=== PATIENT | female | born 1970 | race Caucasian/White ===

== ENCOUNTER 2018-11-28 09:53 | Emergency (ER) | payer MEDICAID, SELFPAY ==
[2018-11-28 09:54] VITALS: BP 145/98; PULSE 103; RESP 12; TEMP 36.3; O2SAT 99; BMI 25.5
--- NOTE | 2018-11-28 10:28 | ED.DCSUM_ITS ---
- ER Visit Summary Date of Service: 11/28/18 Chief Complaint: Left hand redness and swelling History of Present Illness: The patient is a 48 F who presents with redness and swelling to her left hand that began yesterday. Patient states she accidentally poked herself with something from her purse a few days ago. Patient states the redness and swelling is gradually gotten worse. Patient admits to some dull pain over her left hand. Patient states her pain is worse with movement. Patient denies any paresthesias or weakness. Patient states she has a history of a prior infections from cellulitis. Physical Examination: Vital signs are stable. Patient is afebrile. Patient is in no acute distress. Oral mucosa is pink and moist. Heart was regular rate and rhythm. Lungs are clear and equal bilaterally. There is edema, mild erythema, mild warmth of the dorsal aspect of the left hand. There is no fluctuance. There is no discharge or drainage. There is a superficial abrasion over the dorsal aspect of the left hand. There is no active bleeding noted. There is full range of motion of the left hand. Sensation was intact to light touch in all digits. Capillary refill was less than 2 seconds in all digits. Emergency Department Course and Treatment: Patient was given prescriptions for clindamycin and fluconazole because the patient states she normally gets yeast infections with antibiotics. Patient was instructed to keep the area clean. Patient was instructed to follow-up with her primary care physician in 7-10 days. Patient understood and was agreeable with the plan. All questions were answered. Disposition: Discharged home Impression: Left hand cellulitis This note was generated with [employer] dictation software. It may contain incorrect words, spelling, and punctuation that were not noted in review of the chart prior to signing ED Disposition - Plan for ED Patient: Disposition: Home or Assisted Living Chief Complaint: Cellulitis Diagnosis: Cellulitis of left hand excluding fingers and thumb Instructions: ED Infec Skin Cellulitis Prescriptions: Fluconazole [Diflucan] 150 mg PO X1 #1 tab Clindamycin HCl [Cleocin] 300 mg PO Q6H #40 cap Referrals: Jacklyn Wilson [Primary Care Provider] - González Benitez MD [STAFF PHYSICIAN] -
[2018-11-28 11:01] VITALS: TEMP 36.3
== END 2018-11-28 11:03 | disposition home or self-care (01) ==
PROVIDERS: Emergency Provider Emergency Medicine; Family Provider Family Medicine; PCP Family Medicine
DX: L03.114 Cellulitis of left upper limb (principal); K21.9 Gastro-esophageal reflux disease without esophagitis; J45.909 Unspecified asthma, uncomplicated; M54.9 Dorsalgia, unspecified; G89.29 Other chronic pain; F17.210 Nicotine dependence, cigarettes, uncomplicated
CPT/HCPCS: 99282

== ENCOUNTER 2025-05-13 23:24 | Emergency (ER) | payer MEDICAID, SELFPAY ==
--- NOTE | 2025-05-13 00:05 | RAD_ITS ---
PROCEDURE: WRIST MIN 3 VIEWS 05/14/2025 REASON FOR EXAM: INJURY/PAIN TECHNIQUE: WRIST MIN 3 VIEWS COMPARISON: None. FINDINGS: Mild osteopenia of the visualized bones. Degenerative joint disease. No fracture or dislocation is seen. No lytic or blastic bone lesion is noted. RAD/Wrist min 3 Views IMPRESSION: No evidence for acute abnormality. [facility]
[2025-05-13 23:25] VITALS: BP 137/94; PULSE 98; RESP 18; TEMP 36.4; O2SAT 100; BMI 27.6
--- NOTE | 2025-05-13 23:50 | RAD_ITS ---
PROCEDURE: PELVIS 1 OR 2 VIEWS 05/14/2025 REASON FOR EXAM: INJURY/PAIN TECHNIQUE: PELVIS 1 OR 2 VIEWS COMPARISON: None FINDINGS: There is a non-specific bowel gas pattern. Normal visualized soft tissue structures. Normal visualized sacrum, sacroiliac joints and bilateral iliac wings. Normal visualized bilateral superior and inferior pubic rami. Normal ischial tuberosities. Normal pubic symphysis. Normal visualized right femoral head. Normal right acetabulum. Normal right hip joint. Normal visualized left femoral head. Normal left acetabulum. Normal left hip joint. Minimal degenerative changes are seen in the lower lumbar vertebra. RAD/Pelvis 1 or 2 Views IMPRESSION: Normal examination of the pelvis. [facility]
[2025-05-13] MEDS: Naproxen 500 MG Tablet PO (23:56)
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
--- OUTSIDE RECORDS SUMMARY | 2025-05-14 00:29 | XMS RPT_ITS | CCD ---
Author Organization [facility] Care Team Providers Care Video Specialist Name Role Phone EMMETT HIRSCH Unavailable Unavailable EMMETT HIRSCH Unavailable Unavailable LANE CASTAÑEDA Unavailable Unavailable JACKLYN WILSON Unavailable Unavailable Gamaliel Cormier Primary Care Provider [phone] HAMIDA DWYER Attending Provider [phone] HAMIDA DWYER Referring Provider [phone] Gamaliel Cormier Primary Care Provider Gamaliel Cormier MD Primary Care Provider Gamaliel Cormier MD Primary Care Provider Assessment, Health Risk Referring Unavaila ble Assessment, Health Risk Attending Unavaila ble Jacklyn Wilson Primary Care Unavailable Gamaliel Cormier MD Primary Care Provider Gamaliel Cormier MD Primary Care Provider Gamaliel Cormier MD Primary Care Provider GAMALIEL CORMIER Primary Care UnavailHERNANDO Duarte Attending Unava ilable ROBERT TYSON Referring Unavailable GAMALIEL CORMIER Primary Care Unavailable GAMALIEL CORMIER Primary Care Unavailable GAMALIEL CORMIER Attending Unavailable OTILIA SIMONS Attending Unavailable GAMALIEL CORMIER Primary Care Unavailable GAMALIEL CORMIER Primary Care Unavailable ROHITH PEREZ Attending Unavailable GAMALIEL CORMIER Primary Care Unavailable PRABHAKAR BLACK Attending Unavailable GAMALIEL CORMIER Primary Care Unavailable ROBERT TYSON Attending Unavailable GAMALIEL CORMIER Primary Care Unavailable GAMALIEL CORMIER Primary Care Unavailable GAMALIEL CORMIER Primary Care Unavailabl e Unavailable Unavailable Unavailable Allergies Allergy Classification Reported Allergen(s) Allergy Type Date of Onset Reaction(s) Facility (20 sources) ibuprofen; Translations: [IBUPROFEN] Drug Allergy 1 Nausea And Vomiting, GI intolerance, Other [facility] Repository (20 sources) meloxicam; Translations: [MELOXICAM] Drug Allergy 6 Other (See Comments), Other [facility] Repository (20 sources) morphine; Translations: [MORPHINE] Drug Allergy 1 Nausea And Vomiting [facility] Repository (20 sources) naltrexone; Translations: [NALTREXONE] Drug Allergy 5 Anaphylaxis [facility] Repository (4 sources) sertraline; Translations: [SERTRALINE HCL] Drug Allergy 5 AOF [facility] Repository (20 sources) Sertraline Drug Allergy 5 Other (See Comments) [place], [place] Medications Current Medications Medication Drug Class(es) Dates Sig (Normalized) Sig (Original) acetaminophen 325 mg / HYDROcodone bitartrate 5 mg oral tablet (6 sources) Opioid Agonist Start: 04-01-2024 End: 04-04-2024 take 1 tablet by mouth every six hours as needed for pain HYDROcodone-aceta minophen ([place]) 5-325 MG tablet Indications: Contusion of right chest wall, initial encounter , Injury of right shoulder, initial encounter Take 1 tablet by mouth every 6 hours as needed for severe pain (7-10) for up to 3 days. 5 tablet 0 04/01/2024 04/04/2024 Active [id number] 200 actuat albuterol 0.09 mg/actuat metered dose inhaler (20 sources) beta2-Adrenergic Agonist Start: 11-25-2024 End: 03-12-2025 take 2 puff(s) by mouth every six hours as needed albuterol 108 (90 Base) MCG/ACT inhaler Indications: Simple chronic bronchitis (HCC) INHALE 2 PUFFS BY MOUTH EVERY 6 HOURS NEEDED FOR WHEEZE 18 each 2 03/12/2025 Active Start: 11-11-2024 End: 11-25-2024 take 2 puff(s) by mouth every six hours as needed albuterol 108 (90 Base) MCG/ACT inhaler Indications: Simple chronic bronchitis (HCC) TAKE 2 PUFFS BY MOUTH EVERY 6 HOURS NEEDED FOR WHEEZE 18 g 2 11/11/2024 11/25/2024 Discontinued Start: 10-08-2024 take 2 puff(s) by mo uth every six hours as needed albuterol 108 (90 Base) MCG/ACT inhaler Indications: Simple chronic bronchitis (HCC) TAKE 2 PUFFS BY MOUTH EVERY 6 HOURS NEEDED FOR WHEEZE 18 each 10/08/2024 Active Start: 06-03-2024 End: 10-08-2024 take 2 puff(s) by inhalation every six hours as needed for wheezing albuterol 108 (90 Base) MCG/ACT inhaler Indications: Simple chronic bronchitis (HCC) Inhale 2 puffs every 6 hours as needed for wheezing. 18 g 2 07/26/2024 10/08/2024 Discontinued Start: 05-09-2024 take 2 puff(s) by mo uth every six hours for wheezing albuterol 108 (90 Base) MCG/ACT inhaler Indications: Simple chronic bronchitis (HCC) inhale 2 puffs by mouth every 6 hours if needed for wheezing 8.5 g 0 05/09/2024 Active Start: 02-02-2023 End: 05-09-2024 take 2 puff(s) by inhalation every six hours as needed for wheezing albuterol 108 (90 Base) MCG/ACT inhaler Indications: Simple chronic bronchitis (HCC) Inhale 2 puffs every 6 hours as needed for wheezing. 18 g 2 01/16/2024 05/09/2024 Discontinued Start: 12-27-2022 End: 01-04-2023 take 2 puff(s) by mouth every six hours for wheezing albuterol 108 (90 Base) MCG/ACT inhaler inhale 2 puffs by mouth and INTO THE LUNGS every 6 hours if needed for wheezing 18 g 2 12/27/2022 01/04/2023 Discontinued (Duplicate order) Start: 10-17-2022 End: 12-27-2022 take 2 puff(s) by mouth every six hours for wheezing albuterol (Ventolin HFA) 108 (90 Base) MCG/ACT inhaler inhale 2 puffs by mouth and INTO THE LUNGS every 6 hours if needed for wheezing 18 g 2 10/17/2022 12/27/2022 Discontinued Start: 12-22-2021 take 2 puff(s) by mo uth every six hours for wheezing albuterol sulfate HFA 108 (90 Base) MCG/ACT inhaler inhale 2 puffs by mouth and INTO THE LUNGS every 6 hours if needed for wheezing 18 g 3 12/22/2021 Active Start: 10-05-2020 albuterol (PRO VENTIL) nebulizer solution 2.5 mg Start: 02-21-2020 take 2 puff(s) by in halation every six hours as needed for wheezing albuterol sulfate HFA (VENTOLIN HFA) 108 (90 Base) MCG/ACT inhaler Inhale 2 puffs into the lungs every 6 hours as needed for Wheezing 18 g 3 02/21/2020 Active Start: 10-23-2019 Albuterol Sulf ate Active 2 PUFF Every 4-6 hours October 23, 2019 9:25am Start: 07-05-2019 take 2 puff(s) by in halation every six hours as needed for wheezing 2 puff, Inhalation, EVERY 6 HOURS PRN, Wheezing, Starting Mon07/05/19 at 1058 Start: 06-25-2019 take 2 puff(s) by in halation every six hours as needed for wheezing albuterol sulfate HFA (VENTOLIN HFA) 108 (90 Base) MCG/ACT inhaler Inhale 2 puffs into the lungs every 6 hours as needed for Wheezing 18 g 3 06/25/2019 Active Start: 12-07-2015 End: 02-02-2023 take 2 puff(s) by mouth every six hours for wheezing albuterol 108 (90 Base) MCG/ACT inhaler inhale 2 puffs by mouth and INTO THE LUNGS every 6 hours if needed for wheezing 0 12/07/2015 02/02/2023 Discontinued (Reorder) amitriptyline hydrochloride 150 mg oral tablet (1 source) Tricyclic Antidepressant Start: 10-23-2019 Amitriptyline Hcl Active 150 MG Bedtime October 23, 2019 9:27am azithromycin 250 mg oral tablet (1 source) Macrolide Antimicrobial Start: 08-23-2024 End: 08-28-2024 azithromycin (Zithromax) 250 MG tablet Indications: Acute bronchitis, unspecified organism Take 2 tabs (500 mg) by mouth today, than 1 daily for 4 days. 6 tablet 08/23/2024 08/28/2024 Active baclofen 5 mg oral tablet (5 sources) gamma-Aminobutyric Acid-ergic Agonist Start: 12-04-2024 take 1 tablet by mouth three times daily baclofen (Lioresal) 5 MG tablet Take 1 tablet (5 mg) by mouth 3 times daily. 30 tablet 12/04/2024 Active benzonatate 200 mg oral capsule (2 sources) Non-narcotic Antitussive Start: 08-23-2024 End: 09-22-2024 take 1 capsule by mouth three times daily as needed for cough benzonatate (Tessalon) 200 MG capsule Indications: Acute bronchitis, unspecified organism Take 1 capsule (200 mg) by mouth 3 times daily as needed for cough. Do not crush or chew. 42 capsule 08/23/2024 09/22/2024 Active Start: 10-05-2020 End: 10-12-2020 take 1 capsule by mouth three times daily as needed for cough benzonatate (TESSALON) 100 MG capsule Take 1 capsule by mouth 3 times daily as needed for Cough 20 capsule 0 10/05/2020 10/12/2020 Active 60 actuat budesonide 0.08 mg/actuat / formoterol fumarate 0.0045 mg/actuat metered dose inhaler (4 sources) Corticosteroid, beta2-Adrenergic Agonist Start: 06-26-2019 take 2 puff(s) by inhalation twice daily budesonide-formoterol (SYMBICORT) 80-4.5 MCG/ACT AERO Indications: Moderate persistent asthma without complication Inhale 2 puffs into the lungs 2 times daily 1 Inhaler 0 06/26/2019 Active cyclobenzaprine hydrochloride 5 mg oral tablet (1 source) Muscle Relaxant Start: 10-23-2019 Cyclobenzaprine Hcl Active 5 MG 3 times per day October 23, 2019 9:26am diclofenac sodium 0.01 mg/mg topical gel (2 sources) Nonsteroidal Anti-inflammatory Drug Start: 07-04-2019 diclofenac sodium 1 % GEL Apply 4 g topically 4 times daily 2 Tube 0 07/04/2019 Active doxycycline hyclate 100 mg oral capsule (8 sources) Tetracycline-class Drug Start: 05-27-2023 End: 06-06-2023 doxycycline (Vibramycin) 100 MG capsule Take 1 capsule (100 mg) by mouth 2 times daily for 10 days. Take with at least 8 ounces (large glass) of water, do not lie down for 30 minutes after 20 capsule 0 05/27/2023 06/06/2023 Active Start: 05-27-2023 End: 05-27-2023 doxycycline (Monodox) capsul e 100 mg Start: 03-27-2022 take 1 tablet by jose th twice daily doxycycline hyclate (VIBRA-TABS) 100 MG tablet TAKE 1 TABLET BY MOUTH TWICE DAILY FOR 10 DAYS 0 03/27/2022 Active Start: 07-07-2019 End: 07-14-2019 take 1 tablet by mouth twice daily doxycycline hyclate (VIBRA-TABS) 100 MG tablet Take 1 tablet by mouth 2 times daily for 7 days 14 tablet 0 07/07/2019 07/14/2019 Active Elastic Bandages & Supports (ABDOMINAL BINDER/ELASTIC MED) MISC (2 sources) Start: 03-18-2019 Elastic Bandages & Supports (ABDOMINAL BINDER/ELASTIC MED) MISC Indications: Chronic bilateral low back pain without sciatica 1 applicator by Does not apply route daily To be worn when lifting over 20 pounds only when lifting. Otherwise should not use 1 each 0 03/18/2019 Active 0.4 ml enoxaparin sodium 100 mg/ml prefilled syringe (1 source) Low Molecular Weight Heparin Start: 07-05-2019 inject 40 mg by subcutaneous injection once daily 40 mg, Subcutaneous, DAILY, First dose on Mon07/05/19 at 1115 famotidine 40 mg oral tablet (1 source) Histamine-2 Receptor Antagonist Start: 10-23-2019 Famotidine Active 40 MG Daily October 23, 2019 9:30am 60 actuat formoterol fumarate 0.005 mg/actuat / mometasone furoate 0.1 mg/actuat metered dose inhaler (1 source) Corticosteroid, beta2-Adrenergic Agonist Start: 07-05-2019 take 2 puff(s) by inhalation twice daily 2 puff, Inhalation, 2 TIMES DAILY, First dose on Mon07/05/19 at 1115 Substituted for Budesonide-Formote rol (SYMBICORT). hydrOXYzine hydrochloride 25 mg oral tablet (6 sources) Antihistamine Start: 07-05-2019 hydrOXYzine (ATARAX) tablet 50 mg Start: 07-03-2019 End: 10-05-2020 take 1 capsule by mouth three times daily as needed for anxiety hydrOXYzine (VISTARIL) 50 MG capsule Take 1 capsule by mouth 3 times daily as needed for Anxiety 90 capsule 1 07/03/2019 10/05/2020 Discontinued (LIST CLEANUP) LORazepam 0.5 mg oral tablet (1 source) Benzodiazepine Start: 10-23-2019 Lorazepam Active 0.25 MG Bedtime October 23, 2019 9:26am magnesium hydroxide 80 mg/ml oral suspension (1 source) Start: 07-05-2019 take 30 mL by mouth once daily as needed for constipation 30 mL, Oral, DAILY PRN, Constipation, Starting Mon07/05/19 at 1058 First line therapy for constipation. methylPREDNISolone 4 mg oral tablet (2 sources) Corticosteroid Start: 03-06-2025 methylPREDNISolone (Medrol Dospak) 4 MG tablets Take as directed on package. 21 tablet 03/06/2025 Active Multivitamin preparation (1 source) Start: 10-23-2019 Multivitamin Active 1 TAB Every morning October 23, 2019 9:31am nabumetone 750 mg oral tablet (9 sources) Nonsteroidal Anti-inflammatory Drug Start: 12-04-2024 take 1 tablet by mouth twice daily nabumetone (Relafen) 750 MG tablet Take 1 tablet (750 mg) by mouth 2 times daily. 60 tablet 12/04/2024 Active Start: 07-15-2019 End: 10-05-2020 take 0.5 tablet by mouth twice daily nabumetone (RELAFEN) 500 MG tablet Take 0.5 tablets by mouth 2 times daily 60 tablet 0 07/15/2019 10/05/2020 Discontinued 24 hr nicotine 0.583 mg/hr transdermal system (1 source) Cholinergic Nicotinic Agonist Start: 07-05-2019 apply 1 dose transdermal route once daily 1 patch, Transdermal, Administer over 24 Hours, DAILY, First dose on Mon07/05/19 at 1115 Apply new patch to nonhairy, clean, dry skin on the upper body or upper outer arm. Rotate patch sites. Notify pharmacy if patient or provider prefers patch to be removed at bedtime and replaced in the morning. Hazardous Medication -- Refer to facility policy for handling and disposal. omeprazole 40 mg delayed release oral capsule (20 sources) Proton Pump Inhibitor Start: 03-18-2025 End: 03-18-2026 take 1 capsule by mouth once daily before breakfast omeprazole (PriLOSEC) [address] capsule Indications: Gastroesophageal reflux disease without esophagitis Take 1 capsule (40 mg) by mouth every morning (before breakfast). Do not crush or chew. 30 capsule 11 03/18/2025 03/18/2026 Active Start: 10-28-2015 End: 02-02-2023 take 1 capsule by mouth in the morning omeprazole (PriLOSEC) [address] capsule Take 1 capsule by mouth in the morning. 0 10/28/2015 02/02/2023 Discontinued (Med list cleanup) ondansetron 4 mg disintegrating oral tablet (20 sources) Serotonin-3 Receptor Antagonist Start: 04-01-2024 End: 04-08-2024 take 1 tablet by mouth every eight hours as needed for nausea and vomiting ondansetron ODT (Zofran-ODT) 4 MG disintegrating tablet Take 1 tablet (4 mg) by mouth every 8 hours as needed for nausea or vomiting for up to 7 days. 12 tablet 0 04/01/2024 04/08/2024 Active Start: 08-30-2023 End: 12-04-2024 take 1 tablet by mouth every six hours as needed for nausea ondansetron ODT (Zofran-ODT) 4 MG disintegrating tablet Take 1 tablet (4 mg) by mouth every 6 hours as needed for nausea. 20 tablet 12/04/2024 Active Start: 04-01-2022 End: 05-27-2023 ondansetron ODT (Zofran-ODT) 4 MG disintegrating tablet dissolve 1 tablet ON TONGUE three times a day if needed for nausea or vomiting 0 04/01/2022 05/27/2023 Discontinued Start: 03-09-2020 End: 10-05-2020 take 1 tablet by mouth every eight hours as needed for nausea ondansetron (ZOFRAN) 4 MG tablet Take 1 tablet by mouth every 8 hours as needed for Nausea 10 tablet 0 03/09/2020 10/05/2020 Discontinued Start: 07-05-2019 4 mg, Intraven ous, EVERY 6 HOURS PRN, Nausea, Starting Mon07/05/19 at 1058 Start: 07-03-2019 take 1 tablet by jose th every eight hours as needed for nausea ondansetron (ZOFRAN) 4 MG tablet Take 1 tablet by mouth every 8 hours as needed for Nausea 10 tablet 0 07/03/2019 Active oseltamivir 75 mg oral capsule (6 sources) Neuraminidase Inhibitor Start: 11-24-2024 End: 11-29-2024 take 1 capsule by mouth twice daily oseltamivir (Tamiflu) 75 MG capsule Take 1 capsule (75 mg) by mouth 2 times daily for 5 days. 10 capsule 11/24/2024 11/29/2024 Active Start: 01-23-2020 End: 01-28-2020 take 1 capsule by mouth twice daily oseltamivir (TAMIFLU) 75 MG capsule Take 1 capsule by mouth 2 times daily for 5 days 9 capsule 0 01/23/2020 01/28/2020 Active oxymetazoline hydrochloride 0.5 mg/ml nasal spray (20 sources) Start: 02-27-2024 End: 02-29-2024 oxymetazoline (Afrin) 0.05 % nasal spray Administer 2 sprays into each nostril every 12 hours as needed for congestion for up to 2 days. Do not use for more than 3 days. 30 mL 02/27/2024 Active End: 05-27-2023 oxymetazoline (Afrin) 0.05 % nasal spray Administer into each nostril. Do not use for more than 3 days. 0 05/27/2023 Discontinued piperacillin 3000 mg / tazobactam 375 mg injection (1 source) Penicillin-class Antibacterial, beta Lactamase Inhibitor Start: 07-06-2019 piperacillin-tazobactam (ZOSYN) 3.375 g in dextrose 50 mL IVPB extended infusion (premix) polyethylene glycol 3350 [id number] mg / potassium chloride 2970 mg / sodium bicarbonate 6740 mg / sodium chloride 5860 mg / sodium sulfate 61430 mg powder for oral solution (2 sources) Osmotic Laxative Start: 12-15-2022 End: 12-16-2022 polyethylene glycol (GaviLyte-G) 236 g solution Starting at noon on day prior to procedures, drink 8 ounces every 30 minutes until all gone and stools are clear. May add flavor packet. 4000 mL 0 12/15/2022 12/16/2022 Active 1 ml promethazine hydrochloride 25 mg/ml injection (1 source) Phenothiazine Start: 07-06-2019 promethazine (PHENERGAN) injection 6.25 mg vancomycin (VANCOCIN) 1,250 mg in dextrose 5 % 250 mL IVPB (1 source) Start: 07-05-2019 vancomycin (VANCOCIN) 1,250 mg in dextrose 5 % 250 mL IVPB Completed/Discontinued Medications Medication Drug Class(es) Dates Sig (Normalized) Sig (Original) acetaminophen 500 mg oral tablet (14 sources) Start: 11-24-2024 End: 11-24-2024 1,000 mg, Oral, Once, On 11/24/24 at 1925, For 1 dose, Maximum dose of acetaminophen is 4000 mg from all sources in 24 hours. Start: 04-01-2024 End: 04-01-2024 acetaminophen (Tylenol) tabl et 650 mg Start: 02-27-2024 End: 02-27-2024 acetaminophen (Tylenol) tabl et 1,000 mg Start: 02-27-2024 End: 02-27-2024 acetaminophen (Tylenol) tabl et 1,000 mg Start: 08-28-2023 End: 08-28-2023 acetaminophen (Tylenol) tabl et 650 mg Start: 05-11-2022 End: 05-11-2022 acetaminophen (TYLENOL) tabl et 1,000 mg Start: 01-23-2020 End: 01-23-2020 acetaminophen (TYLENOL) tabl et 1,000 mg Start: 09-06-2019 End: 09-06-2019 acetaminophen (TYLENOL) tabl et 1,000 mg Start: 07-05-2019 End: 07-05-2019 acetaminophen (TYLENOL) tabl et 650 mg amoxicillin 500 mg oral tablet (1 source) Penicillin-class Antibacterial Start: 02-21-2020 End: 10-05-2020 take 1 tablet by mouth three times daily Amoxicillin 500 MG TABS Take 500 mg by mouth 3 times daily 21 tablet 0 02/21/2020 10/05/2020 Discontinued amoxicillin 875 mg / clavulanate 125 mg oral tablet (3 sources) Penicillin-class Antibacterial Start: 10-05-2020 End: 10-05-2020 amoxicillin-clavul anate (AUGMENTIN) 875-125 MG per tablet 1 tablet Start: 10-05-2020 End: 10-15-2020 take 1 tablet by mouth twice daily amoxicillin-clavulanate (AUGMENTIN XR) 1000-62.5 MG per extended release tablet Take 1 tablet by mouth 2 times daily for 10 days 20 tablet 0 10/05/2020 10/15/2020 Active Start: 07-07-2019 End: 07-14-2019 take 1 tablet by mouth twice daily amoxicillin-clavulanate (AUGMENTIN) 875-125 MG per tablet Take 1 tablet by mouth 2 times daily for 7 days 14 tablet 0 07/07/2019 07/14/2019 Active ceFAZolin 1000 mg injection (1 source) Cephalosporin Antibacterial Start: 07-05-2019 End: 07-06-2019 1 g, Intravenous, EVERY 8 HOURS, First dose on Mon07/05/19 at 1130, Until Discontinued cephalexin 500 mg oral capsule (20 sources) Cephalosporin Antibacterial Start: 11-24-2024 End: 11-24-2024 take 500 mg by mouth once 500 mg, Oral, Once, On 11/24/24 at 1925, For 1 dose, Suspected Indication (Select all that apply): Skin and Soft Tissue Infection Start: 11-24-2024 End: 12-04-2024 take 1 capsule by mouth four times daily cephalexin (Keflex) 500 MG capsule Take 1 capsule (500 mg) by mouth 4 times daily for 7 days. 28 capsule 11/24/2024 12/04/2024 Active Start: 04-01-2024 End: 04-08-2024 cephalexin (Keflex) 500 MG c apsule Take 1 capsule (500 mg) by mouth in the morning and 1 capsule (500 mg) at noon and 1 capsule (500 mg) in the evening and 1 capsule (500 mg) before bedtime. Do all this for 7 days. 28 capsule 0 04/01/2024 04/08/2024 Active Start: 08-28-2023 End: 09-07-2023 take 1 capsule by mouth three times daily cephalexin (Keflex) 500 MG capsule Take 1 capsule (500 mg) by mouth 3 times daily for 10 days. 30 capsule 0 08/28/2023 09/07/2023 Active Start: 08-15-2023 End: 08-22-2023 cephalexin (Keflex) 500 MG c apsule Indications: Cellulitis of right lower extremity Take 1 capsule (500 mg) by mouth in the morning and 1 capsule (500 mg) at noon and 1 capsule (500 mg) in the evening and 1 capsule (500 mg) before bedtime. Do all this for 7 days. 28 capsule 0 08/15/2023 08/22/2023 Active Start: 06-21-2023 End: 06-28-2023 cephalexin (Keflex) 500 MG c apsule Indications: Cellulitis of left lower extremity Take 1 capsule (500 mg) by mouth in the morning and 1 capsule (500 mg) at noon and 1 capsule (500 mg) in the evening and 1 capsule (500 mg) before bedtime. Do all this for 7 days. 28 capsule 0 06/21/2023 06/28/2023 Active Start: 02-02-2023 End: 02-12-2023 take 1 capsule by mouth three times daily cephalexin (Keflex) 500 MG capsule Take 1 capsule (500 mg) by mouth 3 times daily for 10 days. 30 capsule 0 02/02/2023 02/12/2023 Active Start: 07-03-2019 End: 07-07-2019 take 1 capsule by mouth four times daily cephALEXin (KEFLEX) 500 MG capsule Take 1 capsule by mouth 4 times daily for 5 days 20 capsule 0 07/03/2019 07/07/2019 Discontinued (Stop Taking at Discharge) 24 hr desvenlafaxine succinate 25 mg extended release oral tablet (6 sources) Serotonin and Norepinephrine Reuptake Inhibitor Start: 10-28-2022 End: 01-04-2023 take 1 tablet by mouth once daily desvenlafaxine succinate ER 25 MG 24 hour tablet Indications: Hot flashes due to menopause , Anxiety and depression Take 1 tablet (25 mg) by mouth daily. 30 tablet 1 10/28/2022 01/04/2023 Discontinued (Therapy completed) diazePAM 2 mg oral tablet (20 sources) Benzodiazepine Start: 08-14-2023 End: 08-23-2024 take 1 tablet by mouth every twenty-four hours as needed for anxiety and anxiety and anxiety diazePAM (Valium) 2 MG tablet Indications: Anxiety Take 1 tablet (2 mg) by mouth Daily as needed for anxiety for up to 10 days. 10 tablet 08/14/2023 08/23/2024 Discontinued (Therapy completed) esomeprazole 40 mg delayed release oral capsule (20 sources) Proton Pump Inhibitor Start: 08-23-2024 End: 08-23-2025 take 1 capsule by mouth once daily before breakfast esomeprazole (NexIUM) [address] capsule Indications: Gastroesophageal reflux disease, unspecified whether esophagitis present Take 1 capsule (40 mg) by mouth every morning (before breakfast). Do not open capsule. 30 capsule 11 08/23/2024 03/18/2025 Discontinued (Formulary change) Start: 12-12-2022 End: 01-16-2024 take 1 capsule by mouth once daily before breakfast esomeprazole (NexIUM) [address] capsule Take 1 capsule (40 mg) by mouth every morning (before breakfast). 30 capsule 5 04/26/2023 01/16/2024 Discontinued (Therapy completed) Start: 11-18-2021 take 1 capsule by mo ut once daily before breakfast esomeprazole (NEXIUM) 40 MG delayed release capsule Take 1 capsule by mouth every morning (before breakfast) 30 capsule 5 11/18/2021 Active fluconazole 150 mg oral tablet (20 sources) Azole Antifungal Start: 12-03-2024 End: 12-03-2024 take 1 tablet by mouth once daily fluconazole (Diflucan) 150 MG tablet Take 1 tablet (150 mg) by mouth daily. 2 tablet 12/03/2024 12/03/2024 Discontinued (Therapy completed) Start: 06-21-2023 End: 08-23-2024 fluconazole (Diflucan) 150 M G tablet Indications: Vaginal yeast infection Take 1 tablet by mouth every 3 days by mouth x 3 doses 1 tablet 08/15/2023 08/23/2024 Discontinued (Therapy completed) Start: 05-30-2023 End: 05-30-2023 fluconazole (Diflucan) 200 M G tablet Take 1 tablet (200 mg) by mouth Once for 1 dose. Do not start before May 30, 2023. 1 tablet 0 05/30/2023 05/30/2023 Active Start: 05-27-2023 End: 05-27-2023 fluconazole (Diflucan) table t 100 mg Start: 03-27-2022 End: 05-31-2023 take 1 tablet by mouth once fluconazole (Diflucan) 150 MG tablet Take 150 mg by mouth 1 (one) time. 0 10/28/2022 02/02/2023 Discontinued (Reorder) ipratropium bromide 0.2 mg/ml inhalant solution (1 source) Anticholinergic Start: 10-05-2020 End: 10-05-2020 ipratropium (ATROVENT) 0.02 % nebulizer solution 0.5 mg ketoconazole 20 mg/ml topical cream (18 sources) Azole Antifungal Start: 01-16-2024 End: 08-23-2024 ketoconazole (NIZOral) 2 % cream Indications: Rash Apply topically 2 times daily. 30 g 01/16/2024 08/23/2024 Discontinued (Therapy completed) 2 ml ketorolac tromethamine 30 mg/ml cartridge (3 sources) Nonsteroidal Anti-inflammatory Drug, Cyclooxygenase Inhibitor Start: 06-21-2023 End: 06-21-2023 ketorolac (Toradol) injection 60 mg Start: 09-06-2019 End: 09-06-2019 ketorolac (TORADOL) injectio n 60 mg lansoprazole 30 mg delayed release oral capsule (6 sources) Proton Pump Inhibitor Start: 03-09-2020 End: 10-05-2020 take 1 capsule by mouth once daily lansoprazole (PREVACID) 30 MG delayed release capsule Indications: Gastroesophageal reflux disease without esophagitis Take 1 capsule by mouth daily 90 capsule 1 03/09/2020 10/05/2020 Discontinued Start: 06-26-2019 Lansoprazole A ctive 30 MG Daily October 23, 2019 9:30am lidocaine 0.04 mg/mg medicated patch (2 sources) Antiarrhythmic, Amide Local Anesthetic Start: 04-01-2024 End: 04-01-2024 Lidocaine 4 % patch 1 patch Multiple Vitamins-Minerals (CENTRUM MULTIGUMMIES PO) (5 sources) End: 10-05-2020 Multiple Vitamins-Minerals (CENTRUM MULTIGUMMIES PO) Take by mouth daily 0 10/05/2020 Discontinued Multiple Vitamin s-Minerals (CENTRUM MULTIGUMMIES PO) Take by mouth daily 0 Active naproxen 500 mg oral tablet (20 sources) Nonsteroidal Anti-inflammatory Drug Start: 04-01-2024 End: 04-01-2024 naproxen (Naprosyn) tablet 500 mg Start: 07-06-2019 naproxen (NAPR OSYN) tablet 500 mg Start: 06-26-2019 take 1 tablet by jose twice daily at mealtime naproxen (NAPROSYN) 250 MG tablet Indications: Chronic bilateral low back pain without sciatica Take 1 tablet by mouth 2 times daily (with meals) 60 tablet 3 06/26/2019 Active NAPROXEN PO Take 220 mg by mouth. 2 tabs prn Active NAPROXEN PO Take 220 mg by mouth. 2 tabs prn 0 Active NAPROXEN PO Take by mouth. 0 Active NAPROXEN PO Take by mouth 0 Active 2 ml orphenadrine citrate 30 mg/ml injection (1 source) Muscle Relaxant Start: 09-06-2019 End: 09-06-2019 orphenadrine (NORFLEX) injection 60 mg pantoprazole 40 mg delayed release oral tablet (15 sources) Proton Pump Inhibitor Start: 01-16-2024 End: 08-23-2024 take 1 tablet by mouth once daily pantoprazole (ProtoNix) 40 MG EC tablet Indications: Gastroesophageal reflux disease without esophagitis Take 1 tablet (40 mg) by mouth daily. Do not crush, chew, or split. 30 tablet 1 01/16/2024 08/23/2024 Discontinued (Alternate therapy) Start: 07-05-2019 take 40 mg by mouth once daily before breakfast 40 mg, Oral, DAILY BEFORE BREAKFAST, First dose on Mon07/05/19 at 1100 Do not crush or break. Substituted for Lansoprazole (PREVACID). polyethylene glycol 3350 68832 mg powder for oral solution (6 sources) Osmotic Laxative Start: 12-15-2022 End: 01-14-2023 take 17 g by mouth once daily polyethylene glycol, PEG, 3350 (Miralax) 17 g packet Take 17 g by mouth daily. 30 packet 0 12/15/2022 01/04/2023 Discontinued (Therapy completed) 12 hr pseudoephedrine hydrochloride 120 mg extended release oral tablet (10 sources) alpha-Adrenerg ic Agonist Start: 02-27-2024 End: 08-23-2024 take 1 tablet by mouth in the morning, then take 1 tablet by mouth every twelve hours in the evening pseudoephedrine ER (Sudafed-12 Hour) 120 MG 12 hr tablet Take 1 tablet (120 mg) by mouth in the morning and 1 tablet (120 mg) in the evening. Do all this for 10 days. Do not crush, chew, or split.. 20 tablet 02/27/2024 08/23/2024 Discontinued (Therapy completed) 50 ml sodium chloride 9 mg/ml injection (19 sources) Start: 08-28-2023 End: 08-28-2023 sodium chloride 0.9 % bolus 1,000 mL Start: 12-28-2022 End: 12-28-2022 sodium chloride 0.9% (NS) fl ush 10 mL Start: 12-28-2022 End: 12-28-2022 sodium chloride 0.9% (NS) fl ush 10 mL Start: 12-28-2022 End: 12-28-2022 sodium chloride 0.9% (NS) fl ush 10 mL Start: 12-28-2022 End: 12-28-2022 sodium chloride 0.9% (NS) fl ush 10 mL Start: 12-28-2022 End: 12-28-2022 sodium chloride 0.9 % infusi on Start: 12-28-2022 End: 12-28-2022 sodium chloride 0.9% (NS) fl ush 10 mL Start: 07-05-2019 Intravenous, a t 75 mL/hr, CONTINUOUS, Starting Mon07/05/19 at 1115 Start: 07-05-2019 10 mL, Intrave nous, EVERY 12 HOURS SCHEDULED (2 times per day), First dose on Mon07/05/19 at 1115 Start: 07-05-2019 take 10 mL intraveno us route once as needed 10 mL, Intravenous, PRN, Line Care, After every IV line use, Starting Mon07/05/19 at 1058 sulfamethoxazole 800 mg / trimethoprim 160 mg oral tablet (19 sources) Dihydrofolate Reductase Inhibitor Antibacterial, Sulfonamide Antimicrobial Start: 11-24-2024 End: 11-24-2024 take 1 tablet by mouth once 1 tablet, Oral, Once, On 11/24/24 at 1925, For 1 dose, Suspected Indication (Select all that apply): Skin and Soft Tissue Infection Start: 11-24-2024 End: 12-04-2024 take 1 tablet by mouth twice daily sulfamethoxazole-trimethoprim (Bactrim D S) 800-160 MG tablet Take 1 tablet by mouth 2 times daily for 10 days. 20 tablet 11/24/2024 12/04/2024 Active Start: 04-01-2024 End: 04-08-2024 take 1 tablet by mouth twice daily sulfamethoxazole-trimethoprim (Bactrim D S) 800-160 MG tablet Take 1 tablet by mouth 2 times daily for 7 days. 14 tablet 0 04/01/2024 04/08/2024 Active Start: 08-15-2023 End: 08-22-2023 take 1 tablet by mouth twice daily sulfamethoxazole-trimethoprim (Bactrim D S) 800-160 MG tablet Indications: Cellulitis of right lower extremity Take 1 tablet by mouth 2 times daily for 7 days. 14 tablet 0 08/15/2023 08/22/2023 Active Start: 06-21-2023 End: 06-28-2023 take 1 tablet by mouth twice daily sulfamethoxazole-trimethoprim (Bactrim D S) 800-160 MG tablet Indications: Cellulitis of left lower extremity Take 1 tablet by mouth 2 times daily for 7 days. 14 tablet 0 06/21/2023 06/28/2023 Active Start: 07-03-2019 End: 07-07-2019 take 1 tablet by mouth twice daily sulfamethoxazole-trimethoprim (BACTRIM D S) 800-160 MG per tablet Take 1 tablet by mouth 2 times daily for 5 days 10 tablet 0 07/03/2019 07/07/2019 Discontinued (Stop Taking at Discharge) traMADol hydrochloride 50 mg oral tablet (2 sources) Opioid Agonist Start: 07-05-2019 End: 07-06-2019 traMADol (ULTRAM) tablet 50 mg Start: 07-05-2019 End: 07-05-2019 traMADol (ULTRAM) tablet 25 mg 200 ml vancomycin 5 mg/ml injection (1 source) Glycopeptide Antibacterial Start: 07-05-2019 End: 07-05-2019 vancomycin (VANCOCIN) 1000 mg in dextrose 5% 200 mL IVPB Problems Active Problems Problem Classification Problem Date Documented Date Episodic/Chronic Administrative/socia l admission (1 source) Education with explicit context; Translations: [Educated about COVID-19 virus infection] Episodic Alcohol-related disorders (20 sources) Alcohol dependence, uncomplicated; Translations: [Alcohol dependence] Onset: 10-28-2015 Resolved: 03-18-2019 03-18-2019 Chronic Anxiety disorders (20 sources) Anxiety disorder, unspecified; Translations: [Anxiety] Onset: 09-09-2009 Resolved: 01-05-2022 08-02-2016 Chronic Asthma (20 sources) Asthma; Translations: [Unspecified asthma, uncomplicated] Onset: 06-02-2009 08-02-2016 Chronic Calculus of urinary tract (1 source) Calculus of ureter; Translations: [Ureteral stone] Onset: 08-30-2023 Episodic Chronic obstructive pulmonary disease and bronchiectasis (20 sources) Acute exacerbation of chronic obstructive airways disease; Translations: [Chronic obstructive pulmonary disease with (acute) exacerbation] Onset: 03-08-2023 03-08-2023 Chronic Chronic obstructive pulmonary disease and bronchiectasis (2 sources) Bronchitis; Translations: [Bronchitis, not specified as acute or chronic] 02-27-2024 Episodic Esophageal disorders (20 sources) Gastroesophageal reflux disease without esophagitis; Translations: [Gastro-esophageal reflux disease without esophagitis] Onset: 10-28-2015 08-02-2016 Chronic Menopausal disorders (20 sources) Menopausal flushing; Translations: [Menopausal and female climacteric states] Onset: 10-28-2022 10-28-2022 Chronic Mycoses (2 sources) Candidiasis of vagina; Translations: [Vaginal yeast infection] 06-21-2023 Episodic Nutritional deficiencies (1 source) Vitamin D deficiency; Translations: [Vitamin D deficiency, unspecified] Chronic Osteoarthritis (2 sources) Degenerative joint disease involving multiple joints; Translations: [Polyosteoarthritis, unspecified] Chronic Other connective tissue disease (16 sources) Pain of left hand; Translations: [Pain in left hand] Episodic Other connective tissue disease (16 sources) Pain in right foot; Translations: [Pain in right foot] Episodic Other connective tissue disease (16 sources) Pain in left foot; Translations: [Pain in left foot] Episodic Other connective tissue disease (3 sources) Pain in right hand; Translations: [Pain in right hand] Episodic Other injuries and conditions due to external causes (2 sources) Injury of right shoulder; Translations: [Unspecified injury of right shoulder and upper arm, initial encounter] 04-01-2024 Episodic Other nervous system disorders (3 sources) Other chronic pain; Translations: [Other chronic pain] Onset: 09-29-2017 Chronic Other nervous system disorders (20 sources) Neuropathy; Translations: [Polyneuropathy, unspecified] Onset: 03-08-2023 Chronic Other nervous system disorders (16 sources) Chronic pain; Translations: [Other chronic pain] Chronic Other non-traumatic joint disorders (1 source) Polyarthritis, unspecified; Translations: [Polyarthritis, unspecified] Onset: 09-29-2017 Chronic Other non-traumatic joint disorders (16 sources) Pain in left knee; Translations: [Pain in joint, lower leg] Episodic Other upper respiratory infections (11 sources) Acute maxillary sinusitis; Translations: [Acute bacterial sinusitis] Onset: 03-12-2021 Resolved: 01-05-2022 01-05-2022 Episodic Residual codes; unclassified (1 source) FH: Thyroid disorder; Translations: [Family history of other endocrine, nutritional and metabolic diseases] Episodic Residual codes; unclassified (1 source) History of colonoscopy; Translations: [Other specified postprocedural states] Episodic Rheumatoid arthritis and related disease (20 sources) Juvenile rheumatoid arthritis; Translations: [Unspecified juvenile rheumatoid arthritis of unspecified site] Onset: 01-28-2017 01-28-2017 Chronic Spondylosis; intervertebral disc disorders; other back problems (20 sources) Degeneration of lumbar intervertebral disc; Translations: [Other intervertebral disc degeneration, lumbar region] Onset: 05-14-2018 02-21-2020 Chronic Substance-related disorders (20 sources) Nicotine dependence, unspecified, uncomplicated; Translations: [Smoker] Onset: 10-28-2015 08-02-2016 Chronic Unclassified (2 sources) Unknown / UNK(Unknown) Onset: 09-29-2017 Unclassified (1 source) Strain of muscle at thorax level; Translations: [Thoracic myofascial strain, initial encounter] Unclassified (1 source) Low back pain, unspecified; Translations: [Low back pain, unspecified] Onset: 12-04-2024 Unclassified (2 sources) Right finger laceration Onset: 04-12-2024 Past or Other Problems Problem Classification Problem Date Documented Da te Episodic/Chronic Abdominal hernia (20 sources) Hiatal hernia; Translations: [Diaphragmatic hernia without obstruction or gangrene] Onset: 03-08-2023 Episodic Abdominal pain (9 sources) Abdominal pain; Translations: [Unspecified abdominal pain] Onset: 12-24-2017 Resolved: 03-18-2019 03-18-2019 Episodic Acute bronchitis (4 sources) Acute bronchitis; Translations: [Acute bronchitis, unspecified] Onset: 08-23-2024 08-23-2024 Episodic Alcohol-related disorders (5 sources) H/O: alcoholism; Translations: [History of alcohol dependence] Onset: 03-18-2019 03-18-2019 Episodic Deficiency and other anemia (9 sources) Anemia; Translations: [Anemia, unspecified] Onset: 10-28-2015 Resolved: 08-26-2019 08-02-2016 Episodic Gastrointestinal hemorrhage (20 sources) Rectal hemorrhage; Translations: [Hemorrhage of anus and rectum] Onset: 04-26-2023 Episodic Headache; including migraine (9 sources) Headache; Translations: [Headache] Onset: 10-28-2015 Resolved: 03-18-2019 03-18-2019 Episodic Immunizations and screening for infectious disease (1 source) Viral screening status; Translations: [Encounter for screening for other viral diseases] Episodic Influenza (20 sources) Influenza; Translations: [Influenza due to unidentified influenza virus with other respiratory manifestations] Onset: 03-08-2023 03-08-2023 Episodic Malaise and fatigue (1 source) Fatigue; Translations: [Other fatigue] Episodic Menstrual disorders (9 sources) Irregular periods; Translations: [Irregular menstruation, unspecified] Onset: 05-26-2015 Resolved: 08-26-2019 04-13-2017 Chronic Mood disorders (20 sources) Mood disorders Onset: 08-14-2023 08-14-2023 Nonmalignant breast conditions (13 sources) Abscess of breast; Translations: [Abscess of the breast and nipple] Onset: 03-08-2017 Resolved: 06-26-2019 06-26-2019 Episodic Nutritional deficiencies (20 sources) Thiamin deficiency; Translations: [Cobalamin deficiency] Onset: 10-28-2015 04-13-2017 Episodic Other aftercare (8 sources) Patient encounter status; Translations: [bed bug exterminator (current) use of non-steroidal anti-inflammatories (NSAID)] Episodic Other connective tissue disease (2 sources) Pain in right hand; Translations: [Pain in left hand] Onset: 09-29-2017 Episodic Other connective tissue disease (20 sources) Spasm; Translations: [Cramp and spasm] Onset: 03-08-2023 03-08-2023 Episodic Other connective tissue disease (20 sources) Tendinitis of right rotator cuff; Translations: [Other shoulder lesions, right shoulder] Onset: 06-07-2021 06-07-2021 Episodic Other connective tissue disease (20 sources) Swelling of lower limb; Translations: [Other specified soft tissue disorders] Onset: 03-08-2023 Episodic Other connective tissue disease (3 sources) Bilateral chronic pain of feet; Translations: [Pain in right foot] Episodic Other connective tissue disease (3 sources) Pain of bilateral hands; Translations: [Pain in right hand] Episodic Other female genital disorders (20 sources) History of dysplasia of cervix; Translations: [Personal history of cervical dysplasia] Onset: 06-02-2009 04-13-2017 Episodic Other gastrointestinal disorders (9 sources) Irritable bowel syndrome; Translations: [Irritable bowel syndrome without diarrhea] Onset: 06-02-2009 Resolved: 01-05-2022 04-13-2017 Chronic Other gastrointestinal disorders (6 sources) Abdominal bloating; Translations: [Abdominal distension (gaseous)] Episodic Other gastrointestinal disorders (4 sources) Constipation; Translations: [Constipation, unspecified] Episodic Other infections; including parasitic (20 sources) Disorder due to infection; Translations: [Unspecified infectious disease] Onset: 03-08-2023 Episodic Other injuries and conditions due to external causes (2 sources) Unspecified injury of right shoulder and upper arm, initial encounter; Translations: [Unspecified injury of right shoulder and upper arm, initial encounter] Onset: 04-01-2024 Episodic Other non-traumatic joint disorders (20 sources) Shoulder pain; Translations: [Pain in unspecified shoulder] Onset: 10-03-2013 03-12-2021 Episodic Other non-traumatic joint disorders (20 sources) Pain in right knee; Translations: [Pain in joint, lower leg] Onset: 08-15-2023 Episodic Other non-traumatic joint disorders (3 sources) Bilateral chronic pain of upper limbs; Translations: [Pain in right shoulder] Episodic Other skin disorders (20 sources) Eruption; Translations: [Rash and other nonspecific skin eruption] Onset: 01-16-2024 05-27-2023 Episodic Residual codes; unclassified (20 sources) Pain; Translations: [Pain, unspecified] Onset: 01-05-2023 03-08-2023 Episodic Residual codes; unclassified (1 source) Livedo reticularis; Translations: [Pallor] Episodic Skin and subcutaneous tissue infections (20 sources) Cellulitis of right upper limb; Translations: [Cellulitis of right upper limb] Onset: 07-05-2019 Resolved: 08-26-2019 08-26-2019 Episodic Skin and subcutaneous tissue infections (6 sources) Cellulitis of right upper limb; Translations: [Cellulitis of right upper extremity] Onset: 07-05-2019 Resolved: 08-26-2019 07-05-2019 Spondylosis; intervertebral disc disorders; other back problems (20 sources) Lumbago with sciatica, left side; Translations: [Chronic low back pain] Onset: 08-02-2016 Resolved: 01-05-2022 03-18-2019 Episodic Sprains and strains (20 sources) Strain of muscle at thorax level; Translations: [Strain of muscle and tendon of unspecified wall of thorax, initial encounter] Onset: 03-08-2023 03-08-2023 Episodic Superficial injury; contusion (20 sources) Contusion of left knee; Translations: [Contusion of left knee, initial encounter] Onset: 03-08-2023 Episodic Syncope (20 sources) Syncope and collapse; Translations: [Syncope and collapse] Onset: 03-08-2023 03-08-2023 Episodic Unclassified (1 source) Low back pain, unspecified; Translations: [Low back pain, unspecified] Onset: 12-04-2024 Urinary tract infections (20 sources) Pyelonephritis; Translations: [Tubulo-interstitia l nephritis, not specified as acute or chronic] Onset: 08-29-2023 08-28-2023 Episodic Results Test Name Value Interpretation Reference Range Facility BLOOD TB SCREENon 05-07-2025 M. tuberculosis tuberculin stim IFN-g Ql (Bld) Negative Normal [facility] Comment on above: Order Comment: Speci men Type: BLOOD SPECIMEN Ordering Facility: [facility] Address: [address] [place] [id number] Performed By: #### I NFTBP #### [facility] CLIA [id number] [address] [place] [address] [place] MITOGEN MINUS NIL >9.99 Normal >=0.50 [facility] Comment on above: Order Comment: Josh sagastume Type: BLOOD SPECIMEN Ordering Facility: [facility] Address: [address] [place] [id number] Performed By: #### I NFTBP #### [facility] CLIA [id number] [address] [place] [address] [place] TB GAMMA INTERPRETATION Infection with M. tuberculosis complex is unlikely. If latent tuberculosis infection is highly suspected, a negative result does not rule out the infection. Specimens from immunocompromised patients and those <5 years of age may show false negative results. In case of a contact investigation, please repeat 8-12 weeks after a known exposure. Normal [facility] Comment on above: Order Comment: Josh sagastume Type: BLOOD SPECIMEN Ordering Facility: [facility] Address: [address] [place] [address] Performed By: #### I NFTBP #### [facility] CLIA [id number] [address] [place] [address] OF DEB TB NIL 0.01 IU/mL Normal <=8.00 [facility] Comment on above: Order Comment: Josh sagastume Type: BLOOD SPECIMEN Ordering Facility: [facility] Address: [address] [place] [id number] Performed By: #### I NFTBP #### [facility] CLIA [id number] [address] [place] [address] [place] TB1 AG MINUS NIL 0.00 IU/mL Normal <0.35 [facility] Comment on above: Order Comment: Josh sagastume Type: BLOOD SPECIMEN Ordering Facility: [facility] Address: [address] [place] [id number] Performed By: #### I NFTBP #### [facility] CLIA [id number] [address] [place] [address] [facility] OF DEB TB2 AG MINUS NIL 0.00 IU/mL Normal <0.35 [facility] Comment on above: Order Comment: Josh men Type: BLOOD SPECIMEN Ordering Facility: [facility] Address: [address] [place], [place] [id number] Performed By: #### I NFTBP #### [facility] CLIA [id number] [address] [place] [address] [address] [place] Progress Noteon 03-18-2025 Progress Note Fax from [facility]. Nexium not covered. Switch to Omeprazole that is covered. [facility] 36on 03-12-2025 36 Prescription Request : Last medication check: 12/04/24 Last physical exam: never Next scheduled appointment: none Last date of refill on this medication 11/25/24 (qty 18 refill 2) [facility] 36on 03-06-2025 36 Rx sent [facility] 36 Pt notified and aski kae for medrol dose pack to be sent to [facility] 36 Since she was seen b y a doctor and told she did not need antibiotics I would agree especially since this is only been going on for about 4 days, we usually do not use antibiotics until it has been ongoing for at least a week. As far as her asthma goes I can send in a Medrol Dosepak if she feels like she is having some increased wheezing and her inhalers are not helping. Is she still smoking? If she is she needs to stop smoking right away because that sets her up for more infections. [facility] 36on 03-05-2025 36 S: Patient spoke wit h [facility] nurse regarding antibiotic request, sinus symptoms B: Onset of symptoms/concern 4 days A: Pt was just seen at [facility] for the same complaint. Told she has a sinus infections. Pt requesting a steroid and an antibiotic to be called in to treat. Pt states ER provider told her they felt this was viral and was not comfortable prescribing and antibiotic to treat and to call PCP for antibiotics. Pt currently reports symptoms started 4 days ago, developed green sinus drainage about 2 days ago. Pt denies fever/ chills or shortness of breath at this time. does have a hx of asthma, feels a little tight and congested in chest, wants antibiotics to treat before it goes into her chest. Reports head/ sinus pain, feels like face and sinus cavities area swollen. Glands feel a little sore and swollen. Little sore throat, no runny nose. Also reports a little cough. R: Allergies and pharmacy verified. Pt advised her antibiotic and steroid request would be sent to her PCP to address during business hours and the office would be back in contact to discuss plan of care. Emergent symptoms reviewed. Patient understands care advice. No further needs at this time. Patient instructed to call back with new or worsening symptoms. Reason for Disposition [1] Sinus congestion as part of a cold AND [2] present < 10 days Protocols used: Sinus Pain or [id number] [facility] ED Nursing Noteon 03-05-2025 ED Nursing Note Pt. Arrived to ED vi a personal transportation with complaint of sinus pain and coughing up gross stuff x 2 days. Pt. Reports yellow, thick mucous for 2 days and a cough that began approximately 4 days. Pt. Reports history of sinus infections that sometimes turn into bronchitis. [facility] ED Provider Noteon ED Provider Note Emergency Department Encounter Pt Name: Xochitl Fuller Birthdate 1970 Date of evaluation: 03/05/2025 Provider: Rohith Perez MD CHIEF COMPLAINT Chief Complaint Patient presents with Sinusitis HISTORY OF PRESENT ILLNESS HPI Xochitl Fuller is a 54 y.o. female with history that includes asthma and smoking presenting to ED for sinus infection for 4 days. She is asking for an antibiotic and a steroid to prevent it from becoming a bronchopneumonia because this has been her experience in the past. She says Dr. Cormier typically prescribes these. No fever or chills. Has had nasal congestion and sinus pressure and postnasal drip causing a mild cough. Green nasal discharge. 2 days ago took a covid test at home and it was negative. She has been taking Sudafed for the past 2 days. Nursing Notes were reviewed. Past Medical History: Diagnosis Date Acute bacterial sinusitis 03/12/2021 Anxiety Arthritis Asthma Breast abscess right breast Cervical dysplasia Chronic pain Degeneration of intervertebral disc of lumbar region 05/14/2018 GERD (gastroesophageal reflux disease) Menorrhagia SCHEDULED FOR THE SURGERY ON 07/07/2017 Neuropathy RA (rheumatoid arthritis) ([facility]) Tobacco abuse REVIEW OF SYSTEMS Several elements of the ROS reviewed and otherwise acutely negative except as in the HPI. PHYSICAL EXAM ED Triage Vitals [03/05/25 1923] Temp Heart Rate Resp BP 36.7 ?C (98.1 ?F) 90 21 (!) 149/86 SpO2 Temp Source Heart Rate Source Patient Position 99 % Oral Monitor Sitting BP Location FiO2 (%) Right arm -- Physical Exam Vitals and nursing note reviewed. Constitutional: General: She is not in acute distress. Appearance: She is well-developed. HENT: Head: Normocephalic and atraumatic. No right periorbital erythema or left periorbital erythema. Nose: Congestion present. No rhinorrhea. Right Sinus: Maxillary sinus tenderness and frontal sinus tenderness present. Left Sinus: Maxillary sinus tenderness and frontal sinus tenderness present. Mouth/Throat: Mouth: Mucous membranes are moist. Pharynx: Oropharynx is clear. Posterior oropharyngeal erythema present. No oropharyngeal exudate. Eyes: General: Right eye: No discharge. Left eye: No discharge. Conjunctiva/sclera: Conjunctivae normal. Cardiovascular: Rate and Rhythm: Normal rate and regular rhythm. Heart sounds: No murmur heard. Pulmonary: Effort: Pulmonary effort is normal. No respiratory distress. Breath sounds: Normal breath sounds. Musculoskeletal: General: No swelling. Cervical back: Neck supple. Skin: General: Skin is warm and dry. Neurological: Mental Status: She is alert. Psychiatric: Mood and Affect: Mood normal. EMERGENCY DEPARTMENT COURSE and DIFFERENTIAL DIAGNOSIS/MDM: Patient clearly has sinusitis, though I am not convinced it is bacterial at this point. I do not think a steroid would be beneficial right now; she has no wheezing. I hear no abnormal breath sounds to suggest pneumonia to warrant chest x-ray or labs. Her vital signs are reassuring. There is a high probability of viral sinusitis and I will defer decision to prescribe antibiotics to her PCP. ED course: Diagnoses as of 03/05/25 2016 Acute recurrent pansinusitis Chronic conditions and social determinants of health affecting care: smoking DISPOSITION/PLAN Discharge 03/05/2025 07:57:15 PM PATIENT REFERRED TO: Gamaliel Cormier MD [address] [place] [address], [address] [facility] [address] Call in 1 day Rohith Perez MD Emergency Medicine Rohith Perez MD 03/05/[address] 12-23-2024 36 Rx was sent 11/25/24 with 2 refills. Should have refills available at the pharmacy. [address] 12-20-2024 36 S: Patient spoke nallely JORDAN nurse regarding Albuterol refill. B: albuterol 108 (90 Base) MCG/ACT inhaler [[id number]] Order Details Dose: 2 puff Route: Inhalation Frequency: Every 6 hours PRN for wheezing Dispense Quantity: 18 each Refills: 2 Sig: TAKE 2 PUFFS BY MOUTH EVERY 6 HOURS NEEDED FOR WHEEZE A: pt said she was at the pharmacy and they didn't have refills. R: I called the pharmacist and they do see an order for refills and will have it ready within the hour for the patient. I called the patient and advised her. Patient understands the advice. No further needs at this time. Reason for Disposition ? Caller has medicine question only, adult not sick, AND triager answers question Protocols used: Medication Question [id number] S: CAC returning pat ient call B: No contact A: Per ticket: Pt is out of albuterol 108 (90 Base) MCG/ACT inhaler does not have enough to get through the weekend R: Voicemail left for patient to return call to office if further assistance is needed. Reason for Disposition Message left on unidentified voice mail. Phone number verified. Protocols used: No Contact or Duplicate Contact [id number] 12-06-2024 36 Spoke to patient, no questions. [facility] 36 S: Patient spoke nallely JORDAN nurse regarding Vaginal sx B: Onset of symptoms/concern 5 days A: Patient called with c/o vaginal itching 09/05. Endorses burning raw sensation over labia. Denies fever or vaginal bleeding. Patient seen in office 12/04/2024 and PCP was supposed to call in Diflucan to pharmacy. Dilfucan was not sent. Patient urgently requesting Diflucan rx be sent to her pharmacy today. Allergies and pharmacy verified. R: TE sent to provider with urgent request for patient follow up. Patient understands care advice. No further needs at this time. Patient instructed to call back with new or worsening symptoms. Reason for Disposition MODERATE-SEVERE itching (i.e., interferes with school, work, or sleep) Answer Assessment - Initial Assessment Questions 1. SYMPTOM: What's the main symptom you're concerned about? (e.g., pain, itching, dryness) Vaginal itching and discomfort 2. LOCATION: Where is the sx located? (e.g., inside/outside, left/right) All over 3. ONSET: When did the sx start? 5 days 4. PAIN: Is there any pain? If Yes, ask: How bad is it? (Scale: 1-10; mild, moderate, severe) Burning raw feeling 5. ITCHING: Is there any itching? If Yes, ask: How bad is it? (Scale: 1-10; mild, moderate, severe) 10 6. CAUSE: What do you think is causing the discharge? Have you had the same problem before? What happened then? Yeast infection 7. OTHER SYMPTOMS: Do you have any other symptoms? (e.g., fever, itching, vaginal bleeding, pain with urination, injury to genital area, vaginal foreign body) Denies fever or vaginal bleeding. 8. : Is there any chance you are ? When was your last menstrual period? N/A Protocols used: Vaginal [id number] Normal [facility] Office Visiton 12-04-2024 Follow-up visit [id number] Xochitl Fuller 1970 F Date Provider Department Center 12/04/2024 [id number] CORMIER [facility] Family History Problem Relation Age of Onset Hypertension Mother Heart attack Mother Asthma Mother Arthritis Mother Thyroid disease Mother COPD Mother Other Father Comments: pneumonia aspiration Breast cancer Maternal Grandmother Cancer Maternal Grandfather No Known Problems Paternal Grandmother Migraines Paternal Grandfather Cancer Other Comments: Multiple Unknown Cancers on Maternal Side of family Colon cancer Neg Hx Family Status - Relation Status Age at Mother Alive Father Sister Alive Sister Alive Maternal Grandmother Maternal Grandfather Paternal Grandmother Paternal Grandfather Other Neg Hx Level of Service:[id number] ID OFFICE/OUTPATIENT ESTABLISHED MOD MDM 30 MIN Reason for Visit and Comments: Back Pain [12] - Lower back - is bad and getting worse Other [0] - On atb and now have yeast infection Normal [facility] Progress Noteon 12-04-2024 Progress Note Lumbosacral x-rays, stretching exercises were discussed in detail. Nabumetone 750 mg twice daily as needed. Normal [facility] Progress Note Lumbosacral x-rays, stretching exercises were discussed in detail. Nabumetone 750 mg twice daily as needed. [facility] Progress Note Patient verified by last name and date of . [facility] Progress Note 12/04/2024 Xochitl Fuller (: 1970) is a 54 y.o. female , Established patient, here for evaluation of the following chief complaint(s): Back Pain (Lower back - is bad and getting worse ) and Other (On atb and now have yeast infection ) ASSESSMENT/PLAN: 1. Chronic bilateral low back pain without sciatica Assessment & Plan: Lumbosacral x-rays, stretching exercises were discussed in detail. Nabumetone 750 mg twice daily as needed. Orders: - XR lumbar spine 4-5 view 2. SI (sacroiliac) joint inflammation (HCC) Assessment & Plan: Lumbosacral x-rays, stretching exercises were discussed in detail. Nabumetone 750 mg twice daily as needed. Orders: - XR lumbar spine 4-5 view Follow up after x rays. 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 She says that she does have a history of some arthritis in her back but has not had any x-rays for couple years. She denies any numbness or tingling of her legs she denies any pain down her legs she denies any loss of bowel or bladder control or weakness of her legs. Review of Systems Gastrointestinal: Denies stool incontinence. Genitourinary: Denies urine incontinence Musculoskeletal: Positive for back pain and myalgias. Negative for arthralgias, gait problem and joint swelling. Neurological: Negative for weakness and numbness. Vitals: 12/04/24 0913 BP: 130/78 Pulse: 90 SpO2: 97% Weight: 159 lb (72.1 kg) Height: 5' 2 (1.575 m) Physical Exam Vitals and nursing note reviewed. Constitutional: General: She is not in acute distress. Appearance: Normal appearance. Musculoskeletal: Comments: Back has a very minimal right shift, does have a slight discrepancy in her iliac crest heights left is higher than the right. She has tenderness to palpation at the insertion of the paraspinous muscles and she has very tight tender paraspinous muscles bilateral. She has normal flexion of her back, pain with extension of her back to any degree, lateral flexion is normal. Lower extremities muscle strength is 5/5 and equal bilateral and negative straight leg raise. She does have significant pain when stressing her SI joints. Neurological: Mental Status: She is alert. An electronic signature was used to authenticate this note. Gamaliel Cormier MD 12/04/2024 10:04 AM [facility] 29on 12-03-2024 29 Addended by: GAMALIEL CORMIER. on: 12/03/2024 04:39 PM Modules accepted: Orders [facility] 36on 12-03-2024 36 Reason for Dispositi on ? Caller has already spoken with another triager and has no further questions Protocols used: No Contact or Duplicate Contact [facility] S: Patient spoke nallely [facility] nurse regarding back pain B: Onset of symptoms/concern ongoing A: Patient states that she was put on antibiotics at the hospital and requesting diflucan, message previously sent. Patient also stating that she has been having severe lower back and hip pain, can't get out of car. Pain started 10 years ago. Worsening pain this past month, pain while sitting up for long periods in car, affecting work and everything. Today, patient rates her back pain 10/10, yesterday she rates the pain a 10/10. Patient states that she was told that she needed surgery years ago. R: Appointment made with Dr Cormier for 12/04 at 9am. Patient states that her primary insurance in [place]. Pharmacy verified with patient PAULINA Bang. No further needs at this time. Patient instructed to call back with new or worsening symptoms. Reason for Disposition SEVERE back pain (e.g., excruciating, unable to do any normal activities) and not improved after pain medicine and CARE ADVICE Protocols used: Back Swck[facility]YEREW[facility] 36 Patient stated she i s on an antibiotic and would like 2 doses of this medication Medication name: fluconazole (Diflucan) 150 MG tablet Medication dosage: 150 mg (Miligrams Monthly quantity needed: 2 How many day supply requestin Medication route: oral (PO) Medication administration time(s): daily If taking medication PRN, reason for taking medication: N/A If this is a controlled substance do you receive this or any other controlled medication from any other doctor or facility: No Ordering provider: Dr Cormier Date of last office visit: 01/16/24 Date of next office visit: none scheduled Date of last refill: (see medication tab): 01/22/24 Updated/Validated preferred pharmacy: Yes Patient instructed to contact the pharmacy prior to picking up the medication: Yes [facility] 36on 11-25-2024 36 Reviewed chart. Refi ll appropriate. RX sent. [facility] 36 Prescription Request : Last date of refill on this medication 11/11/24 18g 2 refills to [facility] Progress Noteon 11-25-2024 Progress Note Chart reviewed of ED follow up Seen in [facility] ED on 11/24/24 Reason: Cellulitis of left breast Discharge instructions: Tylenol 2 extra strength tablets every 6 hours on a scheduled basis to help with pain. Also consider topical pain patches such as Salonpas to help with pain of the area Unable to reach by phone, patient is active on MyChart. ED message and education sent via [place] [facility] 36on 11-24-2024 36 S: Patient spoke wit [facility] nurse regarding sinus infection. 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 Cormier via cell- received TO for Tamiflu 75 mg, start today x 5 days, this RN phoned in prescription to patient's pharmacy, [facility] at [phone] Cormier Patient notified, verbalized understanding Reason for Disposition Patient is HIGH RISK (e.g., age > 64 years, , HIV+, or chronic medical condition) Protocols used: Influenza (Flu) - [id number] [facility] ED Provider Noteon ED Provider Note EMERGENCY DEPARTMENT ENCOUNTER Pt Name: Xochitl Fuller Birthdate 1970 Date of evaluation: 11/24/2024 ED Provider: Prabhakar Black MD CHIEF COMPLAINT Chief Complaint Patient presents with Breast Pain Pt relates infection in left breast. Pt relates area is red swollen and sore.Pt relates history of abscesses and having had similar infection in her right breast. HISTORY OF PRESENT ILLNESS (Location/Symptom, Timing/Onset, Context/Setting, Quality, Duration, Modifying Factors, Severity) Note limiting factors. I wore appropriate PPE for the entirety of this encounter. HPI Xochitl Fuller is a 54 y.o. female who presents to the emergency department with chief complaint of left breast pain redness and swelling. Denies trauma. Denies fevers. 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 States she has to shave in that area sometimes and may have caused an infection from shaving. Denies abdominal pain nausea vomiting diarrhea Nursing Notes were reviewed. Limitations to history: None Outside historians: None REVIEW OF SYSTEMS Review of Systems: Pertinent positives as above per history of present illness. Other systems reviewed and found to be negative to a total of 10 systems reviewed. PAST MEDICAL HISTORY Past Medical History: Diagnosis Date Acute bacterial sinusitis 03/12/2021 Anxiety Arthritis Asthma Breast abscess right breast Cervical dysplasia Chronic pain Degeneration of intervertebral disc of lumbar region 05/14/2018 GERD (gastroesophageal reflux disease) Menorrhagia SCHEDULED FOR THE SURGERY ON 07/07/2017 Neuropathy RA (rheumatoid arthritis) (HCC) Tobacco abuse SURGICAL HISTORY Past Surgical History: Procedure Laterality Date APPENDECTOMY 2018 BREAST BIOPSY Right 2016 COLONOSCOPY W/ BIOPSIES AND POLYPECTOMY N/A 12/28/2022 Performed by Kimberly Lay MD at [facility] [address] ENDOSCOPY COLPOSCOPY ENDOMETRIAL ABLATION FINGER FRACTURE SURGERY Right 1st finger HYSTEROSCOPY N/A KNEE ARTHROSCOPY Left 03/15/2012 OTHER SURGICAL HISTORY rheumatoid nodule removal (from left leg) , finger reconstructive surgery, lasered for uterine dysplasia TUBAL LIGATION 1991 CURRENT MEDICATIONS Previous Medications ALBUTEROL 108 (90 BASE) MCG/ACT INHALER TAKE 2 PUFFS BY MOUTH EVERY 6 HOURS NEEDED FOR WHEEZE ESOMEPRAZOLE (NEXIUM) [address] CAPSULE Take 1 capsule (40 mg) by mouth every morning (before breakfast). Do not open capsule. NAPROXEN PO Take 220 mg by mouth. 2 tabs prn ONDANSETRON ODT (ZOFRAN-ODT) 4 MG DISINTEGRATING TABLET Take 4 mg by mouth every 6 hours as needed. OSELTAMIVIR (TAMIFLU) 75 MG CAPSULE Take 1 capsule (75 mg) by mouth 2 times daily for 5 days. OXYMETAZOLINE (AFRIN) 0.05 % NASAL SPRAY Administer 2 sprays into each nostril every 12 hours as needed for congestion for up to 2 days. Do not use for more than 3 days. ALLERGIES Naltrexone, Ibuprofen, Meloxicam, Morphine, and Sertraline FAMILY HISTORY Family History Problem Relation Name Age of Onset Hypertension Mother Heart attack Mother Asthma Mother Arthritis Mother Thyroid disease Mother COPD Mother Other ([id number]) Father pneumonia aspiration Breast cancer Maternal Grandmother Cancer Maternal Grandfather No Known Problems Paternal Grandmother Migraines Paternal Grandfather Cancer Other Multiple Unknown Cancers on Maternal Side of family Colon cancer Neg Hx SOCIAL HISTORY Social History Socioeconomic History Marital status: Tobacco Use Smoking status: Every Day Current packs/day: 0.25 Average packs/day: 0.3 packs/day for 44.0 years (11.0 ttl pk-yrs) Types: Cigarettes Start date: 1980 Smokeless tobacco: Never Vaping Use Vaping status: Never Used Substance and Sexual Activity Alcohol use: Not Currently Comment: 2013 no longer drinking Drug use: Not Currently Types: IV, Marijuana, Methamphetamines Social Drivers of Health Intimate Partner Violence: Not At Risk (12/28/2022) Humiliation, Afraid, Rape, and Kick questionnaire Fear of Current or Ex-Partner: No Emotionally Abused: No Physically Abused: No Sexually Abused: No SCREENINGS PHYSICAL EXAM ED Triage Vitals [11/24/24 1913] Temp Heart Rate Resp BP 37.2 ?C (98.9 ?F) 105 18 112/75 SpO2 Temp Source Heart Rate Source Patient Position 96 % Oral Monitor Sitting BP Location FiO2 (%) -- -- Physical Exam: Vital signs reviewed in nurse's notes. Patient is nontoxic in appearance. No respiratory distress. Head: Normocephalic, atraumatic Eyes: Pupils are equal, round and reactive to light. EOMI. Conjunctiva clear. Sclera anicteric ENT: Mucous membranes moist. Throat shows no erythema exudates or edema. Neck: No anterior adenopathy. No tenderness or stiffness. Breast exam is performed with female RN present in the room at all times. On the superior half of the breast above the nipple th (more content not included)... [address] 11-12-2024 Called lv to call of fic or check [employer]. [employer] messaged pt to call or schedule physical via [employer]. [address] 11-11-2024 Noted. Rx sent. Due for physical and fasting blood work- please schedule. [place] [address] No, this was a POD scheduled visit. [place] [address] It looks like she turk s been seeing Dr. Simons. Has she switched to a new PCP? [place] [address] Prescription Request : Last medication check: 08/14/2023 Last physical exam: none Next scheduled appointment: none Last date of refill on this medication: 10/08/[address] 10-08-2024 Prescription Request : Last medication check: 01/16/24 Last physical exam: none Next scheduled appointment: none Last date of refill on this medication 07/26/24 18g [address] 08-26-2024 36 Outcome Approved today by [place] [employer] 2017 Your PA request for [id number] was approved for 180 days. The PA# assigned is [id number]. Authorization Expiration Date: 02/20/2025 [place] [address] Submitted prior authorization via [employer] for Nexium CATHERINE: [id number] [address] 08-23-2024 36 Okay, thank you [place] [id number] S: Patient spoke wit h CAC nurse regarding URI. B: Onset of symptoms/concern: x 2 days A: Patient reports a cough and sore throat due to cough, not taking anything for the cough, thinks it's bronchitis. Patient has not tested for COVID, request appointment, needing tessalon perles and an antibiotic. R: No available appointments today with Maria Luisa PÉREZ, POD scheduled at [facility] at [address] Simons, insurance coverage verified. Patient states she only has [facility] insurance, states that's all she's ever had, states she's never had [place] insurance. Reason for Disposition Patient wants to be seen Protocols used: [id number] [facility] Office Visiton 08-23-2024 Follow-up visit [id number] Xochitl Fuller 1970 F Date Provider Department Center 08/23/2024 [id number] SIMONS [facility] Family History Problem Relation Age of Onset Hypertension Mother Heart attack Mother Asthma Mother Arthritis Mother Thyroid disease Mother COPD Mother Other Father Comments: pneumonia aspiration Breast cancer Maternal Grandmother Cancer Maternal Grandfather No Known Problems Paternal Grandmother Migraines Paternal Grandfather Cancer Other Comments: Multiple Unknown Cancers on Maternal Side of family Colon cancer Neg Hx Family Status - Relation Status Age at Mother Alive Father Sister Alive Sister Alive Maternal Grandmother Maternal Grandfather Paternal Grandmother Paternal Grandfather Other Neg Hx Level of Service:[id number] ID OFFICE/OUTPATIENT ESTABLISHED LOW MDM 20 MIN Reason for Visit and Comments: Cough [28] - Patient here today with cough that began 3 days ago. She believes this be bronchitis. [facility] Progress Noteon 08-23-2024 Progress Note Subjective Patient ID: Xochitl Fuller is a 54 y.o. female who presents for Cough (Patient here today with cough that began 3 days ago. She believes this be bronchitis.). 1. Cough for 3 days. Clear sputum. Uses the albuterol every 4 hours. Says she does not have COPD. Has cut back on smoking. Will need a note for work. 2. Needs the protonix changed back to Nexium. Sees GI. Had an EGD last year Chart reviewed. Review of Systems Constitutional: Negative for chills and fever. HENT: Positive for congestion and sore throat. Negative for postnasal drip, sinus pressure and sinus pain. Worse at night Respiratory: Positive for cough and chest tightness. Negative for wheezing. Objective Physical Exam Vitals and nursing note reviewed. Constitutional: General: She is not in acute distress. Appearance: She is not ill-appearing or toxic-appearing. HENT: Right Ear: Tympanic membrane and ear canal normal. Left Ear: Tympanic membrane and ear canal normal. Nose: No congestion or rhinorrhea. Mouth/Throat: Pharynx: No oropharyngeal exudate or posterior oropharyngeal erythema. Eyes: General: No scleral icterus. Conjunctiva/sclera: Conjunctivae normal. Pupils: Pupils are equal, round, and reactive to light. Cardiovascular: Rate and Rhythm: Normal rate and regular rhythm. Heart sounds: Normal heart sounds. No murmur heard. Pulmonary: Effort: Pulmonary effort is normal. No respiratory distress. Breath sounds: Wheezing present. No rhonchi or rales. Comments: Good air exchange bilaterally. Pulse ox is good Musculoskeletal: Cervical back: Neck supple. Lymphadenopathy: Cervical: No cervical adenopathy. Skin: Coloration: Skin is not jaundiced. Neurological: Mental Status: She is alert. Assessment/Plan Problem List Items Addressed This Visit None Visit Diagnoses Gastroesophageal reflux disease, unspecified whether esophagitis present Chronic, stable Wants to switch back to Nexium Relevant Medications esomeprazole (NexIUM) [address] capsule Acute bronchitis, unspecified organism Primary Acute, uncontrolled Start the antibiotic She is asking about steroids, but I do not feel that is warranted at this time Relevant Medications azithromycin (Zithromax) 250 MG tablet benzonatate (Tessalon) 200 MG capsule [facility] 36on 07-26-2024 36 Reviewed chart. Refi ll appropriate. RX sent. [facility] 36 Patient states compl etely out of inhaler. Please advise. Medication name: albuterol 108 (90 Base) MCG/ACT inhaler Medication dosage: 2 puff(s) Monthly quantity needed: 18g How many day supply requestin days Medication route: inhalation (inhaler) Medication administration time(s): as needed (PRN) If taking medication PRN, reason for taking medication: Every 6 hours PRN for wheezing If this is a controlled substance do you receive this or any other controlled medication from any other doctor or facility: N/A Ordering provider: Nubia Quinteros Date of last office visit: 01/16/24 Date of next office visit: none Date of last refill: (see medication tab): 06/03/24 Updated/Validated preferred pharmacy: Yes Patient instructed to contact the pharmacy prior to picking up the medication: Yes [facility] 36on 06-04-2024 36 Called patient and L M due to missed appointment. Please schedule the patient for an appointment with the same visit type if they call to reschedule. [facility] 36on 06-03-2024 36 Rx sent. See other t christina note. [facility] 36 Prescription Request : Last medication check: 08/14/2023 Last physical exam: none Next scheduled appointment: 06/04/2024 Last date of refill on this medication: 05/09/2024 [facility] 36 Addressed during tri age. Will see as scheduled. [facility] 3605-31-2024 36 S: Pt calling [facility] asking for inhaler refill. B: Symptoms of asthma have been worsening since yesterday. A: Pt ran out of her rescue inhaler 10 days early due to using it more often than instructed due to high humidity. Speaking in complete sentences. No audible wheezing. Ran out yesterday. No fever or illness. Pt denies chest pain, difficulty breathing or other symptoms. R: Nubia Quinteros CNP paged via Secure Chat at [phone]. Nubia wants pt to schedule an office visit to assess her need for a maintenance inhaler. Appointment scheduled. Advised pt to call back with new or worsening symptoms. Pt verbalized understanding. Per telephone order, the following was called into danya Carreon at [facility] at [phone]: Albuterol 108 (90 Base) MCG/ACT inhaler Disp Quantity: 18 g. Refills: 0 Sig: inhale 2 puffs by mouth every 6 hours as needed for wheezing Pharmacy and allergies verified LV: 01/20/2024 NV: 06/04/2024 Reason for Disposition ? [1] MILD asthma attack (e.g., no SOB at rest, mild SOB with walking, speaks normally in sentences, mild wheezing) AND [2] lasting > 24 hours on prescribed treatment ? [1] Prescription refill request for ESSENTIAL medicine (i.e., likelihood of harm to patient if not taken) AND [2] triager unable to refill per department policy Protocols used: Asthma Kphccb-VYPUB-UV, Medication Refill and Renewal [facility] 36 S: Patient called [facility] regarding refill of albuterol inhaler. B: Per nurse triage ticket created by MARION A: Patient disconnected prior to speaking with nurse. No answer upon return call to patient. R: Unable to leave voicemail message; mailbox not set up. Reason for Disposition Unable to complete triage due to phone connection issues Protocols used: No Contact or Duplicate Contact [facility] 36on 05-09-2024 36 Prescription Request : Last medication check: 08/14/2023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 Filed: 08/30/2023 1:02 AM Note Text: Physician at bedside attempting ultrasound IV access. [facility] ED NOTE HNO ID: [id number] Author: Rick Campos RN Service: Emergency Medicine Author Type: Registered Nurse Type: ED Notes Filed: 08/30/2023 12:29 AM Note Text: Physician present at bedside. [facility] ED NOTE HNO ID: [id number] Author: Rick Campos RN Service: Emergency Medicine Author Type: Registered Nurse Type: ED Notes Filed: 08/29/2023 11:15 PM Note Text: Attempted IV insertion without success. Patient stated that she does not want anymore IV attempts unless it is by ultrasound. Physician and charge nurse notified. [facility] ED PROV NOTEon 08-30-2023 ED PROV NOTE HNO ID: [id number] Author: Hernando Linares MD Service: Emergency Medicine Author Type: Physician Type: ED Provider Notes Filed: 08/30/2023 3:32 AM Note Text: ED Provider Note Patient Name: Xochitl Fuller : 1970 SERVICE DATE: 08/29/23 History Patient presents with: Abdominal Pain Patient with past history of appendicitis, and cervical surgery, ablation, presents the emergency department new onset of left-sided abdominal pain earlier this evening. Patient notes she was in outside facility yesterday, with a urinary tract infection and she was sent home with oral antibiotics Keflex. Patient notes been taking the above without any improvement in her symptoms. She was given Dilaudid via EMS for her abdominal pain prior to hospital presentation. Patient states she is nauseous however she has not had any vomiting. There is no hematuria, no stool changes. Pain is localized to the left flank and side. Abdominal Pain Pain location: L flank Pain quality: sharp and stabbing Pain radiates to: Does not radiate Pain severity: Moderate Onset quality: Sudden Timing: Constant Context: not sick contacts Associated symptoms: fever and nausea Associated symptoms: no vomiting PAST MEDICAL HISTORY Diagnosis Date Anxiety 09/09/2009 Arthropathy, unspecified, site unspecified 06/02/2009 Encounter for gynecological examination without abnormal finding 10/28/2015 Seeing [facility]. Essential hypertension 06/02/2009 GERD without esophagitis 10/28/2015 Goiter, unspecified 06/02/2009 Irregular menses 05/26/2015 Irritable bowel syndrome 06/02/2009 Juvenile rheumatoid arthritis (HCC) 10/03/2013 Low back pain 09/09/2009 PAIN JOINT 06/02/2009 Personal history of cervical dysplasia 06/02/2009 Recovering alcoholic ([facility]) 10/28/2015 Quits 05/2015 Shoulder pain 10/03/2013 Smoker 10/28/2015 Started at age 12 up to 1 PPD Unspecified asthma 06/02/2009 PAST SURGICAL HISTORY Procedure Laterality Date BREAST BIOPSY Right 09/02/2016 EGD 2014 PAST SURGICAL HISTORY OF Laser cervical surgery PAST SURGICAL HISTORY OF reconstruction of right indedx finger PAST SURGICAL HISTORY OF Benign nodule right taylor PAST SURGICAL HISTORY OF scope on left knee FAMILY HISTORY Problem Relation Age of Onset Heart Mother pace maker and defibulater Hypertension Mother Thyroid Mother Diabetes Maternal Grandmother Stroke Maternal Grandmother Seizures Sister Social History Tobacco Use Smoking status: Every Day Packs/day: 0.50 Years: 20.00 Additional pack years: 0.00 Total pack years: 10.00 Types: Cigarettes Last attempt to quit: 10/05/2009 Years since quittin.9 Smokeless tobacco: Never Tobacco comments: 8-10 cig. per day and vapor cig. Substance and Sexual Activity Alcohol use: No Drug use: Not Currently Types: Marijuana Sexual activity: Not on file ALLERGIES Allergen Reactions Naltrexone Anaphylaxis Ibuprofen Vomiting Mobic [Meloxicam] Other: See Comments Shut my kidneys down Morphine GI Upset Zoloft [Sertraline * Other: See Comments Made irritable Review of Systems Constitutional: Positive for fever. Gastrointestinal: Positive for abdominal pain and nausea. Negative for vomiting. Genitourinary: Positive for flank pain and frequency. Negative for difficulty urinating. All other systems reviewed and are negative. Physical Exam Vitals [08/29/23 2221] BP Pulse Temp Temp src Resp SpO2 Weight Height 128/79 (!) 100 36.4 ?C (97.5 ?F) Temporal 20 98 % 68.5 kg (151 lb) 1.6 m (5' 3) Physical Exam Vitals and nursing note reviewed. Constitutional: General: She is not in acute distress. Appearance: Normal appearance. She is not ill-appearing or toxic-appearing. HENT: Head: Normocephalic and atraumatic. Eyes: General: Right eye: No discharge. Left eye: No discharge. Cardiovascular: Rate and Rhythm: Normal rate and regular rhythm. Pulmonary: Effort: No respiratory distress. Abdominal: General: Bowel sounds are normal. Palpations: Abdomen is soft. There is no shifting dullness, hepatomegaly or mass. Tenderness: There is abdominal tenderness. There is left CVA tenderness. There is no guarding. Skin: General: Skin is warm and dry. Neurological: General: No focal deficit present. Mental Status: She is alert and oriented to person, place, and time. Mental status is at baseline. Psychiatric: Mood and Affect: Mood normal. Behavior: Behavior normal. Diagnostic Testing ED Labs Ordered and Reviewed URINALYSIS WITH MICROSCOPIC, REFLEX CULTURE - Abnormal; Notable for the following components: Result Value Ref Range Clarity Slightly Cloudy (*) Clear Ketones, Urine Trace (*) Negative Specific [place], Ur >=1.030 (*) 1.005 - 1.030 Hemoglobin/Blood,Ur Trace (*) Negative WBC, Urine 6-10 /HPF (*) 0-5 /HPF Bacteria Few (*) None Seen /HPF All other components within normal limits (more content not included)... Normal [facility] HCG Preg Ur Qlon 08-30-2023 HCG ( test) Ql (U) Negative Normal Negative [facility] Comment on above: Order Comment: Speci men Type: URINE SPECIMEN Ordering Facility: [facility] Address: [place] [address] Result Comment: This test is intended to aid in the early detection of . Very dilute urine samples, as indicated by a low specific gravity, may not contain field marketing representative levels of hCG. This test detects intact hCG only. This test does not reliably detect hCG degradation products, including free-beta subunit and beta-core fragment. Therefore, this test may show reduced reactivity in urine after 8 weeks gestation. A number of conditions other than , including trophoblastic disease and certain non-trophoblastic neoplasms cause elevated levels of hCG. As with any assay employing mouse antibodies, the possibility exists for interference by human anti-mouse antibodies (HAMA) in the specimen. The test provides a presumptive diagnosis for . Performed By: #### 2 106-3 #### [facility] CLIA [id number] [address] [place] [address] [place] Lactate (Bld) [Moles/Vol]on 08-30-2023 Lactate [Moles/Vol] 0.6 mmol/L Normal 0.5-2.2 [facility] Comment on above: Order Comment: Speci men Type: BLOOD SPECIMEN Ordering Facility: [facility] Address: [address] [place] [address] Performed By: #### 2 4323-8, 3040-3 #### [facility] CLIA [id number] [address] [place] [address] [place] Lipase SerPl-cCncon 08-30-20 23 Lipase [Catalytic activity/Vol] 11 U/L Low 16-61 [facility] Comment on above: Order Comment: [facility] Type: BLOOD SPECIMEN Ordering Facility: [facility] Address: [address] [place] [address] Performed By: #### 2 4323-8, 3040-3 #### [facility] CLIA [id number] [address] [place] [address] Urinalysis complete panel (U )on 08-30-2023 Bacteria LM.HPF (Urine sed) [#/Area] Few Abnormal None Seen [facility] Comment on above: Order Comment: Speci men Type: URINE SPECIMEN Ordering Facility: [facility] Address: [address] [place] [address] Performed By: #### 2 4356-8 #### [facility] CLIA [id number] [address] [place] [address] [place] [facility] Bilirubin Ql (U) Negative Normal Negative [facility] Comment on above: Order Comment: Speci men Type: URINE SPECIMEN Ordering Facility: [facility] Address: [address] [place] [address] Performed By: #### 2 4356-8 #### [facility] CLIA [id number] [address] [place] [address] [facility] Clarity (Unsp spec) Slightly Cloudy Abnormal Clear [facility] Comment on above: Order Comment: Speci men Type: URINE SPECIMEN Ordering Facility: [facility] Address: [address] [place] [address] Performed By: #### 2 4356-8 #### [facility] CLIA [id number] [address] Color (U) Yellow Normal Yellow [facility] Comment on above: Order Comment: Speci men Type: URINE SPECIMEN Ordering Facility: [facility] Address: [address] [place] [address] Performed By: #### 2 4356-8 #### [facility] CLIA [id number] [address] Epithelial cells LM.HPF (Urine sed) [#/Area] Few Normal [facility] Comment on above: Order Comment: Speci men Type: URINE SPECIMEN Ordering Facility: [facility] Address: [address] [place] [address] Performed By: #### 2 4356-8 #### [facility] CLIA [id number] [address] [id number] [facility] Glucose Test strip (U) [Mass/Vol] Negative Normal Negative [facility] Comment on above: Order Comment: Speci men Type: URINE SPECIMEN Ordering Facility: [facility] Address: [address] [place] [address] Performed By: #### 2 4356-8 #### [facility] CLIA [id number] [address] [place] Hemoglobin Ql (U) Trace Abnormal Negative [facility] Comment on above: Order Comment: Speci men Type: URINE SPECIMEN Ordering Facility: [facility] Address: [address] [place] [address] Performed By: #### 2 4356-8 #### [facility] CLIA [id number] [address] [place] [address] [place] Ketones Ql (U) Trace Abnormal Negative [facility] Comment on above: Order Comment: Speci men Type: URINE SPECIMEN Ordering Facility: [facility] Address: [address] [place] [address] Performed By: #### 2 4356-8 #### [facility] CLIA [id number] [address] Leukocyte esterase Test strip Ql (U) Negative Normal Negative [facility] Comment on above: Order Comment: Speci men Type: URINE SPECIMEN Ordering Facility: [facility] Address: [address] [place] [address] Performed By: #### 2 4356-8 #### [facility] CLIA [id number] [address] [place] Nitrite Ql (U) Negative Normal Negative [facility] Comment on above: Order Comment: Speci men Type: URINE SPECIMEN Ordering Facility: [facility] Address: [address] [place] [address] Performed By: #### 2 4356-8 #### [facility] CLIA [id number] [address] [id number] [place] pH (U) 6.0 [pH] Normal 5.0-8.0 [facility] Comment on above: Order Comment: Speci men Type: URINE SPECIMEN Ordering Facility: [facility] Address: [address] [place] [address] Performed By: #### 2 4356-8 #### [facility] CLIA [id number] [address] [place] [address] [facility] OF [place] Protein (U) [Mass/Vol] Negative Normal Negative [facility] Comment on above: Order Comment: Speci men Type: URINE SPECIMEN Ordering Facility: [facility] Address: [address] [place] [address] Performed By: #### 2 4356-8 #### [facility] CLIA [id number] [address] [place] [address] RBC LM.HPF (Urine sed) [#/Area] 0-3 /HPF Normal 0-3 /HPF [facility] Comment on above: Order Comment: Speci men Type: URINE SPECIMEN Ordering Facility: [facility] Address: [address] [place] [address] Performed By: #### 2 4356-8 #### [facility] CLIA [id number] [address] [place] [address] Specific gravity (U) [Rel density] >=1.030 High 1.005-1.030 [facility] Comment on above: Order Comment: Speci men Type: URINE SPECIMEN Ordering Facility: [facility] Address: [address] [place] [address] Performed By: #### 2 4356-8 #### [facility] CLIA [id number] [address] [place] [address] Urobilinogen Ql (U) 0.2 EU/dL Normal 0.2-1.0 EU/dL [facility] Comment on above: Order Comment: Speci men Type: URINE SPECIMEN Ordering Facility: [facility] Address: [address] [place] [address] Performed By: #### 2 4356-8 #### [facility] CLIA [id number] [address] [place] [address] WBC LM.HPF (Urine sed) [#/Area] 6-10 /HPF Abnormal 0-5 /HPF [facility] Comment on above: Order Comment: Speci men Type: URINE SPECIMEN Ordering Facility: [facility] Address: [address] [place] [address] Performed By: #### 2 4356-8 #### [facility] CLIA [id number] [address] [place] [address] [place] CBC W Auto Differential pane l (Bld)on 08-28-2023 Basophils (Bld) [#/Vol] 0.1 10*3/uL 0.0 - 0.2 10*3/uL [facility] Basophils/100 WBC (Bld) 0.4 % 0.0 - 2.0 % [facility] Eosinophils (Bld) [#/Vol] 0.0 10*3/uL 0.0 - 0.5 10*3/uL [facility] Eosinophils/100 WBC (Bld) 0.2 % Low 1.0 - 6.0 % [facility] Erythrocyte distribution width (RBC) [Ratio] 12.4 % 11.5 - 14.5 % [facility] Hematocrit (Bld) [Volume fraction] 40.8 % 35.0 - 47.0 % [facility] Hemoglobin (Bld) [Mass/Vol] 14.1 g/dL 11.7 - 16.0 g/dL [facility] Immature granulocytes (Bld) [#/Vol] 0.3 10*3/uL High NINF - 0.0 10*3/uL [facility] Immature granulocytes/100 WBC (Bld) 1.8 % High NINF - 0.0 % [facility] Interpretation and review of laboratory results Abnormal [facility] Lymphocytes (Bld) [#/Vol] 2.1 10*3/uL 1.0 - 4.3 10*3/uL [facility] Lymphocytes/100 WBC (Bld) 11.5 % Low 20.0 - 40.0 % [facility] MCH (RBC) [Entitic mass] 32.0 pg 26.0 - 34.0 pg [facility] MCHC (RBC) [Mass/Vol] 34.6 % 32.0 - 36.0 % [facility] MCV (RBC) [Entitic vol] 92.7 fL 80.0 - 98.0 fL [facility] Monocytes (Bld) [#/Vol] 1.3 10*3/uL High 0.0 - 0.8 10*3/uL [facility] Monocytes/100 WBC (Bld) 6.9 % 2.0 - 10.0 % [facility] Neutrophils (Bld) [#/Vol] 14.7 10*3/uL High 1.8 - 7.0 10*3/uL [facility] Neutrophils/100 WBC (Bld) 79.2 % 40.0 - 80.0 % [facility] Platelet mean volume (Bld) [Entitic vol] 9.3 fL 7.4 - 12.4 fL [facility] Comment on above: MPV is a calculated measurement using platelet volume ratio Platelets (Bld) [#/Vol] 266 10*3/uL 140 - 440 10*3/uL [facility] RBC (Bld) [#/Vol] 4.40 10*6/uL 3.8 - 5.20 10*6/uL [facility] WBC (Bld) [#/Vol] 18.6 10*3/uL High 3.6 - 10.7 10*3/uL [facility] COVID-19, Flu A/B, and RSV C omboon 08-28-2023 Interpretation and review of laboratory results Normal [facility] Comprehensive metabolic 1998 panelon 08-28-2023 Albumin [Mass/Vol] 4.3 g/dL 3.5 - 5.0 g/dL [facility] ALP [Catalytic activity/Vol] 92 U/L 38 - 126 U/L [facility] ALT [Catalytic activity/Vol] 28 U/L 0 - 34 U/L [facility] Anion gap [Moles/Vol] 4 mmol/L 3 - 13 mmol/L [facility] AST [Catalytic activity/Vol] 34 U/L 15 - 46 U/L [facility] Bilirubin [Mass/Vol] 0.8 mg/dL 0.2 - 1.3 mg/dL [facility] Calcium [Mass/Vol] 8.9 mg/dL 8.4 - 10. 4 mg/dL [facility] Chloride [Moles/Vol] 102 mmol/L 98 - 107 mmol/L [facility] CO2 [Moles/Vol] 28 mmol/L 22 - 30 mmol/L [facility] Creatinine [Mass/Vol] 0.81 mg/dL 0.52 - 1.04 mg/dL [facility] GFR/1.73 sq M.predicted MDRD (S/P/Bld) [Vol rate/Area] 87.5 mL/min/{1.73_m2} - PINF [facility] Comment on above: Calculation based on the Chronic Kidney Disease Epidemiology Collaboration (CKD-EPI) equation refit without adjustment for race Glucose [Mass/Vol] 116 mg/dL High 70 - 100 mg/dL [facility] Interpretation and review of laboratory results Abnormal [facility] Potassium [Moles/Vol] 4.1 mmol/L 3.5 - 5.1 mmol/L [facility] Protein [Mass/Vol] 7.9 g/dL 6.3 - 8.2 g/dL [facility] Sodium [Moles/Vol] 133 mmol/L Low 135 - 145 mmol/L [facility] Urea nitrogen [Mass/Vol] 10 mg/dL 7 - 17 mg/dL [facility] Laboratory - Chemistry and C hemistry - challengeon 08-28-2023 Lactate [Moles/Vol] 1.0 mmol/L 0.7 - 2. 0 mmol/L [facility] Laboratory - Microbiology an d Antimicrobial susceptibilityon 08-28-2023 FLUAV RNA FATOUMATA+probe Ql (Resp) Not detected Not Detected [facility] FLUBV RNA FATOUMATA+probe Ql (Resp) Not detected Not Detected [facility] RSV RNA FATOUMATA+probe Ql (Resp) Not detected Not Detected [facility] SARS-CoV-2 (COVID-19) RNA FATOUMATA+probe Ql (Resp) Not detected Not Detected [facility] SARS-CoV-2 (COVID-19) RNA FATOUMATA+probe Ql (Unsp spec) Methodology: real-time, RT-PCR The SARS-CoV-2, Flu A/B, and RSV Combo assay is intended for in vitro diagnostic use under the FDA Emergency Use Authorization (EUA). This test has not been FDA cleared or approved. In compliance with this authorization, please visit www.fda.gov/media/930663/ download or www.fda.gov/media/928086/ download to access the applicable information sheets. [facility] No Panel Informationon 08-28 Interpretation and review of laboratory results Normal [facility] Urinalysis complete panel (U )Ordered By: Odalys Moore on 08-28-2023 Bacteria LM.HPF (Urine sed) [#/Area] Many Abnormal Negative /HPF [facility] Bilirubin Ql (U) Negative Negative mg/dL [facility] Clarity (U) Turbid Abnormal Clear [facility] Color (U) Light Yellow Lt. Yellow [facility] Epithelial cells.squamous LM.HPF (Urine sed) [#/Area] 11-25 Abnormal [facility] Glucose Ql (U) Normal Normal (<70) mg/dL [facility] Hemoglobin Ql (U) Negative Negative mg/dL [facility] Interpretation and review of laboratory results Abnormal [facility] Ketones (U) [Mass/Vol] Negative Negative mg/dL [facility] Leukocyte esterase Test strip Ql (U) 250 Abnormal Negative Daya/uL [facility] Nitrite Ql (U) Positive Abnormal Negative [facility] th pH (U) 7.5 [pH] 5.0 - 8.0 pH [facility] Protein (U) [Mass/Vol] 10 mg/dL Abnormal Negative [facility] RBC LM.HPF (Urine sed) [#/Area] Negative [facility] Specific gravity (U) [Rel density] 1.015 1.005 - 1.030 [facility] Urobilinogen (U) [Mass/Vol] Normal Normal (0-1) mg/dL [facility].H[facility] (Urine sed) [#/Area] 11-25 Abnormal [facility] XR Chest Single viewon 08-28 Impression: No acute cardiopulmonary process. Report Dictated on Electronically Signed By: Francis Mejia MD Electronically Signed Date/Time: 08/28/2023 9:59 PM EDT [facility] EMERGENCY [facility]PARTMENT [email or web address] [facility] 1970 [id number] Exam Date/Time: 08/28/2023 21:58 Procedure: XR CHEST 1 VIEW Ordering Provider: NEFF AUSTIN Reason For Exam: fever 102,, tachycardia, body aches Examination: AP portable chest Clinical Indication: fever 102, tachycardia, body aches Comparison: 11/13/2021 Findings: Lungs appear normally inflated. There is no focal consolidation, effusion, or pulmonary edema identified. The cardiomediastinal silhouette is within normal limits. There is no evidence of acute osseous abnormality. [facility] Francis Mejia MD - 08/28/2023 Patient Name: XOCHITL FULLER : 1970 Exam Date/Time: 08/28/2023 21:58 Procedure: XR CHEST 1 VIEW Ordering Provider: NEFF AUSTIN Reason For Exam: fever 102,, tachycardia, body aches Examination: AP portable chest Clinical Indication: fever 102, tachycardia, body aches Comparison: 11/13/2021 Findings: Lungs appear normally inflated. There is no focal consolidation, effusion, or pulmonary edema identified. The cardiomediastinal silhouette is within normal limits. There is no evidence of acute osseous abnormality. IMPRESSION: Impression: No acute cardiopulmonary process. Report Dictated on Electronically Signed By: Francis Mejia MD Electronically Signed Date/Time: 08/28/2023 9:59 PM EDT [facility] Radiology Study observation (narrative) [facility] XR Chest Single viewOrdered By: Francis Mejia on 08-28-2023 [facility] Work Phone: XR Cervical spine 4 or 5 Vie wson 01-07-2023 No fracture or dislocation of the cervical spine is identified. Mild degenerative changes at C5/C6. Report Dictated on Electronically Signed By: Kun Lebron Electronically Signed Date/Time: 01/07/2023 4:28 PM [facility] SYSTEM Patient Name: XOCHITL FULLER : 1970 Exam Date/Time: 01/05/2023 17:28 Procedure: XR CERVICAL SPINE COMPLETE 4-5 VIEWS Ordering Provider: ALEGRE AMRITA Reason For Exam: m54.2 CERVICAL SPINE SERIES WITH OBLIQUES CLINICAL INDICATION: Neck pain AP, bilateral oblique, open mouth odontoid, and lateral views of the cervical spine were obtained. COMPARISON: None. FINDINGS: The alignment of the cervical spine is normal. No fractures are seen. The dens and lateral masses of the C1 vertebral body appear within normal limits on the open-mouth odontoid view. There is no prevertebral soft tissue swelling. There is mild loss of intervertebral disc space height and degenerative endplate spurring at C5/C6. No bony neural foraminal narrowing is seen on the oblique views. [facility] RADIOLOGY SYSTEM Kun Lebron MD - 01/07/2023 Patient Name: XOCHITL FULLER : 1970 Exam Date/Time: 01/05/2023 17:28 Procedure: XR CERVICAL SPINE COMPLETE 4-5 VIEWS Ordering Provider: ALEGRE AMRITA Reason For Exam: m54.2 CERVICAL SPINE SERIES WITH OBLIQUES CLINICAL INDICATION: Neck pain AP, bilateral oblique, open mouth odontoid, and lateral views of the cervical spine were obtained. COMPARISON: None. FINDINGS: The alignment of the cervical spine is normal. No fractures are seen. The dens and lateral masses of the C1 vertebral body appear within normal limits on the open-mouth odontoid view. There is no prevertebral soft tissue swelling. There is mild loss of intervertebral disc space height and degenerative endplate spurring at C5/C6. No bony neural foraminal narrowing is seen on the oblique views. IMPRESSION: No fracture or dislocation of the cervical spine is identified. Mild degenerative changes at C5/C6. Report Dictated on Electronically Signed By: Kun Lebron Electronically Signed Date/Time: 01/07/2023 4:28 PM EST [facility] XR Cervical spine 4 or 5 Vie wsOrdered By: Kun Lebron on 01-07-2023 [facility] Work Phone: XR Hand - bilateral 3 Viewso n 01-07-2023 No fracture or dislocation of the left or right hand is identified. Marked joint space loss and degenerative spurring at the proximal interphalangeal joint of the right index finger with ulnar angulation. This may be posttraumatic. 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 No bony erosions are seen. Report Dictated on Electronically Signed By: Kun Lebron Electronically Signed Date/Time: 01/07/2023 4:29 PM EST [facility] RADIOLOGY SYSTEM Patient Name: XOCHITL FULLER : 1970 Exam Date/Time: 01/05/2023 17:18 Procedure: XR HAND 3+ VIEWS BILATERAL Ordering Provider: ALEGRE AMRITA Reason For Exam: r52 BILATERAL HANDS CLINICAL INDICATION: Pain AP, lateral, and oblique plain film views of the left and right hands were obtained. COMPARISON: None FINDINGS: No fracture or dislocation of the right hand is identified. There is no abnormal soft tissue swelling or radiopaque foreign body seen. There is marked joint space loss and degenerative spurring at the proximal interphalangeal joint of the right index finger with ulnar angulation. There is otherwise mild loss of joint space and degenerative spurring of the interphalangeal joints of the right hand diffusely. No fracture or dislocation of the left hand is identified. There is no abnormal soft tissue swelling or radiopaque foreign body seen. There is mild loss of joint space and degenerative spurring of the interphalangeal joints of the left hand diffusely. [facility] RADIOLOGY SYSTEM Kun Lebron MD - 01/07/2023 Patient Name: XOCHITL FULLER : 1970 Exam Date/Time: 01/05/2023 17:18 Procedure: XR HAND 3+ VIEWS BILATERAL Ordering Provider: ALEGRE AMRITA Reason For Exam: r52 BILATERAL HANDS CLINICAL INDICATION: Pain AP, lateral, and oblique plain film views of the left and right hands were obtained. COMPARISON: None FINDINGS: No fracture or dislocation of the right hand is identified. There is no abnormal soft tissue swelling or radiopaque foreign body seen. There is marked joint space loss and degenerative spurring at the proximal interphalangeal joint of the right index finger with ulnar angulation. There is otherwise mild loss of joint space and degenerative spurring of the interphalangeal joints of the right hand diffusely. No fracture or dislocation of the left hand is identified. There is no abnormal soft tissue swelling or radiopaque foreign body seen. There is mild loss of joint space and degenerative spurring of the interphalangeal joints of the left hand diffusely. IMPRESSION: No fracture or dislocation of the left or right hand is identified. Marked joint space loss and degenerative spurring at the proximal interphalangeal joint of the right index finger with ulnar angulation. This may be posttraumatic. 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 No bony erosions are seen. Report Dictated on Electronically Signed By: Kun Lebron Electronically Signed Date/Time: 01/07/2023 4:29 PM EST [facility] XR Knee - bilateral 3 Viewso n 01-07-2023 No fracture or dislocation of the left knee or right knee is identified. No significant degenerative changes. Report Dictated on Electronically Signed By: Kun Lebron Electronically Signed Date/Time: 01/07/2023 4:24 PM [facility] Patient Name: XOCHITL FULLER : 1970 Exam Date/Time: 01/05/2023 17:23 Procedure: XR KNEE 3 VIEWS BILATERAL Ordering Provider: ALEGRE AMRITA Reason For Exam: [id number] BILATERAL KNEES CLINICAL INDICATION: Bilateral knee pain AP, lateral, and patellar plain film views of the left and right knees were obtained. COMPARISON: None FINDINGS: No fracture or dislocation of the left knee is identified. Joint spaces appear well-preserved. No joint effusion is seen on the lateral view. Soft tissues are unremarkable. No fracture or dislocation of the right knee is identified. Joint spaces appear well-preserved. There is no joint effusion on the lateral view. Soft tissues are unremarkable. [facility] Kun Lebron MD - 01/07/2023 Patient Name: XOCHITL FULLER : 1970 Exam Date/Time: 01/05/2023 17:23 Procedure: XR KNEE 3 VIEWS BILATERAL Ordering Provider: ALEGRE AMRITA Reason For Exam: [id number] BILATERAL KNEES CLINICAL INDICATION: Bilateral knee pain AP, lateral, and patellar plain film views of the left and right knees were obtained. COMPARISON: None FINDINGS: No fracture or dislocation of the left knee is identified. Joint spaces appear well-preserved. No joint effusion is seen on the lateral view. Soft tissues are unremarkable. No fracture or dislocation of the right knee is identified. Joint spaces appear well-preserved. There is no joint effusion on the lateral view. Soft tissues are unremarkable. IMPRESSION: No fracture or dislocation of the left knee or right knee is identified. No significant degenerative changes. Report Dictated on Electronically Signed By: Kun Lebron Electronically Signed Date/Time: 01/07/2023 4:24 PM EST [facility] XR Lumbar spine 2 or 3 Views on 01-07-2023 No acute bony abnormality of the lumbar spine is seen. Mild degenerative changes of the lower lumbar spine. Report Dictated on Electronically Signed By: Kun Lebron Electronically Signed Date/Time: 01/07/2023 4:21 PM [facility] [employer] SYSTEM Patient Name: XOCHITL FULLER : 1970 Exam Date/Time: 01/05/2023 17:25 Procedure: XR LUMBAR SPINE 2-3 VIEWS Ordering Provider: ALEGRE AMRITA Reason For Exam: [id number] LUMBAR SPINE CLINICAL INDICATION: Back pain AP and lateral plain films of the lumbar spine were obtained. An additional coned down view of L5/S1 was also performed in the lateral projection. COMPARISON: None. FINDINGS: The alignment of the lumbar spine is normal. No fractures are seen. Mild loss of intervertebral disc space height and degenerative endplate spurring is present at L3/L4, L4/L5 and L5/S1. There are no lytic or blastic lesions observed. The sacroiliac joints appear unremarkable. [facility] [email or web address] SYSTEM Kun Lebron MD - 01/07/2023 Patient Name: XOCHITL FULLER : 1970 Exam Date/Time: 01/05/2023 17:25 Procedure: XR LUMBAR SPINE 2-3 VIEWS Ordering Provider: ALEGRE AMRITA Reason For Exam: [id number] LUMBAR SPINE CLINICAL INDICATION: Back pain AP and lateral plain films of the lumbar spine were obtained. An additional coned down view of L5/S1 was also performed in the lateral projection. COMPARISON: None. FINDINGS: The alignment of the lumbar spine is normal. No fractures are seen. Mild loss of intervertebral disc space height and degenerative endplate spurring is present at L3/L4, L4/L5 and L5/S1. There are no lytic or blastic lesions observed. The sacroiliac joints appear unremarkable. IMPRESSION: No acute bony abnormality of the lumbar spine is seen. Mild degenerative changes of the lower lumbar spine. Report Dictated on Electronically Signed By: Kun Lebron Electronically Signed Date/Time: 01/07/2023 4:21 PM EST [facility] XR Shoulder - bilateral 2 Vi ewson 01-07-2023 Unremarkable plain films of the left and right shoulders. Report Dictated on Electronically Signed By: Kun Lebron Electronically Signed Date/Time: 01/07/2023 4:23 PM [facility] [email or web address] SYSTEM Patient Name: XOCHITL FULLER : 1970 Exam Date/Time: 01/05/2023 17:14 Procedure: XR SHOULDER 2+ VIEWS BILATERAL Ordering Provider: ALEGRE AMRITA Reason For Exam: [id number] BILATERAL SHOULDERS CLINICAL INDICATION: Pain Three views of the left and right shoulder were obtained. COMPARISON: None. FINDINGS: No fracture or dislocation of the left shoulder is identified. There is no abnormal soft tissue swelling. The left acromioclavicular and glenohumeral joints appear grossly normal. No fracture or dislocation of the right shoulder is identified. There is no abnormal soft tissue swelling. The right acromioclavicular and glenohumeral joints appear grossly normal. [facility] Kun Lebron MD - 01/07/2023 Patient Name: XOCHITL FULLER : 1970 Exam Date/Time: 01/05/2023 17:14 Procedure: XR SHOULDER 2+ VIEWS BILATERAL Ordering Provider: ALEGRE AMRITA Reason For Exam: [id number] BILATERAL SHOULDERS CLINICAL INDICATION: Pain Three views of the left and right shoulder were obtained. COMPARISON: None. FINDINGS: No fracture or dislocation of the left shoulder is identified. There is no abnormal soft tissue swelling. The left acromioclavicular and glenohumeral joints appear grossly normal. No fracture or dislocation of the right shoulder is identified. There is no abnormal soft tissue swelling. The right acromioclavicular and glenohumeral joints appear grossly normal. IMPRESSION: Unremarkable plain films of the left and right shoulders. Report Dictated on Electronically Signed By: Kun Lebron Electronically Signed Date/Time: 01/07/2023 4:23 PM EST [facility] XR Shoulder - bilateral 2 Vi ewsOrdered By: Kun Lebron on 01-07-2023 [facility] Work Phone: XR Thoracic spine 4 Viewson 01-07-2023 Unremarkable plain film examination of the thoracic spine. Report Dictated on Electronically Signed By: Kun Lebron Electronically Signed Date/Time: 01/07/2023 4:24 PM EST [employer] SYSTEM Patient Name: XOCHITL FULLER : 1970 Exam Date/Time: 01/05/2023 17:20 Procedure: XR THORACIC SPINE COMPLETE 4+ VIEWS Ordering Provider: ALEGRE AMRITA Reason For Exam: [id number] THORACIC SPINE SERIES CLINICAL INDICATION: Back pain AP, lateral, and swimmer's views of the thoracic spine were obtained. COMPARISON: None. FINDINGS: The alignment of the thoracic spine is normal. No compression deformities are seen. The visualized ribs are unremarkable. [facility] [email or web address] [facility] Kun Lebron MD - 01/07/2023 Patient Name: XOCHITL FULLER : 1970 Exam Date/Time: 01/05/2023 17:20 Procedure: XR THORACIC SPINE COMPLETE 4+ VIEWS Ordering Provider: ALEGRE AMRITA Reason For Exam: [id number] THORACIC SPINE SERIES CLINICAL INDICATION: Back pain AP, lateral, and swimmer's views of the thoracic spine were obtained. COMPARISON: None. FINDINGS: The alignment of the thoracic spine is normal. No compression deformities are seen. The visualized ribs are unremarkable. IMPRESSION: Unremarkable plain film examination of the thoracic spine. Report Dictated on Electronically Signed By: Kun Lebron Electronically Signed Date/Time: 01/07/2023 4:24 PM EST [facility] No Panel Informationon 01-05 Radiology Study observation (narrative) [facility] US Lower Extremity Bilateral Venous Duplexon 04-26-2022 Patient Name: XOCHITL FULLER Ultrasound ACCESSION EXAM DATE/TIME PROCEDURE ORDERING PROVIDER [id number] 04/26/2022 12:42 EDT VL Venous Duplex US 5714 -PASTORAL, Lower Ext Bilateral CPT code 57192 Reason For Exam (VL Venous Duplex US Lower Ext Bilateral) leg swelling Report ULTRASOUND LOWER EXTREMITY VEINS BILATERAL: CLINICAL INDICATION: Pain and swelling. TECHNIQUE: Ultrasonographic evaluation, including color flow and Doppler duplex sonography, of the veins of the left and right lower extremities was performed to evaluate for the clinically suspected deep venous thrombosis. COMPARISON: 12/26/2017 FINDINGS: Right: Color flow imaging demonstrates normal flow. Two-dimensional imaging demonstrates no evidence of filling defect or limited compressibility of the common femoral, superficial femoral, popliteal vein and visualized calf veins. Doppler interrogation demonstrates normal phasic flow with respiration with adequate augmentation and normal response to Valsalva maneuver. Left: Color flow imaging demonstrates normal flow. Two-dimensional imaging demonstrates no evidence of filling defect or limited compressibility of the common femoral, superficial femoral, popliteal vein and visualized calf veins. Doppler interrogation demonstrates normal phasic flow with respiration with adequate augmentation and normal response to Valsalva maneuver. IMPRESSION: No evidence of left or right lower extremity deep venous thrombosis. Report Dictated on --- Final --- Dictating Physician: MD GOODMAN JEFFREY Signed Date and Time: 04/26/2022 3:23 pm Signed by: MD GOODMAN JEFFREY Transcribed Date and Time: 04/26/2022 3:24 Cardiovascular ACCESSION EXAM DATE/TIME PROCEDURE [id number] 04/26/2022 12:42 EDT VL Venous Duplex US Lower Ext Bilateral CPT code 30738 Reason For Exam (VL Venous Duplex US Lower Ext Bilateral) leg swelling Report ULTRASOUND LOWER EXTREMITY VEINS BILATERAL: CLINICAL INDICATION: Pain and swelling. TECHNIQUE: Ultrasonographic evaluation, including color flow and Doppler duplex sonography, of the veins of the left and right lower extremities was performed to evaluate for the clinically suspected deep venous thrombosis. COMPARISON: 12/26/2017 FINDINGS: Right: Color flow imaging demonstrates normal flow. Two-dimensional imaging demonstrates no evidence of filling defect or limited compressibility of the common femoral, superficial femoral, popliteal vein and visualized calf veins. Doppler interrogation demonstrates normal phasic flow with respiration with adequate augmentation and normal response to Valsalva maneuver. Left: Color flow imaging demonstrates normal flow. Two-dimensional imaging demonstrates no evidence of filling defect or limited compressibility of the common femoral, superficial femoral, popliteal vein and visualized calf veins. Doppler interrogation demonstrates normal phasic flow with respiration with adequate augmentation and normal response to Valsalva maneuver. IMPRESSION: No evidence of left or right lower extremity deep venous thrombosis. Report Dictated on --- Final --- Dictating Physician: MD GOODMAN JEFFREY Signed Date and Time: 04/26/2022 3:23 pm Signed by: MD GOODMAN JEFFREY Transcribed Date and Time: 04/26/2022 3:24 [facility] Ismael Goodman MD - 04/26/2022 Patient Name: XOCHITL FULLER [facility]#: [id number] Ultrasound ACCESSION EXAM DATE/TIME PROCEDURE ORDERING PROVIDER [id number] 04/26/2022 12:42 EDT VL Venous Duplex US 5714 -PASTORAL, Lower Ext Bilateral CPT code 98864 Reason For Exam (VL Venous Duplex US Lower Ext Bilateral) leg swelling Report ULTRASOUND LOWER EXTREMITY VEINS BILATERAL: CLINICAL INDICATION: Pain and swelling. TECHNIQUE: Ultrasonographic evaluation, including color flow and Doppler duplex sonography, of the veins of the left and right lower extremities was performed to evaluate for the clinically suspected deep venous thrombosis. COMPARISON: 12/26/2017 FINDINGS: Right: Color flow imaging demonstrates normal flow. Two-dimensional imaging demonstrates no evidence of filling defect or limited compressibility of the common femoral, superficial femoral, popliteal vein and visualized calf veins. Doppler interrogation demonstrates normal phasic flow with respiration with adequate augmentation and normal response to Valsalva maneuver. Left: Color flow imaging demonstrates normal flow. Two-dimensional imaging demonstrates no evidence of filling defect or limited compressibility of the common femoral, superficial femoral, popliteal vein and visualized calf veins. Doppler interrogation demonstrates normal phasic flow with respiration with adequate augmentation and normal response to Valsalva maneuver. IMPRESSION: No evidence of left or right lower extremity deep venous thrombosis. Report Dictated on --- Final --- Dictating Physician: MD GOODMAN JEFFREY Signed Date and Time: 04/26/2022 3:23 pm Signed by: MD GOODMAN JEFFREY Transcribed Date and Time: 04/26/2022 3:24 Cardiovascular ACCESSION EXAM DATE/TIME PROCEDURE [id number] 04/26/2022 12:42 EDT VL Venous Duplex US Lower Ext Bilateral CPT code 85200 Reason For Exam (VL Venous Duplex US Lower Ext Bilateral) leg swelling Report ULTRASOUND LOWER EXTREMITY VEINS BILATERAL: CLINICAL INDICATION: Pain and swelling. TECHNIQUE: Ultrasonographic evaluation, including color flow and Doppler duplex sonography, of the veins of the left and right lower extremities was performed to evaluate for the clinically suspected deep venous thrombosis. COMPARISON: 12/26/2017 FINDINGS: Right: Color flow imaging demonstrates normal flow. Two-dimensional imaging demonstrates no evidence of filling defect or limited compressibility of the common femoral, superficial femoral, popliteal vein and visualized calf veins. Doppler interrogation demonstrates normal phasic flow with respiration with adequate augmentation and normal response to Valsalva maneuver. Left: Color flow imaging demonstrates normal flow. Two-dimensional imaging demonstrates no evidence of filling defect or limited compressibility of the common femoral, superficial femoral, popliteal vein and visualized calf veins. Doppler interrogation demonstrates normal phasic flow with respiration with adequate augmentation and normal response to Valsalva maneuver. IMPRESSION: No evidence of left or right lower extremity deep venous thrombosis. Report Dictated on --- Final --- Dictating Physician: MD GOODMAN JEFFREY Signed Date and Time: 04/26/2022 3:23 pm Signed by: MD GOODMAN JEFFREY Transcribed Date and Time: 04/26/2022 3:24 [facility] Work Phone: Radiology Study observation (narrative) [facility] Work Phone: US Lower Extremity Bilateral Venous DuplexOrdered By: Ismael Goodman on 04-26-2022 [facility] Work Phone: VL Venous Duplex US Lower Ex t Bilateralon 04-26-2022 VL Venous Duplex US Lower Ext Bilateral Patient Name: XOCHITL FULLER [facility]#: [id number] Ultrasound ACCESSION EXAM DATE/TIME PROCEDURE ORDERING PROVIDER [id number] 04/26/2022 12:42 EDT VL Venous Duplex US 5714 -PASTORAL, Lower Ext Bilateral CPT code 43853 Reason For Exam (VL Venous Duplex US Lower Ext Bilateral) leg swelling Report ULTRASOUND LOWER EXTREMITY VEINS BILATERAL: CLINICAL INDICATION: Pain and swelling. TECHNIQUE: Ultrasonographic evaluation, including color flow and Doppler duplex sonography, of the veins of the left and right lower extremities was performed to evaluate for the clinically suspected deep venous thrombosis. COMPARISON: 12/26/2017 FINDINGS: Right: Color flow imaging demonstrates normal flow. Two-dimensional imaging demonstrates no evidence of filling defect or limited compressibility of the common femoral, superficial femoral, popliteal vein and visualized calf veins. Doppler interrogation demonstrates normal phasic flow with respiration with adequate augmentation and normal response to Valsalva maneuver. Left: Color flow imaging demonstrates normal flow. Two-dimensional imaging demonstrates no evidence of filling defect or limited compressibility of the common femoral, superficial femoral, popliteal vein and visualized calf veins. Doppler interrogation demonstrates normal phasic flow with respiration with adequate augmentation and normal response to Valsalva maneuver. IMPRESSION: No evidence of left or right lower extremity deep venous thrombosis. Report Dictated on Final Dictating Physician: MD GOODMAN JEFFREY Signed Date and Time: 04/26/2022 3:23 pm Signed by: MD GOODMAN JEFFREY Transcribed Date and Time: 04/26/2022 3:24 Cardiovascular ACCESSION EXAM DATE/TIME PROCEDURE [id number] 04/26/2022 12:42 EDT VL Venous Duplex US Lower Ext Bilateral CPT code 03665 Reason For Exam (VL Venous Duplex US Lower Ext Bilateral) leg swelling Report ULTRASOUND LOWER EXTREMITY VEINS BILATERAL: CLINICAL INDICATION: Pain and swelling. TECHNIQUE: Ultrasonographic evaluation, including color flow and Doppler duplex sonography, of the veins of the left and right lower extremities was performed to evaluate for the clinically suspected deep venous thrombosis. COMPARISON: 12/26/2017 FINDINGS: Right: Color flow imaging demonstrates normal flow. Two-dimensional imaging demonstrates no evidence of filling defect or limited compressibility of the common femoral, superficial femoral, popliteal vein and visualized calf veins. Doppler interrogation demonstrates normal phasic flow with respiration with adequate augmentation and normal response to Valsalva maneuver. Left: Color flow imaging demonstrates normal flow. Two-dimensional imaging demonstrates no evidence of filling defect or limited compressibility of the common femoral, superficial femoral, popliteal vein and visualized calf veins. Doppler interrogation demonstrates normal phasic flow with respiration with adequate augmentation and normal response to Valsalva maneuver. IMPRESSION: No evidence of left or right lower extremity deep venous thrombosis. Report Dictated on Final Dictating Physician: MD GOODMAN JEFFREY Signed Date and Time: 04/26/2022 3:23 pm Signed by: MD GOODMAN JEFFREY Transcribed Date and Time: 04/26/2022 3:24 Normal [facility] CBC with Auto Differentialon 04-19-2022 Absolute Baso # 0.1 10*3/uL 0.0 - 0.2 10*3/uL [facility] Absolute Neut # 4.9 10*3/uL 1.8 - 7.0 10*3/uL [facility] Basophils/100 WBC (Bld) 1.0 % 0.0 - 2.0 % [facility] Eosinophils (Bld) [#/Vol] 0.3 10*3/uL 0.0 - 0.5 10*3/uL [facility] Eosinophils/100 WBC (Bld) 3.0 % 1.0 - 6.0 % [facility] Granulocytes/100 WBC (Bld) 56.5 % 40.0 - 80.0 % [facility] Hematocrit (Bld) [Volume fraction] 43.7 % 35.0 - 47.0 % [facility] Hemoglobin.gastroin testinal spec 1 Ql (Stl) 15.1 g/dL 11.7 - 16.0 g/dL [facility] Lymphocytes (Bld) [#/Vol] 2.8 10*3/uL 1.0 - 4.3 10*3/uL [facility] Lymphocytes/100 WBC (Bld) 32.5 % 20.0 - 40.0 % [facility] MCH (RBC) [Entitic mass] 31.9 pg 26.0 - 34.0 pg [facility] MCHC (RBC) [Mass/Vol] 34.6 % 32.0 - 36.0 % [facility] MCV (RBC) [Entitic vol] 92.4 fL 79.0 - 98.0 fL [facility] Monocytes (Bld) [#/Vol] 0.6 10*3/uL 0.0 - 0.8 10*3/uL [facility] Monocytes/100 WBC (Bld) 6.8 % 2.0 - 10.0 % [facility] Platelet distribution width (Bld) [Ratio] 12.6 % 11.5 - 14.5 % [facility] Platelet mean volume (Bld) [Entitic vol] 9.5 fL 7.4 - 12.4 fL [facility] Comment on above: MPV is a calculated measurement using platelet volume ratio. Platelets (Bld) [#/Vol] 307 10*3/uL 140 - 440 10*3/uL [facility] RBC (Bld) [#/Vol] 4.73 10*6/uL 3.80 - 5.2 0 10*6/uL [facility] WBC (Bld) [#/Vol] 8.7 10*3/uL 3.6 - 10.7 10*3/uL [facility] Test Performed by [facility], [address] , [place], [place] [id number] [place] [address] LAB [facility] Comp Metabolic Panelon 04-19 ALT [Catalytic activity/Vol] 20 U/L Normal 0-34 [facility] Comment on above: Result Comment: The ALT test is performed by an updated assay method. Please note that the reference intervals have been changed and are now sex specific. Performed By: #### H EMDF, CMP3, TSH5, B12, HA1C2 #### [facility] [address] [place] [address] #### IGG, IGA #### [facility] [address] [place] [address] Calcium [Mass/Vol] 9.5 mg/dL Normal 8.4-10.4 [facility] Comment on above: Performed By: #### H EMDF, CMP3, TSH5, B12, HA1C2 #### [facility] [address] [place] [address] #### IGG, IGA #### [facility] [address] [place] [address] Glucose [Mass/Vol] 108 mg/dL High 70-100 [facility] Comment on above: Performed By: #### H EMDF, CMP3, TSH5, B12, HA1C2 #### [facility] [address] [place] [address] #### IGG, IGA #### [facility] [address] [place] [address] ALP [Catalytic activity/Vol] 88 U/L Normal 38-126 [facility] Comment on above: Performed By: #### H EMDF, CMP3, TSH5, B12, HA1C2 #### [facility] [address] [place] [address] #### IGG, IGA #### [facility] [address] [place] [address] Anion gap [Moles/Vol] 5 mmol/L Normal 3-13 [facility] Comment on above: Performed By: #### H EMDF, CMP3, TSH5, B12, HA1C2 #### [facility] [address] [place] [address] #### IGG, IGA #### [facility] [address] [place] [address] AST [Catalytic activity/Vol] 29 U/L Normal 15-46 [facility] Comment on above: Performed By: #### H EMDF, CMP3, TSH5, B12, HA1C2 #### [facility] [address] [place] [address] #### IGG, IGA #### [facility] [address] [place] [address] Bilirubin [Mass/Vol] 0.6 mg/dL Normal 0.2-1.3 [facility] Comment on above: Performed By: #### H EMDF, CMP3, TSH5, B12, HA1C2 #### [facility] [address] [place] [address] #### IGG, IGA #### [facility] [address] [facility] [place] [address] CO2 [Moles/Vol] 27 mmol/L Normal 22-30 [facility] Comment on above: Performed By: #### H EMDF, CMP3, TSH5, B12, HA1C2 #### [facility] [address] [place] [address] #### IGG, IGA #### [facility] [address] [facility] [place] [address] Creatinine [Mass/Vol] 0.91 mg/dL Normal 0.52-1.25 [facility] Comment on above: Performed By: #### H EMDF, CMP3, TSH5, B12, HA1C2 #### [facility] [address] [place] [address] #### IGG, IGA #### [facility] [address] [facility] [place] [address] GFR/1.73 sq M.predicted among blacks MDRD (S/P/Bld) [Vol rate/Area] 84.7 mL/min/{1.73_m2} Normal >60 [facility] Comment on above: Performed By: #### H EMDF, CMP3, TSH5, B12, HA1C2 #### [facility] [address] [place] [address] #### IGG, IGA #### [facility] [address] [facility] [place] [address] GFR/1.73 sq M.predicted among non-blacks MDRD (S/P/Bld) [Vol rate/Area] 73.0 mL/min/{1.73_m2} Normal >60 [facility] Comment on above: Result Comment: KDIG O guidelines provide the following GFR categories: Stage GFR(ml/min/1.73 m2) Terms G1 >=90 Normal or high G2 60-89 Mildly decreased* G3a 45-59 Mildly to moderately decreased G3b 30-44 Moderately to severely decreased G4 15-29 Severely decreased G5 <15 Kidney failure *Relative to young adult level. In the absence of evidence of kidney damage, neither GFR category G1 nor G2 fulfill the criteria for CKD. The CKD-EPI equation is validated in individuals 18 years of age and older. Currently the best equation for estimating glomerular filtration rate (GFR) from serum creatinine in children is the Bedside Sultana equation. It is less accurate in patients with extremes of muscle mass, restriction of dietary protein, ingestion of creatine, extra-renal metabolism of creatinine, or treatment with medications that affect renal tubular creatinine secretion. Performed By: #### H EMDF, CMP3, TSH5, B12, HA1C2 #### [facility] [address] [place] [address] #### IGG, IGA #### [facility] [address] [place] [address] Protein [Mass/Vol] 7.7 g/dL Normal 6.3-8.2 [facility] Comment on above: Performed By: #### H EMDF, CMP3, TSH5, B12, HA1C2 #### [facility] [address] [place] [address] #### IGG, IGA #### [facility] [address] [place] [address] Urea nitrogen [Mass/Vol] 14 mg/dL Normal 9-20 [facility] Comment on above: Performed By: #### H EMDF, CMP3, TSH5, B12, HA1C2 #### [facility] [address] [place] [address] #### IGG, IGA #### [facility] [address] [place] [address] Potassium [Moles/Vol] 4.3 mmol/L Normal 3.5-5.1 [facility] Comment on above: Performed By: #### H EMDF, CMP3, TSH5, B12, HA1C2 #### [facility] [address] [place] [address] #### IGG, IGA #### [facility] [address] [place] [address] Sodium [Moles/Vol] 137 mmol/L Normal 135-145 [facility] Comment on above: Performed By: #### H EMDF, CMP3, TSH5, B12, HA1C2 #### [facility] [address] [place] [address] #### IGG, IGA #### [facility] [address] [place] [address] Albumin [Mass/Vol] 4.3 g/dL Normal 3.5-5.0 [facility] Comment on above: Performed By: #### H EMDF, CMP3, TSH5, B12, HA1C2 #### [facility] [address] [place] [address] #### IGG, IGA #### [facility] [address] [place] [address] Chloride [Moles/Vol] 105 mmol/L Normal 98-107 [facility] Comment on above: Performed By: #### H EMDF, CMP3, TSH5, B12, HA1C2 #### [address] [place] [address] #### IGG, IGA #### [facility] [address] [place] [address] Comprehensive Metabolic Pane [facility] 04-19-2022 ALP (Bld) [Catalytic activity/Vol] 88 U/L 38 - 126 U/L [facility] ALT [Catalytic activity/Vol] 20 U/L 0 - 34 U/L [facility] Comment on above: The ALT test is perf ormed by an updated assay method. Please note that the reference intervals have been changed and are now sex specific. Anion gap [Moles/Vol] 5 mmol/L 3 - 13 mmol/L [facility] AST [Catalytic activity/Vol] 29 U/L 15 - 46 U/L [facility] Bilirubin [Mass/Vol] 0.6 mg/dL 0.2 - 1.3 mg/dL [facility] Calcium [Mass/Vol] 9.5 mg/dL 8.4 - 10. 4 mg/dL [facility] CO2 [Moles/Vol] 27 mmol/L 22 - 30 mmol/L [facility] Creatinine [Mass/Vol] 0.91 mg/dL 0.52 - 1.25 mg/dL [facility] EGFR IF NonAfrican Paraguayan 73.0 mL/min >60 [facility] Comment on above: KDIGO guidelines pro vide the following GFR categories: Stage GFR(ml/min/1.73 m2) Terms G1 >=90 Normal or high G2 60-89 Mildly decreased* G3a 45-59 Mildly to moderately decreased G3b 30-44 Moderately to severely decreased G4 15-29 Severely decreased G5 <15 Kidney failure *Relative to young adult level. In the absence of evidence of kidney damage, neither GFR category G1 nor G2 fulfill the criteria for CKD. The CKD-EPI equation is validated in individuals 18 years of age and older. Currently the best equation for estimating glomerular filtration rate (GFR) from serum creatinine in children is the Bedside Sultana equation. It is less accurate in patients with extremes of muscle mass, restriction of dietary protein, ingestion of creatine, extra-renal metabolism of creatinine, or treatment with medications that affect renal tubular creatinine secretion. Free PSA/Total PSA [Mass fraction] 7.7 g/dL 6.3 - 8.2 g/dL [facility] GFR/1.73 sq M.predicted among blacks MDRD (S/P/Bld) [Vol rate/Area] 84.7 mL/min/{1.73_m2} >60 [facility] Glucose [Mass/Vol] 108 mg/dL High 70 - 100 mg/dL [facility] Interpretation and review of laboratory results Abnormal [facility] Potassium [Moles/Vol] 4.3 mmol/L 3.5 - 5.1 mmol/L [facility] Sodium [Moles/Vol] 137 mmol/L 135 - 145 mmol/L [facility] Urea nitrogen (BldV) [Mass/Vol] 14 mg/dL 9 - 20 mg/dL [facility] Test Performed by [facility], [address] [place] [address] LAB [facility] Hemoglobin A1Con 04-19-2022 Glucose [Mass/Vol] 117 mg/dL Normal [facility] Comment on above: Performed By: #### H EMDF, CMP3, TSH5, B12, HA1C2 #### [facility] [address] [place] [address] #### IGG, IGA #### [facility] [address] [place] [id number] HbA1c (Bld) [Mass fraction] 5.7 % Abnormal [facility] Comment on above: Result Comment: Norm al less than 5.7% Prediabetes 5.7% to 6.4% Diabetes 6.5% or higher --HgbA1C levels may not be accurate in patients who have renal disease, received recent blood transfusions, are anemic, or who have dyshemoglobinemia. Performed By: #### H EMDF, CMP3, TSH5, B12, HA1C2 #### [facility] [address] [place] [address] #### IGG, IGA #### [facility] [address] [place] [address] eAG 117 mg/dL [facility] HbA1c (Bld) [Mass fraction] 5.7 % Abnormal [facility] Comment on above: Normal less than 5.7 % Prediabetes 5.7% to 6.4% Diabetes 6.5% or higher --HgbA1C levels may not be accurate in patients who have renal disease, received recent blood transfusions, are anemic, or who have dyshemoglobinemia. Interpretation and review of laboratory results Abnormal [facility] Test Performed by [facility], [address] [place] [address] , [address] LAB [facility] Hemogram w/ Autodiffon 04-19 Abs Baso Cnt 0.1 10*3/uL Normal 0.0-0.2 [facility] Comment on above: Performed By: #### H EMDF, CMP3, TSH5, B12, HA1C2 #### [facility] [address] [place] [address] #### IGG, IGA #### [facility] [address] [place] [address] Abs Neutrophile Cnt 4.9 10*3/uL Normal 1.8-7.0 [facility] Comment on above: Performed By: #### H EMDF, CMP3, TSH5, B12, HA1C2 #### [facility] [address] [place] [address] #### IGG, IGA #### [facility] [address] [place] [address] Basophils/100 WBC (Bld) 1.0 % Normal 0.0-2.0 [facility] Comment on above: Performed By: #### H EMDF, CMP3, TSH5, B12, HA1C2 #### [facility] [address] [place] [address] #### IGG, IGA #### [facility] [address] [place] [address] Eosinophils (Bld) [#/Vol] 0.3 10*3/uL Normal 0.0-0.5 [facility] Comment on above: Performed By: #### H EMDF, CMP3, TSH5, B12, HA1C2 #### [facility] [address] [place] [address] #### IGG, IGA #### [facility] [address] [place] [address] Eosinophils/100 WBC (Bld) 3.0 % Normal 1.0-6.0 [facility] Comment on above: Performed By: #### H EMDF, CMP3, TSH5, B12, HA1C2 #### [facility] [address] [place] [address] #### IGG, IGA #### [facility] [address] [place] [address] Erythrocyte distribution width (RBC) [Ratio] 12.6 % Normal 11.5-14.5 [facility] Comment on above: Performed By: #### H EMDF, CMP3, TSH5, B12, HA1C2 #### [facility] [address] [place] [address] #### IGG, IGA #### [facility] [address] [place] [address] Granulocytes/100 WBC (Bld) 56.5 % Normal 40.0-80.0 [facility] Comment on above: Performed By: #### H EMDF, CMP3, TSH5, B12, HA1C2 #### [facility] [address] [place] [address] #### IGG, IGA #### [facility] [address] [place] [address] Hematocrit (Bld) [Volume fraction] 43.7 % Normal 35.0-47.0 [facility] Comment on above: Performed By: #### H EMDF, CMP3, TSH5, B12, HA1C2 #### [facility] [address] [place] [address] #### IGG, IGA #### [facility] [address] [place] [address] Hemoglobin (Bld) [Mass/Vol] 15.1 g/dL Normal 11.7-16.0 [facility] Comment on above: Performed By: #### H EMDF, CMP3, TSH5, B12, HA1C2 #### [facility] [address] [place] [address] #### IGG, IGA #### [facility] [address] [place] [address] Lymphocytes (Bld) [#/Vol] 2.8 10*3/uL Normal 1.0-4.3 [facility] Comment on above: Performed By: #### H EMDF, CMP3, TSH5, B12, HA1C2 #### [facility] [address] [place] [address] #### IGG, IGA #### [facility] [address] [place] [address] Lymphocytes/100 WBC (Bld) 32.5 % Normal 20.0-40.0 [facility] Comment on above: Performed By: #### H EMDF, CMP3, TSH5, B12, HA1C2 #### [facility] [address] [place] [address] #### IGG, IGA #### [facility] [address] [place] [address] MCH (RBC) [Entitic mass] 31.9 pg Normal 26.0-34.0 [facility] Comment on above: Performed By: #### H EMDF, CMP3, TSH5, B12, HA1C2 #### [facility] [address] [place] [address] #### IGG, IGA #### [facility] [address] [place] [address] MCHC 34.6 % Normal 32.0-36.0 [facility] Comment on above: Performed By: #### H EMDF, CMP3, TSH5, B12, HA1C2 #### [facility] [address] [place] [address] #### IGG, IGA #### [facility] [address] [place] [address] MCV (RBC) [Entitic vol] 92.4 fL Normal 79.0-98.0 [facility] Comment on above: Performed By: #### H EMDF, CMP3, TSH5, B12, HA1C2 #### [facility] [address] [place] [address] #### IGG, IGA #### [facility] [address] [place] [address] Monocytes (Bld) [#/Vol] 0.6 10*3/uL Normal 0.0-0.8 [facility] Comment on above: Performed By: #### H EMDF, CMP3, TSH5, B12, HA1C2 #### [facility] [address] [place] [address] #### IGG, IGA #### [facility] [address] [place] [address] Monocytes/100 WBC (Bld) 6.8 % Normal 2.0-10.0 [facility] Comment on above: Performed By: #### H EMDF, CMP3, TSH5, B12, HA1C2 #### [facility] [address] [place] [address] #### IGG, IGA #### [facility] [address] [place] [address] Platelet mean volume (Bld) [Entitic vol] 9.5 fL Normal 7.4-12.4 [facility] Comment on above: Result Comment: MPV is a calculated measurement using platelet volume ratio. Performed By: #### H EMDF, CMP3, TSH5, B12, HA1C2 #### [facility] [address] [address] #### IGG, IGA #### [facility] [address] [place] [address] Platelets (Bld) [#/Vol] 307 10*3/uL Normal 140-440 [facility] Comment on above: Performed By: #### H EMDF, CMP3, TSH5, B12, HA1C2 #### [facility] [address] [place] [address] #### IGG, IGA #### [facility] [address] [place] [address] RBC (Bld) [#/Vol] 4.73 10*6/uL Normal 3.80-5.20 [facility] Comment on above: Performed By: #### H EMDF, CMP3, TSH5, B12, HA1C2 #### [facility] [address] [place] [address] #### IGG, IGA #### [facility] [address] [place] [address] WBC (Bld) [#/Vol] 8.7 10*3/uL Normal 3.6-10.7 [facility] Comment on above: Performed By: #### H EMDF, CMP3, TSH5, B12, HA1C2 #### [facility] [address] [place] [address] #### IGG, IGA #### [facility] [address] [facility] [place] [address] IgAon 04-19-2022 IgA [Mass/Vol] 227.8 mg/dL 70.0 - 400.0 mg/dL [facility] IgA,Bloodon 04-19-2022 IgA,Blood 227.8 mg/dL Normal 70.0-400.0 [facility] Comment on above: Performed By: #### H EMDF, CMP3, TSH5, B12, HA1C2 #### [facility] [address] [place] [address] #### IGG, IGA #### [facility] [address] [facility] [place] [address] IgGon 04-19-2022 IgG [Mass/Vol] 1063.3 mg/dL 700.0 - 1600. 0 mg/dL [facility] IgG,Bloodon 04-19-2022 IgG,Blood 1063.3 mg/dL Normal 700.0-1600.0 [facility] Comment on above: Performed By: #### H EMDF, CMP3, TSH5, B12, HA1C2 #### [facility] [address] [place] [address] #### IGG, IGA #### [facility] [address] [place] [address] No Panel Informationon 04-19 Test Performed by [facility], [address] [place], [place], [place] [id number] [place] [address] LAB [facility] TSHon 04-19-2022 TSH Qn 0.897 u[IU]/mL 0.465 - 4.680 u[IU]/mL [facility] Test Performed by [facility], [address] LAB [facility] Thyroid Stim. Hormoneon 03-28 Thyroid Stim. Hormone 0.897 u[IU]/mL Normal 0.465-4.680 [facility] Comment on above: Performed By: #### H EMDF, CMP3, TSH5, B12, HA1C2 #### [facility] [address] [place] [address] #### IGG, IGA #### [facility] [address] [place] [address] Vitamin B12on 04-19-2022 Cobalamin (Vitamin B12) [Mass/Vol] 334 pg/mL Normal 239-931 [facility] Comment on above: Performed By: #### H EMDF, CMP3, TSH5, B12, HA1C2 #### [facility] [address] [place] [address] #### IGG, IGA #### [facility] [address] [place] [address] Cobalamin (Vitamin B12) [Mass/Vol] 334 pg/mL 239 - 931 pg/mL [facility] Test Performed by [facility], [address] LAB [facility] CR Chest Portableon 11-13-20 21 CR Chest Portable Patient Name: XOCHITL FULLER Diagnostic Radiology ACCESSION EXAM DATE/TIME PROCEDURE ORDERING PROVIDER [id number] 11/13/2021 15:15 EST CR Chest Portable MD VANDANA, JESSICA CPT code 48516 Reason For Exam (CR Chest Portable) cough Report PORTABLE CHEST (Frontal View) History: Respiratory abnormality Comparison: 08/15/2019 Findings: Frontal portable chest view shows crowded lung markings in the bases without acute infiltrate or congestion. The heart is normal in size. There is no mediastinal widening or pleural effusion. IMPRESSION: No acute pulmonary process. Report Dictated on Final Dictating Physician: MD TARA, KAITLIN Signed Date and Time: 11/13/2021 4:07 pm Signed by: MD PACHECO AHMAD Transcribed Date and Time: 11/13/2021 4:08 [facility] SARS-CoV-2, Flu A/B and RSVo n 11-13-2021 SARS-CoV-2 (COVID-19) RNA FATOUMATA+probe Ql (Unsp spec) SARS-CoV-2 --> Status: F DETECTED Flu A PCR --> Status: F Not Detected. Flu B PCR --> Status: F Not Detected. RSV PCR --> Status: F Not Detected. Expected Result: Not Detected _ Method: Real-time, RT-PCR This assay was developed by [employer] and distributed under an Emergency Use Authorization (EUA) granted by the FDA for the qualitative detection of nucleic acids from SARS-CoV-2, Influenza A, Influenza B, and Respiratory Syncytial Virus. Provider and patient fact sheets can be found at https://www.fda.gov/media /382747/download and https://www.fda.gov/media /065868/download. Expected Result: Not Detected _ Method: Real-time, RT-PCR This assay was developed by [employer] and distributed under an Emergency Use Authorization (EUA) granted by the FDA for the qualitative detection of nucleic acids from SARS-CoV-2, Influenza A, Influenza B, and Respiratory Syncytial Virus. Provider and patient fact sheets can be found at https://www.fda.gov/media /672566/download and https://www.fda.gov/media /523402/download. Normal [facility] Comment on above: Performed By: #### C VFLR #### [facility] [address] [place] [address] , [address] Rapid influenza A/B antigens on 10-05-2020 INFLUENZA A Not Detected Not Detected [place] INFLUENZA B Not Detected Not Detected NA [place], [place] Comment on above: Method: Isothermal n ucleic acid amplification technology. Test Performed by [facility], [address] , [place], [place] [address] [place], [place] XR CHEST STANDARD (2 VW)on 0 08-15-2019 Patient Name: XOCHITL FULLER ---Diagnostic Radiology--- Exam Date/Time 08/15/2019 16:59:49 EDT Exam CR Chest PA/LAT Ordering Physician BURTON EUBANKS Accession Number [id number] CPT4 Codes 65974 () Reason For Exam pain Report CHEST PA AND LATERAL CLINICAL INDICATION: pain TECHNIQUE: Frontal and lateral chest x-ray. COMPARISON: October,. FINDINGS: Cardiac and mediastinal silhouette within normal limits. Lungs are grossly clear. No significant vascular congestion. No apparent pleural effusion or pneumothorax. Bony thorax grossly unremarkable. IMPRESSION: 1. No acute findings. Report Dictated on Workstation: [id number] --- Final --- Dictating Physician: MD MENDEZ WENDELL Signed Date and Time: 08/15/2019 5:08 pm Signed by: MD MENDEZ WENDELL Transcribed Date and Time: 08/15/2019 5:09 [place], [place], [facility] Incoming Radiology Results From [employer] - 08/15/2019 5:10 PM EDT Patient Name: XOCHITL FULLER ---Diagnostic Radiology--- Exam Date/Time 08/15/2019 16:59:49 EDT Exam CR Chest PA/LAT Ordering Physician BURTON EUBANKS Accession Number [id number] CPT4 Codes 64251 () Reason For Exam pain Report CHEST PA AND LATERAL CLINICAL INDICATION: pain TECHNIQUE: Frontal and lateral chest x-ray. COMPARISON: October,. FINDINGS: Cardiac and mediastinal silhouette within normal limits. Lungs are grossly clear. No significant vascular congestion. No apparent pleural effusion or pneumothorax. Bony thorax grossly unremarkable. IMPRESSION: 1. No acute findings. Report Dictated on Workstation: [id number] --- Final --- Dictating Physician: MD MENDEZ WENDELL Signed Date and Time: 08/15/2019 5:08 pm Signed by: MD MENDEZ WENDELL Transcribed Date and Time: 08/15/2019 5:09 [place], [place] Basic Metabolic Panelon 06-27 Anion gap [Moles/Vol] 7 mmol/L [place] Calcium [Mass/Vol] 8.3 mg/dL Low 8.4 - 10. 4 mg/dL [place] Chloride [Moles/Vol] 105 mmol/L 98 - 107 mmol/L [place] CO2 [Moles/Vol] 27 mmol/L 22 - 30 mmol/L [place] Creatinine [Mass/Vol] 0.69 mg/dL 0.52 - 1.25 mg/dL [place] EGFR IF NonAfrican [place] >60.0 >60 mL/min [place] Comment on above: Source- MDRD equatio n with creatinine calibration to IDMS(NKDEP) eGFR not recommended for drug dose adjustment GFR/1.73 sq M predicted among blacks MDRD (S/P/Bld) [Vol rate/Area] mL/min/{1.73_m2} >60 mL/min [place] Glucose [Mass/Vol] 90 mg/dL 70 - 100 mg/dL [place], [place] Potassium [Moles/Vol] 3.7 mmol/L 3.5 - 5.1 mmol/L [place] Sodium [Moles/Vol] 139 mmol/L 135 - 145 mmol/L [place] Urea nitrogen [Mass/Vol] 10 mg/dL 7 - 20 mg/dL [place] CBC Auto Differentialon 06-27 Absolute Baso # 0.1 10*3/uL 0 - 0.2 10*3/uL [place] Absolute Neut # 2.2 10*3/uL 1.8 - 7 10*3/uL [place] Basophils/100 WBC (Bld) 1.3 % 0 - 2 % [place] Eosinophils (Bld) [#/Vol] 0.1 10*3/uL 0 - 0.5 10*3/uL [place] Eosinophils/100 WBC (Bld) 2.7 % 1 - 6 % [place] Erythrocyte distribution width (RBC) [Ratio] 13.8 % 11.5 - 14.5 % [place] Granulocytes/100 WBC (Bld) 44.0 % 40 - 80 % [place] Hematocrit (Bld) [Volume fraction] 40.0 % 35 - 47 % [place] Hemoglobin (Bld) [Mass/Vol] 13.6 g/dL 11.7 - 16 g/dL [place] Lymphocytes (Bld) [#/Vol] 1.9 10*3/uL 1 - 4.3 10*3/uL [place] [place] Lymphocytes/100 WBC (Bld) 38.4 % 20 - 40 % [place] MCH (RBC) [Entitic mass] 33.2 pg 26 - 34 pg [place] MCHC (RBC) [Mass/Vol] 34.0 % 32 - 36 % [place] MCV (RBC) [Entitic vol] 97.5 fL 79 - 98 fL [place] Monocytes (Bld) [#/Vol] 0.7 10*3/uL 0 - 0.8 10*3/uL [place] Monocytes/100 WBC (Bld) 13.6 % High 2 - 10 % [place] Platelet mean volume (Bld) [Entitic vol] 8.2 fL 7.4 - 10.4 fL [place] Platelets (Bld) [#/Vol] 215 10*3/uL 140 - 440 10*3/uL [place] RBC (Bld) [#/Vol] 4.10 10*6/uL 3.8 - 5.2 10*6/uL [place] WBC (Bld) [#/Vol] 4.9 10*3/uL 3.6 - 10.7 10*3/uL [place] Hepatic Function Panelon Albumin [Mass/Vol] 3.2 g/dL Low 3.5 - 5 g/dL [place], [place] ALP [Catalytic activity/Vol] 326 U/L High 38 - 126 U/L [place] ALT [Catalytic activity/Vol] 1110 U/L High 13 - 69 U/L [place] AST [Catalytic activity/Vol] 747 U/L High 15 - 46 U/L [place] Bilirubin Ql (U) 2.0 mg/dL High 0.2 - 1.3 mg/dL [place] Bilirubin.direct [Mass/Vol] 0.0 mg/dL 0 - 0.3 mg/dL [place] Interpretation and review of laboratory results Abnormal [place] Protein [Mass/Vol] 6.6 g/dL 6.3 - 8.2 g/dL [place] Test Performed by [facility], [address], [place], [place] [address] [place], [place] Hepatitis Panel, Acuteon HAV IgM IA Qn (S) DETECTED Abnormal Not-Detect ed [place], [place] Hep B Core Ab, IgM DETECTED Abnormal Not-Detec chichi [place], [place] Hepatitis B Surface Ag NOT DETECTED Not-Detected [place] Hepatitis C Ab NOT DETECTED Not-Detected [place] Comment on above: Patients with DETECT ED Hepatitis C Ab results should have a new specimen submitted for supplemental testing with a Hepatitis C Quantitative RNA assay (viral load), if clinically indicated. Interpretation and review of laboratory results Abnormal [place] Test Performed by [facility], [address] [place] [address] [place], [place] Otheron 07-07-2019 Interpretation and review of laboratory results Abnormal [place] Test Performed by [facility], [address], [place], [place] [address] [place], [place] CBC auto differentialon 08-1 0-2019 Absolute Baso # 0.1 10*3/uL 0 - 0.2 10*3/uL [place] Absolute Neut # 1.9 10*3/uL 1.8 - 7 10*3/uL [place] Basophils/100 WBC (Bld) 1.0 % 0 - 2 % [place] Eosinophils (Bld) [#/Vol] 0.1 10*3/uL 0 - 0.5 10*3/uL [place] Eosinophils/100 WBC (Bld) 2.6 % 1 - 6 % [place] Erythrocyte distribution width (RBC) [Ratio] 13.8 % 11.5 - 14.5 % [place] Granulocytes/100 WBC (Bld) 38.3 % Low 40 - 80 % [place] Hematocrit (Bld) [Volume fraction] 41.7 % 35 - 47 % [place] Hemoglobin (Bld) [Mass/Vol] 14.3 g/dL 11.7 - 16 g/dL [place] Interpretation and review of laboratory results Abnormal [place] Lymphocytes (Bld) [#/Vol] 2.3 10*3/uL 1 - 4.3 10*3/uL [place] Lymphocytes/100 WBC (Bld) 46.1 % High 20 - 40 % [place] MCH (RBC) [Entitic mass] 33.5 pg 26 - 34 pg [place] MCHC (RBC) [Mass/Vol] 34.3 % 32 - 36 % [place] MCV (RBC) [Entitic vol] 97.7 fL 79 - 98 fL [place], [place] Monocytes (Bld) [#/Vol] 0.6 10*3/uL 0 - 0.8 10*3/uL [place] Monocytes/100 WBC (Bld) 12.0 % High 2 - 10 % [place], [place] Platelet mean volume (Bld) [Entitic vol] 8.2 fL 7.4 - 10.4 fL [place], [place] Platelets (Bld) [#/Vol] 175 10*3/uL 140 - 440 10*3/uL [place], [place] RBC (Bld) [#/Vol] 4.27 10*6/uL 3.8 - 5.2 10*6/uL [place] WBC (Bld) [#/Vol] 5.0 10*3/uL 3.6 - 10.7 10*3/uL [place] Test Performed by [facility], [address], [place], [place] [address] [place], [place] Comprehensive Metabolic Pane l w/ Reflex to MGon 07-06-2019 Albumin [Mass/Vol] 3.3 g/dL Low 3.5 - 5 g/dL [place], [place] ALP [Catalytic activity/Vol] 335 U/L High 38 - 126 U/L [place], [place] ALT [Catalytic activity/Vol] 1301 U/L High 13 - 69 U/L [place], [place] Anion gap [Moles/Vol] 5 mmol/L [place], [place] AST [Catalytic activity/Vol] 821 U/L High 15 - 46 U/L [place] Bilirubin Ql (U) 2.4 mg/dL High 0.2 - 1.3 mg/dL [place] Calcium [Mass/Vol] 8.5 mg/dL 8.4 - 10. 4 mg/dL [place], [place] Chloride [Moles/Vol] 105 mmol/L 98 - 107 mmol/L [place] CO2 [Moles/Vol] 25 mmol/L 22 - 30 mmol/L [place] Creatinine [Mass/Vol] 0.59 mg/dL 0.52 - 1.25 mg/dL [place], [place] EGFR IF NonAfrican [place] >60.0 >60 mL/min [place], [place] Comment on above: Source- MDRD equatio n with creatinine calibration to IDMS(NKDEP) eGFR not recommended for drug dose adjustment GFR/1.73 sq M predicted among blacks MDRD (S/P/Bld) [Vol rate/Area] mL/min/{1.73_m2} >60 mL/min [place], [place] Glucose [Mass/Vol] 104 mg/dL High 70 - 100 mg/dL [place], [place] Interpretation and review of laboratory results Abnormal [place], [place] Potassium [Moles/Vol] 4.2 mmol/L 3.5 - 5.1 mmol/L [place], [place] Protein [Mass/Vol] 6.7 g/dL 6.3 - 8.2 g/dL [place], [place] Sodium [Moles/Vol] 135 mmol/L 135 - 145 mmol/L [place], [place] Urea nitrogen [Mass/Vol] 5 mg/dL Low 7 - 20 mg/dL [place] Test Performed by [facility], [address], [place], [place] [address] [place], [place] HIV Screenon 07-06-2019 HIV 1+2 [id number] AG, EIA NONREACTIVE Nonreactive NA [place], [place] Comment on above: Results obtained usi ng the FDA cleared 4th generation HIV test. This test detects antibodies to HIV1, HIV2, HIV Group O, and the presence of the HIV-1 p24 antigen. A Non-Reactive re- sult indicates the patient is negative for both HIV antibody and HIV p24 antigen. All reactive results will undergo reflex confirmation testing at an additional charge. Test Performed by [facility], [address] [place] [address] [place], [place] Hepatic Function Panelon Bilirubin.direct [Mass/Vol] 0.4 mg/dL High 0 - 0.3 mg/dL [place] Interpretation and review of laboratory results Abnormal [place], [place] Lipaseon 07-06-2019 Lipase [Catalytic activity/Vol] 24 U/L 23 - 300 U/L [place], [place] Otheron 07-06-2019 Test Performed by [facility], [address], [place], [place] [address] [place] PROCALCITONINon 07-06-2019 Interpretation and review of laboratory results Abnormal [place] Procalcitonin 0.13 ng/mL Abnormal <0.10 [place] Sodium [Moles/Vol] See Below [place], [place] Comment on above: PCT <0.50 = Low risk of severe sepsis and/or septic shock. PCT >2.00 = High risk of severe sepsis and/or septic shock. Test Performed by [facility], [address] [place] [address] [place], [place] US ABDOMEN LIMITEDon 019 Patient Name: XOCHITL FULLER ---Ultrasound--- Exam Date/Time 07/06/2019 13:03:18 EDT Exam US Abdomen Limited Ordering Physician DO TERRY GEORGE E Accession Number [id number] CPT4 Codes 64281 () Reason For Exam Hepatitis Report RIGHT UPPER QUADRANT ULTRASOUND CLINICAL INDICATION: Hepatitis, nausea Multiple sonographic images of the gallbladder and right upper quadrant of the abdomen were obtained. COMPARISON: 12/24/2017 FINDINGS: The gallbladder is unremarkable in appearance. No gallstones, gallbladder wall thickening, or pericholecystic fluid is identified. Sonographic Acosta's sign is negative. The liver is normal in size. Parenchymal echotexture is normal. No focal hepatic lesions are seen. There is no intrahepatic biliary dilatation. The common bile duct is normal, measuring 4 mm. The pancreas appears grossly normal. Survey views of the right kidney are unremarkable. There is no hydronephrosis. IMPRESSION: Unremarkable right upper quadrant ultrasound. Report Dictated on --- Final --- Dictating Physician: MD LEBRON JONATHAN R Signed Date and Time: 07/06/2019 1:49 pm Signed by: MD LEBRON JONATHAN R Transcribed Date and Time: 07/06/2019 1:50 [place], [place], [facility] Incoming Radiology Results From [facility] - 07/06/2019 1:50 PM EDT Patient Name: XOCHITL FULLER ---Ultrasound--- Exam Date/Time 07/06/2019 13:03:18 EDT Exam US Abdomen Limited Ordering Physician DO TERRY GEORGE E Accession Number [id number] CPT4 Codes 72138 () Reason For Exam Hepatitis Report RIGHT UPPER QUADRANT ULTRASOUND CLINICAL INDICATION: Hepatitis, nausea Multiple sonographic images of the gallbladder and right upper quadrant of the abdomen were obtained. COMPARISON: 12/24/2017 FINDINGS: The gallbladder is unremarkable in appearance. No gallstones, gallbladder wall thickening, or pericholecystic fluid is identified. Sonographic Acosta's sign is negative. The liver is normal in size. Parenchymal echotexture is normal. No focal hepatic lesions are seen. There is no intrahepatic biliary dilatation. The common bile duct is normal, measuring 4 mm. The pancreas appears grossly normal. Survey views of the right kidney are unremarkable. There is no hydronephrosis. IMPRESSION: Unremarkable right upper quadrant ultrasound. Report Dictated on --- Final --- Dictating Physician: MD LEBRON JONATHAN R Signed Date and Time: 07/06/2019 1:49 pm Signed by: MD LEBRON JONATHAN R Transcribed Date and Time: 07/06/2019 1:50 [employer], [employer] Urine Drug Screenon 07-06-20 19 Amphetamines, urine Positive [facility], [place] Barbiturates, Ur Negative [facility], [place] Benzodiazepine Ur Qual Positive [facility], [place] Cocaine Metabolites, Ur [facility], [place] Methadone, Urine Negative [facility], [place] Opiates, Urine Negative [facility], [place] Oxycodone Screen, Ur Negative [facility], [place] PCP, Urine Negative [facility], [place] Comment on above: The expected value f or all of the drugs listed above is Negative. The following drugs or drug groups have been screened for by Immunoassay at the following thresholds: Amphetamine class (1000 ng/mL), Barbiturates (200 ng/mL), Benzodiazepines (200 ng/mL), Cocaine (300 ng/mL), Methadone (300 ng/mL), Opiates (300 ng/mL), Oxycodone (100 ng/mL), and PCP (25 ng/mL). NOTE: These results are for medical treatment only. Analysis performed using non-forensic procedures. POSITIVE results are NOT confirmed by a more specific alternative method unless requested. If confirmation is needed, request confirmation under separate order. Test Performed by [facility], [address], [place], [place] [address] [employer], [employer] Vancomycin, Troughon 019 Interpretation and review of laboratory results Abnormal [facility], [employer] Vancomycin Tr 10.2 ug/mL Low 15 - 20 ug/mL [place] Comment on above: . Test Performed by [facility], [address], [place], [place] [address] [place], [place] Basic Metabolic Panelon Anion gap [Moles/Vol] 10 mmol/L [place] Calcium [Mass/Vol] 8.7 mg/dL 8.4 - 10. 4 mg/dL [place] Chloride [Moles/Vol] 102 mmol/L 98 - 107 mmol/L [place] CO2 [Moles/Vol] 27 mmol/L 22 - 30 mmol/L [place] Creatinine [Mass/Vol] 0.63 mg/dL 0.52 - 1.25 mg/dL [place] EGFR IF NonAfrican [place] >60.0 >60 mL/min [place] Comment on above: Source- MDRD equatio n with creatinine calibration to IDMS(NKDEP) eGFR not recommended for drug dose adjustment GFR/1.73 sq M predicted among blacks MDRD (S/P/Bld) [Vol rate/Area] mL/min/{1.73_m2} >60 mL/min [place] Glucose [Mass/Vol] 120 mg/dL High 70 - 100 mg/dL [place], [place] Interpretation and review of laboratory results Abnormal [place], [place] Potassium [Moles/Vol] 3.5 mmol/L 3.5 - 5.1 mmol/L [place], [place] Sodium [Moles/Vol] 139 mmol/L 135 - 145 mmol/L [place] Urea nitrogen [Mass/Vol] 7 mg/dL 7 - 20 mg/dL [place] Test Performed by [facility], [address], [place], [place] [address] [place], [place] Hemogram (CBC) w/Auto Diffon 07-05-2019 Absolute Baso # 0.1 10*3/uL 0 - 0.2 10*3/uL [place] Absolute Neut # 3.1 10*3/uL 1.8 - 7 10*3/uL [place] Basophils/100 WBC (Bld) 0.8 % 0 - 2 % [place] Eosinophils (Bld) [#/Vol] 0.1 10*3/uL 0 - 0.5 10*3/uL [place] Eosinophils/100 WBC (Bld) 1.8 % 1 - 6 % [place] Erythrocyte distribution width (RBC) [Ratio] 13.8 % 11.5 - 14.5 % [place] Granulocytes/100 WBC (Bld) 47.9 % 40 - 80 % [place] Hematocrit (Bld) [Volume fraction] 45.1 % 35 - 47 % [place] Hemoglobin (Bld) [Mass/Vol] 15.5 g/dL 11.7 - 16 g/dL [place] Lymphocytes (Bld) [#/Vol] 2.6 10*3/uL 1 - 4.3 10*3/uL [place] Lymphocytes/100 WBC (Bld) 39.7 % 20 - 40 % [place] MCH (RBC) [Entitic mass] 33.3 pg 26 - 34 pg [place], [place] MCHC (RBC) [Mass/Vol] 34.3 % 32 - 36 % [place] MCV (RBC) [Entitic vol] 97.2 fL 79 - 98 fL [place], [place] Monocytes (Bld) [#/Vol] 0.6 10*3/uL 0 - 0.8 10*3/uL [place] Monocytes/100 WBC (Bld) 9.8 % 2 - 10 % [place] Platelet mean volume (Bld) [Entitic vol] 8.2 fL 7.4 - 10.4 fL [place] Platelets (Bld) [#/Vol] 177 10*3/uL 140 - 440 10*3/uL [place] RBC (Bld) [#/Vol] 4.64 10*6/uL 3.8 - 5.2 10*6/uL [place] WBC (Bld) [#/Vol] 6.5 10*3/uL 3.6 - 10.7 10*3/uL [facility], [place] Test Performed by [facility], [address], [place], [place] [address] [facility], [place] AMELIA Panel 1on 09-29-2017 AMELIA by EIA 0.1 OD Ratio Normal [facility] Comment on above: Result Comment: OD R atio is interpreted as follows:Negative <1.0Positive >=1.0 Performed By: #### C BCDIF, CMP, CRP, URIC, TSH, ANA1, SEPG, CCP ####[place] [address] [address] [place] [phone] AMELIA by EIA, Qual Negative Normal Negative [facility] Comment on above: Performed By: #### C BCDIF, CMP, CRP, URIC, TSH, ANA1, SEPG, CCP ####[place] [address] [address], [place] [phone] C-Reactive Proteinon 017 C reactive protein (CRP) 0.1 mg/dL Normal <0.9 [facility] Comment on above: Performed By: #### C BCDIF, CMP, CRP, URIC, TSH, ANA1, SEPG, CCP ####[place] [address] [address] [place] [phone] CBC and Differentialon 09-29 Abs Baso 0.11 k/uL High <0.11 [facility] Comment on above: Performed By: #### C BCDIF, CMP, CRP, URIC, TSH, ANA1, SEPG, CCP ####[place] [address], [place] [phone] Abs [place] 0.56 k/uL Normal <0.87 [facility] Comment on above: Performed By: #### C BCDIF, CMP, CRP, URIC, TSH, ANA1, SEPG, CCP ####[place] [address], [place] [phone] Abs Neut 4.32 k/uL Normal 1.45-7.50 [facility] Comment on above: Performed By: #### C BCDIF, CMP, CRP, URIC, TSH, ANA1, SEPG, CCP ####[place] [address] [address] [place] [phone] Basophils/100 WBC Auto (Bld) 1.4 % Normal [facility] Comment on above: Performed By: #### C BCDIF, CMP, CRP, URIC, TSH, ANA1, SEPG, CCP ####[place] [address] [address] [place] [phone] DTYPE Auto Diff Normal [facility] Comment on above: Performed By: #### C BCDIF, CMP, CRP, URIC, TSH, ANA1, SEPG, CCP ####[place] [address] [address] [place] [phone] Eosinophils 0.23 10*3/uL Normal <0.46 [facility] Comment on above: Performed By: #### C BCDIF, CMP, CRP, URIC, TSH, ANA1, SEPG, CCP ####[place] [address] [address] [place] [phone] Eosinophils/100 leukocytes 2.9 % Normal [facility] Comment on above: Performed By: #### C BCDIF, CMP, CRP, URIC, TSH, ANA1, SEPG, CCP ####[place] [address] [address] [place] [phone] Erythrocyte distribution width Auto Ratio (RBC) 12.3 % Normal 11.5-15.0 [facility] Comment on above: Performed By: #### C BCDIF, CMP, CRP, URIC, TSH, ANA1, SEPG, CCP ####[place] [address] [address] [place] [phone] Erythrocytes (RBC) 10*6/uL Normal <0.01 [facility] Comment on above: Performed By: #### C BCDIF, CMP, CRP, URIC, TSH, ANA1, SEPG, CCP ####[place] [address] [address], [place] [phone] Erythrocytes (RBC) 4.39 10*6/uL Normal 3.90-5.20 [facility] Comment on above: Performed By: #### C BCDIF, CMP, CRP, URIC, TSH, ANA1, SEPG, CCP ####[address] [place] [phone] Erythrocytes (RBC) 0.0 /100 WBC Normal 0 [facility] Comment on above: Performed By: #### C BCDIF, CMP, CRP, URIC, TSH, ANA1, SEPG, CCP ####[address], [place] [phone] Hematocrit (HCT) 43.2 % Normal 36.0-46.0 [facility] Comment on above: Performed By: #### C BCDIF, CMP, CRP, URIC, TSH, ANA1, SEPG, CCP ####[place] [address] [address], [place] [phone] Hemoglobin mass conc (Bld) 14.6 g/dL Normal 11.5-15.5 [facility] Comment on above: Performed By: #### C BCDIF, CMP, CRP, URIC, TSH, ANA1, SEPG, CCP ####[address] [phone] Lymphocytes 2.64 10*3/uL Normal 1.00-4.00 [facility] Comment on above: Performed By: #### C BCDIF, CMP, CRP, URIC, TSH, ANA1, SEPG, CCP ####[address], [place] [phone] Lymphocytes/100 leukocytes 33.6 % Normal [facility] Comment on above: Performed By: #### C BCDIF, CMP, CRP, URIC, TSH, ANA1, SEPG, CCP ####[address] [phone] MCH 33.3 pG Normal 26.0-34.0 [facility] Comment on above: Performed By: #### C BCDIF, CMP, CRP, URIC, TSH, ANA1, SEPG, CCP ####[address], [place] [phone] MCHC mass conc (RBC) 33.8 g/dL Normal 30.5-36.0 [facility] Comment on above: Performed By: #### C BCDIF, CMP, CRP, URIC, TSH, ANA1, SEPG, CCP ####[address] [place] [phone] MCV 98.4 fL Normal 80.0-100.0 [facility] Comment on above: Performed By: #### C BCDIF, CMP, CRP, URIC, TSH, ANA1, SEPG, CCP ####[place] [phone] Monocytes/100 leukocytes 7.1 % Normal [facility] Comment on above: Performed By: #### C BCDIF, CMP, CRP, URIC, TSH, ANA1, SEPG, CCP ####[address], [place] [phone] Neutrophils/100 WBC Auto (Bld) 55.0 % Normal [facility] Comment on above: Performed By: #### C BCDIF, CMP, CRP, URIC, TSH, ANA1, SEPG, CCP ####[address] [phone] Platelet mean volume (PMV) 9.7 fL Normal 9.0-12.7 [facility] Comment on above: Performed By: #### C BCDIF, CMP, CRP, URIC, TSH, ANA1, SEPG, CCP ####[place] [phone] Platelets 266 10*3/uL Normal 150-400 [facility] Comment on above: Performed By: #### C BCDIF, CMP, CRP, URIC, TSH, ANA1, SEPG, CCP ####[address] [phone] WBC (Leukocytes) 7.86 10*3/uL Normal 3.70-11.00 [facility] Comment on above: Performed By: #### C BCDIF, CMP, CRP, URIC, TSH, ANA1, SEPG, CCP ####[address] [phone] CCP Antibody, IgGon 09-29-20 17 CCP Antibody, IgG <15 Normal <20 [facility] Comment on above: Result Comment: < 20 units: Nyveople11-57 units: Weak Kkpnkdez10-31 units: Moderate Positive> 60 units: Strong Positive Performed By: #### C BCDIF, CMP, CRP, URIC, TSH, ANA1, SEPG, CCP ####[address] [phone] CNCOon 09-29-2017 CNCO Letter TextDeadama Fuller:How to activate your [facility] [employer] Account 1. Visit the [employer] Signup page at [email or web address] 2. Identify yourself using your one-time use activation code: Not generated 3. Follow the on-screen prompts to choose your own secure username andpasswordThe following information will be necessary to access your account for thefirst time:Information needed for sign-up:Your custom activation code used one-time only for the initial accountset-up.Your date of birthThe last 4 digits of your social security numberWhat to do next:Fill in the requested information on the Identify Yourself Form [email or web address] , click Next.Create your login and password, choose a [employer] ID and password that will beeasy for you to use, but impossible for anyone else to guess.Pick a security question that will assist you in the event you forget yourpassword the next time you log-on.If you have difficulty activating your account, please call our [employer] at [phone] or toll free at .We hope you enjoy using [employer]!Kindest Regards,[facility] MyChart Team [facility] CNOVon 09-29-2017 CNOV Office Visit (JANINEI) XOCHITL FULLER ([id number]) 1970 FDate Time Provider Sunxljdyih64/3/17 8:40 AM EMMETT HIRSCH During your visit today, we recorded the following information about you: Temperature Pulse Blood pressure Weight 97.9 degrees 96/minute 152/99 61.2 kg Height 1.626 Dulce Hirsch DO 09/29/2017 2:44 PM SignedRHEUMATOLOGY NEW PATIENT CONSULTPROVIDER: ROYAL Musa OF VISIT: 09/29/2017NAME OF PATIENT: Xochitl Muller PHYSICIAN:SELFPERSONAL PHYSICIAN:Jacklyn Wilson MD ([facility])[address] [place] [id number]: [phone]: [phone] COMPLAINT / REASON FOR CONSULT:My hands hurtHISTORY OF PRESENT ILLNESS:Xochitl Fuller is a 47 year old female who presents WITH HAND PAIN ANDSWELLING. SHE HAS NOTICED THE HER HANDS HAVE BEEN PAINFUL FOR THE THE LAST 10YEARS.SHE CLEANS HOMES AND HAS DONE ABBIE IN THE PAST. SHE HAS NOTICED PIPSWELLING. SHE DOES COMPLAIN OF AM STIFFNESS LASTING UNDER 60 MINUTES. THEDAY GOES ON HER HANDS GET A LITTLE BETTER. SHE HAS TAKEN MOBIC IN THE PAST BROWARD [facility]. SHE IS A RECOVERING ALCOHOLIC.PAST MEDICAL HISTORY:PAST MEDICAL HISTORYDiagnosis Date- Anxiety 09/09/2009- Arthropathy, unspecified, site unspecified 06/02/2009- Encounter for gynecological examination without abnormal finding 10/28/2015 Seeing [facility].- Essential hypertension 06/02/2009- GERD without esophagitis 10/28/2015- Goiter, unspecified 06/02/2009- Irregular menses 05/26/2015- Irritable bowel syndrome 06/02/2009- Juvenile rheumatoid arthritis (HCC) 10/03/2013- Low back pain 09/09/2009- PAIN JOINT 06/02/2009- Personal history of cervical dysplasia 06/02/2009- Recovering alcoholic (HCC) 10/28/2015 Quits 05/2015- Shoulder pain 10/03/2013- Smoker 10/28/2015 Started at age 12 up to 2 PPD- Unspecified asthma 06/02/2009PAST SURGICAL HISTORY:PAST SURGICAL HISTORYProcedure Laterality Date- BREAST BIOPSY Right 09/02/2016- EGD 2014- PAST SURGICAL HISTORY OF Laser cervical surgery- PAST SURGICAL HISTORY OF reconstruction of right indedx finger- PAST SURGICAL HISTORY OF Benign nodule right taylor- PAST SURGICAL HISTORY OF scope on left kneeALLERGIES:Naltrexone; Ibuprofen; Mobic [Meloxicam]; Morphine; Zoloft [Sertraline Hcl]MEDICATIONS:Current Outpatient Prescriptions:Multivitami n capsule Take 1 capsule by mouth once daily.potassium chloride (K-TAB) 10 mEq tablet Take 10 mEq by mouth once daily.fluconazole (DIFLUCAN) 100 mg tablet Take 1 tablet by mouth once daily.(Patient taking differently: Take 100 mg by mouth as needed.)cyclobenzaprine (FLEXERIL) 5 mg tablet Take 5 mg by mouth twice daily asneeded.albuterol HFA (PROAIR HFA) 90 mcg/actuation inhaler Inhale 2 Puffs asinstructed every 6 hours as needed for Wheezing/Shortness of Breath.fluticasone (FLONASE) 50 mcg/actuation nasal spray Use 1 [place] in each nostrilonce daily. Rinse mouth after use.Omeprazole 40 mg capsule Take 1 capsule by mouth once daily.naproxen (NAPROSYN) 500 mg tablet Take 1 tablet by mouth twice daily as needed(pain/inflammation, take with food.).ondansetron (ZOFRAN) 4 mg tablet Take 4 mg by mouth every 8 hours as needed.No current facility-administered medications for this visit.FAMILY HISTORY:FAMILY HISTORYProblem Relation Age of Onset- Heart Mother pace maker and defibulater- Hypertension Mother- Thyroid Mother- Diabetes Maternal Grandmother- Stroke Maternal Grandmother- Seizures SisterSOCIAL HISTORY:Social History Marital status: Single Spouse name: Years of education: Number of children:Social History Main Topics Smoking status: Current Every Day Smoker Packs/day: 1.00 Years: 20.00 Last attempt to quit: 10/05/2009 Smokeless status: Never Used Comment: 8-10 cig. per day and vapor cig. Alcohol use: No Drug use: Yes Special: MarijuanaREVIEW OF SYSTEMS: September 29, 2017CONSTITUTIONAL:Fever: NoFatigue: NoPain: NoEYES:Pain: NoRedness: YesLoss of vision: NoDryness: YesEAR, NOSE, MOUTH, THROAT:Nose bleeds: NoHearing loss: NoSores in mouth: NoSwallowing problems: NoDry mouth: NoCARDIOVASCULAR:Chest pain: NoSwelling in the feet or legs: YesRESPIRATORY:Shortness of breath: NoPain with breathing: NoChronic cough: NoCoughing up blood: No,GASTROINTESTINAL:Heart burn: YesNausea: NoDiarrhea: NoBlood in the stool or black stool: NoAbdominal pain: NoGENITOURINARY:Blood in urine: NoPain or burning on urination: No]MUSCULOSKELETAL:Joint pain: YesJoint swelling: YesMorning stiffness in joints: YesMuscle weakness: YesBack pain: YesSKIN:Rashes: NoSun sensitive rashes: NoColor changes of hands or feet in the cold: YesHair loss: NoNail changes: NoNEUROLOGICAL:Headaches: YesDizziness: NoNumbness or tingling: YesMemory loss: YesSeizures: NoHEMATOLOGIC/LYMPHATIC:S wollen glands: NoAnemia: NoALLERGIES/IMMUNOLOGIC:A llergies (other than medications): YesIncreased susceptibility to infection: YesKNOWN MEDICAL CONDITIONS:Diabetes: NoThyroid disease: NoHigh blood pressure: NoRHEUMATOLOGIC REVIEW OF SYMPTOMS:Hair Loss: noSkin Rash: H/O HIVES THIS PAST MAYPhoteosensitivity: NoUlcers: NODry Mouth/Eyes: NoIris/Conjuctivitis: NoPleurisy: NoUrethritis:NoColitis: NoBack Pain: NoSciatica: NoRaynaud's: DIGITAL PALOR AND CYANOSIS OF RIGHT INDEX FINGERSeizures: ONE SEIZURE WITH DETOX FROM ETOHMigraines: POSSIBLE BUT NO FORMAL DIAGNOSISPHYSICAL EXAMINATION:GENERAL APPEARANCE: Well groomed. Alert and oriented x 3. In no distress.anxiousVITAL SIGNS: BP 152/99 (BP Site: Left Arm, BP Position: Sitting, BP Cuff Size:Regular Adult) Pulse 96 Temp 36.6 ?C (97.9 ?F) (Oral) Ht 162.6 cm (5'4ANDquot;) Wt 61.2 kg (135 lb) BMI 23.17 kg/m2SKIN: No rash, thickening, nodules, discoloration. LIVEDO RETICULARIS PATTERNAROUND KNEES.EYES: PERRL, EOMI. No inflammation seen.HENT: Scalp and temporal arteries are normal and non-tender. Externalexamination and palpation of the ears and nose normal. Lips, teeth, and gumsnormal. Oropharynx and tongue normal. No lesions or exudate.NECK: No mass or asymmetry. Thyroid without mass or tenderness.LYMPHATIC: Normal exam of the neck, axillae and groin.RESPIRATORY: Normal respiratory effort. Clear to auscultation and percussion.CARDIOVASCULAR : Heart RRR without gallop, murmur, or rub. No bruits acrosschest or neck.EXTREMITIES: Normal and equal pulses in all 4 extremities. No edema.ABDOMEN: BS normal. No bruits, No tenderness, mass, or hepatosplenomegaly.GENITO URINARY :NormalNEUROLOGIC: Cranial nerves II-XII grossly intact. DTRs 2+ and symmetric in allextremities. Sensory exam normal.MUSCULOSKELETAL EXAMINATION:Soft tissue tender points:Motor exam: Normal 5+/5+ muscle strength. Normal bulk and tone.Cervical spine: No visible abnormalities. Full ROM. No tenderness to palpation.Thoracic spine: No visible abnormalities. No tenderness to palpation.Lumbar spine: No visible abnormalities. Full ROM. DIFFUSE TENDERNESS, NEGSLR,HEEL AND TOE WALKING NORMALUpper extremities: Normal inspection of joints.Shoulders, elbows, wrists, without synovitis, swelling, tenderness, deformity,or lack of ROM. PIPS WITH THICKENING AND SLIGHT TENDERNESS.Lower extremities: Normal inspection of joints. Hips, knees, ankles, and feetwithout synovitis, swelling, tenderness, deformity, or lack of ROM.Manual Muscle Testing: NormalJoint / Bursa Aspirations / Injections:None givenComponent Latest Ref Rng ANDamp; Units 01/27/2017WBC 3.70 - 11.00 k/uL 11.07 (H)RBC 3.90 - 5.20 m/uL 4.87Hemoglobin 11.5 - 15.5 g/dL 16.6 (H)Hematocrit 36.0 - 46.0 % 48.2 (H)MCV 80.0 - 100.0 fL 99.0MCH 26.0 - 34.0 pG 34.1 (H)MCHC 30.5 - 36.0 g/dL 34.4RDW-CV 11.5 - 15.0 % 12.8Platelet Count 150 - 400 k/uL 280MPV 9.0 - 12.7 fL 10.5Neut% % 55.8Abs Neut (ANC) 1.45 - 7.50 k/uL 6.17Lymph% % 35.0Abs Lymph 1.00 - 4.00 k/uL 3.88Mono% % 6.1Abs [place] 0.00 - 0.86 k/uL 0.67Eosin% % 2.5Abs Eosin 0.00 - 0.45 k/uL 0.28Baso% % 0.6Abs Baso 0.00 - 0.10 k/uL 0.07Nucleated Reds 0 /100 WBC 0.0Absolute nRBC k/uL 0.00Diff Type Auto DiffProtein, Total 6.3 - 8.0 g/dL 7.1Albumin 3.9 - 4.9 g/dL 4.3Calcium 8.5 - 10.2 mg/dL 9.3Bilirubin, Total 0.2 - 1.3 mg/dL 0.5Alkaline Phosphatase 32 - 117 U/L 68AST 13 - 35 U/L 22Glucose 74 - 99 mg/dL 65 (L)BUN 7 - 21 mg/dL 8Creatinine 0.58 - 0.96 mg/dL 0.76Sodium 136 - 144 mmol/L 136Potassium 3.7 - 5.1 mmol/L 4.1Chloride 97 - 105 mmol/L 100CO2 22 - 30 mmol/L 23Anion Gap 9 - 18 mmol/L 13ALT 7 - 38 U/L 11eGFR- ANDgt;60eGFR-All Other Races . ANDgt;60ANA by EIA, Qual Negative Unable to assay. No specimen received. (A)AMELIA by EIA OD Ratio Unable to assay. No specimen received.Rheumatoid Factor ANDlt;16 IU/mL ANDlt;10WSR 0 - 20 mm/hr 2RAPID 3: DISEASE ACTIVITY:Weighed Score Levels:0 - 1: Near Remission1.3 - 2.0: Low Severity2.3 - 4.0: Moderate Severity4.3 - 10.0: High SeverityRAPID-3 Weighed Score 09/29/2017RAPID 3 Weighed Score 5IMPRESSION:Xochitl Fuller is a 47 year old female who presents for a rheumatologyevaluation at [facility]. SHE HAS AXIAL AND APPENDICULAR SKELETALCOMPLAINTS THAT IN PART SOUND AND LOOK LIKE OSTEOARTHRITIS BUT SHE HAS OTHERCHANGES THAT INCLUDE LIVEDO RETICULARIS AND POSSIBLE RAYNAUDS THAT COULDSUGGEST A MORE INFLAMATORY CONDITION.RECOMMENDATIONS / PLANS: we will get labs and imaging to day.SHE WILL CALL MEIN 2 WEEKS TO DISCUSS THESE RESULTS AND A TREATMENT PLAN.WILL ALSO CONSIDER AREFERRAL TO [facility].? Impression and recommendations/plans discussed with the patient in person.? Old records and films reviewed as noted above.? Consult will be sent to the requesting physician and/or the patient.? Laboratory tests and Radiology: As outlined in orders.Total face to face time at this visit was 60 minutes. Greater than 50% of thetime was spent on counseling the patient and / or coordination of care.Electronically signed by:Nan Musa DO 09/29/2017 9:43 AM SignedPLEASE CALL ME IN 2 WEEKS TO DISCUSS YOUR RESULTSReferring Provider: SELF [[id number]]Allergies As of Date: 09/29/2017 Noted Allergy ReactionNALTREXONE 07/15/2015 10 - AnaphylaxisIBUPROFEN 09/25/2013 11 - VomitingMOBIC (MELOXICAM) 12/01/2015 14 - Other: See Comments Comments: Shut my kidneys downMORPHINE 05/26/2015 8 - GI UpsetZOLOFT (SERTRALINE HCL) 10/28/2015 14 - Other: See Comments Comments: Made irritableDate Reviewed: 09/29/2017Reviewed by: Lionel Milligan Ma - Fully AssessedPrimary Visit Diagnosis:Polyarthritis [M13.0] Other Visit Diagnoses:Bilateral hand pain [M79.641, M79.642] Recovering alcoholic (HCC) [F10.20] Anxiety [F41.9] Smoking [F17.200] Chronic bilateral low back pain with left-sided sciatica [M54.42, G89.29]Order(s):CBC + DIFF [SQCBCDIF] Order #: [id number] FUTURE CCP ANTIBODY IGG [SQCCP] Order #: [id number] FUTURE COMP METABOLIC PANEL [SQCMP] Order #: [id number] FUTURE C-REACTIVE PROTEIN (CRP) [SQCRP] Order #: [id number] FUTURE URIC ACID BLOOD [SQURIC] Order #: [id number] FUTURE URINALYSIS WITH MICROSCOPIC [SQUAWMIC] Order #: [id number] FUTURE PROTEIN ELECTROPHORESIS W/INTERP [SQSEPG] Order #: [id number] FUTURE XR CHEST 2V FRONTAL/LAT [1912984] Order #: [id number] FUTURE AMELIA PANEL BLOOD SCRN [SQANA1] Order #: [id number] FUTURE XR LUMBAR GENERAL 3V AP/LAT/L5-S1 [1550842] Order #: [id number] FUTURE XR PELVIS 1V AP [[id number]] Order #: [id number] FUTURE TSH BLD [SQTSH] Order #: [id number] FUTUREPrescriptions as of 09/29/2017 Sig: MULTIVITAMIN CAPSULE Take 1 capsule by mouth once * POTASSIUM CHLORIDE ER 10 MEQ * Take 10 mEq by mouth once chris* FLUCONAZOLE 100 MG TABLET Take 1 tablet by mouth once d* Patient taking differently: Take 100 mg by mouth as neede* CYCLOBENZAPRINE 5 MG TABLET Take 5 mg by mouth twice sharonda* ALBUTEROL SULFATE HFA 90 MCG/* Inhale 2 Puffs as instructed * FLUTICASONE 50 MCG/ACTUATION * Use 1 [place] in each nostril o* OMEPRAZOLE 40 MG CAPSULE,MAYI* Take 1 capsule by mouth once * NAPROXEN 500 MG TABLET Take 1 tablet by mouth twice * ONDANSETRON HCL 4 MG TABLET Take 4 mg by mouth every 8 ho*Problem List As Of Date 09/29/2017 Noted Resolved Arthralgia of left thigh [M25.552] INVALID FOR* Priority: D More... Arthropathy, unspecified, site unspecified [M12*INVALID FOR* Priority: D Essential hypertension [I10] INVALID FOR* Priority: A More... Irritable bowel syndrome [K58.9] INVALID FOR* Priority: B Unspecified asthma [J45.909] INVALID FOR* Priority: A More... Goiter [E04.9] INVALID FOR* Priority: A More... Personal history of cervical dysplasia [Z87.410]INVALID FOR* Priority: C More... Anxiety [F41.9] INVALID FOR* Priority: A Low back pain [M54.5] INVALID FOR* Priority: D Juvenile rheumatoid arthritis (HCC) [M08.00] INVALID FOR* Priority: B More... Shoulder pain [M25.519] INVALID FOR* Priority: D More... Irregular menses [N92.6] INVALID FOR* Priority: C GERD without esophagitis [K21.9] INVALID FOR* Priority: A Smoker [F17.200] INVALID FOR* Priority: C More... Recovering alcoholic (HCC) [F10.20] INVALID FOR* Priority: B More... Encounter for gynecological examination without*INVALID FOR* Priority: D More... Right knee meniscal tear [S83.206A] INVALID FOR* Priority: D Well adult exam [Z00.00] INVALID FOR* More... Folate deficiency [E53.8] INVALID FOR* B12 deficiency [E53.8] INVALID FOR* Thiamine deficiency [E51.9] INVALID FOR* Anemia [D64.9] INVALID FOR* Headache [R51] INVALID FOR* Low back pain without sciatica [M54.5] INVALID FOR* Cervicalgia [M54.2] INVALID FOR* Mechanical back pain [M54.9] INVALID FOR* Lateral epicondylitis of left elbow [M77.12] INVALID FOR* Bilateral hand pain [M79.641, M79.642] INVALID FOR* Polyarthritis [M13.0] INVALID FOR* Smoking [F17.200] INVALID FOR* Other instructions from your clinician: PLEASE CALL ME IN 2 WEEKS TO DISCUSS YOUR RESULTSMedications Discontinued During This Encounter busPIRone (BUSPAR) 10 mg tablet 02/07/2017 09/29/2017 Class: Historical Med Sig: Disc: Erroneous entry Fluticasone Propionate (FLOVENT DISK* 1 In* 3 12/15/2015 09/29/2017 Route: INHALATION Sig: Inhale 100 mcg as instructed twice daily. Disc: Erroneous entry LORazepam (ATIVAN) 0.5 mg tab 09/29/2017 Class: Historical Med Route: ORAL Sig: Take 0.5 mg by mouth three times daily as needed. Disc: Erroneous entry predniSONE (DELTASONE) 10 mg tablet 39 t* 0 12/02/2015 09/29/2017 Sig: Take 6 tabs by mouth for 3 days then 4 tabs a day for 3 days then 2 tabs a day for 3 days and then 1 tab a day for 3 days. Disc: Erroneous entry promethazine (PHENERGAN) 25 mg tablet 09/29/2017 Class: Historical Med Route: ORAL Sig: Take 25 mg by mouth every 6 hours as needed. Disc: Erroneous entry venlafaxine (EFFEXOR) 37.5 mg tablet 28 t* 0 10/28/2015 09/29/2017 Route: ORAL Sig: Take 1 tablet by mouth twice daily. For 2 weeks then start the 75 mg twice a day. Disc: Erroneous entry venlafaxine (EFFEXOR) 75 mg tablet 60 t* 3 10/28/2015 09/29/2017 Route: ORAL Sig: Take 1 tablet by mouth twice daily. Disc: Erroneous entryLetter Text Emmett Hirsch D.O.[facility] Immun[facility]Hill[facility]st [address] [place] [id number]: [phone]: [phone]. Line: [phone] 2016Jacklyn Wilson M.D.Patient: Xochitl Fuller[address] [place] [address] Garcia was a pleasure seeing Ms. Fuller in consult for hand pain. Please see mynote and recommendations.RHEUMATOL OGY NEW PATIENT CONSULTPROVIDER: CHINYERE MusaATE OF VISIT: 09/29/2017NAME OF PATIENT: Xochitl Muller PHYSICIAN:SELFPERSONAL PHYSICIAN:Jacklyn Wilson MD ([facility])[address] [place] [address]Rmxmu: [phone]: [phone] COMPLAINT / REASON FOR CONSULT:My hands hurtHISTORY OF PRESENT ILLNESS:Xochitl Fuller is a 47 year old female who presents WITH HAND PAIN ANDSWELLING. SHE HAS NOTICED THE HER HANDS HAVE BEEN PAINFUL FOR THE THE LAST 10YEARS.SHE CLEANS HOMES AND HAS DONE ABBIE IN THE PAST. SHE HAS NOTICED PIPSWELLING. SHE DOES COMPLAIN OF AM STIFFNESS LASTING UNDER 60 MINUTES. THEDAY GOES ON HER HANDS GET A LITTLE BETTER. SHE HAS T[facility]. SHE IS A RECOVERING ALCOHOLIC.PAST MEDICAL HISTORY:PAST MEDICAL HISTORYDiagnosis Date- Anxiety 09/09/2009- Arthropathy, unspecified, site unspecified 06/02/2009- Encounter for gynecological examination without abnormal /2/2015 Seeing [facility].- Essential hypertension 06/02/2009- GERD without esophagitis 10/28/2015- Goiter, unspecified 06/02/2009- Irregular menses 05/26/2015- Irritable bowel syndrome 06/02/2009- Juvenile rheumatoid arthritis (HCC) 10/03/2013- Low back pain 09/09/2009- PAIN JOINT 06/02/2009- Personal history of cervical dysplasia 06/02/2009- Recovering alcoholic (HCC) 10/28/2015 Quits 05/2015- Shoulder pain 10/03/2013- Smoker 10/28/2015 Started at age 12 up to 1 PPD- Unspecified asthma 06/02/2009PAST SURGICAL HISTORY:PAST SURGICAL HISTORYProcedure Laterality Date- BREAST BIOPSY Right 09/02/2016- EGD 2014- PAST SURGICAL HISTORY OF Laser cervical surgery- PAST SURGICAL HISTORY OF reconstruction of right indedx finger- PAST SURGICAL HISTORY OF Benign nodule right taylor- PAST SURGICAL HISTORY OF scope on left kneeALLERGIES:Naltrexone; Ibuprofen; Mobic [Meloxicam]; Morphine; Zoloft [Sertraline Hcl]MEDICATIONS:Current Outpatient Prescriptions:Multivitami n capsule Take 1 capsule by mouth once daily.potassium chloride (K-TAB) 10 mEq tablet Take 10 mEq by mouth once daily.fluconazole (DIFLUCAN) 100 mg tablet Take 1 tablet by mouth once daily.(Patient taking differently: Take 100 mg by mouth as needed.)cyclobenzaprine (FLEXERIL) 5 mg tablet Take 5 mg by mouth twice daily asneeded.albuterol HFA (PROAIR HFA) 90 mcg/actuation inhaler Inhale 2 Puffs asinstructed every 6 hours as needed for Wheezing/Shortness of Breath.fluticasone (FLONASE) 50 mcg/actuation nasal spray Use 1 [place] in eachnostril once daily. Rinse mouth after use.Omeprazole 40 mg capsule Take 1 capsule by mouth once daily.naproxen (NAPROSYN) 500 mg tablet Take 1 tablet by mouth twice daily asneeded (pain/inflammation, take with food.).ondansetron (ZOFRAN) 4 mg tablet Take 4 mg by mouth every 8 hours asneeded.No current facility-administered medications for this visit.FAMILY HISTORY:FAMILY HISTORYProblem Relation Age of Onset- Heart Mother pace maker and defibulater- Hypertension Mother- Thyroid Mother- Diabetes Maternal Grandmother- Stroke Maternal Grandmother- Seizures SisterSOCIAL HISTORY:Social History Marital status: Single Spouse name: Years of education: Number of children:Social History Main Topics Smoking status: Current Every Day Smoker Packs/day: 1.00 Years: 20.00 Last attempt to quit: 10/05/2009 Smokeless status: Never Used Comment: 8-10 cig. per day and vapor cig. Alcohol use: No Drug use: Yes Special: MarijuanaREVIEW OF SYSTEMS: September 29, 2017CONSTITUTIONAL:Fever: NoFatigue: NoPain: NoEYES:Pain: NoRedness: YesLoss of vision: NoDryness: YesEAR, NOSE, MOUTH, THROAT:Nose bleeds: NoHearing loss: NoSores in mouth: NoSwallowing problems: NoDry mouth: NoCARDIOVASCULAR:Chest pain: NoSwelling in the feet or legs: YesRESPIRATORY:Shortness of breath: NoPain with breathing: NoChronic cough: NoCoughing up blood: No,GASTROINTESTINAL:Heart burn: YesNausea: NoDiarrhea: NoBlood in the stool or black stool: NoAbdominal pain: NoGENITOURINARY:Blood in urine: NoPain or burning on urination: No]MUSCULOSKELETAL:Joint pain: YesJoint swelling: YesMorning stiffness in joints: YesMuscle weakness: YesBack pain: YesSKIN:Rashes: NoSun sensitive rashes: NoColor changes of hands or feet in the cold: YesHair loss: NoNail changes: NoNEUROLOGICAL:Headaches: YesDizziness: NoNumbness or tingling: YesMemory loss: YesSeizures: NoHEMATOLOGIC/LYMPHATIC:S wollen glands: NoAnemia: NoALLERGIES/IMMUNOLOGIC:A llergies (other than medications): YesIncreased susceptibility to infection: YesKNOWN MEDICAL CONDITIONS:Diabetes: NoThyroid disease: NoHigh blood pressure: NoRHEUMATOLOGIC REVIEW OF SYMPTOMS:Hair Loss: noSkin Rash: H/O HIVES THIS PAST MAYPhoteosensitivity: NoUlcers: NODry Mouth/Eyes: NoIris/Conjuctivitis: NoPleurisy: NoUrethritis:NoColitis: NoBack Pain: NoSciatica: NoRaynaud's: DIGITAL PALOR AND CYANOSIS OF RIGHT INDEX FINGERSeizures: ONE SEIZURE WITH DETOX FROM ETOHMigraines: POSSIBLE BUT NO FORMAL DIAGNOSISPHYSICAL EXAMINATION:GENERAL APPEARANCE: Well groomed. Alert and oriented x 3. In no distress.anxiousVITAL SIGNS: BP 152/99 (BP Site: Left Arm, BP Position: Sitting, BP CuffSize: Regular Adult) Pulse 96 Temp 36.6 ?C (97.9 ?F) (Oral) Ht 162.6 cm(5' 4) Wt 61.2 kg (135 lb) BMI 23.17 kg/m2SKIN: No rash, thickening, nodules, discoloration. LIVEDO RETICULARIS PATTERNAROUND KNEES.EYES: PERRL, EOMI. No inflammation seen.HENT: Scalp and temporal arteries are normal and non-tender. Externalexamination and palpation of the ears and nose normal. Lips, teeth, and gumsnormal. Oropharynx and tongue normal. No lesions or exudate.NECK: No mass or asymmetry. Thyroid without mass or tenderness.LYMPHATIC: Normal exam of the neck, axillae and groin.RESPIRATORY: Normal respiratory effort. Clear to auscultation and percussion.CARDIOVASCULAR : Heart RRR without gallop, murmur, or rub. No bruits acrosschest or neck.EXTREMITIES: Normal and equal pulses in all 4 extremities. No edema.ABDOMEN: BS normal. No bruits, No tenderness, mass, or hepatosplenomegaly.GENITO URINARY :NormalNEUROLOGIC: Cranial nerves II-XII grossly intact. DTRs 2+ and symmetric inall extremities. Sensory exam normal.MUSCULOSKELETAL EXAMINATION:Soft tissue tender points:Motor exam: Normal 5+/5+ muscle strength. Normal bulk and tone.Cervical spine: No visible abnormalities. Full ROM. No tenderness topalpation.Thoracic spine: No visible abnormalities. No tenderness to palpation.Lumbar spine: No visible abnormalities. Full ROM. DIFFUSE TENDERNESS, NEGSLR,HEEL AND TOE WALKING NORMALUpper extremities: Normal inspection ofjoints. Shoulders, elbows, wrists, without synovitis, swelling, tenderness,deformity, or lack of ROM. PIPS WITH THICKENING AND SLIGHT TENDERNESS.Lower extremities: Normal inspection of joints. Hips, knees, ankles, and feetwithout synovitis, swelling, tenderness, deformity, or lack of ROM.Manual Muscle Testing: NormalJoint / Bursa Aspirations / Injections:None givenComponent Latest Ref Rng AND Units 01/27/2017WBC 3.70 - 11.00 k/uL 11.07 (H)RBC 3.90 - 5.20 m/uL 4.87Hemoglobin 11.5 - 15.5 g/dL 16.6 (H)Hematocrit 36.0 - 46.0 % 48.2 (H)MCV 80.0 - 100.0 fL 99.0MCH 26.0 - 34.0 pG 34.1 (H)MCHC 30.5 - 36.0 g/dL 34.4RDW-CV 11.5 - 15.0 % 12.8Platelet Count 150 - 400 k/uL 280MPV 9.0 - 12.7 fL 10.5Neut% % 55.8Abs Neut (ANC) 1.45 - 7.50 k/uL 6.17Lymph% % 35.0Abs Lymph 1.00 - 4.00 k/uL 3.88Mono% % 6.1Abs [place] 0.00 - 0.86 k/uL 0.67Eosin% % 2.5Abs Eosin 0.00 - 0.45 k/uL 0.28Baso% % 0.6Abs Baso 0.00 - 0.10 k/uL 0.07Nucleated Reds 0 /100 WBC 0.0Absolute nRBC k/uL 0.00Diff Type Auto DiffProtein, Total 6.3 - 8.0 g/dL 7.1Albumin 3.9 - 4.9 g/dL 4.3Calcium 8.5 - 10.2 mg/dL 9.3Bilirubin, Total 0.2 - 1.3 mg/dL 0.5Alkaline Phosphatase 32 - 117 U/L 68AST 13 - 35 U/L 22Glucose 74 - 99 mg/dL 65 (L)BUN 7 - 21 mg/dL 8Creatinine 0.58 - 0.96 mg/dL 0.76Sodium 136 - 144 mmol/L 136Potassium 3.7 - 5.1 mmol/L 4.1Chloride 97 - 105 mmol/L 100CO2 22 - 30 mmol/L 23Anion Gap 9 - 18 mmol/L 13ALT 7 - 38 U/L 11eGFR- >60eGFR-All Other Races . >60ANA by EIA, Qual Negative Unable to assay. No specimen received. (A)AMELIA by EIA OD Ratio Unable to assay. No specimen received.Rheumatoid Factor <16 IU/mL <10WSR 0 - 20 mm/hr 2RAPID 3: DISEASE ACTIVITY:Weighed Score Levels:0 - 1: Near Remission1.3 - 2.0: Low Severity2.3 - 4.0: Moderate Severity4.3 - 10.0: High SeverityRAPID-3 Weighed Score 09/29/2017RAPID 3 Weighed Score 5IMPRESSION:Xochitl Fuller is a 47 year old female who presents for a rheumatologyevaluation at the [facility]. SHE HAS AXIAL AND APPENDICULAR SKELETALCOMPLAINTS THAT IN PART SOUND AND LOOK LIKE OSTEOARTHRITIS BUT SHE HAS OTHERCHANGES THAT INCLUDE LIVEDO RETICULARIS AND POSSIBLE RAYNAUDS THAT COULDSUGGEST A MORE INFLAMATORY CONDITION.RECOMMENDATIONS / PLANS: we will get labs and imaging to day.SHE WILL CALL JB 2 WEEKS TO DISCUSS THESE RESULTS AND A TREATMENT PLAN.WILL ALSO CONSIDER AREFERRAL TO [facility].Impression and recommendations/plans discussed with the patient in person.Old records and films reviewed as noted above.Consult will be sent to the requesting physician and/or the patient.Laboratory tests and Radiology: As outlined in orders.Total face to face time at this visit was 60 minutes. Greater than 50% ofthe time was spent on counseling the patient and / or coordination of care.Electronically signed by:Rebecca Musa for the referral.Sincerely,ELECTR ONICALLY SIGNEDEmmett Hirsch DOEncounter Number: [id number] Status:Closed by EMMETT HIRSCH DO on 09/29/17 Normal [facility] Comp Metabolic Panelon 09-29 Alanine aminotransferase (ALT) 13 U/L Normal 7-38 [facility] Comment on above: Performed By: #### C BCDIF, CMP, CRP, URIC, TSH, ANA1, SEPG, CCP ####[place] [address] [address] [place] [phone] Albumin 4.4 g/dL Normal 3.9-4.9 [facility] Comment on above: Performed By: #### C BCDIF, CMP, CRP, URIC, TSH, ANA1, SEPG, CCP ####[place] [address] [phone] Alkaline phosphatase (ALP) 67 U/L Normal 32-117 [facility] Comment on above: Performed By: #### C BCDIF, CMP, CRP, URIC, TSH, ANA1, SEPG, CCP ####[place] [id number] [phone] Anion gap 10 mmol/L Normal 9-18 [facility] Comment on above: Performed By: #### C BCDIF, CMP, CRP, URIC, TSH, ANA1, SEPG, CCP ####[facility]CD[address] [place] [phone] Aspartate aminotransferase (AST) 17 U/L Normal 13-35 [facility] Comment on above: Performed By: #### C BCDIF, CMP, CRP, URIC, TSH, ANA1, SEPG, CCP ####[place] [address] [address] [place] [phone] Bilirubin (total) 0.2 mg/dL Normal 0.2-1.3 [facility] Comment on above: Performed By: #### C BCDIF, CMP, CRP, URIC, TSH, ANA1, SEPG, CCP ####[place] [address] [address] [place] [phone] Calcium 9.0 mg/dL Normal 8.5-10.2 [facility] Comment on above: Performed By: #### C BCDIF, CMP, CRP, URIC, TSH, ANA1, SEPG, CCP ####[place] [address] [address] [place] [phone] Chloride 101 mmol/L Normal 97-105 [facility] Comment on above: Performed By: #### C BCDIF, CMP, CRP, URIC, TSH, ANA1, SEPG, CCP ####[place] [address] [address] [place] [phone] CO2 28 mmol/L Normal 22-30 [facility] Comment on above: Performed By: #### C BCDIF, CMP, CRP, URIC, TSH, ANA1, SEPG, CCP ####[address] [phone] Creatinine 0.86 mg/dL Normal 0.58-0.96 [facility] Comment on above: Performed By: #### C BCDIF, CMP, CRP, URIC, TSH, ANA1, SEPG, CCP ####[place] [address] [address] [place] [phone] eGFR (non-black) mL/min/{1.73_m2} Normal [facility] Comment on above: Performed By: #### C BCDIF, CMP, CRP, URIC, TSH, ANA1, SEPG, CCP ####[place] [address] [address] [place] [phone] Result Comment: eGFR (Estimated GFR) Units of measure: mL/min/1.73 meters squaredeGFR is derived from the reexpressed MDRD Study equation using the following parameters: serum creatinine, age, gender and race. The creatinine assay has been calibrated to be traceable to IDMS.An eGFR <60 mL/min/1.73m2 for >3 months is consistent with chronic kidney disease. Refer to KDOQI guidelines for clinical interpretation.In patients with unstable renal function, e.g. those with acute kidney injury, the eGFR may not accurately reflect actual GFR. Glucose mass conc 100 mg/dL High 74-99 [facility] Comment on above: Result Comment: The [place] [employer] (ADA) provides guidance for cutoff values for fasting glucose and random glucose. The ADA defines fasting as no caloric intake for at least 8 hours. Fasting plasma glucose results between 100 to 125 mg/dL indicate increased risk for diabetes (prediabetes).Fasting plasma glucose results greater than or equal to 126 mg/dL meet the criteria for diagnosis of diabetes. In the absence of unequivocal hyperglycemia, results should be confirmed by repeat testing. In a patient with classic symptoms of hyperglycemia or hyperglycemic crisis, random plasma glucose results greater than or equal to 200 mg/dL meet the criteria for diagnosis of diabetes.Reference: Standards of Medical Care in Diabetes 2016, [place] [employer]. Diabetes Care. 2016.39(Suppl 1). Performed By: #### C BCDIF, CMP, CRP, URIC, TSH, ANA1, SEPG, CCP ####[facility] [place], [place] [phone] Potassium molar conc 4.0 mmol/L Normal 3.7-5.1 [facility] Comment on above: Performed By: #### C BCDIF, CMP, CRP, URIC, TSH, ANA1, SEPG, CCP ####[facility], [place] [phone] Protein 7.3 g/dL Normal 6.3-8.0 [facility] Comment on above: Performed By: #### C BCDIF, CMP, CRP, URIC, TSH, ANA1, SEPG, CCP ####[facility] [place], [place] [phone] Sodium 139 mmol/L Normal 136-144 [facility] Comment on above: Performed By: #### C BCDIF, CMP, CRP, URIC, TSH, ANA1, SEPG, CCP ####[facility] [address] [place], [place] [phone] Urea nitrogen 10 mg/dL Normal 7-21 [facility] Comment on above: Performed By: #### C BCDIF, CMP, CRP, URIC, TSH, ANA1, SEPG, CCP ####[facility] [address] [place], [place] [phone] PROGRESSon 09-29-2017 PROGRESS HNO ID: [id number] thor: Emmett Johansenice: (none)Author Type: PhysicianType: Progress NotesFiled: 09/29/2017 2:44 PMNote Text:RHEUMATOLOGY NEW PATIENT CONSULTPROVIDER: CHINYERE MusaATE OF VISIT: 09/29/2017NAME OF PATIENT: Xochitl FullerCC PHYSICIAN:SELFPERSONAL PHYSICIAN:Jacklyn Wilson MD ([facility])[address] [place] [address]Uacfm: [phone]: [phone] COMPLAINT / REASON FOR CONSULT:My hands hurtHISTORY OF PRESENT ILLNESS:Xochitl Fuller is a 47 year old female who presents WITH HAND PAIN ANDSWELLING. SHE HAS NOTICED THE HER HANDS HAVE BEEN PAINFUL FOR THE THE LAST10 YEARS.SHE CLEANS HOMES AND HAS DONE ABBIE IN THE PAST. SHE HASNOTICED PIP SWELLING. SHE DOES COMPLAIN OF AM STIFFNESS LASTING UNDER 60MINUTES. THE DAY GOES ON HER HANDS GET A LITTLE BETTER. SHE [facility] SHE IS A RECOVERING ALCOHOLIC.PAST MEDICAL HISTORY:PAST MEDICAL HISTORYDiagnosis Date- Anxiety 09/09/2009- Arthropathy, unspecified, site unspecified 06/02/2009- Encounter for gynecological examination without abnormal pnpkygd63/2/2015 Seeing [facility].- Essential hypertension 06/02/2009- GERD without esophagitis 10/28/2015- Goiter, unspecified 06/02/2009- Irregular menses 05/26/2015- Irritable bowel syndrome 06/02/2009- Juvenile rheumatoid arthritis (HCC) 10/03/2013- Low back pain 09/09/2009- PAIN JOINT 06/02/2009- Personal history of cervical dysplasia 06/02/2009- Recovering alcoholic (HCC) 10/28/2015 Quits 05/2015- Shoulder pain 10/03/2013- Smoker 10/28/2015 Started at age 12 up to 1 PPD- Unspecified asthma 06/02/2009PAST SURGICAL HISTORY:PAST SURGICAL HISTORYProcedure Laterality Date- BREAST BIOPSY Right 09/02/2016- EGD 2014- PAST SURGICAL HISTORY OF Laser cervical surgery- PAST SURGICAL HISTORY OF reconstruction of right indedx finger- PAST SURGICAL HISTORY OF Benign nodule right taylor- PAST SURGICAL HISTORY OF scope on left kneeALLERGIES:Naltrexone; Ibuprofen; Mobic [Meloxicam]; Morphine; Zoloft [SertralineHcl]MEDICATION S:Current Outpatient Prescriptions:Multivitami n capsule Take 1 capsule by mouth once daily.potassium chloride (K-TAB) 10 mEq tablet Take 10 mEq by mouth once daily.fluconazole (DIFLUCAN) 100 mg tablet Take 1 tablet by mouth once daily.(Patient taking differently: Take 100 mg by mouth as needed.)cyclobenzaprine (FLEXERIL) 5 mg tablet Take 5 mg by mouth twice daily asneeded.albuterol HFA (PROAIR HFA) 90 mcg/actuation inhaler Inhale 2 Puffs asinstructed every 6 hours as needed for Wheezing/Shortness of Breath.fluticasone (FLONASE) 50 mcg/actuation nasal spray Use 1 [place] in eachnostril once daily. Rinse mouth after use.Omeprazole 40 mg capsule Take 1 capsule by mouth once daily.naproxen (NAPROSYN) 500 mg tablet Take 1 tablet by mouth twice daily asneeded (pain/inflammation, take with food.).ondansetron (ZOFRAN) 4 mg tablet Take 4 mg by mouth every 8 hours asneeded.No current facility-administered medications for this visit.FAMILY HISTORY:FAMILY HISTORYProblem Relation Age of Onset- Heart Mother pace maker and defibulater- Hypertension Mother- Thyroid Mother- Diabetes Maternal Grandmother- Stroke Maternal Grandmother- Seizures SisterSOCIAL HISTORY:Social History Marital status: Single Spouse name: Years of education: Number of children:Social History Main Topics Smoking status: Current Every Day Smoker Packs/day: 1.00 Years: 20.00 Last attempt to quit: 10/05/2009 Smokeless status: Never Used Comment: 8-10 cig. per day and vapor cig. Alcohol use: No Drug use: Yes Special: MarijuanaREVIEW OF SYSTEMS: September 29, 2017CONSTITUTIONAL:Fever: NoFatigue: NoPain: NoEYES:Pain: NoRedness: YesLoss of vision: NoDryness: YesEAR, NOSE, MOUTH, THROAT:Nose bleeds: NoHearing loss: NoSores in mouth: NoSwallowing problems: NoDry mouth: NoCARDIOVASCULAR:Chest pain: NoSwelling in the feet or legs: YesRESPIRATORY:Shortness of breath: NoPain with breathing: NoChronic cough: NoCoughing up blood: No,GASTROINTESTINAL:Heart burn: YesNausea: NoDiarrhea: NoBlood in the stool or black stool: NoAbdominal pain: NoGENITOURINARY:Blood in urine: NoPain or burning on urination: No]MUSCULOSKELETAL:Joint pain: YesJoint swelling: YesMorning stiffness in joints: YesMuscle weakness: YesBack pain: YesSKIN:Rashes: NoSun sensitive rashes: NoColor changes of hands or feet in the cold: YesHair loss: NoNail changes: NoNEUROLOGICAL:Headaches: YesDizziness: NoNumbness or tingling: YesMemory loss: YesSeizures: NoHEMATOLOGIC/LYMPHATIC:S wollen glands: NoAnemia: NoALLERGIES/IMMUNOLOGIC:A llergies (other than medications): YesIncreased susceptibility to infection: YesKNOWN MEDICAL CONDITIONS:Diabetes: NoThyroid disease: NoHigh blood pressure: NoRHEUMATOLOGIC REVIEW OF SYMPTOMS:Hair Loss: noSkin Rash: H/O HIVES THIS PAST MAYPhoteosensitivity: NoUlcers: NODry Mouth/Eyes: NoIris/Conjuctivitis: NoPleurisy: NoUrethritis:NoColitis: NoBack Pain: NoSciatica: NoRaynaud's: DIGITAL PALOR AND CYANOSIS OF RIGHT INDEX FINGERSeizures: ONE SEIZURE WITH DETOX FROM ETOHMigraines: POSSIBLE BUT NO FORMAL DIAGNOSISPHYSICAL EXAMINATION:GENERAL APPEARANCE: Well groomed. Alert and oriented x 3. In no distress.anxiousVITAL SIGNS: BP 152/99 (BP Site: Left Arm, BP Position: Sitting, BP CuffSize: Regular Adult) Pulse 96 Temp 36.6 ?C (97.9 ?F) (Oral) Ht 162.6cm (5' 4) Wt 61.2 kg (135 lb) BMI 23.17 kg/m2SKIN: No rash, thickening, nodules, discoloration. LIVEDO RETICULARISPATTERN AROUND KNEES.EYES: PERRL, EOMI. No inflammation seen.HENT: Scalp and temporal arteries are normal and non-tender. Externalexamination and palpation of the ears and nose normal. Lips, teeth, andgums normal. Oropharynx and tongue normal. No lesions or exudate.NECK: No mass or asymmetry. Thyroid without mass or tenderness.LYMPHATIC: Normal exam of the neck, axillae and groin.RESPIRATORY: Normal respiratory effort. Clear to auscultation andpercussion.CARDIOVASCU LAR: Heart RRR without gallop, murmur, or rub. No bruits acrosschest or neck.EXTREMITIES: Normal and equal pulses in all 4 extremities. No edema.ABDOMEN: BS normal. No bruits, No tenderness, mass, or hepatosplenomegaly.GENITO URINARY :NormalNEUROLOGIC: Cranial nerves II-XII grossly intact. DTRs 2+ and symmetric inall extremities. Sensory exam normal.MUSCULOSKELETAL EXAMINATION:Soft tissue tender points:Motor exam: Normal 5+/5+ muscle strength. Normal bulk and tone.Cervical spine: No visible abnormalities. Full ROM. No tenderness topalpation.Thoracic spine: No visible abnormalities. No tenderness to palpation.Lumbar spine: No visible abnormalities. Full ROM. DIFFUSE TENDERNESS, NEGSLR,HEEL AND TOE WALKING NORMALUpper extremities: Normal inspection ofjoints. Shoulders, elbows, wrists, without synovitis, swelling,tenderness, deformity, or lack of ROM. PIPS WITH THICKENING AND SLIGHTTENDERNESS.Lower extremities: Normal inspection of joints. Hips, knees, ankles, andfeet without synovitis, swelling, tenderness, deformity, or lack of ROM.Manual Muscle Testing: NormalJoint / Bursa Aspirations / Injections:None givenComponent Latest Ref Rng AND Units 01/27/2017WBC 3.70 - 11.00 k/uL 11.07 (H)RBC 3.90 - 5.20 m/uL 4.87Hemoglobin 11.5 - 15.5 g/dL 16.6 (H)Hematocrit 36.0 - 46.0 % 48.2 (H)MCV 80.0 - 100.0 fL 99.0MCH 26.0 - 34.0 pG 34.1 (H)MCHC 30.5 - 36.0 g/dL 34.4RDW-CV 11.5 - 15.0 % 12.8Platelet Count 150 - 400 k/uL 280MPV 9.0 - 12.7 fL 10.5Neut% % 55.8Abs Neut (ANC) 1.45 - 7.50 k/uL 6.17Lymph% % 35.0Abs Lymph 1.00 - 4.00 k/uL 3.88Mono% % 6.1Abs [place] 0.00 - 0.86 k/uL 0.67Eosin% % 2.5Abs Eosin 0.00 - 0.45 k/uL 0.28Baso% % 0.6Abs Baso 0.00 - 0.10 k/uL 0.07Nucleated Reds 0 /100 WBC 0.0Absolute nRBC k/uL 0.00Diff Type Auto DiffProtein, Total 6.3 - 8.0 g/dL 7.1Albumin 3.9 - 4.9 g/dL 4.3Calcium 8.5 - 10.2 mg/dL 9.3Bilirubin, Total 0.2 - 1.3 mg/dL 0.5Alkaline Phosphatase 32 - 117 U/L 68AST 13 - 35 U/L 22Glucose 74 - 99 mg/dL 65 (L)BUN 7 - 21 mg/dL 8Creatinine 0.58 - 0.96 mg/dL 0.76Sodium 136 - 144 mmol/L 136Potassium 3.7 - 5.1 mmol/L 4.1Chloride 97 - 105 mmol/L 100CO2 22 - 30 mmol/L 23Anion Gap 9 - 18 mmol/L 13ALT 7 - 38 U/L 11eGFR- >60eGFR-All Other Races . >60ANA by EIA, Qual Negative Unable to assay. No specimen received. (A)AMELIA by EIA OD Ratio Unable to assay. No specimen received.Rheumatoid Factor <16 IU/mL <10WSR 0 - 20 mm/hr 2RAPID 3: DISEASE ACTIVITY:Weighed Score Levels:0 - 1: Near Remission1.3 - 2.0: Low Severity2.3 - 4.0: Moderate Severity4.3 - 10.0: High SeverityRAPID-3 Weighed Score 09/29/2017RAPID 3 Weighed Score 5IMPRESSION:Xochitl Fuller is a 47 year old female who presents for a [facility]ologyevaluation at [facility]. SHE HAS AXIAL AND APPENDICULARSKELETAL COMPLAINTS THAT IN PART SOUND AND LOOK LIKE OSTEOARTHRITIS BUTSHE HAS OTHER CHANGES THAT INCLUDE LIVEDO RETICULARIS AND POSSIBLERAYNAUDS THAT COULD SUGGEST A MORE INFLAMATORY CONDITION.RECOMMENDATIONS / PLANS: we will get labs and imaging to day.SHE WILL CALLME IN 2 WEEKS TO DISCUSS THESE RESULTS AND A TREATMENT PLAN.WILL ALSOCONSIDER A REFERRAL TO [facility].? Impression and recommendations/plans discussed with the patient inperson.? Old records and films reviewed as noted above.? Consult will be sent to the requesting physician and/or the patient.? Laboratory tests and Radiology: As outlined in orders.Total face to face time at this visit was 60 minutes. Greater than 50% ofthe time was spent on counseling the patient and / or coordination ofcare.Electronically signed by:Emmett Hirsch, DO Normal [facility] Protein Electrophor.on 09-29 Albumin 3.90 g/dL Normal 3.37-4.23 [facility] Comment on above: Performed By: #### C BCDIF, CMP, CRP, URIC, TSH, ANA1, SEPG, CCP ####[facility] [place], [place] [phone] Alpha 1 Globulin 0.18 gm/dL Normal 0.18-0.31 [facility] Comment on above: Performed By: #### C BCDIF, CMP, CRP, URIC, TSH, ANA1, SEPG, CCP ####[facility] [place], [place] [phone] Alpha 2 Globulin 0.67 gm/dL Normal 0.52-0.97 [facility] Comment on above: Performed By: #### C BCDIF, CMP, CRP, URIC, TSH, ANA1, SEPG, CCP ####[address] [place] [phone] Beta Globulin 0.95 gm/dL Normal 0.84-1.36 [facility] Comment on above: Performed By: #### C BCDIF, CMP, CRP, URIC, TSH, ANA1, SEPG, CCP ####[address] [place] [phone] Gamma Globulin 1.11 gm/dL Normal 0.70-1.44 [facility] Comment on above: Performed By: #### C BCDIF, CMP, CRP, URIC, TSH, ANA1, SEPG, CCP ####[place] [phone] Interpretation SEE COMMENT Normal [facility] Comment on above: Result Comment: No d efinitive M protein is identified on protein electrophoresis. Performed By: #### C BCDIF, CMP, CRP, URIC, TSH, ANA1, SEPG, CCP ####[place] [phone] M Protein Location N/A Normal [facility] Comment on above: Performed By: #### C BCDIF, CMP, CRP, URIC, TSH, ANA1, SEPG, CCP ####[place] [phone] M Keyur Concentratn 0.00 gm/dL Normal 0.00 [facility] Comment on above: Performed By: #### C BCDIF, CMP, CRP, URIC, TSH, ANA1, SEPG, CCP ####[place] [phone] SPE Staff Review Reviewed by Latia Cadet MD. ([id number]) Normal [facility] Comment on above: Performed By: #### C BCDIF, CMP, CRP, URIC, TSH, ANA1, SEPG, CCP ####[place] [address] [place], [place] [phone] Total Protein, SPE 6.8 g/dL Normal 6.0-8.4 [facility] Comment on above: Performed By: #### C BCDIF, CMP, CRP, URIC, TSH, ANA1, SEPG, CCP ####[place] [address] [place], [place] [phone] TSHon 09-29-2017 Thyroid stimulating hormone (TSH) 1.600 uU/mL Normal 0.400-5.500 [facility] Comment on above: Result Comment: If t he patient is , TSH reference range varies by gestational period:First Trimester 0.100-2.500 uU/mLSecond Trimester 0.200-3.000 uU/mLThird Trimester 0.300-3.000 uU/mLReferences: 1. Greco L, Irving M, John EK, et al. Management of Thyroid Dysfunction during and : An Endocrine Society Clinical Practice Guideline. J Clin Endocrinol Metab, 2012:97:4321-[address] [place]. Overview of thyroid disease in . UpToDate. 2016. Accessed on May 13, 2016. Performed By: #### C BCDIF, CMP, CRP, URIC, TSH, ANA1, SEPG, CCP ####[place] [address] [place], [place] [phone] Uric Acidon 09-29-2017 Urate 4.2 mg/dL Normal 2.5-6.6 [facility] Comment on above: Performed By: #### C BCDIF, CMP, CRP, URIC, TSH, ANA1, SEPG, CCP ####[place] [address] [place], [place] [phone] Urinalysis with Microscopico n 09-29-2017 Bilirubin, Urine Negative Normal Negative [facility] Comment on above: Performed By: #### C BCDIF, CMP, CRP, URIC, TSH, ANA1, SEPG, CCP ####[place] [address] [place] [phone] Comments SEE COMMENT Normal [facility] Comment on above: Result Comment: N/A Performed By: #### C BCDIF, CMP, CRP, URIC, TSH, ANA1, SEPG, CCP ####[place] [address] [place] [phone] Erythrocytes (RBC) 0-3 Normal 0-3 [facility] Comment on above: Performed By: #### C BCDIF, CMP, CRP, URIC, TSH, ANA1, SEPG, CCP ####[place] [address] [place] [phone] Hemoglobin mass conc (Bld) Negative Normal Negative [facility] Comment on above: Performed By: #### C BCDIF, CMP, CRP, URIC, TSH, ANA1, SEPG, CCP ####[place] [address] [place] [phone] Leukest Negative Normal Negative [facility] Comment on above: Performed By: #### C BCDIF, CMP, CRP, URIC, TSH, ANA1, SEPG, CCP ####[place] [address] [place] [phone] pH of blood 5.0 [pH] Normal 4.5-8.0 [facility] Comment on above: Performed By: #### C BCDIF, CMP, CRP, URIC, TSH, ANA1, SEPG, CCP ####[place] [address] [place] [phone] Protein, Urine Negative Normal Negative [facility] Comment on above: Performed By: #### C BCDIF, CMP, CRP, URIC, TSH, ANA1, SEPG, CCP ####[place] [address] [place] [phone] Specific Hedley, Ur 1.023 Normal 1.005-1.030 [facility] Comment on above: Performed By: #### C BCDIF, CMP, CRP, URIC, TSH, ANA1, SEPG, CCP ####[facility] [phone] Urine Clem Comment SEE COMMENT Normal [facility] Comment on above: Result Comment: N/A Performed By: #### C BCDIF, CMP, CRP, URIC, TSH, ANA1, SEPG, CCP ####[place] [address] [place] [phone] Urine, clarity Clear Normal Clear [facility] Comment on above: Performed By: #### C BCDIF, CMP, CRP, URIC, TSH, ANA1, SEPG, CCP ####[place] [address] [place] [phone] Urine, color Yellow Normal Yellow [facility] Comment on above: Performed By: #### C BCDIF, CMP, CRP, URIC, TSH, ANA1, SEPG, CCP ####[place] [address] [place] [phone] Urine, epithelial cells in sediment SEE COMMENT Normal [facility] Comment on above: Result Comment: FewS quamous Epithelial Cells Performed By: #### C BCDIF, CMP, CRP, URIC, TSH, ANA1, SEPG, CCP ####[address] [place] [phone] Urine, glucose presence Negative Normal Negative [facility] Comment on above: Performed By: #### C BCDIF, CMP, CRP, URIC, TSH, ANA1, SEPG, CCP ####[address] [place] [phone] Urine, ketones presence Negative Normal Negative [facility] Comment on above: Performed By: #### C BCDIF, CMP, CRP, URIC, TSH, ANA1, SEPG, CCP ####[place] [address] [place] [phone] Urine, nitrite presence Negative Normal Negative [facility] Comment on above: Performed By: #### C BCDIF, CMP, CRP, URIC, TSH, ANA1, SEPG, CCP ####[facility], [place] [phone] Urine, urobilinogen Normal Normal Normal [facility] Comment on above: Performed By: #### C BCDIF, CMP, CRP, URIC, TSH, ANA1, SEPG, CCP ####[facility], [place] [phone] WBC (Leukocytes) 0-5 Normal 0-5 [facility] Comment on above: Performed By: #### C BCDIF, CMP, CRP, URIC, TSH, ANA1, SEPG, CCP ####[place] [address] [place], [place] [phone] XR CHEST 2V FRONTAL/LATon XR CHEST 2V FRONTAL/LAT * * *Final Report* * *DATE OF EXAM: Sep 29 2017 11:15AM [id number] [id number] - XR CHEST 2V FRONTAL/LAT / REASON: polyarthritis * * * * Physician Interpretation * * * *RESULT: CHEST RADIOGRAPH (2 VIEW FRONTAL and LATERAL)Indications: polyarthritisM: XC2_1Comparison: Chest radiograph 09/25/2013RESULTS:Lines, Tubes, and Devices: None.Lungs and Pleura: Opacity overlying the lower lobes on lateral view which is seen anterior to the lower thoracic spine. No pleural effusion or pneumothorax.Cardiomedias tinal silhouette: Normal size.Other: Osseous structures are intact.IMPRESSION:Indeter minant opacity overlying the lower lobes on lateral view which may relate to summation of overlying structures however underlying consolidation or lesion is not excluded. CT is suggested for further evaluation.Transcribed Using Voice RecognitionTranscribe Date/Time: Sep 29 2017 11:16ADictated by: FRANCES MONTILLA MDThis examination was interpreted and the report reviewed and electronically signed by: FRANCES MONTILLA MD on Sep 29 2017 11:23AM [id number] [facility] XR LUMBAR 3V AP/LAT/L5-S1on 09-29-2017 XR LUMBAR 3V AP/LAT/L5-S1 * * *Final Report* * *DATE OF EXAM: Sep 29 2017 11:15AM [id number] [id number] - XR LUMBAR 3V AP/LAT/L5-S1 / REASON: polyarthritis * * * * Physician Interpretation * * * *RESULT: LUMBAR SPINE AND PELVIS RADIOGRAPHSHISTORY: polyarthritisCOMPARISON: None.TECHNIQUE:AP, lateral, and coned-down lateral radiographs of the lumbar spine, 3 views.AP radiograph of the pelvis, 1 view.RESULT:Lumbar spine:Counting reference: Lumbosacral junction. For the purposes of this report, L5-S1 is considered the last lumbar type disc space and L4-L5 is considered the level of the iliac crest.Straightening of the lumbar lordosis. Vertebral body heights are maintained. No compression deformity or subluxation. Mild disc space narrowing at L5-S1. Small endplate osteophytes of the lower lumbar spine. Paraspinal soft tissues grossly unremarkable.Pelvis:No acute fracture or dislocation. Hip joint spaces, pubic symphysis, and sacroiliac joints are maintained. Soft tissues are unremarkable.IMPRESSION:M ild degenerative changes of the lower lumbar spine.Negative pelvis radiograph.Transcribed Using Voice RecognitionTranscribe Date/Time: Sep 29 2017 11:18ADictated by: FRANCES MONTILLA MDThis examination was interpreted and the report reviewed and electronically signed by: FRANCES MONTILLA MD on Sep 29 2017 11:19AM [id number] [facility] XR PELVIS 1V APon 09-29-2017 XR PELVIS 1V AP * * *Final Report* * *DATE OF EXAM: Sep 29 2017 11:15AM [id number] [id number] - XR PELVIS 1V AP / REASON: polyarthritis * * * * Physician Interpretation * * * *RESULT: LUMBAR SPINE AND PELVIS RADIOGRAPHSHISTORY: polyarthritisCOMPARISON: None.TECHNIQUE:AP, lateral, and coned-down lateral radiographs of the lumbar spine, 3 views.AP radiograph of the pelvis, 1 view.RESULT:Lumbar spine:Counting reference: Lumbosacral junction. For the purposes of this report, L5-S1 is considered the last lumbar type disc space and L4-L5 is considered the level of the iliac crest.Straightening of the lumbar lordosis. Vertebral body heights are maintained. No compression deformity or subluxation. Mild disc space narrowing at L5-S1. Small endplate osteophytes of the lower lumbar spine. Paraspinal soft tissues grossly unremarkable.Pelvis:No acute fracture or dislocation. Hip joint spaces, pubic symphysis, and sacroiliac joints are maintained. Soft tissues are unremarkable.IMPRESSION:M ild degenerative changes of the lower lumbar spine.Negative pelvis radiograph.Transcribed Using Voice RecognitionTranscribe Date/Time: Sep 29 2017 11:18ADictated by: FRANCES MONTILLA MDThis examination was interpreted and the report reviewed and electronically signed by: FRANCES MONTILLA MD on Sep 29 2017 11:19AM [id number] Normal [facility] Emergency Room Note on 06-28-2017 [place] [facility] Note Normal [facility] ([place]) Patient Summary Documentson 06-24-2017 Patient Summary Documents Normal [facility] ([place]) Vital Signs Date Time Vital Sign Value Performing Clinician Facility 03-05-2025 19:23-0400 Body height 160 cm Rohith Perez MD Work Phone: [facility] 03-05-2025 19:23-0400 Body mass index (BMI) [Ratio] 27.46 kg/m2 Rohith Perez MD Work Phone: [facility] 03-05-2025 19:23-0400 Body temperature 98.1 [degF] Rohith Perez MD Work Phone: [facility] 03-05-2025 19:23-0400 Body weight 70.31 kg Rohith Perez MD Work Phone: [facility] 03-05-2025 19:23-0400 Diastolic blood pressure 86 mm[Hg] Rohith Perez MD Work Phone: [facility] 03-05-2025 19:23-0400 Heart rate 90 /min Rohith Perez MD Work Phone: [facility] 03-05-2025 19:23-0400 Respiratory rate 21 /min Rohith Perez MD Work Phone: [facility] 03-05-2025 19:23-0400 SaO2% (BldA) [Mass fraction] 99 % Rohith Perez MD Work Phone: [facility] 03-05-2025 19:23-0400 Systolic blood pressure 149 mm[Hg] Rohith Perez MD Work Phone: [facility] 12-04-2024 09:13-0500 Body height 157.5 cm Gamaliel Cormier MD Work Phone: [facility] 12-04-2024 09:13-0500 Body mass index (BMI) [Ratio] 29.08 kg/m2 Gamaliel Cormier MD Work Phone: [facility] 12-04-2024 09:13-0500 Body weight 72.12 kg Gamaliel Cormier MD Work Phone: [facility] 12-04-2024 09:13-0500 Diastolic blood pressure 78 mm[Hg] Gamaliel Cormier MD Work Phone: [facility] 12-04-2024 09:13-0500 Heart rate 90 /min Gamaliel Cormier MD Work Phone: [facility] 12-04-2024 09:13-0500 SaO2% (BldA) [Mass fraction] 97 % Gamaliel Cormier MD Work Phone: [facility] 12-04-2024 09:13-0500 Systolic blood pressure 130 mm[Hg] Gamaliel Cormier MD Work Phone: [facility] 11-24-2024 19:37-0500 Heart rate 98 /min Prabhakar Black MD Work Phone: [facility] 11-24-2024 19:37-0500 Respiratory rate 20 /min Prabhakar Black MD Work Phone: [facility] 11-24-2024 19:37-0500 SaO2% (BldA) [Mass fraction] 99 % Prabhakar Black MD Work Phone: [facility] 11-24-2024 19:13-0500 Body height 157.5 cm Prabhakar Black MD Work Phone: [facility] 11-24-2024 19:13-0500 Body mass index (BMI) [Ratio] 28.35 kg/m2 Prabhakar Black MD Work Phone: [facility] 11-24-2024 19:13-0500 Body temperature 98.91 [degF] Prabhakar Black MD Work Phone: [facility] 11-24-2024 19:13-0500 Body weight 70.31 kg Prabhakar Black MD Work Phone: [facility] 11-24-2024 19:13-0500 Diastolic blood pressure 75 mm[Hg] Prabhakar Black MD Work Phone: [facility] 11-24-2024 19:13-0500 Systolic blood pressure 112 mm[Hg] Prabhakar Black MD Work Phone: [facility] 08-23-2024 15:50-0400 Body height 158.1 cm Otilia Simons MD Work Phone: [facility] 08-23-2024 15:50-0400 Body mass index (BMI) [Ratio] 28.49 kg/m2 Otilia Simons MD Work Phone: [facility] 08-23-2024 15:50-0400 Body temperature 104 [degF] Otilia Simons MD Work Phone: [facility] 08-23-2024 15:50-0400 Body weight 71.22 kg Otilia Simons MD Work Phone: [facility] 08-23-2024 15:50-0400 Diastolic blood pressure 87 mm[Hg] Otilia Simons MD Work Phone: [facility] 08-23-2024 15:50-0400 SaO2% (BldA) [Mass fraction] 98 % Otilia Simons MD Work Phone: [facility] 08-23-2024 15:50-0400 Systolic blood pressure 137 mm[Hg] Otilia Simons MD Work Phone: [facility] 04-01-2024 14:31-0400 Diastolic blood pressure 83 mm[Hg] Robert Tyson MD Work Phone: [facility] 04-01-2024 14:31-0400 Heart rate 91 /min Robert Tyson MD Work Phone: [facility] 04-01-2024 14:31-0400 SaO2% (BldA) [Mass fraction] 98 % Robert Tyson MD Work Phone: [facility] 04-01-2024 14:31-0400 Systolic blood pressure 116 mm[Hg] Robert Tyson MD Work Phone: [facility] 04-01-2024 13:11-0400 Body height 160 cm Robert Tyson MD Work Phone: [facility] 04-01-2024 13:11-0400 Body mass index (BMI) [Ratio] 28.34 kg/m2 Robert Tyson MD Work Phone: [facility] 04-01-2024 13:11-0400 Body temperature 97.9 [degF] Robert Tyson MD Work Phone: [facility] 04-01-2024 13:11-0400 Body weight 72.58 kg Robert Tyson MD Work Phone: [facility] 04-01-2024 13:11-0400 Respiratory rate 16 /min Robert Tyson MD Work Phone: [facility] 02-27-2024 05:33-0400 Body height 160 cm Robert Miranda DO Work Phone: [facility] 02-27-2024 05:33-0400 Body mass index (BMI) [Ratio] 28.34 kg/m2 Robert Miranda DO Work Phone: [facility] 02-27-2024 05:33-0400 Body weight 72.58 kg Robert Miranda DO Work Phone: [facility] 02-27-2024 05:29-0400 Body temperature 97.7 [degF] Robert Miranda DO Work Phone: [facility] 02-27-2024 05:29-0400 Diastolic blood pressure 99 mm[Hg] Robert Miranda DO Work Phone: [facility] 02-27-2024 05:29-0400 Heart rate 103 /min Robert Miranda DO Work Phone: [facility] 02-27-2024 05:29-0400 Respiratory rate 18 /min Robert Miranda DO Work Phone: [facility] 02-27-2024 05:29-0400 SaO2% (BldA) [Mass fraction] 99 % Robert Miranda DO Work Phone: [facility] 02-27-2024 05:29-0400 Systolic blood pressure 152 mm[Hg] Robert Miranda DO Work Phone: [facility] 01-16-2024 14:16-0500 Body mass index (BMI) [Ratio] 28.17 kg/m2 Carl Bridenthal OPERATOR [employer] - FIELD SECRETARY Work Phone: [facility] 01-16-2024 14:16-0500 Body temperature 97.81 [degF] Carl Bridenthal OPERATOR [employer] - FIELD SECRETARY Work Phone: [facility] 01-16-2024 14:16-0500 Body weight 72.12 kg Carl Bridenthal OPERATOR [employer] - FIELD SECRETARY Work Phone: [facility] 01-16-2024 14:16-0500 Diastolic blood pressure 83 mm[Hg] Carl Bridenthal OPERATOR [employer] - FIELD SECRETARY Work Phone: [facility] 01-16-2024 14:16-0500 Heart rate 96 /min Carl Bridenthal OPERATOR [employer] - FIELD SECRETARY Work Phone: [facility] 01-16-2024 14:16-0500 Respiratory rate 24 /min Carl Bridenthal OPERATOR [employer] - FIELD SECRETARY Work Phone: [facility] 01-16-2024 14:16-0500 SaO2% (BldA) [Mass fraction] 98 % Carl Jonasenthal OPERATOR [employer] - FIELD SECRETARY Work Phone: [facility] 01-16-2024 14:16-0500 Systolic blood pressure 132 mm[Hg] Carl Bridenthal OPERATOR [employer] - FIELD SECRETARY Work Phone: [facility] 08-28-2023 23:08-0400 Heart rate 100 /min Rick Neff MD Work Phone: [facility] 08-28-2023 23:04-0400 SaO2% (BldA) [Mass fraction] 99 % Rick Neff MD Work Phone: [facility] 08-28-2023 22:25-0400 Diastolic blood pressure 72 mm[Hg] Rick Neff MD Work Phone: [facility] 08-28-2023 22:25-0400 Respiratory rate 17 /min Rick Neff MD Work Phone: [facility] 08-28-2023 22:25-0400 Systolic blood pressure 115 mm[Hg] Rick Neff MD Work Phone: [facility] 08-28-2023 22:17-0400 Body temperature 100.99 [degF] Rick Neff MD Work Phone: [facility] 08-28-2023 20:56-0400 Body height 160 cm Rick Neff MD Work Phone: [facility] 08-28-2023 20:56-0400 Body mass index (BMI) [Ratio] 26.75 kg/m2 Rick Neff MD Work Phone: [facility] 08-28-2023 20:56-0400 Body weight 68.49 kg Rick Neff MD Work Phone: [facility] 08-15-2023 13:13-0400 Body mass index (BMI) [Ratio] 27.14 kg/m2 Carl Jonasenthal OPERATOR [employer] - FIELD SECRETARY Work Phone: [facility] 08-15-2023 13:13-0400 Body temperature 98.4 [degF] Carl Bridenthal OPERATOR [employer] - FIELD SECRETARY Work Phone: [facility] 08-15-2023 13:13-0400 Body weight 69.49 kg Carl Bridenthal OPERATOR [employer] - FIELD SECRETARY Work Phone: [facility] 08-15-2023 13:13-0400 Diastolic blood pressure 68 mm[Hg] Carl Bridenthal OPERATOR [employer] - FIELD SECRETARY Work Phone: [facility] 08-15-2023 13:13-0400 Heart rate 101 /min Carl Bridenthal OPERATOR [employer] - FIELD SECRETARY Work Phone: [facility] 08-15-2023 13:13-0400 Respiratory rate 24 /min Carl Bridenthal OPERATOR [employer] - FIELD SECRETARY Work Phone: [facility] 08-15-2023 13:13-0400 SaO2% (BldA) [Mass fraction] 98 % Carl Bridenthal OPERATOR [employer] - FIELD SECRETARY Work Phone: [facility] 08-15-2023 13:13-0400 Systolic blood pressure 126 mm[Hg] Carl Bridenthal OPERATOR [employer] - FIELD SECRETARY Work Phone: [facility] 08-14-2023 07:31-0400 Body mass index (BMI) [Ratio] 27.17 kg/m2 Carl Bridenthal OPERATOR [employer] - FIELD SECRETARY Work Phone: [facility] 08-14-2023 07:31-0400 Body temperature 97.5 [degF] Carl Bridenthal OPERATOR [employer] - FIELD SECRETARY Work Phone: [facility] 08-14-2023 07:31-0400 Body weight 69.58 kg Carl Bridenthal OPERATOR [employer] - FIELD SECRETARY Work Phone: [facility] 08-14-2023 07:31-0400 Diastolic blood pressure 88 mm[Hg] Carl Bridenthal OPERATOR [employer] - FIELD SECRETARY Work Phone: [facility] 08-14-2023 07:31-0400 Heart rate 94 /min Carl Bridenthal OPERATOR [employer] - FIELD SECRETARY Work Phone: [facility] 08-14-2023 07:31-0400 Respiratory rate 20 /min Carl Bridenthal OPERATOR [employer] - FIELD SECRETARY Work Phone: [facility] 08-14-2023 07:31-0400 SaO2% (BldA) [Mass fraction] 100 % Carl Bridenthal OPERATOR [employer] - FIELD SECRETARY Work Phone: [facility] 08-14-2023 07:31-0400 Systolic blood pressure 124 mm[Hg] Carl Bridenthal OPERATOR [employer] - FIELD SECRETARY Work Phone: [facility] 06-21-2023 11:03-0400 Body mass index (BMI) [Ratio] 27 kg/m2 Carl Bridenthal OPERATOR [employer] - FIELD SECRETARY Work Phone: [facility] 06-21-2023 11:03-0400 Body temperature 98.6 [degF] Carl Bridenthal OPERATOR [employer] - FIELD SECRETARY Work Phone: [facility] 06-21-2023 11:03-0400 Body weight 69.13 kg Carl Bridenthal OPERATOR [employer] - FIELD SECRETARY Work Phone: [facility] 06-21-2023 11:03-0400 Diastolic blood pressure 86 mm[Hg] Carl Bridenthal OPERATOR [employer] - FIELD SECRETARY Work Phone: [facility] 06-21-2023 11:03-0400 Heart rate 97 /min Carl Bridenthal OPERATOR [employer] - FIELD SECRETARY Work Phone: [facility] 06-21-2023 11:03-0400 Respiratory rate 24 /min Carl Bridenthal OPERATOR [employer] - FIELD SECRETARY Work Phone: [facility] 06-21-2023 11:03-0400 SaO2% (BldA) [Mass fraction] 96 % Carl Bridenthal OPERATOR [employer] - FIELD SECRETARY Work Phone: [facility] 06-21-2023 11:03-0400 Systolic blood pressure 129 mm[Hg] Carl Bridenthal OPERATOR [employer] - FIELD SECRETARY Work Phone: [facility] 05-26-2023 23:59-0400 Body temperature 98.2 [degF] Yamila Samantha DO Work Phone: [facility] 05-26-2023 23:59-0400 Diastolic blood pressure 87 mm[Hg] Yamila Samantha DO Work Phone: [facility] 05-26-2023 23:59-0400 Heart rate 98 /min Yamila Samantha DO Work Phone: [facility] 05-26-2023 23:59-0400 Respiratory rate 18 /min Yamila Samantha DO Work Phone: [facility] 05-26-2023 23:59-0400 SaO2% (BldA) [Mass fraction] 100 % Yamila Samantha DO Work Phone: [facility] 05-26-2023 23:59-0400 Systolic blood pressure 159 mm[Hg] Yamila Samantha DO Work Phone: [facility] 04-26-2023 07:58-0400 Body height 160 cm Gamaliel Cormier MD Work Phone: [facility] 04-26-2023 07:58-0400 Body mass index (BMI) [Ratio] 27.49 kg/m2 Gamaliel Cormier MD Work Phone: [facility] 04-26-2023 07:58-0400 Body weight 70.4 kg Gamaliel Cormier MD Work Phone: [facility] 04-26-2023 07:58-0400 Diastolic blood pressure 72 mm[Hg] Gamaliel Cormier MD Work Phone: [facility] 04-26-2023 07:58-0400 Heart rate 109 /min Gamaliel Cormier MD Work Phone: [facility] 04-26-2023 07:58-0400 SaO2% (BldA) [Mass fraction] 97 % Gamaliel Cormier MD Work Phone: [facility] 04-26-2023 07:58-0400 Systolic blood pressure 113 mm[Hg] Gamaliel Cormier MD Work Phone: [facility] 02-02-2023 06:58-0500 Body height 160 cm Gamaliel Cormier MD Work Phone: [facility] 02-02-2023 06:58-0500 Body mass index (BMI) [Ratio] 28.56 kg/m2 Gamaliel Cormier MD Work Phone: [facility] 02-02-2023 06:58-0500 Body weight 73.12 kg Gamaliel Cormier MD Work Phone: [facility] 02-02-2023 06:58-0500 Diastolic blood pressure 93 mm[Hg] Gamaliel Cormier MD Work Phone: [facility] 02-02-2023 06:58-0500 Heart rate 92 /min Gamaliel Cormier MD Work Phone: [facility] 02-02-2023 06:58-0500 Systolic blood pressure 147 mm[Hg] Gamaliel Cormier MD Work Phone: [facility] 01-04-2023 12:51-0500 Body height 160 cm Kandice Alegre MD Work Phone: [facility] 01-04-2023 12:51-0500 Body mass index (BMI) [Ratio] 27.99 kg/m2 Kandice Alegre MD Work Phone: [facility] 01-04-2023 12:51-0500 Body weight 71.67 kg Kandice Alegre MD Work Phone: [facility] 01-04-2023 12:51-0500 Diastolic blood pressure 82 mm[Hg] Kandice Alegre MD Work Phone: [facility] 01-04-2023 12:51-0500 Heart rate 94 /min Kandice Alegre MD Work Phone: [facility] 01-04-2023 12:51-0500 Systolic blood pressure 131 mm[Hg] Kandice Alegre MD Work Phone: [facility] 12-28-2022 13:48-0500 Diastolic blood pressure 81 mm[Hg] Kimberly Lay MD Work Phone: [facility] Comment on above: sitting up 12-28-2022 13:48-0500 Heart rate 98 /min Kimberly Lay MD Work Phone: [facility] 12-28-2022 13:48-0500 Respiratory rate 16 /min Kimberly Lay MD Work Phone: [facility] 12-28-2022 13:48-0500 SaO2% (BldA) [Mass fraction] 99 % Kimberly Lay MD Work Phone: [facility] 12-28-2022 13:48-0500 Systolic blood pressure 114 mm[Hg] Kimberly Lay MD Work Phone: [facility] Comment on above: sitting up 12-28-2022 12:25-0500 Body height 160 cm Kimberly Lay MD Work Phone: [facility] 12-28-2022 12:25-0500 Body mass index (BMI) [Ratio] 27.28 kg/m2 Kimberly Lay MD Work Phone: [facility] 12-28-2022 12:25-0500 Body temperature 97 [degF] Kimberly Lay MD Work Phone: [facility] 12-28-2022 12:25-0500 Body weight 69.85 kg Kimberly Lay MD Work Phone: [facility] 12-15-2022 13:12-0500 Body height 160 cm Kimberly Lay MD Work Phone: [facility] 12-15-2022 13:12-0500 Body mass index (BMI) [Ratio] 29.02 kg/m2 Kimberly Lay MD Work Phone: [facility] 12-15-2022 13:12-0500 Body temperature 97.3 [degF] Kimberly Lay MD Work Phone: [facility] 12-15-2022 13:12-0500 Body weight 74.3 kg Kimberly Lay MD Work Phone: [facility] 12-15-2022 13:12-0500 Diastolic blood pressure 92 mm[Hg] Kimberly Lay MD Work Phone: [facility] 12-15-2022 13:12-0500 Heart rate 62 /min Kimberly Lay MD Work Phone: [facility] 12-15-2022 13:12-0500 Respiratory rate 18 /min Kimberly Lay MD Work Phone: [facility] 12-15-2022 13:12-0500 SaO2% (BldA) [Mass fraction] 98 % Kimberly Lay MD Work Phone: [facility] 12-15-2022 13:12-0500 Systolic blood pressure 138 mm[Hg] Kimberly Lay MD Work Phone: [facility] 05-11-2022 13:19-0400 Body height 160 cm Carlos Garcia MD Work Phone: [facility] 05-11-2022 13:19-0400 Body mass index (BMI) [Ratio] 28.34 kg/m2 Carlos Garcia MD Work Phone: [facility] 05-11-2022 13:19-0400 Body temperature 97.9 [degF] Carlos Garcia MD Work Phone: [facility] 05-11-2022 13:19-0400 Body weight 72.58 kg Carlos Garcia MD Work Phone: [facility] 05-11-2022 13:19-0400 Diastolic blood pressure 101 mm[Hg] Carlos Garcia MD Work Phone: [facility] 05-11-2022 13:19-0400 Heart rate 94 /min Carlos Garcia MD Work Phone: [facility] 05-11-2022 13:19-0400 Respiratory rate 14 /min Carlos Garcia MD Work Phone: [facility] 05-11-2022 13:19-0400 SaO2% (BldA) [Mass fraction] 98 % Carlos Garcia MD Work Phone: [facility] 05-11-2022 13:19-0400 Systolic blood pressure 153 mm[Hg] Carlos Garcia MD Work Phone: [facility] 10-05-2020 20:03-0500 Body Temperature 98.2 [degF] [facility] [place] [facility] 20:03-0500 BP Diastolic 98 mm[Hg] Frances [facility], [place] 10-05-2020 20:03-0500 BP Systolic 151 mm[Hg] [facility] [place] 10-05-2020 20:03-0500 Pulse (Heart Rate) 106 /min Frances Alvarez [facility], [place] 10-05-2020 20:03-0500 Pulse Oximetry 97 % [facility] [place] 10-05-2020 20:03-0500 Respiratory Rate 18 /min Frances Amarokin [facility], [place] 01-23-2020 10:06-0500 Body Temperature 98.8 [degF] Burton Ryanisinger [facility], [place] 01-23-2020 10:06-0500 BP Diastolic 89 mm[Hg] Burton [facility], [place] 01-23-2020 10:06-0500 BP Systolic 129 mm[Hg] Burton [facility] [place], [place] 01-23-2020 10:06-0500 Pulse (Heart Rate) 108 /min [facility] [place] [place] 01-23-2020 10:06-0500 Pulse Oximetry 100 % Butron [facility], [place] 01-23-2020 10:06-0500 Respiratory Rate 14 /min [facility] [place] 09-06-2019 15:34-0400 BP Diastolic 99 mm[Hg] [facility] [place] 09-06-2019 15:34-0400 BP Systolic 139 mm[Hg] Frances [facility], [place] 09-06-2019 15:34-0400 Pulse (Heart Rate) 99 /min Frances Alvarez [facility], [place] 09-06-2019 15:34-0400 Respiratory Rate 18 /min [facility], [place] 09-06-2019 14:02-0400 Body Temperature 98.2 [degF] Frances Alvarez [facility], [place] 09-06-2019 14:02-0400 Pulse Oximetry 96 % Frances Alvarez [facility], [place] 08-15-2019 16:37-0400 Body Temperature 99.19 [degF] [facility], [place] 08-15-2019 16:37-0400 BP Diastolic 79 mm[Hg] [facility] 08-15-2019 16:37-0400 BP Systolic 107 mm[Hg] [facility], [place] 08-15-2019 16:37-0400 Pulse (Heart Rate) 95 /min [facility], [place] 08-15-2019 16:37-0400 Pulse Oximetry 98 % [facility], [place] 08-15-2019 16:37-0400 Respiratory Rate 16 /min [facility], [place] 07-07-2019 08:28-0400 Body Temperature 97.39 [degF] [facility], [place] 07-07-2019 08:28-0400 BP Diastolic 77 mm[Hg] [facility], [place] 07-07-2019 08:28-0400 BP Systolic 109 mm[Hg] [facility], [place] 07-07-2019 08:28-0400 Pulse (Heart Rate) 101 /min [facility], [place] 07-07-2019 08:28-0400 Pulse Oximetry 99 % [facility], [place] 07-07-2019 08:28-0400 Respiratory Rate 16 /min [facility] 07-05-2019 11:18-0400 BMI (Body Mass Index) 25.23 kg/m2 [facility], [place] 07-05-2019 11:18-0400 [facility] 07-05-2019 11:18-0400 Height 160 cm [place], [place] Encounters Encounter Date Encounter Type Care Provider Facility Start: 05-07-2025 End: 05-07-2025 [facility] Start: 05-07-2025 Encounter for genera l adult medical examination without abnormal findings [facility] Start: 03-18-2025 End: 03-18-2025 Orders Only Otilia Simons MD Work Phone: [facility] Comment on above: Gastroesophageal ref lux disease without esophagitis (Primary Dx) Start: 03-12-2025 End: 03-12-2025 Refill Nubia Quinteros OPERATOR [employer] - FIELD SECRETARY Work Phone: [facility] Comment on above: Simple chronic bronc hitis (HCC) Start: 03-05-2025 End: 03-05-2025 Emergency department patient visit Rohith Perez MD Work Phone: [facility] Comment on above: Acute recurrent pans inusitis (Primary Dx) Start: 12-04-2024 End: 12-04-[address] [facility] Start: 12-04-2024 End: 12-04-2024 Office outpatient visit 25 minutes Gamaliel Cormier MD Work Phone: [facility] Comment on above: Chronic bilateral lo w back pain without sciatica (Primary Dx); SI (sacroiliac) joint inflammation (HCC) Start: 12-03-2024 End: 12-03-2024 [facility] Start: 12-03-2024 End: 12-03-2024 [facility] encounter [facility] Start: 12-03-2024 End: 12-03-2024 Telephone encounter Gamaliel Cormier MD Work Phone: [facility] Start: 11-25-2024 End: 11-25-2024 Refill Carl Bridenthal OPERATOR [employer] - FIELD SECRETARY Work Phone: [facility] Comment on above: Simple chronic bronc hitis (HCC) Start: 11-25-2024 End: 11-25-2024 Emergency department patient visit GAMALIEL CORMIER [facility] Start: 11-24-2024 End: 11-24-2024 Emergency department patient visit Prabhakar Black MD Work Phone: [facility] Comment on above: Cellulitis of left b reast (Primary Dx) Start: 11-24-2024 End: 11-24-2024 ambulatory Krista Moore RN [facility] Clinical Communication Start: 11-24-2024 End: 11-24-2024 Patient encounter procedure Krista Moore RN [facility] Communication Start: 10-08-2024 End: 10-08-2024 Refill Carl Bridenthal OPERATOR [employer] - FIELD SECRETARY Work Phone: [facility] Comment on above: Simple chronic bronc hitis (HCC) Start: 08-23-2024 End: 08-23-2024 Office outpatient visit 15 minutes Otilia Simons MD Work Phone: [facility] Comment on above: Acute bronchitis, un specified organism (Primary Dx); Gastroesophageal reflux disease, unspecified whether esophagitis present Start: 08-23-2024 End: 08-23-2024 ambulatory Krista Moore RN [facility] Clinical Communication Start: 08-23-2024 End: 08-23-2024 Patient encounter procedure Krista Moore RN [facility] Clinical Communication Start: 07-26-2024 End: 07-26-2024 Refill Gamaliel Cormier MD Work Phone: [facility] Comment on above: Simple chronic bronc hitis (HCC) Start: 05-09-2024 Refill Carl Briden thal OPERATOR [employer] - FIELD SECRETARY Work Phone: [facility] Comment on above: Simple chronic bronc hitis (HCC) Start: 04-12-2024 End: 04-12-2024 Emergency department patient visit GAMALIEL CORMIER [facility] Start: 04-01-2024 End: 04-01-2024 Subsequent hospital visit by physician [facility] Ed Xr Exam Room 1 [facility] Comment on above: Arrived Start: 04-01-2024 End: 04-01-2024 Emergency department patient visit Robert Tyson MD Work Phone: [facility] Comment on above: Contusion of right c hest wall, initial encounter (Primary Dx); Injury of right shoulder, initial encounter; Cellulitis of abdominal wall Start: 02-27-2024 End: 02-27-2024 Subsequent hospital visit by physician [facility] Xr Portable [facility] Comment on above: Arrived Start: 02-27-2024 End: 02-27-2024 Emergency department patient visit Robert Miranda DO Work Phone: [facility] Comment on above: Acute maxillary sinu sitis, recurrence not specified (Primary Dx); Bronchitis Start: 02-26-2024 ambulatory Felisha Dukes RN [facility] Start: 02-26-2024 Patient encounter procedure Felisha Dukes RN [facility] Start: 01-22-2024 ambulatory Julia Hammond RN [facility] C linical Communication Start: 01-22-2024 [facility] Start: 01-16-2024 End: 01-16-2024 Office outpatient visit 15 minutes Carl Bridenthal OPERATOR [employer] - FIELD SECRETARY Work Phone: [facility] [facility] Comment on above: Rash (Primary Dx); Gastroesophageal reflux disease without esophagitis; Simple chronic bronchitis (HCC) Start: 01-16-2024 End: 01-16-2024 Office outpatient visit 25 minutes Carl Bridenthal OPERATOR [employer] - FIELD SECRETARY Work Phone: [facility] Comment on above: Rash (Primary Dx); Gastroesophageal reflux disease without esophagitis; Simple chronic bronchitis (HCC) Start: 01-15-2024 ambulatory Chandler eddy RN [facility] Clinical Communication Start: 01-15-2024 Patient encounter procedure [facility] Ya [facility] Clinical Communication Start: 09-01-2023 ambulatory Vidhi Moon LPN [facility] Start: 09-01-2023 Follow-up encounter Vidhi Arita [facility] Comment on above: ER Follow-up Start: 08-30-2023 ambulatory Lauren Curran Cl inical Communication Start: 08-30-2023 Patient encounter procedure Lauren Curran Clinical Communication Start: 08-30-2023 End: 08-30-2023 Emergency department patient visit GAMALIEL CORMIER Facility:[facility] Start: 08-29-2023 End: 08-29-2023 Office outpatient visit 15 minutes Carl Bridenthal OPERATOR [employer] - FIELD SECRETARY Work Phone: [facility] Comment on above: Pyelonephritis (Prim ana Dx); Anxiety Start: 08-29-2023 End: 08-29-2023 Office outpatient visit 25 minutes Carl Bridenthal OPERATOR [employer] - FIELD SECRETARY Work Phone: [facility] Comment on above: Pyelonephritis (Prim ana Dx); Anxiety Start: 08-28-2023 End: 08-28-2023 Subsequent hospital visit by physician [facility] Radiology Comment on above: Arrived Start: 08-28-2023 End: 08-28-2023 Emergency department patient visit Rick Neff MD Work Phone: [facility] ED Comment on above: Pyelonephritis (Prim ana Dx) Start: 08-15-2023 ambulatory Julia Curran C linical Communication Start: 08-15-2023 Patient encounter procedure Julia Curran Clinical Communication Start: 08-15-2023 End: 08-15-2023 Office outpatient visit 15 minutes Carl Bridenthal OPERATOR [employer] - FIELD SECRETARY Work Phone: [facility] Comment on above: Acute pain of right knee (Primary Dx); Cellulitis of right lower extremity; Vaginal yeast infection Start: 08-14-2023 End: 08-14-2023 Office outpatient visit 15 minutes Carl Bridenthal OPERATOR [employer] - FIELD SECRETARY Work Phone: [facility] Comment on above: Anxiety (Primary Dx) Start: 08-11-2023 ambulatory Paris Georges la Clinical Communication Start: 08-11-2023 Patient encounter procedure Paris Vizcaino RN [facility] Clinical Communication Start: 06-21-2023 End: 06-21-2023 Office outpatient visit 15 minutes Carl Marklorena OPERATOR [employer] - FIELD SECRETARY Work Phone: [facility] Comment on above: Cellulitis of left l ower extremity (Primary Dx); Vaginal yeast infection Start: 05-26-2023 End: 05-27-2023 Emergency department patient visit Yamila Singh DO Work Phone: [facility] ED Comment on above: Rash and other nonsp ecific skin eruption (Primary Dx) Start: 04-26-2023 End: 04-26-2023 Office outpatient visit 10 minutes Gamaliel Cormier MD Work Phone: [facility] Comment on above: Rectal bleeding (Fabiola Dx) Start: 02-23-2023 End: 02-23-2023 Office outpatient visit 25 minutes Kimberly Lay MD Work Phone: [facility] Gastroenterology Comment on above: Gastroesophageal ref lux disease without esophagitis (Primary Dx); Hiatal hernia; History of colonoscopy Start: 02-02-2023 End: 02-02-2023 Office outpatient visit 15 minutes Gamaliel Cormier MD Work Phone: [facility] Comment on above: Abscess of left arm (Primary Dx) Start: 01-31-2023 ambulatory Daisha Burch RN [facility] Clinical Communication Start: 01-31-2023 Patient encounter procedure Daisha Burch RN [facility] Clinical Communication Start: 01-11-2023 Telephone encounter Keke Finn PT [facility] Therapy at [facility] Comment on above: Pt was a no show for todays evaluation at 10 AM (Pt was scheduled for an Initial evaluation today at 10 AM. Pt was a no show. Clinician called pt and left a VM regarding today's missed evaluation and to call to RS if needed. /) Start: 01-05-2023 End: 01-05-2023 Transcribe Orders Kandice Alegre MD Work Phone: [facility] Laboratory Comment on above: Cervicalgia (Primary Dx); Pain in right knee; Pain in left knee; Other chronic pain; Low back pain, unspecified; Pain in left hand; Pain in right foot; Pain in left foot Cervicalgia (Primary Dx); Pain in right knee; Pain in left knee; Other chronic pain; Low back pain, unspecified; Pain in left hand; Pain in right hand; Pain in right foot; Pain in left foot Pain in right knee; Pain in left knee; Other chronic pain; Low back pain, unspecified; Pain in left hand; Pain in right foot; Pain in left foot; Cervicalgia Arrived Chronic pain of both feet; Bilateral hand pain; Neck pain; Chronic bilateral low back pain, unspecified whether sciatica present; Chronic pain of both shoulders; Bilateral chronic knee pain Pain Pain in right knee; Pain in left knee; Other chronic pain; Low back pain, unspecified; Pain in left hand; Pain in right hand; Pain in right foot; Pain in left foot; Cervicalgia Start: 01-04-2023 End: 01-04-2023 Evaluation finding Kandice Alegre MD Work Phone: Rheumatology Start: 01-04-2023 End: 01-04-2023 Office outpatient new 60 minutes Kandice Alegre MD Work Phone: Rheumatology Comment on above: Primary osteoarthrit is involving multiple joints (Primary Dx); Neck pain; 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; Bilateral hand pain; Bilateral chronic knee pain; Chronic pain of both shoulders; Chronic pain of both feet; Vitamin D insufficiency; Chronic bilateral low back pain, unspecified whether sciatica present; Other fatigue; Anxiety and depression; Special screening examination for viral disease; Blood tests prior to treatment or procedure; Livedo reticularis Start: 12-28-2022 End: 12-28-2022 Subsequent hospital visit by physician Kimberly Lay MD Work Phone: [facility] Comment on above: Constipation, unspec ified; GERD (gastroesophageal reflux disease); Abdominal bloating; NSAID long-term use; Encounter for screening colonoscopy Start: 12-27-2022 Savita Quinteros APRN - FIELD SECRETARY Work Phone: [facility] Start: 12-15-2022 End: 12-15-2022 Office outpatient new 45 minutes Kimberly Lay MD Work Phone: [facility] Comment on above: Constipation, unspec ified constipation type (Primary Dx); Gastroesophageal reflux disease, unspecified whether esophagitis present; Abdominal bloating; Encounter for screening colonoscopy; Bloating; NSAID long-term use Start: 10-07-2022 ambulatory Health Risk Assessment Facility:[facility] Start: 09-15-2022 Transcribe Orders Faye Baldwin DO Work Phone: [facility] Start: 05-11-2022 End: 05-11-2022 Emergency department patient visit Carlos Garcia MD Work Phone: [facility] Comment on above: Contusion of left kn ee, initial encounter (Primary Dx) Start: 04-26-2022 End: 04-26-2022 Subsequent hospital visit by physician Mary Bardales MD Work Phone: [facility] Comment on above: Leg swelling Start: 04-19-2022 End: 04-19-2022 Subsequent hospital visit by physician Mary Bardales MD Work Phone: [facility] Laboratory Comment on above: Neuropathy; Family history of thyroid disorder; Leg swelling; Recurrent infections Start: 02-07-2022 End: 02-07-2022 Subsequent hospital visit by physician Franky Moses MD Work Phone: [facility] Start: 10-05-2020 End: 10-05-2020 Emergency department patient visit Frances Alvarez Work Phone: [facility] Comment on above: COPD exacerbation (H CC) (Primary Dx); Educated about COVID-19 virus infection; Acute bronchitis, unspecified organism; Acute maxillary sinusitis, recurrence not specified; Smoking Start: 01-23-2020 End: 01-23-2020 Emergency department patient visit Burton Springer Work Phone: [facility] ED Comment on above: Influenza with respi ratory manifestation other than pneumonia (Primary Dx) Start: 10-23-2019 Evaluation and management of inpatient HAMIDA Arrington MD Start: 09-06-2019 End: 09-06-2019 Emergency department patient visit Frances Alvarez Work Phone: [facility] ED Comment on above: Acute right-sided lo w back pain without sciatica (Primary Dx); Spasm of muscle; Thoracic myofascial strain, initial encounter Start: 08-15-2019 End: 08-15-2019 Emergency department patient visit Burton Springer Work Phone: [facility] Comment on above: Syncope and collapse (Primary Dx) Start: 07-05-2019 End: 07-07-2019 Evaluation and management of inpatient Hernando Gregory Work Phone: [facility] Comment on above: Cellulitis of right upper extremity (Primary Dx) Start: 09-29-2017 End: 09-30-2017 Ambulatory [facility] Start: 09-29-2017 End: 10-02-2017 Ambulatory [facility] Start: 06-24-2017 End: 06-24-2017 Emergency department patient visit [address] [facility] Facility:B Procedures Date Procedure Procedure Detail Performing Clinician Start: 04-01-2024 End: 04-01-2024 Radex ribs uni w/posteroant ch minimum 3 views Robert Tyson MD Work Phone: Start: 02-27-2024 Radiologic exam ches t 2 views Robert Miranda DO Work Phone: Start: 08-28-2023 Radiologic exam ches t single view Rick Neff MD Work Phone: Start: 08-28-2023 Comprehensive metabo lic panel Rick Neff MD Work Phone: Start: 08-28-2023 SARS-COV-2, FLU A/B, AND RSV COMBO Rick Neff MD Work Phone: Start: 08-28-2023 Urinalysis complete panel - Urine Rick Neff MD Work Phone: Start: 08-28-2023 Urnls dip stick/tabl et reagent auto microscopy Rick Neff MD Work Phone: Start: 08-14-2023 Adult depression scr eening assessment Krista Moore RN Start: 12-28-2022 Colonoscopy Kimberly singh MD Work Phone: Start: 04-26-2022 Dup-scan xtr veins c omplete bilateral study Mary Bardales MD Work Phone: Start: 04-19-2022 Comprehensive metabo lic panel Mary Bardales MD Work Phone: Start: 10-05-2020 Iaadiadoo influenza Gre sandi Godwin Antonio Work Phone: Start: 08-15-2019 Radiologic exam ches t 2 views Burton Springer Work Phone: Start: 07-07-2019 Basic metabolic pane l calcium total Chung Terry Work Phone: Start: 07-07-2019 Blood count complete auto&auto difrntl wbc Chung Terry Work Phone: Start: 07-07-2019 Hepatic function panel Chung Terry Work Phone: Start: 07-06-2019 Drug screen quantita tive vancomycin Faye Friedman Work Phone: Start: 07-06-2019 Acute hepatitis panel G eorge Lencho Work Phone: Start: 07-06-2019 Us abdominal real ti me w/image limited Chung Terry Work Phone: Start: 07-06-2019 Antibody hiv-1&hiv-2 single result Chung Terry Work Phone: Start: 07-06-2019 Drug screen class list a Faye Friedman Work Phone: Start: 07-06-2019 End: 07-06-2019 Blood count complete auto&auto difrntl wbc Faye Friedman Work Phone: Start: 07-06-2019 Procalcitonin (pct) Bulmaro rge Lencho Work Phone: Start: 07-06-2019 Assay of lipase Susie tony Friedman Work Phone: Start: 07-06-2019 Hepatic function panel Faye Friedman Work Phone: Start: 07-05-2019 Basic metabolic pane l calcium total Dago Travis Work Phone: Start: 07-05-2019 Blood count complete auto&auto difrntl wbc Dagojesus Travis Work Phone: Start: 06-10-2015 Microscopic observat ion [Identifier] in Cervix by Cyto stain Franky Moses MD Work Phone: Plan of Treatment Date Care Activity Detail Author Start: 2046 RSV Immunization for Adults (1 - 1-dose 75+ series) RSV Immunization for Adults (1 - 1-dose 75+ series) [facility] Start: 12-28-2032 Screening for malignant neoplasm of colon [facility] Start: 2031 RSV Immunization aged 60 or older (1 - 1-dose 60+ series) RSV Immunization aged 60 or older (1 - 1-dose 60+ series) [facility] Start: 07-28-2025 Influenza vaccination Influenza Vaccine (Season Ended) [facility] Start: 04-19-2025 Diabetes mellitus screening Diabetes Screening [facility] Start: 12-04-2024 End: 12-04-2025 XR Lumbar spine Views W flexion and W extension XR lumbar spine 4-5 view Imaging Routine Chronic bilateral low back pain without sciatica SI (sacroiliac) joint inflammation (HCC) Expected: 12/04/2024, Expires: 12/04/2025 [facility] Work Phone: Comment on above: Expected: 12/04/2024, Expires: Start: 12-04-2024 End: 12-04-2024 Patient encounter procedure 12/04/2024 9:00 AM EST Office Visit [facility] [address] [place] [address] [facility] [place] [address] [facility] Start: 08-14-2024 Depression Screening Depression Screening [facility] Start: 07-28-2024 COVID-19 Vaccine ( season) COVID-19 Vaccine ( season) [facility] Start: 07-28-2024 COVID-19 Vaccine () COVID-19 Vaccine () [facility] Start: 07-28-2024 Influenza vaccination [facility] Start: 02-12-2024 Depression Monitoring Depression Monitoring [facility] Start: 02-12-2024 Depresssion Monitoring Depresssion Monitoring [facility] Start: 12-29-2023 DTaP/Tdap/Td vaccine (5 - Td or Tdap) DTaP/Tdap/Td vaccine (5 - Td or Tdap) [facility] Start: 12-29-2023 DTaP/Tdap/Td vaccine (5 - Td) DTaP/Tdap/Td vaccine (5 - Td) [facility] [place] [facility] Start: 12-29-2023 DTaP/Tdap/Td Vaccines (5 - Td or Tdap) DTaP/Tdap/Td Vaccines (5 - Td or Tdap) [facility] Start: 09-14-2023 End: 09-14-2023 Patient encounter procedure 09/14/2023 9:20 AM EDT Office Visit [facility] [address] [place] [address] Carl Curry, OPERATOR [employer] - FIELD SECRETARY [address] [place] [address] [facility] Start: 09-07-2023 End: 09-07-2023 Patient encounter procedure 09/07/2023 8:00 AM EDT Office Visit [facility] [address] [facility] [place] [address] Carl Curry, OPERATOR [employer] - FIELD SECRETARY [address] [place] [address] [facility] Start: 08-29-2023 End: 08-29-2023 Telemedicine consultation with patient 08/29/2023 11:20 AM EDT Telemedicine [facility] [address] [place] [address] Carl Curry, OPERATOR [employer] - FIELD SECRETARY [address] [facility] [address] [facility] Start: 08-15-2023 End: 08-15-2024 CBC W Auto Differential panel - Blood CBC auto differential Lab Routine Acute pain of right knee Cellulitis of right lower extremity Expected: 08/15/2023 (Approximate), Expires: 08/15/2024 [facility] Work Phone: Comment on above: Expected: 08/15/2023 (Approximate), Expi res: 08/15/2024 Start: 08-15-2023 End: 08-15-2024 XR Knee - right 1 or 2 Views XR knee 1 or 2 views right Imaging Routine Acute pain of right knee Cellulitis of right lower extremity Expected: 08/15/2023, Expires: 08/15/2024 [facility] Comment on above: Expected: 08/15/2023, Expires: Start: 07-28-2023 COVID-19 Vaccine ( season) COVID-19 Vaccine ( season) [facility] Start: 07-28-2023 Influenza vaccination [facility] Start: 07-13-2023 End: 07-13-2023 Patient encounter procedure [facility] Start: 06-29-2023 End: 06-29-2023 Patient encounter procedure 06/29/2023 Office Visit Rheumatology Kandice Alegre MD [address] [place] [address] [facility] Start: 06-02-2023 End: 06-02-2023 Patient encounter procedure [facility] Start: 04-19-2023 Hemoglobin A1c measurement A1C test (Diabetic or Prediabetic) [facility] Start: 03-27-2023 End: 03-27-2023 Patient encounter procedure 03/27/2023 Office Visit Rheumatology Kandice Alegre MD [address] [place] [address] Rheumatology Start: 03-01-2023 End: 03-01-2023 Patient encounter procedure 03/01/2023 Office Visit Pain Medicine Lucio Shane MD [address] [place], [place] [id number] [facility] Start: 02-23-2023 End: 02-23-2023 Telemedicine consultation with patient 02/23/2023 Telemedicine Gastroenterology Kimberly Lay MD [address] [place] [address] [address] [place] [address] [facility] Start: 02-02-2023 End: 02-02-2023 Patient encounter procedure 02/02/2023 Office Visit Family Medicine Gamaliel Cormier MD [address] [facility], [address] [place], [place] [id number] [facility] Start: 01-10-2023 Depression Screen Depression Screen [facility] Start: 01-07-2023 COVID-19 Vaccine (1) COVID-19 Vaccine (1) [facility] Comment on above: Postponed from 1976 (Patient Refus ed) Start: 01-07-2023 Pneumococcal 0-64 years Vaccine (1 - PCV) Pneumococcal 0-64 years Vaccine (1 - PCV) [facility] Comment on above: Postponed from 1977 (Patient Refus ed) Start: 01-07-2023 Pneumococcal 0-64 years Vaccine (1 of 2 - PPSV23) Pneumococcal 0-64 years Vaccine (1 of 2 - PPSV23) [facility] Comment on above: Postponed from 1977 (Patient Refus ed) Start: 01-07-2023 Shingles Vaccine (1 of 2) Shingles Vaccine (1 of 2) [facility] Comment on above: Postponed from 2021 (Patient Refus ed) Start: 01-05-2023 End: 01-05-2024 XR Cervical spine 4 or 5 Views [facility] Work Phone: Comment on above: Expected: 01/05/2023, Expires: 4 Once for 1 Occurrenc es starting 01/05/2023 until 01/05/2023 Start: 01-05-2023 End: 01-05-2024 XR Foot - bilateral 3 Views [facility] Comment on above: Expected: 01/05/2023, Expires: 4 Once for 1 Occurrenc es starting 01/05/2023 until 01/05/2023 Start: 01-05-2023 End: 01-05-2024 XR Knee - bilateral 3 Views [facility] Comment on above: Expected: 01/05/2023, Expires: 4 Once for 1 Occurrenc es starting 01/05/2023 until 01/05/2023 Start: 01-05-2023 End: 01-05-2024 XR Lumbar spine 2 or 3 Views [facility] Work Phone: Comment on above: Expected: 01/05/2023, Expires: 4 Once for 1 Occurrenc es starting 01/05/2023 until 01/05/2023 Start: 01-05-2023 End: 01-05-2024 XR Sacroiliac Joint 3 Views [facility] Comment on above: Expected: 01/05/2023, Expires: 4 Once for 1 Occurrenc es starting 01/05/2023 until 01/05/2023 Start: 01-05-2023 End: 01-05-2024 XR Shoulder - bilateral 2 Views [facility] Comment on above: Expected: 01/05/2023, Expires: 4 Once for 1 Occurrenc es starting 01/05/2023 until 01/05/2023 Start: 01-05-2023 End: 01-05-2024 XR Thoracic spine 4 Views [facility] Comment on above: Expected: 01/05/2023, Expires: Once for 1 Occurrenc es starting 01/05/2023 until 01/05/2023 Start: 01-04-2023 End: 01-04-2024 25-hydroxyvitamin D3 [Mass/volume] in Serum or Plasma Vitamin D 25 hydroxy Lab Routine Neck pain 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 Bilateral hand pain Vitamin D insufficiency Chronic bilateral low back pain, unspecified whether sciatica present Other fatigue Anxiety and depression Special screening examination for viral disease Blood tests prior to treatment or procedure Livedo reticularis Expected: 01/04/2023 (Approximate), Expires: 01/04/2024 [facility] Comment on above: Expected: 01/04/2023 (Approximate), Expi res: 01/04/2024 Start: 01-04-2023 End: 01-04-2024 Anti-DNA antibody, double-stranded Anti-DNA antibody, double-stranded Lab Routine Neck pain 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 Bilateral hand pain Vitamin D insufficiency Chronic bilateral low back pain, unspecified whether sciatica present Other fatigue Anxiety and depression Special screening examination for viral disease Blood tests prior to treatment or procedure Livedo reticularis Expected: 01/04/2023 (Approximate), Expires: 01/04/2024 [facility] Comment on above: Expected: 01/04/2023 (Approximate), Expi res: 01/04/2024 Start: 01-04-2023 End: 01-04-2024 Anti-Judi 1 antibody, IgG Anti-Judi 1 antibody, IgG Lab Routine Neck pain 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 Bilateral hand pain Vitamin D insufficiency Chronic bilateral low back pain, unspecified whether sciatica present Other fatigue Anxiety and depression Special screening examination for viral disease Blood tests prior to treatment or procedure Livedo reticularis Expected: 01/04/2023 (Approximate), Expires: 01/04/2024 [facility] Comment on above: Expected: 01/04/2023 (Approximate), Expi res: 01/04/2024 Start: 01-04-2023 End: 01-04-2024 Anti-Scleroderma 70 Ab IgG Anti-Scleroderma 70 Ab IgG Lab Routine Neck pain 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 Bilateral hand pain Vitamin D insufficiency Chronic bilateral low back pain, unspecified whether sciatica present Other fatigue Anxiety and depression Special screening examination for viral disease Blood tests prior to treatment or procedure Livedo reticularis Expected: 01/04/2023 (Approximate), Expires: 01/04/2024 [facility] Comment on above: Expected: 01/04/2023 (Approximate), Expi res: 01/04/2024 Start: 01-04-2023 End: 01-04-2024 C reactive protein [Mass/volume] in Serum or Plasma C-reactive protein Lab Routine Neck pain 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 Bilateral hand pain Vitamin D insufficiency Chronic bilateral low back pain, unspecified whether sciatica present Other fatigue Anxiety and depression Special screening examination for viral disease Blood tests prior to treatment or procedure Livedo reticularis Expected: 01/04/2023 (Approximate), Expires: 01/04/2024 [facility] Comment on above: Expected: 01/04/2023 (Approximate), Expi res: 01/04/2024 Start: 01-04-2023 End: 01-04-2024 CARDIOLIPIN AB (IGG,IGM) ([facility]) Cardiolipin AB (IGG,IGM) ([facility]) Lab Routine Neck pain 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 Bilateral hand pain Vitamin D insufficiency Chronic bilateral low back pain, unspecified whether sciatica present Other fatigue Anxiety and depression Special screening examination for viral disease Blood tests prior to treatment or procedure Livedo reticularis Expected: 01/04/2023 (Approximate), Expires: 01/04/2024 [facility] Comment on above: Expected: 01/04/2023 (Approximate), Expi res: 01/04/2024 Start: 01-04-2023 End: 01-04-2024 CBC W Auto Differential panel - Blood CBC auto differential Lab Routine Neck pain 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 Bilateral hand pain Vitamin D insufficiency Chronic bilateral low back pain, unspecified whether sciatica present Other fatigue Anxiety and depression Special screening examination for viral disease Blood tests prior to treatment or procedure Livedo reticularis Expected: 01/04/2023 (Approximate), Expires: 01/04/2024 [facility] Comment on above: Expected: 01/04/2023 (Approximate), Expi res: 01/04/2024 Start: 01-04-2023 End: 01-04-2024 CENTROMERE B ANTIBODY ([facility]) [facility] B Antibody ([facility]) Lab Routine Neck pain 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 Bilateral hand pain Vitamin D insufficiency Chronic bilateral low back pain, unspecified whether sciatica present Other fatigue Anxiety and depression Special screening examination for viral disease Blood tests prior to treatment or procedure Livedo reticularis Expected: 01/04/2023 (Approximate), Expires: 01/04/2024 [facility] Comment on above: Expected: 01/04/2023 (Approximate), Expi res: 01/04/2024 Start: 01-04-2023 End: 01-04-2024 Chromatin (Nucleosomal) Antibody - Miscellaneous Test [facility] Comment on above: Expected: 01/04/2023 (Approximate), Expi res: 01/04/2024 Start: 01-04-2023 End: 01-04-2024 Cobalamin (Vitamin B12) [Mass/volume] in Serum or Plasma Vitamin B12 Lab Routine Neck pain 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 Bilateral hand pain Vitamin D insufficiency Chronic bilateral low back pain, unspecified whether sciatica present Other fatigue Anxiety and depression Special screening examination for viral disease Blood tests prior to treatment or procedure Livedo reticularis Expected: 01/04/2023 (Approximate), Expires: 01/04/2024 [facility] Comment on above: Expected: 01/04/2023 (Approximate), Expi res: 01/04/2024 Start: 01-04-2023 End: 01-04-2024 Comprehensive metabolic 1998 panel - Serum or Plasma Comprehensive metabolic panel Lab Routine Neck pain 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 Bilateral hand pain Vitamin D insufficiency Chronic bilateral low back pain, unspecified whether sciatica present Other fatigue Anxiety and depression Special screening examination for viral disease Blood tests prior to treatment or procedure Livedo reticularis Expected: 01/04/2023 (Approximate), Expires: 01/04/2024 [facility] Comment on above: Expected: 01/04/2023 (Approximate), Expi res: 01/04/2024 Start: 01-04-2023 End: 01-04-2024 Creatine kinase [Enzymatic activity/volume] in Serum or Plasma CK Lab Routine Neck pain 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 Bilateral hand pain Vitamin D insufficiency Chronic bilateral low back pain, unspecified whether sciatica present Other fatigue Anxiety and depression Special screening examination for viral disease Blood tests prior to treatment or procedure Livedo reticularis Expected: 01/04/2023 (Approximate), Expires: 01/04/2024 [facility] Comment on above: Expected: 01/04/2023 (Approximate), Expi res: 01/04/2024 Start: 01-04-2023 End: 01-04-2024 Cyclic citrul peptide antibody, IgG Cyclic citrul peptide antibody, IgG Lab Routine Neck pain 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 Bilateral hand pain Vitamin D insufficiency Chronic bilateral low back pain, unspecified whether sciatica present Other fatigue Anxiety and depression Special screening examination for viral disease Blood tests prior to treatment or procedure Livedo reticularis Expected: 01/04/2023 (Approximate), Expires: 01/04/2024 [facility] Comment on above: Expected: 01/04/2023 (Approximate), Expi res: 01/04/2024 Start: 01-04-2023 End: 01-04-2024 Erythrocyte sedimentation rate Sedimentation rate, automated Lab Routine Neck pain 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 Bilateral hand pain Vitamin D insufficiency Chronic bilateral low back pain, unspecified whether sciatica present Other fatigue Anxiety and depression Special screening examination for viral disease Blood tests prior to treatment or procedure Livedo reticularis Expected: 01/04/2023 (Approximate), Expires: 01/04/2024 [facility] Comment on above: Expected: 01/04/2023 (Approximate), Expi res: 01/04/2024 Start: 01-04-2023 End: 01-04-2024 Ferritin [Mass/volume] in Serum or Plasma Ferritin Lab Routine Neck pain 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 Bilateral hand pain Vitamin D insufficiency Chronic bilateral low back pain, unspecified whether sciatica present Other fatigue Anxiety and depression Special screening examination for viral disease Blood tests prior to treatment or procedure Livedo reticularis Expected: 01/04/2023 (Approximate), Expires: 01/04/2024 [facility] Comment on above: Expected: 01/04/2023 (Approximate), Expi res: 01/04/2024 Start: 01-04-2023 End: 01-04-2024 Hepatitis B core antibody, total Hepatitis B core antibody, total Lab Routine Neck pain 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 Bilateral hand pain Vitamin D insufficiency Chronic bilateral low back pain, unspecified whether sciatica present Other fatigue Anxiety and depression Special screening examination for viral disease Blood tests prior to treatment or procedure Livedo reticularis Expected: 01/04/2023 (Approximate), Expires: 01/04/2024 [facility] Comment on above: Expected: 01/04/2023 (Approximate), Expi res: 01/04/2024 Start: 01-04-2023 End: 01-04-2024 Hepatitis B virus core IgM Ab [Presence] in Serum or Plasma by Immunoassay Hepatitis B core antibody, IgM Lab Routine Neck pain 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 Bilateral hand pain Vitamin D insufficiency Chronic bilateral low back pain, unspecified whether sciatica present Other fatigue Anxiety and depression Special screening examination for viral disease Blood tests prior to treatment or procedure Livedo reticularis Expected: 01/04/2023 (Approximate), Expires: 01/04/2024 [facility] Comment on above: Expected: 01/04/2023 (Approximate), Expi res: 01/04/2024 Start: 01-04-2023 End: 01-04-2024 Hepatitis B virus surface Ab [Units/volume] in Serum or Plasma by Immunoassay Hepatitis B surface antibody Lab Routine Neck pain 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 Bilateral hand pain Vitamin D insufficiency Chronic bilateral low back pain, unspecified whether sciatica present Other fatigue Anxiety and depression Special screening examination for viral disease Blood tests prior to treatment or procedure Livedo reticularis Expected: 01/04/2023 (Approximate), Expires: 01/04/2024 [facility] Comment on above: Expected: 01/04/2023 (Approximate), Expi res: 01/04/2024 Start: 01-04-2023 End: 01-04-2024 Hepatitis B virus surface Ag [Presence] in Serum or Plasma by Immunoassay Hepatitis B surface antigen Lab Routine Neck pain 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 Bilateral hand pain Vitamin D insufficiency Chronic bilateral low back pain, unspecified whether sciatica present Other fatigue Anxiety and depression Special screening examination for viral disease Blood tests prior to treatment or procedure Livedo reticularis Expected: 01/04/2023 (Approximate), Expires: 01/04/2024 [facility] Comment on above: Expected: 01/04/2023 (Approximate), Expi res: 01/04/2024 Start: 01-04-2023 End: 01-04-2024 Hepatitis C virus Ab [Presence] in Serum or Plasma by Immunoassay Hepatitis C antibody Lab Routine Neck pain 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 Bilateral hand pain Vitamin D insufficiency Chronic bilateral low back pain, unspecified whether sciatica present Other fatigue Anxiety and depression Special screening examination for viral disease Blood tests prior to treatment or procedure Livedo reticularis Expected: 01/04/2023 (Approximate), Expires: 01/04/2024 [facility] Comment on above: Expected: 01/04/2023 (Approximate), Expi res: 01/04/2024 Start: 01-04-2023 End: 01-04-2024 Lupus anticoagulant Lupus anticoagulant Lab Routine Neck pain 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 Bilateral hand pain Vitamin D insufficiency Chronic bilateral low back pain, unspecified whether sciatica present Other fatigue Anxiety and depression Special screening examination for viral disease Blood tests prior to treatment or procedure Livedo reticularis Expected: 01/04/2023 (Approximate), Expires: 01/04/2024 [facility] Comment on above: Expected: 01/04/2023 (Approximate), Expi res: 01/04/2024 Start: 01-04-2023 End: 01-04-2024 Magnesium [Mass/volume] in Serum or Plasma Magnesium Lab Routine Neck pain 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 Bilateral hand pain Vitamin D insufficiency Chronic bilateral low back pain, unspecified whether sciatica present Other fatigue Anxiety and depression Special screening examination for viral disease Blood tests prior to treatment or procedure Livedo reticularis Expected: 01/04/2023 (Approximate), Expires: 01/04/2024 [facility] Comment on above: Expected: 01/04/2023 (Approximate), Expi res: 01/04/2024 Start: 01-04-2023 End: 01-04-2024 Nuclear Ab [Titer] in Serum by Immunofluorescence AMELIA Lab Routine Neck pain 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 Bilateral hand pain Vitamin D insufficiency Chronic bilateral low back pain, unspecified whether sciatica present Other fatigue Anxiety and depression Special screening examination for viral disease Blood tests prior to treatment or procedure Livedo reticularis Expected: 01/04/2023 (Approximate), Expires: 01/04/2024 [facility] Comment on above: Expected: 01/04/2023 (Approximate), Expi res: 01/04/2024 Start: 01-04-2023 End: 01-04-2024 [email or web address] [Mass/volume] in Serum or Plasma PTH, intact Lab Routine Neck pain 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 Bilateral hand pain Vitamin D insufficiency Chronic bilateral low back pain, unspecified whether sciatica present Other fatigue Anxiety and depression Special screening examination for viral disease Blood tests prior to treatment or procedure Livedo reticularis Expected: 01/04/2023 (Approximate), Expires: 01/04/2024 [facility] Comment on above: Expected: 01/04/2023 (Approximate), Expi res: 01/04/2024 Start: 01-04-2023 End: 01-04-2024 Phosphate [Moles/volume] in Serum or Plasma Phosphorus Lab Routine Neck pain 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 Bilateral hand pain Vitamin D insufficiency Chronic bilateral low back pain, unspecified whether sciatica present Other fatigue Anxiety and depression Special screening examination for viral disease Blood tests prior to treatment or procedure Livedo reticularis Expected: 01/04/2023 (Approximate), Expires: 01/04/2024 [facility] Comment on above: Expected: 01/04/2023 (Approximate), Expi res: 01/04/2024 Start: 01-04-2023 End: 01-04-2024 QUANTIFERON TB GOLD QUANTIFERON TB GOLD Lab Routine Neck pain 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 Bilateral hand pain Vitamin D insufficiency Chronic bilateral low back pain, unspecified whether sciatica present Other fatigue Anxiety and depression Special screening examination for viral disease Blood tests prior to treatment or procedure Livedo reticularis Expected: 01/04/2023 (Approximate), Expires: 01/04/2024 [facility] Comment on above: Expected: 01/04/2023 (Approximate), Expi res: 01/04/2024 Start: 01-04-2023 End: 01-04-2024 Rheumatoid factor [Units/volume] in Serum or Plasma Rheumatoid factor Lab Routine Neck pain 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 Bilateral hand pain Vitamin D insufficiency Chronic bilateral low back pain, unspecified whether sciatica present Other fatigue Anxiety and depression Special screening examination for viral disease Blood tests prior to treatment or procedure Livedo reticularis Expected: 01/04/2023 (Approximate), Expires: 01/04/2024 [facility] Comment on above: Expected: 01/04/2023 (Approximate), Expi res: 01/04/2024 Start: 01-04-2023 End: 01-04-2024 SJOGREN'S ANTIBODIES (SS-A,SS-B) ([facility]) Sjogren's Antibodies (SS-A,SS-B) ([facility]) Lab Routine Neck pain 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 Bilateral hand pain Vitamin D insufficiency Chronic bilateral low back pain, unspecified whether sciatica present Other fatigue Anxiety and depression Special screening examination for viral disease Blood tests prior to treatment or procedure Livedo reticularis Expected: 01/04/2023 (Approximate), Expires: 01/04/2024 [facility] Comment on above: Expected: 01/04/2023 (Approximate), Expi res: 01/04/2024 Start: 01-04-2023 End: 01-04-2024 SM AND SM/FIELD MARKETING MANAGER ANTIBODIES ([facility]) SM and SM/FIELD MARKETING MANAGER Antibodies ([facility]) Lab Routine Neck pain 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 Bilateral hand pain Vitamin D insufficiency Chronic bilateral low back pain, unspecified whether sciatica present Other fatigue Anxiety and depression Special screening examination for viral disease Blood tests prior to treatment or procedure Livedo reticularis Expected: 01/04/2023 (Approximate), Expires: 01/04/2024 [facility] Comment on above: Expected: 01/04/2023 (Approximate), Expi res: 01/04/2024 Start: 01-04-2023 End: 01-04-2024 Thyrotropin [Units/volume] in Serum or Plasma [facility] Comment on above: Expected: 01/04/2023 (Approximate), Expi res: 01/04/2024 Start: 01-04-2023 End: 01-04-2024 Urate [Mass/volume] in Serum or Plasma Uric acid Lab Routine Neck pain 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 Bilateral hand pain Vitamin D insufficiency Chronic bilateral low back pain, unspecified whether sciatica present Other fatigue Anxiety and depression Special screening examination for viral disease Blood tests prior to treatment or procedure Livedo reticularis Expected: 01/04/2023 (Approximate), Expires: 01/04/2024 [facility] Comment on above: Expected: 01/04/2023 (Approximate), Expi res: 01/04/2024 Start: 01-04-2023 End: 01-04-2024 XR Cervical spine 4 or 5 Views XR cervical spine complete 4 to 5 views Imaging Routine Neck pain Expected: 01/04/2023, Expires: 01/04/2024 [facility] Work Phone: Comment on above: Expected: 01/04/2023, Expires: Start: 01-04-2023 End: 01-04-2024 XR Foot - bilateral 3 Views XR foot 3+ views bilateral Imaging Routine Chronic pain of both feet Expected: 01/04/2023, Expires: 01/04/2024 [facility] Comment on above: Expected: 01/04/2023, Expires: Start: 01-04-2023 End: 01-04-2024 XR Hand - bilateral 3 Views XR hand 3+ views bilateral Imaging Routine Bilateral hand pain Expected: 01/04/2023, Expires: 01/04/2024 [facility] Comment on above: Expected: 01/04/2023, Expires: Start: 01-04-2023 End: 01-04-2024 XR Knee - bilateral 3 Views XR knee 3 views bilateral Imaging Routine Bilateral chronic knee pain Expected: 01/04/2023, Expires: 01/04/2024 [facility] Comment on above: Expected: 01/04/2023, Expires: 4 Start: 01-04-2023 End: 01-04-2024 XR Lumbar spine 2 or 3 Views XR lumbar spine 2 or 3 views Imaging Routine Chronic bilateral low back pain, unspecified whether sciatica present Expected: 01/04/2023, Expires: 01/04/2024 [facility] Comment on above: Expected: 01/04/2023, Expires: 4 Start: 01-04-2023 End: 01-04-2024 XR Sacroiliac Joint 3 Views XR sacroiliac joints 3+ views Imaging Routine Chronic bilateral low back pain, unspecified whether sciatica present Expected: 01/04/2023, Expires: 01/04/2024 [facility] Comment on above: Expected: 01/04/2023, Expires: Start: 01-04-2023 End: 01-04-2024 XR Shoulder - bilateral 2 Views XR shoulder 2+ views bilateral Imaging Routine Chronic pain of both shoulders Expected: 01/04/2023, Expires: 01/04/2024 [facility] Comment on above: Expected: 01/04/2023, Expires: Start: 01-04-2023 End: 01-04-2024 XR Thoracic spine 4 Views XR THORACIC SPINE COMPLETE 4+ VIEWS Imaging Routine Chronic bilateral low back pain, unspecified whether sciatica present Expected: 01/04/2023, Expires: 01/04/2024 [facility] Comment on above: Expected: 01/04/2023, Expires: 4 Start: 12-28-2022 End: 12-28-2022 Admission to same day surgery center 12/28/2022 Surgery Gastroenterology Kimberly Lay MD [address] [place], [place] [id number] EGD DIAGNOSTIC [19247 (CPT )] [facility] Comment on above: EGD DIAGNOSTIC [27259 (CPT )] Start: 12-28-2022 Subsequent hospital visit by physician 12/28/2022 Hospital Encounter Gastroenterology Kimberly Lay MD [address] [place] [address] [facility] Start: 12-28-2022 End: 12-28-2022 Colonoscopy flx dx w/collj spec when pfrmd [facility] Start: 12-28-2022 End: 12-28-2022 Esophagogastroduodenoscopy transoral diagnostic [facility] Start: 12-15-2022 End: 12-15-2022 Patient encounter procedure 12/15/2022 Consult Gastroenterology Kimberly Lay MD [address] [place] [address] [facility] Start: 07-28-2022 Influenza vaccination [facility] Start: 07-13-2022 End: 07-13-2022 Patient encounter procedure 07/13/2022 Office Visit Internal Medicine Mary Bardales MD [address] [place] [address] [facility] Start: 05-26-2022 Influenza vaccination Flu vaccine (#1) [facility] Comment on above: Postponed from 07/28/2021 (Patient Refus ed) Start: 04-21-2022 End: 04-21-2022 Patient encounter procedure 04/21/2022 Office Visit Family Medicine Federica Buckley, OPERATOR GROUND [employer]ED [employer]ENCE - FRUIT AND VEGETABLE INSPECTOR [address] [place] [address] [facility] Start: 02-14-2022 End: 02-14-2022 Patient encounter procedure 02/14/2022 Office Visit Family Medicine Nubia Quinteros, OPERATOR [employer]OUND [employer] - FIELD SECRETARY [address] [place] [address] [facility] Start: 05-26-2021 Lipid panel [facility] Start: 05-26-2021 Lipid screen Lipid screen [facility], [place] Start: 2021 Screening for malignant neoplasm of breast Breast cancer screen [facility] Start: 2021 Shingles Vaccine (1 of 2) Shingles Vaccine (1 of 2) [place], [place] Start: 2021 Zoster Vaccines (1 of 2) Zoster Vaccines (1 of 2) [facility] Start: 07-28-2020 Influenza vaccination Flu vaccine (#1) [place], [place] Start: 03-18-2020 Pneumococcal 0-64 years Vaccine (1 of 1 - PPSV23) Pneumococcal 0-64 years Vaccine (1 of 1 - PPSV23) [place], [place] Comment on above: Postponed from 1977 (Patient Refus ed) Start: 10-01-2019 End: 10-01-2019 Office Visit 10/01/2019 Office Visit Pain Management Maeve Lal MD [address] [place] [address] [phone] [facility] Start: 08-26-2019 End: 08-26-2019 Office Visit 08/26/2019 Office Visit Pain Management Maeve Lal MD [address] [place], [place] [id number] [facility] Start: 07-28-2019 Influenza vaccination Flu vaccine (#1) [place], [place] Start: 07-24-2019 End: 07-24-2019 Office Visit 07/24/2019 Office Visit Family Medicine Nubia Quinteros, OPERATOR [employer] - FIELD SECRETARY [address] [facility] [place] [address] [phone] [facility] Start: 06-10-2018 Cervical cancer screen Cervical cancer screen [place], [place] Start: 06-10-2018 Screening for malignant neoplasm of cervix [facility] Start: 2016 Screening for malignant neoplasm of colon [facility] Start: 2011 Diabetes screen Diabetes screen [place], [place] Start: 2011 Screening for malignant neoplasm of breast Mammogram [facility] Start: 2001 Screening for malignant neoplasm of cervix [facility] Start: 1992 Screening for malignant neoplasm of cervix Pap Smear [facility] Start: 1990 Hepatitis A Vaccines (1 of 2 - Risk 2-dose series) Hepatitis A Vaccines (1 of 2 - Risk 2-dose series) [facility] Start: 1990 Hepatitis B Vaccines (1 of 3 - 19+ 3-dose series) Hepatitis B Vaccines (1 of 3 - 19+ 3-dose series) [facility] Start: 1990 Pneumococcal Vaccine: 50+ Years (1 of 2 - PCV) Pneumococcal Vaccine: 50+ Years (1 of 2 - PCV) [facility] Start: 1989 Hepatitis C screening Hepatitis C Screening [facility] Start: 1983 Depresssion Monitoring Depresssion Monitoring [facility] Start: 1977 Pneumococcal 0-64 years Vaccine (1 of 1 - PPSV23) Pneumococcal 0-64 years Vaccine (1 of 1 - PPSV23) [place], [place] Start: 1977 Pneumococcal Vaccine: Pediatrics (0 to 5 Years) and At-Risk Patients (6 to 64 Years) (1 - PCV) Pneumococcal Vaccine: Pediatrics (0 to 5 Years) and At-Risk Patients (6 to 64 Years) (1 - PCV) [facility] Start: 1977 Pneumococcal Vaccine: Pediatrics (0 to 5 Years) and At-Risk Patients (6 to 64 Years) (1 of 2 - PCV) Pneumococcal Vaccine: Pediatrics (0 to 5 Years) and At-Risk Patients (6 to 64 Years) (1 of 2 - PCV) [facility] Start: 1972 Hepatitis A Vaccines (1 of 2 - Risk 2-dose series) Hepatitis A Vaccines (1 of 2 - Risk 2-dose series) [facility] Start: 1972 MMR Vaccines (1 of 1 - Standard series) MMR Vaccines (1 of 1 - Standard series) [facility] Start: 1971 COVID-19 Vaccine (#1) COVID-19 Vaccine (#1) [facility] Start: 1971 Hepatitis B Vaccines (1 of 3 - 3-dose series) Hepatitis B Vaccines (1 of 3 - 3-dose series) [facility] Start: 1971 HIV screening HIV Screening [facility] Start: 1971 Lipid panel Lipid Panel [facility] Start: 1971 Screening for malignant neoplasm of colon [facility] End: 08-28-2023 Bacteria identified in Urine by Culture [facility] Work Phone: Comment on above: Once (Lab) for 1 Occurrences starting until 08/28/2023 Basic metabolic 2000 panel Basic Metabolic Panel Lab Routine Daily until discontinued starting 07/07/2019, 1 completed [facility] [place] Comment on above: Daily until discontinued starting 2018, 1 completed CBC Auto Differential CBC Auto D ifferential Lab Routine Daily until discontinued starting 07/07/2019, 1 completed [facility] [place] Comment on above: Daily until discontinued starting 2018, 1 completed End: 08-15-2019 Comprehensive metabolic 2000 panel Comprehensive Metabolic Panel Lab STAT One Time for 1 Occurrences starting 08/15/2019 until 08/15/2019 [facility] [place] Comment on above: One Time for 1 Occurrences starting 07/28 until 08/15/2019 End: 10-05-2020 COVID-19 COVID-19 Lab Routine One Time for 1 Occurrences starting 10/05/2020 until 10/05/2020 [facility] [place] Comment on above: One Time for 1 Occurrences starting 07/2020 until 10/05/2020 COVID-19 COVID-19 Lab STA T 10/05/2020 8:19 PM EST [facility] [place] CULTURE BLOOD #1 CULTURE BLOOD # 1 Microbiology STAT 07/05/2019 1:41 PM EDT [place], [place] CULTURE BLOOD #2 CULTURE BLOOD # 2 Microbiology STAT 07/05/2019 1:41 PM EDT [facility] [place] End: 08-15-2019 D-Dimer, Quantitative D-Dimer, Quantitative Lab STAT One Time for 1 Occurrences starting 08/15/2019 until 08/15/2019 [place], [place] Comment on above: One Time for 1 Occurrences starting 07/28 until 08/15/2019 EKG 12 Lead - Chest Pain EKG 12 Lead - Chest Pain ECG STAT 08/15/2019 4:28 PM EDT [facility] [place] End: 08-15-2019 Hemogram (CBC) w/Auto Diff Hemogram (CBC) w/Auto Diff Lab STAT One Time for 1 Occurrences starting 08/15/2019 until 08/15/2019 [place], [place] Comment on above: One Time for 1 Occurrences starting 07/28 until 08/15/2019 Hepatic Function Panel Hepatic F unction Panel Lab Routine Daily until discontinued starting 07/07/2019, 1 [facility] on above: Daily until discontinued starting 2018, 1 completed Initiate Oxygen Ther apy Protocol Initiate Oxygen Therapy Protocol Respiratory Care Routine Daily until discontinued starting 07/05/2019 [facility] Comment on above: Daily until discontinued starting 2018 End: 07-06-2019 Lipase Lipase Lab Add-On One Time for 1 Occurrences starting 07/06/2019 until 07/06/2019 [facility] Comment on above: One Time for 1 Occurrences starting 06/27 until 07/06/2019 OUTSIDE PROCEDURE SCAN OUTSIDE P ROCEDURE SCAN Procedures Ordered: 01/05/2023 [facility] Comment on above: Ordered: 01/05/2023 OUTSIDE PROCEDURE SCAN OUTSIDE P ROCEDURE SCAN Procedures Ordered: 01/05/2023 [facility] Comment on above: Ordered: 01/05/2023 Tissue exam [facility] Work Phone: Comment on above: Release Upon Ordering for 1 Occurrences starting 12/28/2022 End: 08-15-2019 Troponin x1 Troponin x1 Lab STAT One Time for 1 Occurrences starting 08/15/2019 until 08/15/2019 [facility] Comment on above: One Time for 1 Occurrences starting 07/28 until 08/15/2019 End: 08-15-2019 Urinalysis Urinalysis Lab STAT One Time for 1 Occurrences starting 08/15/2019 until 08/15/2019 [facility] [place] Comment on above: One Time for 1 Occurrences starting 07/28 until 08/15/2019 End: 01-05-2023 XR Hand - bilateral 3 Views [facility] Comment on above: Once for 1 Occurrences starting 01/05/20 23 until 01/05/2023 Immunizations Immunization Date Immunization Notes Care Provider Kimberly murdock 05-02-2014 pneumococcal Conjuga te, unspecified formulation [facility] , [place] 12-29-2013 tetanus toxoid, redu patti diphtheria toxoid, and acellular pertussis vaccine, adsorbed [facility], [place] 09-26-2013 Influenza Vaccine, unspecified formulation [facility] , [place] 03-16-2013 tetanus toxoid, redu patti diphtheria toxoid, and acellular pertussis vaccine, adsorbed [facility] 07-10-2011 tetanus toxoid, redu patti diphtheria toxoid, and acellular pertussis vaccine, adsorbed [facility] 06-02-2001 tetanus toxoid, redu patti diphtheria toxoid, and acellular pertussis vaccine, [facility] P[facility] Date Payer Category Payer Commercial Managed C are - HMO [id number] 2023 Unknown [facility] [employer] [id number] 2023-Present [phone] [address] [address] [place] [address] Exchange Plan [id number] 2023 Unknown [id number] 2022 Medicaid HMO [facility] ODM [id number] 2022 Self-pay [id number] 2022 Medicaid [id number] 2019 Private Health Insurance [id number] 2017 Unknown [id number] 2015 Unknown [facility] xxxxxxxxxxxx 2015-Present [phone] [address] [place] [address] xxxxxxxxxxxx [id number] Unknown [id number] Social History Date Type Detail Facility Start: 11-27-1980 End: 05-27-2023 Tobacco smoking status NHIS Current every day smoker [facility] Start: 11-27-1980 History of tobacco use Cigarette Smo ker [place] Start: 07-05-2019 End: 08-14-2023 Cigarettes smoked current (pack per day) - Reported [facility] Start: 07-05-2019 End: 08-14-2023 Alcohol intake No [facility] Start: 12-24-2017 Tobacco Comment 1 pack per day per p t [place] Sex Assigned At Not on file [place] Start: 1970 Sex Assigned At Female S [place] Start: 01-23-2020 End: 01-04-2023 Alcohol intake Current non-drinker of alcohol (finding) [place] Start: 10-05-2020 End: 05-27-2023 Tobacco use and exposure Never used [place], [place] Start: 10-05-2020 Tobacco Comment 6 cigs a day [place], [place] Start: 04-04-2022 End: 08-14-2023 Exposure to SARS-CoV-2 (event) Not sure [place] Start: 03-11-2021 [facility] tobacco smoker [facility] Start: 06-04-2021 History SDOH Alcohol Frequency 1 [facility] Work Phone: Start: 06-04-2021 History SDOH Financial 5 [facility] Work Phone: Start: 06-04-2021 End: 12-28-2022 History SDOH Transport Med 2 [facility] Work Phone: Start: 01-04-2023 Alcohol Comment 2014 no longer drink ing [facility] Within the last year , have you been afraid of your partner or ex-partner? No [facility] Start: 09-15-2022 Gender identity Identifies as female gender (finding) [facility] Start: 09-15-2022 Sexual orientation Heterosexual (fin ding) [facility] Adolescent depressio n screening assessment 14 [facility] How often to you hav e a drink containing alcohol? Never [facility] Start: 01-22-2024 End: 03-05-2025 Alcohol intake Ex-drinker (finding) [facility] Start: 06-27-2022 Sex Female (finding) [facility] Tobacco smoking stat [facility] Tobacco smoking consumption unknown [facility] Goals Date Patient Goal Desired Activity /State Clinical Notes 05-11-2022 to 03-18-2025 Otilia Simons MD - 03/18/2025 11:13 AM EDTTelephone Encounter - Alexandra Guevara - 03/12/2025 3:09 PM EDTTelephone Encounter - Alexandra Guevara - 03/12/2025 3:09 PM EDTDischarge Instructions Note Date & Type Note Facility 03-18-2025 History of Presen t illness Narrative Fax from [facility]. Nexium not covered. Switch to Omeprazole that is covered. documented in this encounter [facility] 03-12-2025 Telephone encounter Note Prescription Request: Last medication check: 12/04/24 Last physical exam: never Next scheduled appointment: none Last date of refill on this medication 11/25/24 (qty 18 refill 2) [facility] 03-12-2025 Miscellaneous Notes Prescription Request: Last medication check: 12/04/24 Last physical exam: never Next scheduled appointment: none Last date of refill on this medication 11/25/24 (qty 18 refill 2) documented in this encounter [facility] 03-05-2025 Emergency department Note Emergency Department Encounter Pt Name: Xochitl Fuller Birthdate 1970 Date of evaluation: 03/05/2025 Provider: Rohith Perez MD CHIEF COMPLAINT Chief Complaint Patient presents with Sinusitis HISTORY OF PRESENT ILLNESS HPI Xochitl Fuller is a 54 y.o. female with history that includes asthma and smoking presenting to ED for sinus infection for 4 days. She is asking for an antibiotic and a steroid to prevent it from becoming a bronchopneumonia because this has been her experience in the past. She says Dr. Cormier typically prescribes these. No fever or chills. Has had nasal congestion and sinus pressure and postnasal drip causing a mild cough. Green nasal discharge. 2 days ago took a covid test at home and it was negative. She has been taking Sudafed for the past 2 days. Nursing Notes were reviewed. Past Medical History: Diagnosis Date Acute bacterial sinusitis 03/12/2021 Anxiety Arthritis Asthma Breast abscess right breast Cervical dysplasia Chronic pain Degeneration of intervertebral disc of lumbar region 05/14/2018 GERD (gastroesophageal reflux disease) Menorrhagia SCHEDULED FOR THE SURGERY ON 07/07/2017 Neuropathy RA (rheumatoid arthritis) ([facility]) Tobacco abuse REVIEW OF SYSTEMS Several elements of the ROS reviewed and otherwise acutely negative except as in the HPI. PHYSICAL EXAM ED Triage Vitals [03/05/25 1923] Temp Heart Rate Resp BP 36.7 C (98.1 F) 90 21 (!) 149/86 SpO2 Temp Source Heart Rate Source Patient Position 99 % Oral Monitor Sitting BP Location FiO2 (%) Right arm -- Physical Exam Vitals and nursing note reviewed. Constitutional: General: She is not in acute distress. Appearance: She is well-developed. HENT: Head: Normocephalic and atraumatic. No right periorbital erythema or left periorbital erythema. Nose: Congestion present. No rhinorrhea. Right Sinus: Maxillary sinus tenderness and frontal sinus tenderness present. Left Sinus: Maxillary sinus tenderness and frontal sinus tenderness present. Mouth/Throat: Mouth: Mucous membranes are moist. Pharynx: Oropharynx is clear. Posterior oropharyngeal erythema present. No oropharyngeal exudate. Eyes: General: Right eye: No discharge. Left eye: No discharge. Conjunctiva/sclera: Conjunctivae normal. Cardiovascular: Rate and Rhythm: Normal rate and regular rhythm. Heart sounds: No murmur heard. Pulmonary: Effort: Pulmonary effort is normal. No respiratory distress. Breath sounds: Normal breath sounds. Musculoskeletal: General: No swelling. Cervical back: Neck supple. Skin: General: Skin is warm and dry. Neurological: Mental Status: She is alert. Psychiatric: Mood and Affect: Mood normal. EMERGENCY DEPARTMENT COURSE and DIFFERENTIAL DIAGNOSIS/MDM: Patient clearly has sinusitis, though I am not convinced it is bacterial at this point. I do not think a steroid would be beneficial right now; she has no wheezing. I hear no abnormal breath sounds to suggest pneumonia to warrant chest x-ray or labs. Her vital signs are reassuring. There is a high probability of viral sinusitis and I will defer decision to prescribe antibiotics to her PCP. ED course: Diagnoses as of 03/05/252015 Acute recurrent pansinusitis Chronic conditions and social determinants of health affecting care: smoking DISPOSITION/PLAN Discharge 03/05/2025 07:57:15 PM PATIENT REFERRED TO: Gamaliel Cormier MD [address] [place] [address], [address] [place] [id number] Call in 1 day Rohith Perez MD Emergency Medicine Rohith Perez MD 03/05/252015 Pt. Arrived to ED via personal transportation with complaint of sinus pain and coughing up gross stuff x 2 days. Pt. Reports yellow, thick mucous for 2 days and a cough that began approximately 4 days. Pt. Reports history of sinus infections that sometimes turn into bronchitis. documented in this encounter [facility] 03-05-2025 Emergency department Triage note Pt. Arrived to ED via personal transportation with complaint of sinus pain and coughing up gross stuff x 2 days. Pt. Reports yellow, thick mucous for 2 days and a cough that began approximately 4 days. Pt. Reports history of sinus infections that sometimes turn into bronchitis. [facility] 03-05-2025 Physician Emergency department Note Emergency Department Encounter Pt Name: Xochitl Fuller Birthdate 1970 Date of evaluation: 03/05/2025 Provider: Rohith Perez MD CHIEF COMPLAINT Chief Complaint Patient presents with Sinusitis HISTORY OF PRESENT ILLNESS HPI Xochitl Fuller is a 54 y.o. female with history that includes asthma and smoking presenting to ED for sinus infection for 4 days. She is asking for an antibiotic and a steroid to prevent it from becoming a bronchopneumonia because this has been her experience in the past. She says Dr. Cormier typically prescribes these. No fever or chills. Has had nasal congestion and sinus pressure and postnasal drip causing a mild cough. Green nasal discharge. 2 days ago took a covid test at home and it was negative. She has been taking Sudafed for the past 2 days. Nursing Notes were reviewed. Past Medical History: Diagnosis Date Acute bacterial sinusitis 03/12/2021 Anxiety Arthritis Asthma Breast abscess right breast Cervical dysplasia Chronic pain Degeneration of intervertebral disc of lumbar region 05/14/2018 GERD (gastroesophageal reflux disease) Menorrhagia SCHEDULED FOR THE SURGERY ON 07/07/2017 Neuropathy RA (rheumatoid arthritis) (HCC) Tobacco abuse REVIEW OF SYSTEMS Several elements of the ROS reviewed and otherwise acutely negative except as in the HPI. PHYSICAL EXAM ED Triage Vitals [03/05/251922] Temp Heart Rate Resp BP 36.7 C (98.1 F) 90 21 (!) 149/86 SpO2 Temp Source Heart Rate Source Patient Position 99 % Oral Monitor Sitting BP Location FiO2 (%) Right arm -- Physical Exam Vitals and nursing note reviewed. Constitutional: General: She is not in acute distress. Appearance: She is well-developed. HENT: Head: Normocephalic and atraumatic. No right periorbital erythema or left periorbital erythema. Nose: Congestion present. No rhinorrhea. Right Sinus: Maxillary sinus tenderness and frontal sinus tenderness present. Left Sinus: Maxillary sinus tenderness and frontal sinus tenderness present. Mouth/Throat: Mouth: Mucous membranes are moist. Pharynx: Oropharynx is clear. Posterior oropharyngeal erythema present. No oropharyngeal exudate. Eyes: General: Right eye: No discharge. Left eye: No discharge. Conjunctiva/sclera: Conjunctivae normal. Cardiovascular: Rate and Rhythm: Normal rate and regular rhythm. Heart sounds: No murmur heard. Pulmonary: Effort: Pulmonary effort is normal. No respiratory distress. Breath sounds: Normal breath sounds. Musculoskeletal: General: No swelling. Cervical back: Neck supple. Skin: General: Skin is warm and dry. Neurological: Mental Status: She is alert. Psychiatric: Mood and Affect: Mood normal. EMERGENCY DEPARTMENT COURSE and DIFFERENTIAL DIAGNOSIS/MDM: Patient clearly has sinusitis, though I am not convinced it is bacterial at this point. I do not think a steroid would be beneficial right now; she has no wheezing. I hear no abnormal breath sounds to suggest pneumonia to warrant chest x-ray or labs. Her vital signs are reassuring. There is a high probability of viral sinusitis and I will defer decision to prescribe antibiotics to her PCP. ED course: Diagnoses as of 03/05/252015 Acute recurrent pansinusitis Chronic conditions and social determinants of health affecting care: smoking DISPOSITION/PLAN Discharge 03/05/2025 07:57:15 PM PATIENT REFERRED TO: Gamaliel Cormier MD [address] [place] [address] [address] [place] [id number] Call in 1 day Rohith Perez MD Emergency Medicine Rohith Perez MD 03/05/25 2016 [facility] 12-04-2024 Evaluation + Plan note Associated Problem(s): Chronic bilateral low back pain without sciatica Lumbosacral x-rays, stretching exercises were discussed in detail. Nabumetone 750 mg twice daily as needed. [facility] 12-04-2024 Evaluation + Plan note Associated Problem(s): SI (sacroiliac) joint inflammation (HCC) Lumbosacral x-rays, stretching exercises were discussed in detail. Nabumetone 750 mg twice daily as needed. [facility] 12-04-2024 Miscellaneous Notes Associated Problem(s): Chronic bilateral low back pain without sciatica Lumbosacral x-rays, stretching exercises were discussed in detail. Nabumetone 750 mg twice daily as needed. Associated Problem(s): SI (sacroiliac) joint inflammation (HCC) Lumbosacral x-rays, stretching exercises were discussed in detail. Nabumetone 750 mg twice daily as needed. documented in this encounter [facility] 12-04-2024 History of Presen t illness Narrative Patient verified by last name and date of . Images from the original note were not included. 12/04/2024 Xochitl Fuller (: 1970) is a 54 y.o. female , Established patient, here for evaluation of the following chief complaint(s): Back Pain (Lower back - is bad and getting worse ) and Other (On atb and now have yeast infection ) ASSESSMENT/PLAN: 1. Chronic bilateral low back pain without sciatica Assessment & Plan: Lumbosacral x-rays, stretching exercises were discussed in detail. Nabumetone 750 mg twice daily as needed. Orders: - XR lumbar spine 4-5 view 2. SI (sacroiliac) joint inflammation (HCC) Assessment & Plan: Lumbosacral x-rays, stretching exercises were discussed in detail. Nabumetone 750 mg twice daily as needed. Orders: - XR lumbar spine 4-5 view Follow up after x rays. 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 She says that she does have a history of some arthritis in her back but has not had any x-rays for couple years. She denies any numbness or tingling of her legs she denies any pain down her legs she denies any loss of bowel or bladder control or weakness of her legs. Review of Systems Gastrointestinal: Denies stool incontinence. Genitourinary: Denies urine incontinence Musculoskeletal: Positive for back pain and myalgias. Negative for arthralgias, gait problem and joint swelling. Neurological: Negative for weakness and numbness. Vitals: 12/04/24 0913 BP: 130/78 Pulse: 90 SpO2: 97% Weight: 159 lb (72.1 kg) Height: 5' 2 (1.575 m) Physical Exam Vitals and nursing note reviewed. Constitutional: General: She is not in acute distress. Appearance: Normal appearance. Musculoskeletal: Comments: Back has a very minimal right shift, does have a slight discrepancy in her iliac crest heights left is higher than the right. She has tenderness to palpation at the insertion of the paraspinous muscles and she has very tight tender paraspinous muscles bilateral. She has normal flexion of her back, pain with extension of her back to any degree, lateral flexion is normal. Lower extremities muscle strength is 5/5 and equal bilateral and negative straight leg raise. She does have significant pain when stressing her SI joints. Neurological: Mental Status: She is alert. An electronic signature was used to authenticate this note. Gamaliel Cormier MD 12/04/2024 10:04 AM documented in this encounter [facility] 12-03-2024 Note Addended by: GAMALIEL CORMIER on: 12/03/2024 04:39 PM Modules accepted: Orders [facility] 12-03-2024 Note Addended by: GAMALIEL CORMIER on: 12/03/2024 04:39 PM Modules accepted: Orders [facility] 12-03-2024 Note Addended by: GAMALIEL CORMIER on: 12/03/2024 04:39 PM Modules accepted: Orders [facility] 12-03-2024 Miscellaneous Notes Addended by: GAMALIEL CORMIER on: 12/03/2024 04:39 PM Modules accepted: Orders Reason for Disposition Caller has already spoken with another triager and has no further questions Protocols used: No Contact or Duplicate Contact [id number] Patient stated she is on an antibiotic and would like 2 doses of this medication Medication name: fluconazole (Diflucan) 150 MG tablet Medication dosage: 150 mg (Miligrams Monthly quantity needed: 2 How many day supply requestin Medication route: oral (PO) Medication administration time(s): daily If taking medication PRN, reason for taking medication: N/A If this is a controlled substance do you receive this or any other controlled medication from any other doctor or facility: No Ordering provider: Dr Cormier Date of last office visit: 01/16/24 Date of next office visit: none scheduled Date of last refill: (see medication tab): 01/22/24 Updated/Validated preferred pharmacy: Yes Patient instructed to contact the pharmacy prior to picking up the medication: Yes documented in this encounter [facility] 12-03-2024 Telephone encounter Note Reason for Disposition Caller has already spoken with another triager and has no further questions Protocols used: No Contact or Duplicate Contact [id number] [employer] 12-03-2024 Telephone encounter Note S: Patient spoke with [facility] nurse regarding back pain B: Onset of symptoms/concern ongoing A: Patient states that she was put on antibiotics at the hospital and requesting diflucan, message previously sent. Patient also stating that she has been having severe lower back and hip pain, can't get out of car. Pain started 10 years ago. Worsening pain this past month, pain while sitting up for long periods in car, affecting work and everything. Today, patient rates her back pain 10/10, yesterday she rates the pain a 10/10. Patient states that she was told that she needed surgery years ago. R: Appointment made with Dr Cormier for 12/04 at 9am. Patient states that her primary insurance in [place]. Pharmacy verified with patient [employer]. No further needs at this time. Patient instructed to call back with new or worsening symptoms. Reason for Disposition SEVERE back pain (e.g., excruciating, unable to do any normal activities) and not improved after pain medicine and CARE ADVICE Protocols used: Back [id number] [employer] 12-03-2024 Miscellaneous Notes S: Patient spoke with [facility] nurse regarding back pain B: Onset of symptoms/concern ongoing A: Patient states that she was put on antibiotics at the hospital and requesting diflucan, message previously sent. Patient also stating that she has been having severe lower back and hip pain, can't get out of car. Pain started 10 years ago. Worsening pain this past month, pain while sitting up for long periods in car, affecting work and everything. Today, patient rates her back pain 10/10, yesterday she rates the pain a 10/10. Patient states that she was told that she needed surgery years ago. R: Appointment made with Dr Cormier for 12/04 at 9am. Patient states that her primary insurance in [place]. Pharmacy verified with patient [employer] [facility]. No further needs at this time. Patient instructed to call back with new or worsening symptoms. Reason for Disposition SEVERE back pain (e.g., excruciating, unable to do any normal activities) and not improved after pain medicine and CARE ADVICE Protocols used: Back [id number] documented in this encounter [facility] 12-03-2024 Telephone encounter Note Patient stated she is on an antibiotic and would like 2 doses of this medication Medication name: fluconazole (Diflucan) 150 MG tablet Medication dosage: 150 mg (Miligrams Monthly quantity needed: 2 How many day supply requestin Medication route: oral (PO) Medication administration time(s): daily If taking medication PRN, reason for taking medication: N/A If this is a controlled substance do you receive this or any other controlled medication from any other doctor or facility: No Ordering provider: Dr Cormier Date of last office visit: 01/16/24 Date of next office visit: none scheduled Date of last refill: (see medication tab): 01/22/24 Updated/Validated preferred pharmacy: Yes Patient instructed to contact the pharmacy prior to picking up the medication: Yes [facility] 11-25-2024 Telephone encounter Note Reviewed chart. Refill appropriate. RX sent. [facility] 11-25-2024 Miscellaneous Notes Reviewed chart. Refill appropriate. RX sent. Prescription Request: Last date of refill on this medication 11/11/24 18g [address] [facility] documented in this encounter [facility] 11-25-2024 Telephone encounter Note Prescription Request: Last date of refill on this medication 11/11/24 18g 2 refills to [facility] 11-24-2024 Hospital Discharg e instructions Prabhakar Black MD - 11/24/2024 7:42 PM EST Tylenol 2 extra strength tablets every 6 hours on a scheduled basis to help with pain. Also consider topical pain patches such as Salonpas to help with pain of the area The following attachments cannot be sent through Care Everywhere.Mastitis Discharge Instructions (Puerto Rican)documented in this encounter [facility] 11-24-2024 Emergency department Note EMERGENCY DEPARTMENT ENCOUNTER Pt Name: Xochitl Fuller Birthdate 1970 Date of evaluation: 11/24/2024 ED Provider: Prabhakar Black MD CHIEF COMPLAINT Chief Complaint Patient presents with Breast Pain Pt relates infection in left breast. Pt relates area is red swollen and sore.Pt relates history of abscesses and having had similar infection in her right breast. HISTORY OF PRESENT ILLNESS (Location/Symptom, Timing/Onset, Context/Setting, Quality, Duration, Modifying Factors, Severity) Note limiting factors. I wore appropriate PPE for the entirety of this encounter. HPI Xochitl Fuller is a 54 y.o. female who presents to the emergency department with chief complaint of left breast pain redness and swelling. Denies trauma. Denies fevers. 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 States she has to shave in that area sometimes and may have caused an infection from shaving. Denies abdominal pain nausea vomiting diarrhea Nursing Notes were reviewed. Limitations to history: None Outside historians: None REVIEW OF SYSTEMS Review of Systems: Pertinent positives as above per history of present illness. Other systems reviewed and found to be negative to a total of 10 systems reviewed. PAST MEDICAL HISTORY Past Medical History: Diagnosis Date Acute bacterial sinusitis 03/12/2021 Anxiety Arthritis Asthma Breast abscess right breast Cervical dysplasia Chronic pain Degeneration of intervertebral disc of lumbar region 05/14/2018 GERD (gastroesophageal reflux disease) Menorrhagia SCHEDULED FOR THE SURGERY ON 07/07/2017 Neuropathy RA (rheumatoid arthritis) (HCC) Tobacco abuse SURGICAL HISTORY Past Surgical History: Procedure Laterality Date APPENDECTOMY 2018 BREAST BIOPSY Right 2016 COLONOSCOPY W/ BIOPSIES AND POLYPECTOMY N/A 12/28/2022 Performed by Kimberly Lay MD at [address] ENDOSCOPY COLPOSCOPY ENDOMETRIAL ABLATION FINGER FRACTURE SURGERY Right 1st finger HYSTEROSCOPY N/A KNEE ARTHROSCOPY Left 03/15/2012 OTHER SURGICAL HISTORY rheumatoid nodule removal (from left leg) , finger reconstructive surgery, lasered for uterine dysplasia TUBAL LIGATION 1991 CURRENT MEDICATIONS Previous Medications ALBUTEROL 108 (90 BASE) MCG/ACT INHALER TAKE 2 PUFFS BY MOUTH EVERY 6 HOURS NEEDED FOR WHEEZE ESOMEPRAZOLE (NEXIUM) [address] CAPSULE Take 1 capsule (40 mg) by mouth every morning (before breakfast). Do not open capsule. NAPROXEN PO Take 220 mg by mouth. 2 tabs prn ONDANSETRON ODT (ZOFRAN-ODT) 4 MG DISINTEGRATING TABLET Take 4 mg by mouth every 6 hours as needed. OSELTAMIVIR (TAMIFLU) 75 MG CAPSULE Take 1 capsule (75 mg) by mouth 2 times daily for 5 days. OXYMETAZOLINE (AFRIN) 0.05 % NASAL SPRAY Administer 2 sprays into each nostril every 12 hours as needed for congestion for up to 2 days. Do not use for more than 3 days. ALLERGIES Naltrexone, Ibuprofen, Meloxicam, Morphine, and Sertraline FAMILY HISTORY Family History Problem Relation Name Age of Onset Hypertension Mother Heart attack Mother Asthma Mother Arthritis Mother Thyroid disease Mother COPD Mother Other ([id number]) Father pneumonia aspiration Breast cancer Maternal Grandmother Cancer Maternal Grandfather No Known Problems Paternal Grandmother Migraines Paternal Grandfather Cancer Other Multiple Unknown Cancers on Maternal Side of family Colon cancer Neg Hx SOCIAL HISTORY Social History Socioeconomic History Marital status: Tobacco Use Smoking status: Every Day Current packs/day: 0.25 Average packs/day: 0.3 packs/day for 44.0 years (11.0 ttl pk-yrs) Types: Cigarettes Start date: 1980 Smokeless tobacco: Never Vaping Use Vaping status: Never Used Substance and Sexual Activity Alcohol use: Not Currently Comment: 2013 no longer drinking Drug use: Not Currently Types: IV, Marijuana, Methamphetamines Social Drivers of Health Intimate Partner Violence: Not At Risk (12/28/2022) Humiliation, Afraid, Rape, and Kick questionnaire Fear of Current or Ex-Partner: No Emotionally Abused: No Physically Abused: No Sexually Abused: No SCREENINGS PHYSICAL EXAM ED Triage Vitals [11/24/241912] Temp Heart Rate Resp BP 37.2 C (98.9 F) 105 18 112/75 SpO2 Temp Source Heart Rate Source Patient Position 96 % Oral Monitor Sitting BP Location FiO2 (%) -- -- Physical Exam: Vital signs reviewed in nurse's notes. Patient is nontoxic in appearance. No respiratory distress. Head: Normocephalic, atraumatic Eyes: Pupils are equal, round and reactive to light. EOMI. Conjunctiva clear. Sclera anicteric ENT: Mucous membranes moist. Throat shows no erythema exudates or edema. Neck: No anterior adenopathy. No tenderness or stiffness. Breast exam is performed with female RN present in the room at all times. On the superior half of the breast above the nipple there is an area of redness and warmth. It is not fluctuant but it is firm. No discernible mass. There is slight purplish bruising in the area. There is no open wound or draining. There is no nipple tenderness or discharge. The rest of the breast is nontender. Lungs: Clear to auscultation bilaterally. No wheezing rales or rhonchi. Heart: Regular rate and rhythm. No audible murmur or gallop. Abdomen: Soft, nondistended, nontender. No rebound or guarding. No signs of peritonitis. Extremities: No gross deformity. No obvious tenderness. No obvious joint swelling. Good distal pulses in all 4 extremities. Neurologic: Alert and fully oriented. No focal motor deficits in all 4 extremities. DIAGNOSTIC RESULTS LABS: Labs Reviewed - No data to display All other labs were within normal range or not returned as of this dictation. EMERGENCY DEPARTMENT COURSE and DIFFERENTIAL DIAGNOSIS/MDM: Vitals: Vitals: 11/24/24191211/24/241936 BP: 112/75 Patient Position: Sitting Pulse: 105 98 Resp: 18 20 Temp: 37.2 C (98.9 F) TempSrc: Oral SpO2: 96% 99% Weight: 70.3 kg (155 lb) Height: 1.575 m (5' 2) Patient has breast cellulitis. Recommend following up with her breast surgeon that she is seen in the past to obtain wound recheck, consideration for outpatient ultrasound. I do not have ultrasound available at this time. She does not appear septic toxic or severely dehydrated. Return if worse or new symptoms or problems. The patient presented with chief complaint of breast pain. The differential diagnosis associated with this patient's presentation includes cellulitis, abscess. Diagnostic tests considered but not performed: Ultrasound is considered but not available at this institution at this time on the weekend. The patient will be Discharged. Patient is in agreement with this plan. Medications cephalexin (Keflex) capsule 500 mg (500 mg Oral Given 11/24/241933) sulfamethoxazole-trimethoprim (Bactrim DS) 800-160 MG per tablet 1 tablet (1 tablet Oral Given 11/24/241934) acetaminophen (Tylenol) tablet 1,000 mg (1,000 mg Oral Given 11/24/241933) PROCEDURES: Unless otherwise noted below, none Procedures Patients symptoms are consistent with sepsis, severe sepsis, or septic shock (If yes use .sepsiscoremeasure): no FINAL IMPRESSION 1. Cellulitis of left breast DISPOSITION Discharge 11/24/2024 07:41:55 PM PATIENT REFERRED TO: Shanique Ball MD [address] [place] [address] [address] [place] [id number] Call in 1 day For wound re-check DISCHARGE MEDICATIONS: New Prescriptions CEPHALEXIN (KEFLEX) 500 MG CAPSULE Take 1 capsule (500 mg) by mouth 4 times daily for 7 days. SULFAMETHOXAZOLE-TRIMETHOPRIM (BACTRIM DS) 800-160 MG TABLET Take 1 tablet by mouth 2 times daily for 10 days. (Comment: Please note this report has been produced using speech recognition software and may contain errors related to that system including errors in grammar, punctuation, and spelling, as well as words and phrases that may be inappropriate. If there are any questions or concerns please feel free to contact the dictating provider for clarification.) Prabhakar Black MD (electronically signed) Emergency Medicine Provider Prabhakar Black MD 11/24/241942 documented in this encounter [facility] 11-24-2024 Physician Emergency department Note EMERGENCY DEPARTMENT ENCOUNTER Pt Name: Xochitl Fuller Birthdate 1970 Date of evaluation: 11/24/2024 ED Provider: Prabhakar Black MD CHIEF COMPLAINT Chief Complaint Patient presents with Breast Pain Pt relates infection in left breast. Pt relates area is red swollen and sore.Pt relates history of abscesses and having had similar infection in her right breast. HISTORY OF PRESENT ILLNESS (Location/Symptom, Timing/Onset, Context/Setting, Quality, Duration, Modifying Factors, Severity) Note limiting factors. I wore appropriate PPE for the entirety of this encounter. HPI Xochitl Fuller is a 54 y.o. female who presents to the emergency department with chief complaint of left breast pain redness and swelling. Denies trauma. Denies fevers. 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 States she has to shave in that area sometimes and may have caused an infection from shaving. Denies abdominal pain nausea vomiting diarrhea Nursing Notes were reviewed. Limitations to history: None Outside historians: None REVIEW OF SYSTEMS Review of Systems: Pertinent positives as above per history of present illness. Other systems reviewed and found to be negative to a total of 10 systems reviewed. PAST MEDICAL HISTORY Past Medical History: Diagnosis Date Acute bacterial sinusitis 03/12/2021 Anxiety Arthritis Asthma Breast abscess right breast Cervical dysplasia Chronic pain Degeneration of intervertebral disc of lumbar region 05/14/2018 GERD (gastroesophageal reflux disease) Menorrhagia SCHEDULED FOR THE SURGERY ON 07/07/2017 Neuropathy RA (rheumatoid arthritis) ([facility]) Tobacco abuse SURGICAL HISTORY Past Surgical History: Procedure Laterality Date APPENDECTOMY 2018 BREAST BIOPSY Right 2016 COLONOSCOPY W/ BIOPSIES AND POLYPECTOMY N/A 12/28/2022 Performed by Kimberly Lay MD at [address] ENDOSCOPY COLPOSCOPY ENDOMETRIAL ABLATION FINGER FRACTURE SURGERY Right 1st finger HYSTEROSCOPY N/A KNEE ARTHROSCOPY Left 03/15/2012 OTHER SURGICAL HISTORY rheumatoid nodule removal (from left leg) , finger reconstructive surgery, lasered for uterine dysplasia TUBAL LIGATION 1991 CURRENT MEDICATIONS Previous Medications ALBUTEROL 108 (90 BASE) MCG/ACT INHALER TAKE 2 PUFFS BY MOUTH EVERY 6 HOURS NEEDED FOR WHEEZE ESOMEPRAZOLE (NEXIUM) [address] CAPSULE Take 1 capsule (40 mg) by mouth every morning (before breakfast). Do not open capsule. NAPROXEN PO Take 220 mg by mouth. 2 tabs prn ONDANSETRON ODT (ZOFRAN-ODT) 4 MG DISINTEGRATING TABLET Take 4 mg by mouth every 6 hours as needed. OSELTAMIVIR (TAMIFLU) 75 MG CAPSULE Take 1 capsule (75 mg) by mouth 2 times daily for 5 days. OXYMETAZOLINE (AFRIN) 0.05 % NASAL SPRAY Administer 2 sprays into each nostril every 12 hours as needed for congestion for up to 2 days. Do not use for more than 3 days. ALLERGIES Naltrexone, Ibuprofen, Meloxicam, Morphine, and Sertraline FAMILY HISTORY Family History Problem Relation Name Age of Onset Hypertension Mother Heart attack Mother Asthma Mother Arthritis Mother Thyroid disease Mother COPD Mother Other ([id number]) Father pneumonia aspiration Breast cancer Maternal Grandmother Cancer Maternal Grandfather No Known Problems Paternal Grandmother Migraines Paternal Grandfather Cancer Other Multiple Unknown Cancers on Maternal Side of family Colon cancer Neg Hx SOCIAL HISTORY Social History Socioeconomic History Marital status: Tobacco Use Smoking status: Every Day Current packs/day: 0.25 Average packs/day: 0.3 packs/day for 44.0 years (11.0 ttl pk-yrs) Types: Cigarettes Start date: 1980 Smokeless tobacco: Never Vaping Use Vaping status: Never Used Substance and Sexual Activity Alcohol use: Not Currently Comment: 2013 no longer drinking Drug use: Not Currently Types: IV, Marijuana, Methamphetamines Social Drivers of Health Intimate Partner Violence: Not At Risk (12/28/2022) Humiliation, Afraid, Rape, and Kick questionnaire Fear of Current or Ex-Partner: No Emotionally Abused: No Physically Abused: No Sexually Abused: No SCREENINGS PHYSICAL EXAM ED Triage Vitals [11/24/24 1913] Temp Heart Rate Resp BP 37.2 C (98.9 F) 105 18 112/75 SpO2 Temp Source Heart Rate Source Patient Position 96 % Oral Monitor Sitting BP Location FiO2 (%) -- -- Physical Exam: Vital signs reviewed in nurse's notes. Patient is nontoxic in appearance. No respiratory distress. Head: Normocephalic, atraumatic Eyes: Pupils are equal, round and reactive to light. EOMI. Conjunctiva clear. Sclera anicteric ENT: Mucous membranes moist. Throat shows no erythema exudates or edema. Neck: No anterior adenopathy. No tenderness or stiffness. Breast exam is performed with female RN present in the room at all times. On the superior half of the breast above the nipple there is an area of redness and warmth. It is not fluctuant but it is firm. No discernible mass. There is slight purplish bruising in the area. There is no open wound or draining. There is no nipple tenderness or discharge. The rest of the breast is nontender. Lungs: Clear to auscultation bilaterally. No wheezing rales or rhonchi. Heart: Regular rate and rhythm. No audible murmur or gallop. Abdomen: Soft, nondistended, nontender. No rebound or guarding. No signs of peritonitis. Extremities: No gross deformity. No obvious tenderness. No obvious joint swelling. Good distal pulses in all 4 extremities. Neurologic: Alert and fully oriented. No focal motor deficits in all 4 extremities. DIAGNOSTIC RESULTS LABS: Labs Reviewed - No data to display All other labs were within normal range or not returned as of this dictation. EMERGENCY DEPARTMENT COURSE and DIFFERENTIAL DIAGNOSIS/MDM: Vitals: Vitals: 11/24/24191211/24/241936 BP: 112/75 Patient Position: Sitting Pulse: 105 98 Resp: 18 20 Temp: 37.2 C (98.9 F) TempSrc: Oral SpO2: 96% 99% Weight: 70.3 kg (155 lb) Height: 1.575 m (5' 2) Patient has breast cellulitis. Recommend following up with her breast surgeon that she is seen in the past to obtain wound recheck, consideration for outpatient ultrasound. I do not have ultrasound available at this time. She does not appear septic toxic or severely dehydrated. Return if worse or new symptoms or problems. The patient presented with chief complaint of breast pain. The differential diagnosis associated with this patient's presentation includes cellulitis, abscess. Diagnostic tests considered but not performed: Ultrasound is considered but not available at this institution at this time on the weekend. The patient will be Discharged. Patient is in agreement with this plan. Medications cephalexin (Keflex) capsule 500 mg (500 mg Oral Given 11/24/241933) sulfamethoxazole-trimethoprim (Bactrim DS) 800-160 MG per tablet 1 tablet (1 tablet Oral Given 11/24/241934) acetaminophen (Tylenol) tablet 1,000 mg (1,000 mg Oral Given 11/24/241933) PROCEDURES: Unless otherwise noted below, none Procedures Patients symptoms are consistent with sepsis, severe sepsis, or septic shock (If yes use .sepsiscoremeasure): no FINAL IMPRESSION 1. Cellulitis of left breast DISPOSITION Discharge 11/24/2024 07:41:55 PM PATIENT REFERRED TO: Shanique Ball MD [address] [facility] [address] [place] [address] Call in 1 day For wound re-check DISCHARGE MEDICATIONS: New Prescriptions CEPHALEXIN (KEFLEX) 500 MG CAPSULE Take 1 capsule (500 mg) by mouth 4 times daily for 7 days. SULFAMETHOXAZOLE-TRIMETHOPRIM (BACTRIM DS) 800-160 MG TABLET Take 1 tablet by mouth 2 times daily for 10 days. (Comment: Please note this report has been produced using speech recognition software and may contain errors related to that system including errors in grammar, punctuation, and spelling, as well as words and phrases that may be inappropriate. If there are any questions or concerns please feel free to contact the dictating provider for clarification.) Prabhakar Black MD (electronically signed) Emergency Medicine Provider Prabhakar Black MD 11/24/241942 [facility] 11-24-2024 Miscellaneous Notes S: Patient spoke with [facility] nurse regarding sinus infection. 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 Cormier via cell- received TO for Tamiflu 75 mg, start today x 5 days, this RN phoned in prescription to patient's pharmacy, [facility] at [phone] Cormier Patient notified, verbalized understanding Reason for Disposition Patient is HIGH RISK (e.g., age > 64 years, , HIV+, or chronic medical condition) Protocols used: Influenza (Flu) - [id number] documented in this encounter [facility] 11-24-2024 Telephone encounter Note S: Patient spoke with [facility] nurse regarding sinus infection. 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 Cormier via cell- received TO for Tamiflu 75 mg, start today x 5 days, this RN phoned in prescription to patient's pharmacy, [facility] at [phone] Comrier Patient notified, verbalized understanding Reason for Disposition Patient is HIGH RISK (e.g., age > 64 years, , HIV+, or chronic medical condition) Protocols used: Influenza (Flu) - [id number] [facility] 10-08-2024 Telephone encounter Note [facility] 10-08-2024 Miscellaneous Notes Prescription Request: Last medication check: 01/16/24 Last physical exam: none Next scheduled appointment: none Last date of refill on this medication 07/26/24 18g 2 refills documented in this encounter [facility] 10-08-2024 Telephone encounter Note Prescription Request: Last medication check: 01/16/24 Last physical exam: none Next scheduled appointment: none Last date of refill on this medication 07/26/24 18g 2 refills [facility] 08-23-2024 History of Presen t illness Narrative Subjective Patient ID: Xochitl Fuller is a 54 y.o. female who presents for Cough (Patient here today with cough that began 3 days ago. She believes this be bronchitis.). 1. Cough for 3 days. Clear sputum. Uses the albuterol every 4 hours. Says she does not have COPD. Has cut back on smoking. Will need a note for work. 2. Needs the protonix changed back to Nexium. Sees GI. Had an EGD last year Chart reviewed. Review of Systems Constitutional: Negative for chills and fever. HENT: Positive for congestion and sore throat. Negative for postnasal drip, sinus pressure and sinus pain. Worse at night Respiratory: Positive for cough and chest tightness. Negative for wheezing. Objective Physical Exam Vitals and nursing note reviewed. Constitutional: General: She is not in acute distress. Appearance: She is not ill-appearing or toxic-appearing. HENT: Right Ear: Tympanic membrane and ear canal normal. Left Ear: Tympanic membrane and ear canal normal. Nose: No congestion or rhinorrhea. Mouth/Throat: Pharynx: No oropharyngeal exudate or posterior oropharyngeal erythema. Eyes: General: No scleral icterus. Conjunctiva/sclera: Conjunctivae normal. Pupils: Pupils are equal, round, and reactive to light. Cardiovascular: Rate and Rhythm: Normal rate and regular rhythm. Heart sounds: Normal heart sounds. No murmur heard. Pulmonary: Effort: Pulmonary effort is normal. No respiratory distress. Breath sounds: Wheezing present. No rhonchi or rales. Comments: Good air exchange bilaterally. Pulse ox is good Musculoskeletal: Cervical back: Neck supple. Lymphadenopathy: Cervical: No cervical adenopathy. Skin: Coloration: Skin is not jaundiced. Neurological: Mental Status: She is alert. Assessment/Plan Problem List Items Addressed This Visit None Visit Diagnoses Gastroesophageal reflux disease, unspecified whether esophagitis present Chronic, stable Wants to switch back to Nexium Relevant Medications esomeprazole (NexIUM) [address] capsule Acute bronchitis, unspecified organism Primary Acute, uncontrolled Start the antibiotic She is asking about steroids, but I do not feel that is warranted at this time Relevant Medications azithromycin (Zithromax) 250 MG tablet benzonatate (Tessalon) 200 MG capsule documented in this encounter [facility] 08-23-2024 Telephone encounter Note Okay, thank you [facility] 08-23-2024 Miscellaneous Notes Okay, thank you S: Patient spoke with [facility] nurse regarding URI. B: Onset of symptoms/concern: x 2 days A: Patient reports a cough and sore throat due to cough, not taking anything for the cough, thinks it's bronchitis. Patient has not tested for COVID, request appointment, needing tessalon perles and an antibiotic. R: No available appointments today with Maria Luisa PÉREZ, POD scheduled at [facility] at [address] Simons, insurance coverage verified. Patient states she only has [facility] insurance, states that's all she's ever had, states she's never had [employer] insurance. Reason for Disposition Patient wants to be seen Protocols used: [id number] documented in this encounter [facility] 08-23-2024 Telephone encounter Note S: Patient spoke with [facility] nurse regarding URI. B: Onset of symptoms/concern: x 2 days A: Patient reports a cough and sore throat due to cough, not taking anything for the cough, thinks it's bronchitis. Patient has not tested for COVID, request appointment, needing tessalon perles and an antibiotic. R: No available appointments today with Maria Luisa PÉREZ, POD scheduled at [facility] at [address] Simons, insurance coverage verified. Patient states she only has [facility] insurance, states that's all she's ever had, states she's never had [employer] insurance. Reason for Disposition Patient wants to be seen Protocols used: [id number] [facility] 07-26-2024 Telephone encounter Note Reviewed chart. Refill appropriate. RX sent. [facility] 07-26-2024 Miscellaneous Notes Reviewed chart. Refill appropriate. RX sent. Patient states completely out of inhaler. Please advise. Medication name: albuterol 108 (90 Base) MCG/ACT inhaler Medication dosage: 2 puff(s) Monthly quantity needed: 18g How many day supply requestin days Medication route: inhalation (inhaler) Medication administration time(s): as needed (PRN) If taking medication PRN, reason for taking medication: Every 6 hours PRN for wheezing If this is a controlled substance do you receive this or any other controlled medication from any other doctor or facility: N/A Ordering provider: Nubia Quinteros Date of last office visit: 01/16/24 Date of next office visit: none Date of last refill: (see medication tab): 06/03/24 Updated/Validated preferred pharmacy: Yes Patient instructed to contact the pharmacy prior to picking up the medication: Yes documented in this encounter [facility] 07-26-2024 Telephone encounter Note Patient states completely out of inhaler. Please advise. Medication name: albuterol 108 (90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 check her temperature but believes she has a fever. Denies: difficulty breathing, difficulty swallowing R: Patient advised she needs to be evaluated at ED or . Advised if she is having severe pain, ED may be the better option. Patient understands care advice. Will go to [facility] ED. Advised if she starts having any difficulty breathing prior to going, call 911. Patient understands care advice. No further needs at this time. Patient instructed to call back with new or worsening symptoms. Reason for Disposition Face is swollen and fever Protocols used: Mouth [id number] documented in this encounter [facility] 01-22-2024 Telephone encounter Note S: Patient spoke with [facility] nurse regarding Tooth Pain, Swelling in Mouth, Whole bottom of mouth pain, Decayed Teeth, Head ache, Sinus issues B: Onset of symptoms/concern 3 days A: Patient states she has abscessed teeth, has been trying to find dentist for 3 days. Able to find a walk in clinic but cannot go until tomorrow. Having severe pain now and states she needs to get some antibiotics started. Has been taking OTC aleve but it's not working. Having sinus pressure, stuffy nose, face is swollen, is affecting speech, chin is swelling. States she hasn't been able to check her temperature but believes she has a fever. Denies: difficulty breathing, difficulty swallowing R: Patient advised she needs to be evaluated at ED or . Advised if she is having severe pain, ED may be the better option. Patient understands care advice. Will go to [facility] ED. Advised if she starts having any difficulty breathing prior to going, call 911. Patient understands care advice. No further needs at this time. Patient instructed to call back with new or worsening symptoms. Reason for Disposition Face is swollen and fever Protocols used: Mouth [id number] [facility] 01-16-2024 Evaluation + Plan note Associated Problem(s): Gastroesophageal reflux disease without esophagitis Uncontrolled. Stop nexium and start pantoprazole. Follow up as scheduled. Sooner for worsening or failure for symptoms to improve. [facility] 01-16-2024 Evaluation + Plan note Associated Problem(s): Rash Likely fungal. Treat with topical antifungal. Follow up if worsens or fails to resolve with treatment. [facility] 01-16-2024 Miscellaneous Notes Associated Problem(s): Gastroesophageal reflux disease without esophagitis Uncontrolled. Stop nexium and start pantoprazole. Follow up as scheduled. Sooner for worsening or failure for symptoms to improve. Associated Problem(s): Rash Likely fungal. Treat with topical antifungal. Follow up if worsens or fails to resolve with treatment. documented in this encounter [facility] 01-16-2024 Miscellaneous Notes Associated Problem(s): Gastroesophageal reflux disease without esophagitis Uncontrolled. Stop nexium and start pantoprazole. Follow up as scheduled. Sooner for worsening or failure for symptoms to improve. Associated Problem(s): Rash Likely fungal. Treat with topical antifungal. Follow up if worsens or fails to resolve with treatment. Addended by: CARL CURRY on: 01/18/2024 08:31 AM Modules accepted: Level of Service documented in this encounter [facility] 01-16-2024 History of Presen t illness Narrative Patient was identified by name and Date of . Images from the original note were not included. 01/16/2024 Xochitl Fuller (: 1970) is a 53 y.o. female , Established patient, here for evaluation of the following chief complaint(s): Rash (Left leg and buttock) ASSESSMENT/PLAN: 1. Rash Assessment & Plan: Likely fungal. Treat with topical antifungal. Follow up if worsens or fails to resolve with treatment. Orders: - ketoconazole (NIZOral) 2 % cream; Apply topically 2 times daily., Starting e 01/16/2024, Normal 2. Gastroesophageal reflux disease without esophagitis Assessment & Plan: Uncontrolled. Stop nexium and start pantoprazole. Follow up as scheduled. Sooner for worsening or failure for symptoms to improve. Orders: - pantoprazole (ProtoNix) 40 MG EC tablet; Take 1 tablet (40 mg) by mouth daily. Do not crush, chew, or split., Starting 01/16/2024, Until 03/16/2024, Normal 3. Simple chronic bronchitis (HCC) - albuterol 108 (90 Base) MCG/ACT inhaler; Inhale 2 puffs every 6 hours as needed for wheezing., Starting Mon01/16/2024, Normal Follow up if symptoms worsen or fail to improve. SUBJECTIVE/OBJECTIVE: MARIA DEL CARMEN - Xochitl Fuller (: 1970) is a 53 y.o. female , Established patient, here for the evaluation of the following chief complaint(s): Rash (Left leg and buttock) Reports rash on buttocks about 4-5 days ago or so. Reports that she was exposed to shingles and is concerned it might be that. Does not feel her previous cellulitus No fever or chills but is sleeping more than normal. No n/v/d. No respiratory. Rashis burning itching kind of discomfort. Has put on anti-itch cream that helps some. Requesting refill of PPI and albuterol. GERD- reports increased symptoms past couple weeks with certain foods. Will try stronger PPI. Denies any n/v or abdominal pain. Copd- reports no increased symptoms. Uses inhaler 1-2 times a week or more if with a cold. Prior to Admission medications Medication Sig Start Date End Date Taking? Authorizing Provider albuterol 108 (90 Base) MCG/ACT inhaler Inhale 2 puffs every 6 hours as needed for wheezing. 04/26/23 Yes Gamaliel Cormier MD esomeprazole (NexIUM) [address] capsule Take 1 capsule (40 mg) by mouth every morning (before breakfast). 04/26/23 Yes Gamaliel Cormier MD fluconazole (Diflucan) 150 MG tablet Take 1 tablet by mouth every 3 days by mouth x 3 doses 08/15/23 Yes LAKIA Moon CNP NAPROXEN PO Take 220 mg by mouth. 2 tabs prn Yes Historical Provider, diazePAM (Valium) 2 MG tablet Take 1 tablet (2 mg) by mouth Daily as needed for anxiety for up to 10 days. 08/14/23 08/24/23 LAKIA Moon CNP Review of Systems Constitutional: Positive for fatigue (has been more tired past week or so). Negative for activity change, chills and fever. HENT: Negative. Respiratory: Negative. Cardiovascular: Negative. Gastrointestinal: Negative for abdominal pain, constipation, diarrhea, nausea and vomiting. Genitourinary: Negative for difficulty urinating. Skin: Positive for rash. Vitals: 01/16/24 1416 BP: 132/83 Pulse: 96 Resp: 24 Temp: 36.6 C (97.8 F) TempSrc: Infrared SpO2: 98% Weight: 159 lb (72.1 kg) Physical Exam Constitutional: General: She is not in acute distress. Appearance: Normal appearance. She is not ill-appearing. HENT: Head: Normocephalic and atraumatic. Mouth/Throat: Mouth: Mucous membranes are moist. Pharynx: Oropharynx is clear. No oropharyngeal exudate or posterior oropharyngeal erythema. Eyes: Conjunctiva/sclera: Conjunctivae normal. Cardiovascular: Rate and Rhythm: Normal rate and regular rhythm. Pulses: Normal pulses. Heart sounds: Normal heart sounds. Pulmonary: Effort: Pulmonary effort is normal. Breath sounds: Normal breath sounds. Skin: General: Skin is warm and dry. Findings: Rash present. Neurological: Mental Status: She is alert and oriented to person, place, and time. An electronic signature was used to authenticate this note. LAKIA Moon CNP 01/16/2024 4:30 PM documented in this encounter [facility] 01-16-2024 History of Presen t illness Narrative Patient was identified by name and Date of . Images from the original note were not included. 01/16/2024 Xochitl Fuller (: 1970) is a 53 y.o. female , Established patient, here for evaluation of the following chief complaint(s): Rash (Left leg and buttock) ASSESSMENT/PLAN: 1. Rash Assessment & Plan: Likely fungal. Treat with topical antifungal. Follow up if worsens or fails to resolve with treatment. Orders: - ketoconazole (NIZOral) 2 % cream; Apply topically 2 times daily., Starting 01/16/2024, Normal 2. Gastroesophageal reflux disease without esophagitis Assessment & Plan: Uncontrolled. Stop nexium and start pantoprazole. Follow up as scheduled. Sooner for worsening or failure for symptoms to improve. Orders: - pantoprazole (ProtoNix) 40 MG EC tablet; Take 1 tablet (40 mg) by mouth daily. Do not crush, chew, or split., Starting 01/16/2024, Until 03/16/2024, Normal 3. Simple chronic bronchitis (HCC) - albuterol 108 (90 Base) MCG/ACT inhaler; Inhale 2 puffs every 6 hours as needed for wheezing., Starting 01/16/2024, Normal Follow up if symptoms worsen or fail to improve. SUBJECTIVE/OBJECTIVE: HPI - Xochitl Fuller (: 1970) is a 53 y.o. female , Established patient, here for the evaluation of the following chief complaint(s): Rash (Left leg and buttock) Reports rash on buttocks about 4-5 days ago or so. Reports that she was exposed to shingles and is concerned it might be that. Does not feel her previous cellulitus No fever or chills but is sleeping more than normal. No n/v/d. No respiratory. Rashis burning itching kind of discomfort. Has put on anti-itch cream that helps some. Requesting refill of PPI and albuterol. GERD- reports increased symptoms past couple weeks with certain foods. Will try stronger PPI. Denies any n/v or abdominal pain. Copd- reports no increased symptoms. Uses inhaler 1-2 times a week or more if with a cold. Prior to Admission medications Medication Sig Start Date End Date Taking? Authorizing Provider albuterol 108 (90 Base) MCG/ACT inhaler Inhale 2 puffs every 6 hours as needed for wheezing. 04/26/23 Yes Gamaliel Cormier MD esomeprazole (NexIUM) [address] capsule Take 1 capsule (40 mg) by mouth every morning (before breakfast). 04/26/23 Yes Gamaliel Cormier MD fluconazole (Diflucan) 150 MG tablet Take 1 tablet by mouth every 3 days by mouth x 3 doses 08/15/23 Yes Carl Floresal, [employer]PERATOR [employer]ARY NAPROXEN PO Take 220 mg by mouth. 2 tabs prn Yes Historical Provider, diazePAM (Valium) 2 MG tablet Take 1 tablet (2 mg) by mouth Daily as needed for anxiety for up to 10 days. 08/14/23 08/24/23 LAKIA Moon CNP Review of Systems Constitutional: Positive for fatigue (has been more tired past week or so). Negative for activity change, chills and fever. HENT: Negative. Respiratory: Negative. Cardiovascular: Negative. Gastrointestinal: Negative for abdominal pain, constipation, diarrhea, nausea and vomiting. Genitourinary: Negative for difficulty urinating. Skin: Positive for rash. Vitals: 01/16/24 1416 BP: 132/83 Pulse: 96 Resp: 24 Temp: 36.6 C (97.8 F) TempSrc: Infrared SpO2: 98% Weight: 159 lb (72.1 kg) Physical Exam Constitutional: General: She is not in acute distress. Appearance: Normal appearance. She is not ill-appearing. HENT: Head: Normocephalic and atraumatic. Mouth/Throat: Mouth: Mucous membranes are moist. Pharynx: Oropharynx is clear. No oropharyngeal exudate or posterior oropharyngeal erythema. Eyes: Conjunctiva/sclera: Conjunctivae normal. Cardiovascular: Rate and Rhythm: Normal rate and regular rhythm. Pulses: Normal pulses. Heart sounds: Normal heart sounds. Pulmonary: Effort: Pulmonary effort is normal. Breath sounds: Normal breath sounds. Skin: General: Skin is warm and dry. Findings: Rash present. Neurological: Mental Status: She is alert and oriented to person, place, and time. An electronic signature was used to authenticate this note. LAKIA Moon CNP 01/16/2024 4:30 PM documented in this encounter [facility] 01-16-2024 Note Addended by: CARL SHEA on: 01/18/2024 08:31 AM Modules accepted: Level of Service [facility] 01-15-2024 Telephone encounter Note Noted. Agree with disposition. [facility] 01-15-2024 Miscellaneous Notes Noted. Agree with disposition. S: Patient spoke with [facility] nurse regarding rash itching, redness and blisters on left leg and buttocks. B: Onset of symptoms/concern 4 days. A: Patient has rash on left leg and buttocks with itching, burning and redness. Patient states they are blister like and very painful. Rash in is linear also. Was exposed to shingles. History of herpes in the past also. Has tried hydrocortisone cream no relief. Requesting a prescription cream if possible today. Patient will send photos in My Chart. R: My Chart video visit with Diana Curry made for tomorrow. Patient understands care advice. No further needs at this time. Patient instructed to call back with new or worsening symptoms. Reason for Disposition Applying cream or ointment and it causes severe itch, burning, or pain Protocols used: Rash or Redness - [id number] documented in this encounter [facility] 01-15-2024 Telephone encounter Note S: Patient spoke with [facility] nurse regarding rash itching, redness and blisters on left leg and buttocks. B: Onset of symptoms/concern 4 days. A: Patient has rash on left leg and buttocks with itching, burning and redness. Patient states they are blister like and very painful. Rash in is linear also. Was exposed to shingles. History of herpes in the past also. Has tried hydrocortisone cream no relief. Requesting a prescription cream if possible today. Patient will send photos in My Chart. R: My Chart video visit with Diana Curry made for tomorrow. Patient understands care advice. No further needs at this time. Patient instructed to call back with new or worsening symptoms. Reason for Disposition Applying cream or ointment and it causes severe itch, burning, or pain Protocols used: Rash or Redness - [id number] [facility] 09-09-2023 Note HNO ID: [id number] Author: Note, Interface Service: ? Author Type: ? Type: Progress Notes Filed: 09/09/2023 5:29 AM Note Text: Epic Scheduled Downtime: 09/09/2023 1:00:00 AM to 09/09/2023 1:28:00 AM [facility] 09-01-2023 History of Presen t illness Narrative Chart reviewed of ED follow up Seen in [facility] ED on 08/28/23 Reason: Fever Fatigue Chills Discharge instructions: PATIENT REFERRED TO: Gamaliel Cormier MD [address] [place] [address], [address] [facility] [address] Patient has appointment scheduled with Diana Curry on 09/07/23. documented in this encounter [facility] 08-30-2023 Telephone encounter Note Noted. Agree with disposition. [facility] 08-30-2023 Miscellaneous Notes Noted. Agree with disposition. S: Patient spoke with [facility] nurse regarding L flank pain.Called 911 last night and they took her to [facility] ED. B: Seen in the [facility] ER last night and DX of kidney stone. A: Rates the pain as 10/10, ER did order Hydrocodone 5-325 mg and zofran, Flomax, drinking some fluids. Last BM was 3-4 days ago, has not taken anything for constipation, not eating much d/t the pain, temp, taking Keflex for UTI and temp was 102 at the hospital. Able to urinate a little, rates the pain as severe. R: Asking to have Mirlax or stool softner ordered, she does not have any money to buy anything. Uses [facility] in [place]. Instructed if unable to control the pain with the meds she has will need to be seen on the ER patient states she will go back to [facility] ER. Instructed to call the Urology office for a follow up, info given to the patient at the ER. Patient understands care advice. No further needs at this time. Patient instructed to call back with new or worsening symptoms. Reason for Disposition SEVERE pain (e.g., excruciating, scale 8-10) and present > 1 hour Protocols used: Flank [id number] documented in this encounter [facility] 08-30-2023 Telephone encounter Note S: Patient spoke with [facility] nurse regarding L flank pain.Called 911 last night and they took her to [facility] ED. B: Seen in the [facility] ER last night and DX of kidney stone. A: Rates the pain as 10/10, ER did order Hydrocodone 5-325 mg and zofran, Flomax, drinking some fluids. Last BM was 3-4 days ago, has not taken anything for constipation, not eating much d/t the pain, temp, taking Keflex for UTI and temp was 102 at the hospital. Able to urinate a little, rates the pain as severe. R: Asking to have Mirlax or stool softner ordered, she does not have any money to buy anything. Uses [facility] in [place]. Instructed if unable to control the pain with the meds she has will need to be seen on the ER patient states she will go back to [facility]. Instructed to call the Urology office for a follow up, info given to the patient at the ER. Patient understands care advice. No further needs at this time. Patient instructed to call back with new or worsening symptoms. Reason for Disposition SEVERE pain (e.g., excruciating, scale 8-10) and present > 1 hour Protocols used: Flank [id number] [facility] 08-29-2023 Evaluation + Plan note Associated Problem(s): Anxiety Situational and poorly controlled. Patient advised that diazepam only for short-term use, recommend counseling services. Denies any suicidal or homicidal ideation. Recommend that she follow-up in office in 1 week [facility] 08-29-2023 Evaluation + Plan note Associated Problem(s): Pyelonephritis Reports improving symptoms. Continue antibiotics urine culture pending follow-up in office next week [facility] 08-29-2023 Miscellaneous Notes Associated Problem(s): Anxiety Situational and poorly controlled. Patient advised that diazepam only for short-term use, recommend counseling services. Denies any suicidal or homicidal ideation. Recommend that she follow-up in office in 1 week Associated Problem(s): Pyelonephritis Reports improving symptoms. Continue antibiotics urine culture pending follow-up in office next week documented in this encounter [facility] 08-29-2023 Miscellaneous Notes Associated Problem(s): Anxiety Situational and poorly controlled. Patient advised that diazepam only for short-term use, recommend counseling services. Denies any suicidal or homicidal ideation. Recommend that she follow-up in office in 1 week Associated Problem(s): Pyelonephritis Reports improving symptoms. Continue antibiotics urine culture pending follow-up in office next week Addended by: CARL CURRY on: 09/01/2023 01:45 AM Modules accepted: Level of Service documented in this encounter [facility] 08-29-2023 History of Presen t illness Narrative Images from the original note were not included. 08/29/2023 Xochitl Fuller (: 1970) is a 53 y.o. female , Established patient, here for evaluation of the following chief complaint(s): Fever Patient was identified and seen today via Telehealth by agreement and consent. I used the following Telehealth technology: Audio capability only. Total length of call 20 minutes. The patient was offered and advised video for a more comprehensive evaluation, but the patient declined or was unable to use video. Patient location: Patient Location: Home. This patient encounter is appropriate and reasonable under the circumstances: too sick to leave home . The patient has been advised of the potential risks and limitations of this mode of treatment (including but not limited to the absence of in-person examination) and has agreed to be treated in a remote fashion in spite of them. Any and all of the patient's/patient's family's questions on this issue have been answered and I have made no promises or guarantees to the patient. The patient has also been advised to contact this office for worsening conditions or problems, and seek emergency medical treatment and/or call 911 if the patient deems either necessary. The patient stated that they are currently in the [facility]. If the patient is a minor, permission has been obtained by the parent or guardian for the patient to receive medical care at this visit. ASSESSMENT/PLAN: 1. Pyelonephritis Assessment & Plan: Reports improving symptoms. Continue antibiotics urine culture pending follow-up in office next week 2. Anxiety Assessment & Plan: Situational and poorly controlled. Patient advised that diazepam only for short-term use, recommend counseling services. Denies any suicidal or homicidal ideation. Recommend that she follow-up in office in 1 week No follow-ups on file. SUBJECTIVE/OBJECTIVE: HPI - Xochitl Fuller (: 1970) is a 53 y.o. female , Established patient, here for the evaluation of the following chief complaint(s): Fever Patient scheduled for telephone encounter visit for fever and body aches. She was too ill to come and this was scheduled about a day ago, tested negative for covid, she ended up going to the emergency room yesterday and was just released recently. She reports that her blood work showed that she had a urinary tract infection and pyelonephritis, she was given fluids and antibiotics. She denies ever having urinary symptoms- just fever and body aches, fatigue. Reports that she is feeling better overall. Was discharged home on cephalexin. Urine culture pending Continues to have body aches and leg pain which she is not sure if it is from the urinary tract infection or not-previously was being evaluated by rheumatology but was hesitant to get her blood drawn as she has a very difficult venipuncture and requires ultrasound. They did obtain blood work yesterday in the ER by use of ultrasound. Anxiety-reports that she still is having a lot of anxiety with her mom being in hospice and her and her sister not getting along right now, she would like a refill of the Valium-advised patient that that was for short-term only and that I recommend that she get established with counseling services. Denies any suicidal or homicidal ideation. Prior to Admission medications Medication Sig Start Date End Date Taking? Authorizing Provider albuterol 108 (90 Base) MCG/ACT inhaler Inhale 2 puffs every 6 hours as needed for wheezing. 04/26/23 Gamaliel Cormier MD cephalexin (Keflex) 500 MG capsule Take 1 capsule (500 mg) by mouth in the morning and 1 capsule (500 mg) at noon and 1 capsule (500 mg) in the evening and 1 capsule (500 mg) before bedtime. Do all this for 7 days. 08/15/23 08/22/23 Carl Curry APRN - [facility] cephalexin (Keflex) 500 MG capsule Take 1 capsule (500 mg) by mouth 3 times daily for 10 days. 08/28/23 09/07/23 Rick Neff MD diazePAM (Valium) 2 MG tablet Take 1 tablet (2 mg) by mouth Daily as needed for anxiety for up to 10 days. 08/14/23 08/24/23 LAKIA Moon CNP esomeprazole (NexIUM) [address] capsule Take 1 capsule (40 mg) by mouth every morning (before breakfast). 04/26/23 Gamaliel Cormier MD fluconazole (Diflucan) 150 MG tablet Take 1 tablet by mouth every 3 days by mouth x 3 doses 08/15/23 LAKIA Moon CNP NAPROXEN PO Take 220 mg by mouth. 2 tabs prn Historical MD Vy sulfamethoxazole-trimethoprim (Bactrim DS) 800-160 MG tablet Take 1 tablet by mouth 2 times daily for 7 days. 08/15/23 08/22/23 LAKIA Moon CNP Review of Systems Constitutional: Positive for activity change, chills, fatigue and fever. Respiratory: Negative for chest tightness and shortness of breath. Cardiovascular: Negative. Musculoskeletal: Positive for arthralgias and myalgias. Psychiatric/Behavioral: Positive for decreased concentration and sleep disturbance. The patient is nervous/anxious. There were no vitals filed for this visit. Physical Exam Pulmonary: Comments: Speaking full sentences without difficulty Neurological: Mental Status: She is alert and oriented to person, place, and time. An electronic signature was used to authenticate this note. LAKIA Moon CNP 08/29/2023 5:54 PM documented in this encounter [facility] 08-29-2023 History of Presen t illness Narrative Images from the original note were not included. 08/29/2023 Xochitl Fuller (: 1970) is a 53 y.o. female , Established patient, here for evaluation of the following chief complaint(s): Fever Patient was identified and seen today via Telehealth by agreement and consent. I used the following Telehealth technology: Audio capability only. Total length of call 20 minutes. The patient was offered and advised video for a more comprehensive evaluation, but the patient declined or was unable to use video. Patient location: Patient Location: Home. This patient encounter is appropriate and reasonable under the circumstances: too sick to leave home . The patient has been advised of the potential risks and limitations of this mode of treatment (including but not limited to the absence of in-person examination) and has agreed to be treated in a remote fashion in spite of them. Any and all of the patient's/patient's family's questions on this issue have been answered and I have made no promises or guarantees to the patient. The patient has also been advised to contact this office for worsening conditions or problems, and seek emergency medical treatment and/or call 911 if the patient deems either necessary. The patient stated that they are currently in the [facility]. If the patient is a minor, permission has been obtained by the parent or guardian for the patient to receive medical care at this visit. ASSESSMENT/PLAN: 1. Pyelonephritis Assessment & Plan: Reports improving symptoms. Continue antibiotics urine culture pending follow-up in office next week 2. Anxiety Assessment & Plan: Situational and poorly controlled. Patient advised that diazepam only for short-term use, recommend counseling services. Denies any suicidal or homicidal ideation. Recommend that she follow-up in office in 1 week No follow-ups on file. SUBJECTIVE/OBJECTIVE: HPI - Xochitl Fuller (: 1970) is a 53 y.o. female , Established patient, here for the evaluation of the following chief complaint(s): Fever Patient scheduled for telephone encounter visit for fever and body aches. She was too ill to come and this was scheduled about a day ago, tested negative for covid, she ended up going to the emergency room yesterday and was just released recently. She reports that her blood work showed that she had a urinary tract infection and pyelonephritis, she was given fluids and antibiotics. She denies ever having urinary symptoms- just fever and body aches, fatigue. Reports that she is feeling better overall. Was discharged home on cephalexin. Urine culture pending Continues to have body aches and leg pain which she is not sure if it is from the urinary tract infection or not-previously was being evaluated by rheumatology but was hesitant to get her blood drawn as she has a very difficult venipuncture and requires ultrasound. They did obtain blood work yesterday in the ER by use of ultrasound. Anxiety-reports that she still is having a lot of anxiety with her mom being in hospice and her and her sister not getting along right now, she would like a refill of the Valium-advised patient that that was for short-term only and that I recommend that she get established with counseling services. Denies any suicidal or homicidal ideation. Prior to Admission medications Medication Sig Start Date End Date Taking? Authorizing Provider albuterol 108 (90 Base) MCG/ACT inhaler Inhale 2 puffs every 6 hours as needed for wheezing. 04/26/23 Gamaliel Cormier MD cephalexin (Keflex) 500 MG capsule Take 1 capsule (500 mg) by mouth in the morning and 1 capsule (500 mg) at noon and 1 capsule (500 mg) in the evening and 1 capsule (500 mg) before bedtime. Do all this for 7 days. 08/15/23 08/22/23 LAKIA Moon CNP cephalexin (Keflex) 500 MG capsule Take 1 capsule (500 mg) by mouth 3 times daily for 10 days. 08/28/23 09/07/23 Rick Neff MD diazePAM (Valium) 2 MG tablet Take 1 tablet (2 mg) by mouth Daily as needed for anxiety for up to 10 days. 08/14/23 08/24/23 LAKIA Moon CNP esomeprazole (NexIUM) [address] capsule Take 1 capsule (40 mg) by mouth every morning (before breakfast). 04/26/23 Gamaliel Cormier MD fluconazole (Diflucan) 150 MG tablet Take 1 tablet by mouth every 3 days by mouth x 3 doses 08/15/23 LAKIA Moon CNP NAPROXEN PO Take 220 mg by mouth. 2 tabs prn Historical ProviderMD sulfamethoxazole-trimethoprim (Bactrim DS) 800-160 MG tablet Take 1 tablet by mouth 2 times daily for 7 days. 08/15/23 08/22/23 LAKIA Moon CNP Review of Systems Constitutional: Positive for activity change, chills, fatigue and fever. Respiratory: Negative for chest tightness and shortness of breath. Cardiovascular: Negative. Musculoskeletal: Positive for arthralgias and myalgias. Psychiatric/Behavioral: Positive for decreased concentration and sleep disturbance. The patient is nervous/anxious. There were no vitals filed for this visit. Physical Exam Pulmonary: Comments: Speaking full sentences without difficulty Neurological: Mental Status: She is alert and oriented to person, place, and time. An electronic signature was used to authenticate this note. LAKIA Moon CNP 08/29/2023 5:54 PM documented in this encounter [facility] 08-29-2023 Note Addended by: CARL SHEA on: 09/01/2023 01:45 AM Modules accepted: Level of Service [facility] 08-28-2023 Emergency department Note Explained to patient that she needs to chart picker the rest of her ABX at pharmacy tomorrow. She states that she still has some ABX at home, as she was just treated with the same RX. This RN advised that she needs to take the whole course to rid herself of the infection, and that she should not have extra ABX, as this means she is not completing ABX therapy. Patient verbalizes understanding. This RN encouraged plenty of fluids as patient notes she does not drink enough. Patient appears to be in no acute distress. Skin is warm, dry, and pink. Patient notes that her skin tone looks better than it did upon arrival. She states that she feels much better than upon arrival as well. Reviewed discharge instructions and patient verbalized understanding. No further questions. Patient ambulated out of ED with strong steady gait. Respirations even and non labored. No acute distress. A&O x4. Martha Prather RN 08/28/23 [id number] [facility] 08-28-2023 Emergency department Note Explained to patient that she needs to chart picker the rest of her ABX at pharmacy tomorrow. She states that she still has some ABX at home, as she was just treated with the same RX. This RN advised that she needs to take the whole course to rid herself of the infection, and that she should not have extra ABX, as this means she is not completing ABX therapy. Patient verbalizes understanding. This RN encouraged plenty of fluids as patient notes she does not drink enough. Patient appears to be in no acute distress. Skin is warm, dry, and pink. Patient notes that her skin tone looks better than it did upon arrival. She states that she feels much better than upon arrival as well. Reviewed discharge instructions and patient verbalized understanding. No further questions. Patient ambulated out of ED with strong steady gait. Respirations even and non labored. No acute distress. A&O x4. Martha Prather RN 08/28/23 1376 Patient ambulated to restroom without difficulty Martha Prather RN 08/28/23 [id number] EMERGENCY DEPARTMENT ENCOUNTER Pt Name: Xochitl Fuller Birthdate 1970 Date of evaluation: 08/28/2023 ED Provider: Rick Neff MD CHIEF COMPLAINT Chief Complaint Patient presents with Fever Fatigue Chills Fevers, chills, body aches x 4 days; temperature in triage is 102.4, not taken anything over the counter HISTORY OF PRESENT ILLNESS (Location/Symptom, Timing/Onset, Context/Setting, Quality, Duration, Modifying Factors, Severity) Note limiting factors. I wore appropriate PPE for the entirety of this encounter. HPI Xochitl Fuller is a 53 y.o. who presents to the emergency department with fever for the past 2 days but excessive fatigue for the past 4 days and body aches and chills, upon arrival patient is tachycardic and febrile 100.4, she took Aleve this morning but has not taken anything since then, no nausea or vomiting, no diarrhea, mild cough, no abdominal pain Nursing Notes were reviewed. Limitations to history: None Outside historians: Significant other REVIEW OF SYSTEMS Review of Systems Pertinent positives and negatives as per HPI PAST MEDICAL HISTORY Past Medical History: Diagnosis Date Acute bacterial sinusitis 03/12/2021 Anxiety Arthritis Asthma Breast abscess right breast Cervical dysplasia Chronic pain Degeneration of intervertebral disc of lumbar region 05/14/2018 GERD (gastroesophageal reflux disease) Menorrhagia SCHEDULED FOR THE SURGERY ON 07/07/2017 Neuropathy RA (rheumatoid arthritis) (HCC) Tobacco abuse SURGICAL HISTORY Past Surgical History: Procedure Laterality Date APPENDECTOMY 2018 BREAST BIOPSY Right 2016 COLONOSCOPY W/ BIOPSIES AND POLYPECTOMY N/A 12/28/2022 Performed by Kimberly Lay MD at [facility] [address] ARCH ENDOSCOPY COLPOSCOPY ENDOMETRIAL ABLATION FINGER FRACTURE SURGERY Right 1st finger HYSTEROSCOPY N/A KNEE ARTHROSCOPY Left 03/15/2012 OTHER SURGICAL HISTORY rheumatoid nodule removal (from left leg) , finger reconstructive surgery, lasered for uterine dysplasia TUBAL LIGATION 1991 CURRENT MEDICATIONS Previous Medications ALBUTEROL 108 (90 BASE) MCG/ACT INHALER Inhale 2 puffs every 6 hours as needed for wheezing. DIAZEPAM (VALIUM) 2 MG TABLET Take 1 tablet (2 mg) by mouth Daily as needed for anxiety for up to 10 days. ESOMEPRAZOLE (NEXIUM) [address] CAPSULE Take 1 capsule (40 mg) by mouth every morning (before breakfast). FLUCONAZOLE (DIFLUCAN) 150 MG TABLET Take 1 tablet by mouth every 3 days by mouth x 3 doses NAPROXEN PO Take 220 mg by mouth. 2 tabs prn ALLERGIES Naltrexone, Sertraline, Ibuprofen, Meloxicam, and Morphine FAMILY HISTORY Family History Problem Relation Name Age of Onset Hypertension Mother Heart attack Mother Asthma Mother Arthritis Mother Thyroid disease Mother COPD Mother Other ([id number]) Father pneumonia aspiration Breast cancer Maternal Grandmother Cancer Maternal Grandfather No Known Problems Paternal Grandmother Migraines Paternal Grandfather Cancer Other Multiple Unknown Cancers on Maternal Side of family Colon cancer Neg Hx SOCIAL HISTORY Social History Socioeconomic History Marital status: Tobacco Use Smoking status: Every Day Packs/day: .25 Types: Cigarettes Start date: 1980 Smokeless tobacco: Never Vaping Use Vaping Use: Never used Substance and Sexual Activity Alcohol use: No Comment: 2013 no longer drinking Drug use: Not Currently Types: IV, Marijuana, Methamphetamines Social Determinants of Health Intimate Partner Violence: Not At Risk (12/28/2022) Humiliation, Afraid, Rape, and Kick questionnaire Fear of Current or Ex-Partner: No Emotionally Abused: No Physically Abused: No Sexually Abused: No SCREENINGS PHYSICAL EXAM ED Triage Vitals [08/28/232055] Temp Heart Rate Resp BP (!) 39.1 C (102.4 F) (!) 111 17 119/77 SpO2 Temp Source Heart Rate Source Patient Position 100 % Oral Monitor -- BP Location FiO2 (%) -- -- Physical Exam Febrile, heart tachycardic, abdomen is soft and nontender, lungs are clear to auscultation bilaterally DIAGNOSTIC RESULTS RADIOLOGY (Per Emergency Physician): Interpretation per the Radiologist below, if available at the time of this note: XR chest 1 view Final Result Impression: No acute cardiopulmonary process. Report Dictated on Electronically Signed By: Francis Mejia MD Electronically Signed Date/Time: 08/28/2023 9:59 PM EDT LABS: Labs Reviewed COMPREHENSIVE METABOLIC PANEL - Abnormal Result Value SODIUM 133 (*) POTASSIUM 4.1 CHLORIDE 102 CARBON DIOXIDE 28 ANION GAP 4 UREA NITROGEN 10 CREATININE 0.81 GLUCOSE 116 (*) CALCIUM 8.9 AST (SGOT) 34 ALT 28 ALKALINE PHOSPHATASE 92 ALBUMIN 4.3 BILIRUBIN, TOTAL 0.8 TOTAL PROTEIN 7.9 eGFR 87.5 CBC WITH AUTO DIFFERENTIAL - Abnormal Auto WBC 18.6 (*) RBC 4.40 Hemoglobin 14.1 Hematocrit 40.8 MCV 92.7 MCH 32.0 MCHC 34.6 RDW 12.4 Platelets 266 MPV 9.3 Neutrophils Relative 79.2 Lymphocytes Relative 11.5 (*) Monocytes Relative 6.9 Eosinophils Relative 0.2 (*) Basophils Relative 0.4 Immature Grans % 1.8 (*) Neutrophils Absolute 14.7 (*) Lymphocytes Absolute 2.1 Monocytes Absolute 1.3 (*) Eosinophils Absolute 0.0 Basophils Absolute 0.1 Immature Grans Absolute 0.3 (*) COMPLETE URINALYSIS - Abnormal Color, Urine Light Yellow Clarity, Urine Turbid (*) pH, Urine 7.5 Leukocytes, Urine 250 (*) Nitrite, Urine Positive (*) Protein, Urine 10 (*) Glucose, Urine Normal Bilirubin, Urine Negative Ketones, Urine Negative Urobilinogen, Urine Normal Blood, Urine Negative Volume, Urine 12 mL RBC, Urine Negative WBC, Urine 11-25 (*) Squamous Epithelial, Urine 11-25 (*) Bacteria, Urine Many (*) SPECIFIC GRAVITY OF URINE (NUMERIC) 1.015 SARS-COV-2, FLU A/B, AND RSV COMBO - Normal SARS-CoV-2 Not Detected Respiratory Syncytial Virus Not Detected Influenza A Not Detected Influenza B Not Detected Narrative: Methodology: real-time, RT-PCR The SARS-CoV-2, Flu A/B, and RSV Combo assay is intended for in vitro diagnostic use under the FDA Emergency Use Authorization (EUA). This test has not been FDA cleared or approved. In compliance with this authorization, please visit www.fda.gov/media/494303/download or www.fda.gov/media/680525/download to access the applicable information sheets. LACTIC ACID WITH REFLEX - Normal LACTIC ACID 1.0 URINE CULTURE COMPLETE URINALYSIS WITH REFLEX TO CULTURE Narrative: The following orders were created for panel order Urinalysis complete with reflex to Culture. Procedure Abnormality Status --------- ------ Complete Urinalysis[[id number]] Abnormal Final result Please view results for these tests on the individual orders. All other labs were within normal range or not returned as of this dictation. EMERGENCY DEPARTMENT COURSE and DIFFERENTIAL DIAGNOSIS/MDM: Vitals: Vitals: 08/28/23 2217 08/28/23222408/28/23224708/28/232303 BP: 115/72 Pulse: (!) 112 106 103 Resp: 17 Temp: (!) 38.3 C (101 F) TempSrc: Oral SpO2: 100% 98% 99% Weight: Height: Medications sodium chloride 0.9 % bolus 1,000 mL (1,000 mL IntraVENous New Bag 08/28/232227) sodium chloride 0.9 % bolus 1,000 mL (0 mL IntraVENous Stopped 08/28/232224) acetaminophen (Tylenol) tablet 650 mg (650 mg Oral Given 08/28/232121) cephalexin (Keflex) capsule 500 mg (500 mg Oral Given 08/28/232227) MDM elements: The patient presented with chief complaint of with fever tachycardia body aches and chills for the past few days. The differential diagnosis associated with this patient's presentation includes COVID, influenza, pneumonia. Our workup consisted of ordering/reviewing: Chest x-ray, blood work, IV fluids, COVID and influenza swab are negative, urinalysis positive for UTI. To aid in management, I performed an independent interpretation of Xray(s) interpreted by me shows no obvious pneumonia. The patient will be Discharged. Patient is in agreement with this plan. Treated with Keflex, heart rate improved, temperature improved, patient feels much better after 2 L of fluid, will discharge with Keflex and follow-up PROCEDURES: Unless otherwise noted below, none Procedures CRITICAL CARE TIME None FINAL IMPRESSION 1. Pyelonephritis DISPOSITION Discharge 08/28/2023 11:18:00 PM PATIENT REFERRED TO: Gamaliel Cormier MD [address] [place] [address], [address] [place] [id number] DISCHARGE MEDICATIONS: New Prescriptions CEPHALEXIN (KEFLEX) 500 MG CAPSULE Take 1 capsule (500 mg) by mouth 3 times daily for 10 days. (Comment: Please note this report has been produced using speech recognition software and may contain errors related to that system including errors in grammar, punctuation, and spelling, as well as words and phrases that may be inappropriate. If there are any questions or concerns please feel free to contact the dictating provider for clarification.) Rick Neff MD (electronically signed) Emergency Medicine Provider Rick Neff MD 08/28/23 171 Patient brought via wheelchair to room 2 presenting with c/o of fevers, chills, body aches x 4 days; temperature in triage is 102.4F. Patient has not taken anything over the counter to combat fever the last 4 days; she states that her temperature a few hours ago was 103F. She is slightly tachycardic in triage as well. She took a home COVID test which was negative. She denies a cough, but does report feeling chest congestion. Call light in reach. documented in this encounter [facility] 08-28-2023 Emergency department Note Patient ambulated to restroom without difficulty Martha Prather RN 08/28/23 5976 [facility] 08-28-2023 Emergency department Triage note Patient brought via wheelchair to room 2 presenting with c/o of fevers, chills, body aches x 4 days; temperature in triage is 102.4F. Patient has not taken anything over the counter to combat fever the last 4 days; she states that her temperature a few hours ago was 103F. She is slightly tachycardic in triage as well. She took a home COVID test which was negative. She denies a cough, but does report feeling chest congestion. Call light in reach. [facility] 08-28-2023 Physician Emergency department Note EMERGENCY DEPARTMENT ENCOUNTER Pt Name: Xochitl Fuller Birthdate 1970 Date of evaluation: 08/28/2023 ED Provider: Rick Neff MD CHIEF COMPLAINT Chief Complaint Patient presents with Fever Fatigue Chills Fevers, chills, body aches x 4 days; temperature in triage is 102.4, not taken anything over the counter HISTORY OF PRESENT ILLNESS (Location/Symptom, Timing/Onset, Context/Setting, Quality, Duration, Modifying Factors, Severity) Note limiting factors. I wore appropriate PPE for the entirety of this encounter. HPI Xochitl Fuller is a 53 y.o. who presents to the emergency department with fever for the past 2 days but excessive fatigue for the past 4 days and body aches and chills, upon arrival patient is tachycardic and febrile 100.4, she took Aleve this morning but has not taken anything since then, no nausea or vomiting, no diarrhea, mild cough, no abdominal pain Nursing Notes were reviewed. Limitations to history: None Outside historians: Significant other REVIEW OF SYSTEMS Review of Systems Pertinent positives and negatives as per HPI PAST MEDICAL HISTORY Past Medical History: Diagnosis Date Acute bacterial sinusitis 03/12/2021 Anxiety Arthritis Asthma Breast abscess right breast Cervical dysplasia Chronic pain Degeneration of intervertebral disc of lumbar region 05/14/2018 GERD (gastroesophageal reflux disease) Menorrhagia SCHEDULED FOR THE SURGERY ON 07/07/2017 Neuropathy RA (rheumatoid arthritis) (HCC) Tobacco abuse SURGICAL HISTORY Past Surgical History: Procedure Laterality Date APPENDECTOMY 2018 BREAST BIOPSY Right 2016 COLONOSCOPY W/ BIOPSIES AND POLYPECTOMY N/A 12/28/2022 Performed by Kimberly Lay MD at [facility] [address] ENDOSCOPY COLPOSCOPY ENDOMETRIAL ABLATION FINGER FRACTURE SURGERY Right 1st finger HYSTEROSCOPY N/A KNEE ARTHROSCOPY Left 03/15/2012 OTHER SURGICAL HISTORY rheumatoid nodule removal (from left leg) , finger reconstructive surgery, lasered for uterine dysplasia TUBAL LIGATION 1991 CURRENT MEDICATIONS Previous Medications ALBUTEROL 108 (90 BASE) MCG/ACT INHALER Inhale 2 puffs every 6 hours as needed for wheezing. DIAZEPAM (VALIUM) 2 MG TABLET Take 1 tablet (2 mg) by mouth Daily as needed for anxiety for up to 10 days. ESOMEPRAZOLE (NEXIUM) [address] CAPSULE Take 1 capsule (40 mg) by mouth every morning (before breakfast). FLUCONAZOLE (DIFLUCAN) 150 MG TABLET Take 1 tablet by mouth every 3 days by mouth x 3 doses NAPROXEN PO Take 220 mg by mouth. 2 tabs prn ALLERGIES Naltrexone, Sertraline, Ibuprofen, Meloxicam, and Morphine FAMILY HISTORY Family History Problem Relation Name Age of Onset Hypertension Mother Heart attack Mother Asthma Mother Arthritis Mother Thyroid disease Mother COPD Mother Other ([id number]) Father pneumonia aspiration Breast cancer Maternal Grandmother Cancer Maternal Grandfather No Known Problems Paternal Grandmother Migraines Paternal Grandfather Cancer Other Multiple Unknown Cancers on Maternal Side of family Colon cancer Neg Hx SOCIAL HISTORY Social History Socioeconomic History Marital status: Tobacco Use Smoking status: Every Day Packs/day: .25 Types: Cigarettes Start date: 1980 Smokeless tobacco: Never Vaping Use Vaping Use: Never used Substance and Sexual Activity Alcohol use: No Comment: 2013 no longer drinking Drug use: Not Currently Types: IV, Marijuana, Methamphetamines Social Determinants of Health Intimate Partner Violence: Not At Risk (12/28/2022) Humiliation, Afraid, Rape, and Kick questionnaire Fear of Current or Ex-Partner: No Emotionally Abused: No Physically Abused: No Sexually Abused: No SCREENINGS PHYSICAL EXAM ED Triage Vitals [08/28/232055] Temp Heart Rate Resp BP (!) 39.1 C (102.4 F) (!) 111 17 119/77 SpO2 Temp Source Heart Rate Source Patient Position 100 % Oral Monitor -- BP Location FiO2 (%) -- -- Physical Exam Febrile, heart tachycardic, abdomen is soft and nontender, lungs are clear to auscultation bilaterally DIAGNOSTIC RESULTS RADIOLOGY (Per Emergency Physician): Interpretation per the Radiologist below, if available at the time of this note: XR chest 1 view Final Result Impression: No acute cardiopulmonary process. Report Dictated on Electronically Signed By: Francis Mejia MD Electronically Signed Date/Time: 08/28/2023 9:59 PM EDT LABS: Labs Reviewed COMPREHENSIVE METABOLIC PANEL - Abnormal Result Value SODIUM 133 (*) POTASSIUM 4.1 CHLORIDE 102 CARBON DIOXIDE 28 ANION GAP 4 UREA NITROGEN 10 CREATININE 0.81 GLUCOSE 116 (*) CALCIUM 8.9 AST (SGOT) 34 ALT 28 ALKALINE PHOSPHATASE 92 ALBUMIN 4.3 BILIRUBIN, TOTAL 0.8 TOTAL PROTEIN 7.9 eGFR 87.5 CBC WITH AUTO DIFFERENTIAL - Abnormal Auto WBC 18.6 (*) RBC 4.40 Hemoglobin 14.1 Hematocrit 40.8 MCV 92.7 MCH 32.0 MCHC 34.6 RDW 12.4 Platelets 266 MPV 9.3 Neutrophils Relative 79.2 Lymphocytes Relative 11.5 (*) Monocytes Relative 6.9 Eosinophils Relative 0.2 (*) Basophils Relative 0.4 Immature Grans % 1.8 (*) Neutrophils Absolute 14.7 (*) Lymphocytes Absolute 2.1 Monocytes Absolute 1.3 (*) Eosinophils Absolute 0.0 Basophils Absolute 0.1 Immature Grans Absolute 0.3 (*) COMPLETE URINALYSIS - Abnormal Color, Urine Light Yellow Clarity, Urine Turbid (*) pH, Urine 7.5 Leukocytes, Urine 250 (*) Nitrite, Urine Positive (*) Protein, Urine 10 (*) Glucose, Urine Normal Bilirubin, Urine Negative Ketones, Urine Negative Urobilinogen, Urine Normal Blood, Urine Negative Volume, Urine 12 mL RBC, Urine Negative WBC, Urine 11-25 (*) Squamous Epithelial, Urine 11-25 (*) Bacteria, Urine Many (*) SPECIFIC GRAVITY OF URINE (NUMERIC) 1.015 SARS-COV-2, FLU A/B, AND RSV COMBO - Normal SARS-CoV-2 Not Detected Respiratory Syncytial Virus Not Detected Influenza A Not Detected Influenza B Not Detected Narrative: Methodology: real-time, RT-PCR The SARS-CoV-2, Flu A/B, and RSV Combo assay is intended for in vitro diagnostic use under the FDA Emergency Use Authorization (EUA). This test has not been FDA cleared or approved. In compliance with this authorization, please visit www.fda.gov/media/810929/download or www.fda.gov/media/456005/download to access the applicable information sheets. LACTIC ACID WITH REFLEX - Normal LACTIC ACID 1.0 URINE CULTURE COMPLETE URINALYSIS WITH REFLEX TO CULTURE Narrative: The following orders were created for panel order Urinalysis complete with reflex to Culture. Procedure Abnormality Status --------- ------ Complete Urinalysis[[id number]] Abnormal Final result Please view results for these tests on the individual orders. All other labs were within normal range or not returned as of this dictation. EMERGENCY DEPARTMENT COURSE and DIFFERENTIAL DIAGNOSIS/MDM: Vitals: Vitals: 08/28/23 2217 08/28/23222408/28/23224708/28/232303 BP: 115/72 Pulse: (!) 112 106 103 Resp: 17 Temp: (!) 38.3 C (101 F) TempSrc: Oral SpO2: 100% 98% 99% Weight: Height: Medications sodium chloride 0.9 % bolus 1,000 mL (1,000 mL IntraVENous New Bag 08/28/232227) sodium chloride 0.9 % bolus 1,000 mL (0 mL IntraVENous Stopped 08/28/232224) acetaminophen (Tylenol) tablet 650 mg (650 mg Oral Given 08/28/232121) cephalexin (Keflex) capsule 500 mg (500 mg Oral Given 08/28/232227) MDM elements: The patient presented with chief complaint of with fever tachycardia body aches and chills for the past few days. The differential diagnosis associated with this patient's presentation includes COVID, influenza, pneumonia. Our workup consisted of ordering/reviewing: Chest x-ray, blood work, IV fluids, COVID and influenza swab are negative, urinalysis positive for UTI. To aid in management, I performed an independent interpretation of Xray(s) interpreted by me shows no obvious pneumonia. The patient will be Discharged. Patient is in agreement with this plan. Treated with Keflex, heart rate improved, temperature improved, patient feels much better after 2 L of fluid, will discharge with Keflex and follow-up PROCEDURES: Unless otherwise noted below, none Procedures CRITICAL CARE TIME None FINAL IMPRESSION 1. Pyelonephritis DISPOSITION Discharge 08/28/2023 11:18:00 PM PATIENT REFERRED TO: Gamaliel Cormier MD [address] [place] [address], [address] [facility] [address] DISCHARGE MEDICATIONS: New Prescriptions CEPHALEXIN (KEFLEX) 500 MG CAPSULE Take 1 capsule (500 mg) by mouth 3 times daily for 10 days. (Comment: Please note this report has been produced using speech recognition software and may contain errors related to that system including errors in grammar, punctuation, and spelling, as well as words and phrases that may be inappropriate. If there are any questions or concerns please feel free to contact the dictating provider for clarification.) Rick Neff MD (electronically signed) Emergency Medicine Provider Rick Neff MD 08/28/232319 [facility] 08-15-2023 Evaluation + Plan note Associated Problem(s): Cellulitis of right lower extremity Will start antibiotic therapy. Obtain CBC, x-ray. Vital signs are stable patient nontoxic-appearing [facility] 08-15-2023 Miscellaneous Notes Associated Problem(s): Cellulitis of right lower extremity Will start antibiotic therapy. Obtain CBC, x-ray. Vital signs are stable patient nontoxic-appearing Associated Problem(s): Acute pain of right knee No fever. Nontoxic-appearing mild erythema medially minimal edema. Will obtain x-ray and CBC. We will go ahead and start antibiotics for suspected cellulitis. documented in this encounter [facility] 08-15-2023 Evaluation + Plan note Associated Problem(s): Acute pain of right knee No fever. Nontoxic-appearing mild erythema medially minimal edema. Will obtain x-ray and CBC. We will go ahead and start antibiotics for suspected cellulitis. [facility] 08-15-2023 History of Presen t illness Narrative Patient was identified by name and Date of . Images from the original note were not included. 08/15/2023 Xochitl Fuller (: 1970) is a 53 y.o. female , Established patient, here for evaluation of the following chief complaint(s): Knee Pain (right) ASSESSMENT/PLAN: 1. Acute pain of right knee Assessment & Plan: No fever. Nontoxic-appearing mild erythema medially minimal edema. Will obtain x-ray and CBC. We will go ahead and start antibiotics for suspected cellulitis. Orders: - CBC auto differential - XR knee 1 or 2 views right 2. Cellulitis of right lower extremity Assessment & Plan: Will start antibiotic therapy. Obtain CBC, x-ray. Vital signs are stable patient nontoxic-appearing Orders: - CBC auto differential - cephalexin (Keflex) 500 MG capsule; Take 1 capsule (500 mg) by mouth in the morning and 1 capsule (500 mg) at noon and 1 capsule (500 mg) in the evening and 1 capsule (500 mg) before bedtime. Do all this for 7 days., Starting Mon08/15/2023, Until Mon08/22/2023, Normal - XR knee 1 or 2 views right - sulfamethoxazole-trimethoprim (Bactrim DS) 800-160 MG tablet; Take 1 tablet by mouth 2 times daily for 7 days., Starting Mon08/15/2023, Until Mon08/22/2023, Normal 3. Vaginal yeast infection - fluconazole (Diflucan) 150 MG tablet; Take 1 tablet by mouth every 3 days by mouth x 3 doses, Normal Follow up for as directed pending test results. SUBJECTIVE/OBJECTIVE: HPI - Xochitl Fuller (: 1970) is a 53 y.o. female , Established patient, here for the evaluation of the following chief complaint(s): Knee Pain (right) Started last night, knee is red and hot. Swollen. Doesn't feel good. Hx of cellulitis. No fever, but feels achy, reports not sleeping well due to her mom being in hospice. No nausea or vomiting. Prior to Admission medications Medication Sig Start Date End Date Taking? Authorizing Provider albuterol 108 (90 Base) MCG/ACT inhaler Inhale 2 puffs every 6 hours as needed for wheezing. 04/26/23 Yes Gamaliel Cormier MD diazePAM (Valium) 2 MG tablet Take 1 tablet (2 mg) by mouth Daily as needed for anxiety for up to 10 days. 08/14/23 08/24/23 Yes LAKIA Moon CNP esomeprazole (NexIUM) [address] capsule Take 1 capsule (40 mg) by mouth every morning (before breakfast). 04/26/23 Yes Gamaliel Cormier MD fluconazole (Diflucan) 150 MG tablet Take 1 tablet by mouth every 3 days by mouth x 3 doses 06/21/23 Yes LAKIA Moon CNP NAPROXEN PO Take 220 mg by mouth. 2 tabs prn Yes Historical Provider, Review of Systems Constitutional: Positive for fatigue. Negative for appetite change and fever. Respiratory: Negative. Cardiovascular: Negative. Gastrointestinal: Negative. Musculoskeletal: Positive for arthralgias, gait problem and joint swelling (Right knee). Skin: Positive for color change (Redness to right knee). Psychiatric/Behavioral: Positive for decreased concentration and sleep disturbance. The patient is nervous/anxious. Vitals: 08/15/23 1313 BP: 126/68 Pulse: 101 Resp: 24 Temp: 36.9 C (98.4 F) TempSrc: Infrared SpO2: 98% Weight: 153 lb 3.2 oz (69.5 kg) Physical Exam Constitutional: General: She is not in acute distress. Appearance: Normal appearance. She is not ill-appearing. HENT: Head: Normocephalic and atraumatic. Cardiovascular: Rate and Rhythm: Normal rate and regular rhythm. Pulses: Normal pulses. Heart sounds: Normal heart sounds. Pulmonary: Effort: Pulmonary effort is normal. Breath sounds: Normal breath sounds. Abdominal: General: Abdomen is flat. Bowel sounds are normal. Palpations: Abdomen is soft. Tenderness: There is no abdominal tenderness. Musculoskeletal: Right knee: Swelling present. Tenderness present over the medial joint line. No lateral joint line, MCL, LCL, PCL or patellar tendon tenderness. Left knee: Normal. Legs: Neurological: Mental Status: She is alert and oriented to person, place, and time. Psychiatric: Attention and Perception: Attention and perception normal. Mood and Affect: Mood is anxious. Speech: Speech normal. Behavior: Behavior normal. Behavior is cooperative. Thought Content: Thought content normal. Cognition and Memory: Cognition and memory normal. Judgment: Judgment normal. An electronic signature was used to authenticate this note. LAKIA Moon CNP 08/15/2023 4:49 PM documented in this encounter [facility] 08-15-2023 Instructions LAKIA Moon CNP - 08/15/2023 1:40 PM EDT Warm compresses to right knee. documented in this encounter [facility] 08-15-2023 Telephone encounter Note Noted. Agree with disposition. [facility] 08-15-2023 Miscellaneous Notes Noted. Agree with disposition. S: Patient spoke with [facility] nurse regarding Right knee pain/swelling B: Onset of symptoms/concern last night A: Reports something sharp in it;knee red, hot, swollen, painful; difficult to walk. States swelling as we speak. R: Advised patient she should be seen today. Patient declined earlier appointment for this morning due to work schedule. Scheduled at 1:40 today. Home care advice given for knee swelling. Patient understands care advice. No further needs at this time. Patient instructed to call back with new or worsening symptoms. Reason for Disposition Redness and painful when touched and no fever Protocols used: Knee [id number] documented in this encounter [facility] 08-15-2023 Telephone encounter Note S: Patient spoke with [facility] nurse regarding Right knee pain/swelling B: Onset of symptoms/concern last night A: Reports something sharp in it;knee red, hot, swollen, painful; difficult to walk. States swelling as we speak. R: Advised patient she should be seen today. Patient declined earlier appointment for this morning due to work schedule. Scheduled at 1:40 today. Home care advice given for knee swelling. Patient understands care advice. No further needs at this time. Patient instructed to call back with new or worsening symptoms. Reason for Disposition Redness and painful when touched and no fever Protocols used: Knee [id number] [facility] 08-14-2023 Telephone encounter Note Noted. Agree with disposition. [facility] 08-14-2023 Miscellaneous Notes Noted. Agree with disposition. S: Patient spoke with [facility] nurse regarding anxiety B: Onset of symptoms/concern ongoing for last two weeks, last OV 06/21/23 A: Pt c/o anxiety being off the charts. Pt said it started when her mother went into ICU. Pt said she is not sleeping or eating. Pt reports she is not coping well with her mother being in palliative care. R: Scheduled appt 08/14/23 at 7:40am with LAKIA Moon CNP. Insurance verified. Instructed pt to bring photo ID, insurance card, and arrive 15 minutes prior to appt. Home care advice given per protocol-explained to pt that if she needs help before Monday she can [id number] for mental health crisis. Patient understands care advice. No further needs at this time. Patient instructed to call back with new or worsening symptoms. Reason for Disposition Recent traumatic event (e.g., of a loved one, job loss, victim/witness of crime) Protocols used: Anxiety and Panic [id number] documented in this encounter [facility] 08-14-2023 Evaluation + Plan note Associated Problem(s): Anxiety Situational due to mom being in hospice. Denies si/hi. Denies etoh use (sober x 10 yrs). Declines daily antianxiety medication (ssri, snri, or other). Will provide short term prescription only of benzodiazapine for severe anxiety daily as needed. Discussed with patient risks/benefits associated with use. Follow up in about 1 month, sooner if needed. Ok to take 1/2 tab instead of whole tab. [facility] 08-14-2023 Miscellaneous Notes Associated Problem(s): Anxiety Situational due to mom being in hospice. Denies si/hi. Denies etoh use (sober x 10 yrs). Declines daily antianxiety medication (ssri, snri, or other). Will provide short term prescription only of benzodiazapine for severe anxiety daily as needed. Discussed with patient risks/benefits associated with use. Follow up in about 1 month, sooner if needed. Ok to take 1/2 tab instead of whole tab. documented in this encounter [facility] 08-14-2023 History of Presen t illness Narrative Patient was identified by name and Date of . Images from the original note were not included. 08/14/2023 Xochitl Fuller (: 1970) is a 53 y.o. female , Established patient, here for evaluation of the following chief complaint(s): Anxiety ASSESSMENT/PLAN: 1. Anxiety Assessment & Plan: Situational due to mom being in hospice. Denies si/hi. Denies etoh use (sober x 10 yrs). Declines daily antianxiety medication (ssri, snri, or other). Will provide short term prescription only of benzodiazapine for severe anxiety daily as needed. Discussed with patient risks/benefits associated with use. Follow up in about 1 month, sooner if needed. Ok to take 1/2 tab instead of whole tab. Orders: - diazePAM (Valium) 2 MG tablet; Take 1 tablet (2 mg) by mouth Daily as needed for anxiety for up to 10 days., Starting 08/14/2023, Until Awilda 08/24/2023 at 2359, Normal Oarrs reviewed and consistent with treatment plan. Follow up in about 1 month (around 09/13/2023).sooner if needed for worsening symptoms SUBJECTIVE/OBJECTIVE: HPI - Xochitl Fuller (: 1970) is a 53 y.o. female , Established patient, here for the evaluation of the following chief complaint(s): Anxiety Reports increased anxiety and difficulty sleeping d/t recent placement of mom into hospice about 2 days ago. Mom went into hospital about 2 weeks ago for copd and has not made it back home. They thought she was doing better and was going to go home initially, but then her oxygen level dropped with any kind of exertion. She was a ventilator briefly, came off of it and then was not tolerating bipap/cpap and mom decided she wanted to be on hospice. Plan is to hopefully get her home, but she may go to an inpatient hospice facility in [place], not sure yet. Xochitl states that her and her sister are getting along well through this. States she doesn't tolerate ssri, or snri in the past and does not want to take anything daily, would like daily as needed medication just to help her through this situation. Prior to Admission medications Medication Sig Start Date End Date Taking? Authorizing Provider albuterol 108 (90 Base) MCG/ACT inhaler Inhale 2 puffs every 6 hours as needed for wheezing. 04/26/23 Yes Gamaliel Cormier MD esomeprazole (NexIUM) [address] capsule Take 1 capsule (40 mg) by mouth every morning (before breakfast). 04/26/23 Yes Gamaliel Cormier MD fluconazole (Diflucan) 150 MG tablet Take 1 tablet by mouth every 3 days by mouth x 3 doses 06/21/23 Yes LAKIA Moon CNP NAPROXEN PO Take 220 mg by mouth. 2 tabs prn Yes Historical Provider, Review of Systems Constitutional: Positive for appetite change and fatigue. Negative for activity change. Hasn't slept for couple days d/t situation Respiratory: Negative. Cardiovascular: Negative. Psychiatric/Behavioral: Positive for decreased concentration and sleep disturbance. Negative for self-injury and suicidal ideas. The patient is nervous/anxious. Vitals: 08/14/23 0731 BP: 124/88 Pulse: 94 Resp: 20 Temp: 36.4 C (97.5 F) TempSrc: Infrared SpO2: 100% Weight: 153 lb 6.4 oz (69.6 kg) Physical Exam Constitutional: General: She is not in acute distress. Appearance: Normal appearance. She is not ill-appearing. HENT: Head: Normocephalic. Pulmonary: Effort: Pulmonary effort is normal. Neurological: Mental Status: She is alert and oriented to person, place, and time. Psychiatric: Attention and Perception: Attention and perception normal. Mood and Affect: Mood is anxious. Affect is tearful. Speech: Speech normal. Behavior: Behavior normal. Behavior is cooperative. Thought Content: Thought content normal. Cognition and Memory: Cognition and memory normal. Judgment: Judgment normal. An electronic signature was used to authenticate this note. LAKIA Moon CNP 08/14/2023 8:03 AM documented in this encounter [facility] 08-11-2023 Telephone encounter Note S: Patient spoke with [facility] nurse regarding anxiety B: Onset of symptoms/concern ongoing for last two weeks, last OV 7/26/23 A: Pt c/o anxiety being off the charts. Pt said it started when her mother went into ICU. Pt said she is not sleeping or eating. Pt reports she is not coping well with her mother being in palliative care. R: Scheduled appt 08/14/23 at 7:40am with LAKIA Moon CNP. Insurance verified. Instructed pt to bring photo ID, insurance card, and arrive 15 minutes prior to appt. Home care advice given per protocol-explained to pt that if she needs help before Monday she can [id number] for mental health crisis. Patient understands care advice. No further needs at this time. Patient instructed to call back with new or worsening symptoms. Reason for Disposition Recent traumatic event (e.g., of a loved one, job loss, victim/witness of crime) Protocols used: Anxiety and Panic [id number] [facility] 06-21-2023 Evaluation + Plan note Associated Problem(s): Cellulitis of left lower extremity Nontoxic appearing. Will treat with Keflex and Bactrim follow-up for worsening or failure for symptoms [facility] 06-21-2023 Miscellaneous Notes Associated Problem(s): Cellulitis of left lower extremity Nontoxic appearing. Will treat with Keflex and Bactrim follow-up for worsening or failure for symptoms documented in this encounter [facility] 06-21-2023 History of Presen t illness Narrative Images from the original note were not included. 06/21/2023 Xochitl Fuller (: 1970) is a 53 y.o. female , Established patient, here for evaluation of the following chief complaint(s): Ankle Pain (Left-started 2 days ago) ASSESSMENT/PLAN: 1. Cellulitis of left lower extremity Assessment & Plan: Nontoxic appearing. Will treat with Keflex and Bactrim follow-up for worsening or failure for symptoms Orders: - cephalexin (Keflex) 500 MG capsule; Take 1 capsule (500 mg) by mouth in the morning and 1 capsule (500 mg) at noon and 1 capsule (500 mg) in the evening and 1 capsule (500 mg) before bedtime. Do all this for 7 days., Starting Mon06/21/2023, Until Mon06/28/2023, Normal - sulfamethoxazole-trimethoprim (Bactrim DS) 800-160 MG tablet; Take 1 tablet by mouth 2 times daily for 7 days., Starting Mon06/21/2023, Until Mon06/28/2023, Normal - ketorolac (Toradol) injection 60 mg; 60 mg, IntraMUSCular, Once, On Mon06/21/23 at 1130, For 1 dose 2. Vaginal yeast infection - fluconazole (Diflucan) 150 MG tablet; Take 1 tablet by mouth every 3 days by mouth x 3 doses, Normal Diflucan for yeast infection symptoms after antibiotic use. Follow up in office if worsens or fails to resolve with medication Follow up if symptoms worsen or fail to improve. SUBJECTIVE/OBJECTIVE: MARIA DEL CARMEN - Xochitl Fuller (: 1970) is a 53 y.o. female , Established patient, here for the evaluation of the following chief complaint(s): Ankle Pain (Left-started 2 days ago) Started getting redness and pain in the left ankle, has been doing heating pad and aleve. Hx of recurrent cellulitis. No fever or chills. Mild nausea intermittently d/t pain. Prior to Admission medications Medication Sig Start Date End Date Taking? Authorizing Provider albuterol 108 (90 Base) MCG/ACT inhaler Inhale 2 puffs every 6 hours as needed for wheezing. 04/26/23 Yes Gamaliel Cormier MD esomeprazole (NexIUM) [address] capsule Take 1 capsule (40 mg) by mouth every morning (before breakfast). 04/26/23 Yes Gamaliel Cormier MD NAPROXEN PO Take 220 mg by mouth. 2 tabs prn Yes Historical Provider, Review of Systems Constitutional: Negative. Respiratory: Negative. Genitourinary: Negative. Skin: Positive for color change and rash. Vitals: 07/26/23 1103 BP: 129/86 Pulse: 97 Resp: 24 Temp: 37 C (98.6 F) TempSrc: Oral SpO2: 96% Weight: 152 lb 6.4 oz (69.1 kg) Physical Exam Constitutional: General: She is not in acute distress. Appearance: Normal appearance. She is not ill-appearing. Pulmonary: Effort: Pulmonary effort is normal. Skin: Neurological: Mental Status: She is alert and oriented to person, place, and time. An electronic signature was used to authenticate this note. LAKIA Moon CNP 06/21/2023 11:17 AM Administrations This Visit ketorolac (Toradol) injection 60 mg Admin Date 06/21/2023 Action Given Dose 60 mg Route IntraMUSCular Administered By Demetria Menjivar Patient was identified by name and Date Of . After obtaining informed consent, Injection was ordered by provider. The patient was instructed to seek medical attention with signs and symptoms of adverse effects. Site was cleansed with an alcohol swab, injection was given, and bandage was applied to injection site. Patient tolerated well, advised patient to stay in the office 20 minutes after injection has been given to observe for any reaction. Injection was given by Demetria Menjivar MA. documented in this encounter [facility] 05-27-2023 Hospital Discharg e instructions Yamila Singh DO - 05/27/2023 12:17 AM EDT We discussed testing for Lyme disease and treatment if this came back positive, as I have a lower suspicion that this is Lyme's disease. You are preferring empiric treatment at this time. Please take doxycycline as prescribed, you are also given a prescription for Diflucan. Follow-up closely with your primary care physician, return to the emergency department new or worsening symptoms. The following attachments cannot be sent through Care Everywhere.Skin Rash ED ([place])Lyme Disease Test ([place])documented in this encounter [facility] 05-26-2023 Emergency department Note EMERGENCY DEPARTMENT ENCOUNTER Pt Name: Xochitl Fuller Birthdate 1970 Date of evaluation: 05/26/2023 ED Provider: Yamila Singh DO CHIEF COMPLAINT Chief Complaint Patient presents with Rash HISTORY OF PRESENT ILLNESS (Location/Symptom, Timing/Onset, Context/Setting, Quality, Duration, Modifying Factors, Severity) Note limiting factors. I wore appropriate PPE for the entirety of this encounter. HPI Xochitl Fuller is a 53 y.o. female who presents to the emergency department with chief complaint of a rash. Patient reports that she had the tenderness evening when she noticed a circular rash on her left forearm. Patient reports that this appeared targetoid to her and she was concerned that she has Lyme's disease. Denies any pruritus, pain, discharge or drainage. Denies any fevers or chills. Denies any recent camping, outdoor work. 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 Denies any known topical exposures or sierra. Reports that she has had a headache and generally felt unwell past several days. Nursing Notes were reviewed. Limitations to history: None Outside historians: None REVIEW OF SYSTEMS Review of Systems PAST MEDICAL HISTORY Past Medical History: Diagnosis Date Acute bacterial sinusitis 03/12/2021 Anxiety Arthritis Asthma Breast abscess right breast Cervical dysplasia Chronic pain Degeneration of intervertebral disc of lumbar region 05/14/2018 GERD (gastroesophageal reflux disease) Menorrhagia SCHEDULED FOR THE SURGERY ON 07/07/2017 Neuropathy RA (rheumatoid arthritis) ([facility]) Tobacco abuse SURGICAL HISTORY Past Surgical History: Procedure Laterality Date APPENDECTOMY 2018 BREAST BIOPSY Right 2016 COLONOSCOPY W/ BIOPSIES AND POLYPECTOMY N/A 12/28/2022 Performed by Kimberly Lay MD at [address] ENDOSCOPY COLPOSCOPY ENDOMETRIAL ABLATION FINGER FRACTURE SURGERY Right 1st finger HYSTEROSCOPY N/A KNEE ARTHROSCOPY Left 03/15/2012 OTHER SURGICAL HISTORY rheumatoid nodule removal (from left leg) , finger reconstructive surgery, lasered for uterine dysplasia TUBAL LIGATION 1991 CURRENT MEDICATIONS Previous Medications ALBUTEROL 108 (90 BASE) MCG/ACT INHALER Inhale 2 puffs every 6 hours as needed for wheezing. ESOMEPRAZOLE (NEXIUM) [address] CAPSULE Take 1 capsule (40 mg) by mouth every morning (before breakfast). NAPROXEN PO Take 220 mg by mouth. 2 tabs prn ALLERGIES Naltrexone, Sertraline, Ibuprofen, Meloxicam, and Morphine FAMILY HISTORY Family History Problem Relation Name Age of Onset Hypertension Mother Heart attack Mother Asthma Mother Arthritis Mother Thyroid disease Mother COPD Mother Other ([id number]) Father pneumonia aspiration Breast cancer Maternal Grandmother Cancer Maternal Grandfather No Known Problems Paternal Grandmother Migraines Paternal Grandfather Cancer Other Multiple Unknown Cancers on Maternal Side of family Colon cancer Neg Hx SOCIAL HISTORY Social History Socioeconomic History Marital status: Tobacco Use Smoking status: Every Day Packs/day: 0.25 Types: Cigarettes Start date: 1980 Smokeless tobacco: Never Vaping Use Vaping Use: Never used Substance and Sexual Activity Alcohol use: No Comment: 2013 no longer drinking Drug use: Not Currently Types: IV, Marijuana, Methamphetamines Social Determinants of Health Intimate Partner Violence: Not At Risk (12/28/2022) Humiliation, Afraid, Rape, and Kick questionnaire Fear of Current or Ex-Partner: No Emotionally Abused: No Physically Abused: No Sexually Abused: No SCREENINGS PHYSICAL EXAM ED Triage Vitals [05/26/23 2359] Temp Heart Rate Resp BP 36.8 C (98.2 F) 98 18 (!) 159/87 SpO2 Temp src Heart Rate Source Patient Position 100 % -- -- -- BP Location FiO2 (%) -- -- GENERAL APPEARANCE: Awake and alert. Cooperative. No acute distress. HEAD: Normocephalic. Atraumatic. NECK: Supple. No meningismus. Trachea midline. HEART: RRR. Radial pulses 2+. LUNGS: Respirations unlabored. CTAB EXTREMITIES: No acute deformities. SKIN: Warm and dry. Left forearm with approximately 2 cm perfectly circular flat thin rim of erythema, within this area there is a punctate area of erythema. No palpable fluctuance, no increased warmth to touch. No tenderness to palpation. NEUROLOGICAL: No gross facial drooping. Moves all 4 extremities spontaneously. PSYCHIATRIC: Normal mood. DIAGNOSTIC RESULTS RADIOLOGY (Per Emergency Physician): Interpretation per the Radiologist below, if available at the time of this note: No orders to display ED BEDSIDE ULTRASOUND: Performed by ED Physician - none LABS: Labs Reviewed - No data to display All other labs were within normal range or not returned as of this dictation. EMERGENCY DEPARTMENT COURSE and DIFFERENTIAL DIAGNOSIS/MDM: Vitals: Vitals: 05/26/23 2359 BP: (!) 159/87 Pulse: 98 Resp: 18 Temp: 36.8 C (98.2 F) SpO2: 100% Diagnoses as of 05/27/23 0021 Rash and other nonspecific skin eruption Medications doxycycline (Monodox) capsule 100 mg (has no administration in time range) fluconazole (Diflucan) tablet 100 mg (has no administration in time range) MDM: Mildly hypertensive on presentation to the emergency department, vital signs are otherwise within normal limits. Nontoxic-appearing. Flat, perfectly circular rim of erythema with punctate area erythema centrally. Patient has had no known tick exposure, however is concerned for Lyme given targetoid type lesion. On examination patient's rash is not particularly consistent with erythema migrans, advised Lyme testing and treatment if positive. Patient prefers/requesting empiric treatment. Medicated with p.o. doxycycline, discharged in stable condition with doxycycline twice daily x10 days. Provided prescription for Diflucan as patient is reporting yeast infections with antibiotics. Discussed follow-up with primary care. Return precautions. CONSULTS: None PROCEDURES: Unless otherwise noted below, none Procedures FINAL IMPRESSION 1. Rash and other nonspecific skin eruption DISPOSITION Discharge 05/27/2023 12:16:19 AM PATIENT REFERRED TO: Gamaliel Cormier MD [address] [place] [address], [address] [facility] [address] [facility] ED [address] [phone] As needed, If symptoms worsen DISCHARGE MEDICATIONS: New Prescriptions DOXYCYCLINE (VIBRAMYCIN) 100 MG CAPSULE Take 1 capsule (100 mg) by mouth 2 times daily for 10 days. Take with at least 8 ounces (large glass) of water, do not lie down for 30 minutes after FLUCONAZOLE (DIFLUCAN) 200 MG TABLET Take 1 tablet (200 mg) by mouth Once for 1 dose. Do not start before May 30, 2023. (Comment: Please note this report has been produced using speech recognition software and may contain errors related to that system including errors in grammar, punctuation, and spelling, as well as words and phrases that may be inappropriate. If there are any questions or concerns please feel free to contact the dictating provider for clarification.) Yamila Singh DO (electronically signed) Emergency Medicine Provider Yamila Singh DO 05/27/23 0126 Pt presents to the ED for a rash. Pt noticed a small round rash on left forearm today. Pt concerned it may be a bullseye rash/lyme disease. Pt did not get bit by a tick. Pt admits to itching a site. Pt denies pain or discomfort Dc instructions and follow up care given to pt. Pt verbalizes understanding. Pt amb indep to dc area, home w friend documented in this encounter [facility] 05-26-2023 Emergency department Triage note Pt presents to the ED for a rash. Pt noticed a small round rash on left forearm today. Pt concerned it may be a bullseye rash/lyme disease. Pt did not get bit by a tick. Pt admits to itching a site. Pt denies pain or discomfort [facility] 05-26-2023 Emergency department Triage note Dc instructions and follow up care given to pt. Pt verbalizes understanding. Pt amb indep to dc area, home w friend [facility] 05-26-2023 Physician Emergency department Note EMERGENCY DEPARTMENT ENCOUNTER Pt Name: Xochitl Fuller Birthdate 1970 Date of evaluation: 05/26/2023 ED Provider: Yamila Singh DO CHIEF COMPLAINT Chief Complaint Patient presents with Rash HISTORY OF PRESENT ILLNESS (Location/Symptom, Timing/Onset, Context/Setting, Quality, Duration, Modifying Factors, Severity) Note limiting factors. I wore appropriate PPE for the entirety of this encounter. HPI Xochitl Fuller is a 53 y.o. female who presents to the emergency department with chief complaint of a rash. Patient reports that she had the tenderness evening when she noticed a circular rash on her left forearm. Patient reports that this appeared targetoid to her and she was concerned that she has Lyme's disease. Denies any pruritus, pain, discharge or drainage. Denies any fevers or chills. Denies any recent camping, outdoor work. 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 Denies any known topical exposures or sierra. Reports that she has had a headache and generally felt unwell past several days. Nursing Notes were reviewed. Limitations to history: None Outside historians: None REVIEW OF SYSTEMS Review of Systems PAST MEDICAL HISTORY Past Medical History: Diagnosis Date Acute bacterial sinusitis 03/12/2021 Anxiety Arthritis Asthma Breast abscess right breast Cervical dysplasia Chronic pain Degeneration of intervertebral disc of lumbar region 05/14/2018 GERD (gastroesophageal reflux disease) Menorrhagia SCHEDULED FOR THE SURGERY ON 07/07/2017 Neuropathy RA (rheumatoid arthritis) ([facility]) Tobacco abuse SURGICAL HISTORY Past Surgical History: Procedure Laterality Date APPENDECTOMY 2018 BREAST BIOPSY Right 2016 COLONOSCOPY W/ BIOPSIES AND POLYPECTOMY N/A 12/28/2022 Performed by Kimberly Lay MD at [facility] [address] [facility] COLPOSCOPY ENDOMETRIAL ABLATION FINGER FRACTURE SURGERY Right 1st finger HYSTEROSCOPY N/A KNEE ARTHROSCOPY Left 03/15/2012 OTHER SURGICAL HISTORY rheumatoid nodule removal (from left leg) , finger reconstructive surgery, lasered for uterine dysplasia TUBAL LIGATION 1991 CURRENT MEDICATIONS Previous Medications ALBUTEROL 108 (90 BASE) MCG/ACT INHALER Inhale 2 puffs every 6 hours as needed for wheezing. ESOMEPRAZOLE (NEXIUM) [address] CAPSULE Take 1 capsule (40 mg) by mouth every morning (before breakfast). NAPROXEN PO Take 220 mg by mouth. 2 tabs prn ALLERGIES Naltrexone, Sertraline, Ibuprofen, Meloxicam, and Morphine FAMILY HISTORY Family History Problem Relation Name Age of Onset Hypertension Mother Heart attack Mother Asthma Mother Arthritis Mother Thyroid disease Mother COPD Mother Other ([id number]) Father pneumonia aspiration Breast cancer Maternal Grandmother Cancer Maternal Grandfather No Known Problems Paternal Grandmother Migraines Paternal Grandfather Cancer Other Multiple Unknown Cancers on Maternal Side of family Colon cancer Neg Hx SOCIAL HISTORY Social History Socioeconomic History Marital status: Tobacco Use Smoking status: Every Day Packs/day: 0.25 Types: Cigarettes Start date: 1980 Smokeless tobacco: Never Vaping Use Vaping Use: Never used Substance and Sexual Activity Alcohol use: No Comment: 2013 no longer drinking Drug use: Not Currently Types: IV, Marijuana, Methamphetamines Social Determinants of Health Intimate Partner Violence: Not At Risk (12/28/2022) Humiliation, Afraid, Rape, and Kick questionnaire Fear of Current or Ex-Partner: No Emotionally Abused: No Physically Abused: No Sexually Abused: No SCREENINGS PHYSICAL EXAM ED Triage Vitals [05/26/23 2359] Temp Heart Rate Resp BP 36.8 C (98.2 F) 98 18 (!) 159/87 SpO2 Temp src Heart Rate Source Patient Position 100 % -- -- -- BP Location FiO2 (%) -- -- GENERAL APPEARANCE: Awake and alert. Cooperative. No acute distress. HEAD: Normocephalic. Atraumatic. NECK: Supple. No meningismus. Trachea midline. HEART: RRR. Radial pulses 2+. LUNGS: Respirations unlabored. CTAB EXTREMITIES: No acute deformities. SKIN: Warm and dry. Left forearm with approximately 2 cm perfectly circular flat thin rim of erythema, within this area there is a punctate area of erythema. No palpable fluctuance, no increased warmth to touch. No tenderness to palpation. NEUROLOGICAL: No gross facial drooping. Moves all 4 extremities spontaneously. PSYCHIATRIC: Normal mood. DIAGNOSTIC RESULTS RADIOLOGY (Per Emergency Physician): Interpretation per the Radiologist below, if available at the time of this note: No orders to display ED BEDSIDE ULTRASOUND: Performed by ED Physician - none LABS: Labs Reviewed - No data to display All other labs were within normal range or not returned as of this dictation. EMERGENCY DEPARTMENT COURSE and DIFFERENTIAL DIAGNOSIS/MDM: Vitals: Vitals: 05/26/23 2359 BP: (!) 159/87 Pulse: 98 Resp: 18 Temp: 36.8 C (98.2 F) SpO2: 100% Diagnoses as of 05/27/23 0021 Rash and other nonspecific skin eruption Medications doxycycline (Monodox) capsule 100 mg (has no administration in time range) fluconazole (Diflucan) tablet 100 mg (has no administration in time range) MDM: Mildly hypertensive on presentation to the emergency department, vital signs are otherwise within normal limits. Nontoxic-appearing. Flat, perfectly circular rim of erythema with punctate area erythema centrally. Patient has had no known tick exposure, however is concerned for Lyme given targetoid type lesion. On examination patient's rash is not particularly consistent with erythema migrans, advised Lyme testing and treatment if positive. Patient prefers/requesting empiric treatment. Medicated with p.o. doxycycline, discharged in stable condition with doxycycline twice daily x10 days. Provided prescription for Diflucan as patient is reporting yeast infections with antibiotics. Discussed follow-up with primary care. Return precautions. CONSULTS: None PROCEDURES: Unless otherwise noted below, none Procedures FINAL IMPRESSION 1. Rash and other nonspecific skin eruption DISPOSITION Discharge 05/27/2023 12:16:19 AM PATIENT REFERRED TO: Gamaliel Cormier MD [address] [place] [address], [address] [facility] [address] [facility] ED [address] [facility] [phone] As needed, If symptoms worsen DISCHARGE MEDICATIONS: New Prescriptions DOXYCYCLINE (VIBRAMYCIN) 100 MG CAPSULE Take 1 capsule (100 mg) by mouth 2 times daily for 10 days. Take with at least 8 ounces (large glass) of water, do not lie down for 30 minutes after FLUCONAZOLE (DIFLUCAN) 200 MG TABLET Take 1 tablet (200 mg) by mouth Once for 1 dose. Do not start before May 30, 2023. (Comment: Please note this report has been produced using speech recognition software and may contain errors related to that system including errors in grammar, punctuation, and spelling, as well as words and phrases that may be inappropriate. If there are any questions or concerns please feel free to contact the dictating provider for clarification.) Yamila Singh DO (electronically signed) Emergency Medicine Provider Yamila Singh DO 05/27/23 0126 [facility] 04-26-2023 Evaluation + Plan note Associated Problem(s): Rectal bleeding Currently bleeding is stopped, rectal exam there is no blood on the glove and no stool on the glove and Hemoccult is negative. Since you had a colonoscopy about 3 months ago we will watch this and see what happens I suspect it is a diverticulosis. She is to call or return immediately if she has further bleeding [facility] 04-26-2023 Miscellaneous Notes Associated Problem(s): Rectal bleeding Currently bleeding is stopped, rectal exam there is no blood on the glove and no stool on the glove and Hemoccult is negative. Since you had a colonoscopy about 3 months ago we will watch this and see what happens I suspect it is a diverticulosis. She is to call or return immediately if she has further bleeding documented in this encounter [facility] 04-26-2023 History of Presen t illness Narrative Patient verified by last name and date of . Patient wants a ornamental machine operator in the room during during the visit. no Online Marketer na Images from the original note were not included. 04/26/2023 Xochitl Fuller (: 1970) is a 53 y.o. female , Established patient, here for evaluation of the following chief complaint(s): Rectal Bleeding (Stool solid but not constipated- pass blood when feel like have to move bowels but only blood comes out has stomach pain started Monday ) ASSESSMENT/PLAN: 1. Rectal bleeding Assessment & Plan: Currently bleeding is stopped, rectal exam there is no blood on the glove and no stool on the glove and Hemoccult is negative. Since you had a colonoscopy about 3 months ago we will watch this and see what happens I suspect it is a diverticulosis. She is to call or return immediately if she has further bleeding Follow up if symptoms worsen or fail to improve. SUBJECTIVE/OBJECTIVE: MARIA DEL CARMEN -Xochitl comes in today stating that 3 days ago she has had bright red blood per rectum with a little bit of stool in each day it has become less and she said today she had basically 1 drop of blood. She had a colonoscopy in December which was completely clear other than one polyp that was removed. She had a few internal hemorrhoids that were small grade 1. She says with this bleeding she has had some cramping in her pelvis area like she was having a miscarriage. Review of Systems Constitutional: Negative for chills and fever. Respiratory: Negative for shortness of breath. Cardiovascular: Negative for chest pain and palpitations. Gastrointestinal: Positive for abdominal pain and anal bleeding. Negative for abdominal distention, constipation, diarrhea and rectal pain. Vitals: 04/26/23 0758 BP: 113/72 Pulse: 109 SpO2: 97% Weight: 155 lb 3.2 oz (70.4 kg) Height: 5' 3 (1.6 m) Physical Exam Vitals and nursing note reviewed. Constitutional: General: She is not in acute distress. Appearance: Normal appearance. HENT: Head: Normocephalic and atraumatic. Mouth/Throat: Mouth: Mucous membranes are moist. Pharynx: Oropharynx is clear. Eyes: Extraocular Movements: Extraocular movements intact. Pupils: Pupils are equal, round, and reactive to light. Cardiovascular: Rate and Rhythm: Normal rate and regular rhythm. Heart sounds: Normal heart sounds. No murmur heard. Pulmonary: Effort: Pulmonary effort is normal. Breath sounds: Normal breath sounds. Abdominal: General: Abdomen is flat. Bowel sounds are normal. Tenderness: There is abdominal tenderness in the suprapubic area. There is no guarding or rebound. Genitourinary: Rectum: Guaiac result negative. Internal hemorrhoid present. No mass, tenderness, anal fissure or external hemorrhoid. Normal anal tone. Comments: Guaiac results negative Musculoskeletal: Cervical back: Neck supple. Lymphadenopathy: Cervical: No cervical adenopathy. Neurological: Mental Status: She is alert. An electronic signature was used to authenticate this note. Gamaliel Cormier MD 04/26/2023 8:55 AM documented in this encounter [facility] 02-23-2023 History of Presen t illness Narrative GASTROENTEROLOGY OUTPATIENT TELEHEALTH PROGRESS NOTE Patient: Xochitl Fuller Date of : 1970 Age: 52 y.o. Sex: female PCP: Gamaliel Cormier MD Subjective: Patient was seen today via Telehealth by agreement and consent in light of the current COVID-19 pandemic. I used the following Telehealth technology: Audio capability only. Total length of call 30 minutes. The patient was offered and advised video for a more comprehensive evaluation, but the patient declined or was unable to use video. Patient location: Home. This patient encounter is appropriate and reasonable under the circumstances given the patient's particular presentation at this time. The patient has been advised of the potential risks and limitations of this mode of treatment (including but not limited to the absence of in-person examination) and has agreed to be treated in a remote fashion in spite of them. Any and all of the patient's/patient's family's questions on this issue have been answered and I have made no promises or guarantees to the patient. The patient has also been advised to contact this office for worsening conditions or problems, and seek emergency medical treatment and/or call 911 if the patient deems either necessary. The patient stated that they are currently in the [facility]. If the patient is a minor, permission has been obtained by the parent or guardian for the patient to receive medical care at this visit. I have spent 30 minutes with the patient for this encounter and reviewing the chart and coordinating their care. S: GI f/u of GERD and recent EGD/colonoscopy. Last GI clinic visit was 11/2022 (see prior clinic note for details) She reports several GI sx: bloating, constipation, GERD She's tried multiple PPIs with ongoing sx (ex. Dexilant). Currently uses Omeprazole daily. Also tried BID PPI. Uses Tums prn. Reports increased GERD sx with bending over, +hoarse voice, +occ vomiting, +occ periumbilical pain Uses Zofran prn +Naproxen prn Also reports constipation - BM every few days, hard stool Past h/o heavy ETOH use - quit 2013 after DUI and court mandated detox program. Since last clinic visit, pt reports ongoing GERD sx Reviewed EGD/colonoscopy with pathology results with pt at clinic visit. Prior EGD: 12/2022 and 2013 Prior Colonoscopy: 12/2022 Past Medical History: Diagnosis Date Acute bacterial sinusitis 03/12/2021 Anxiety Arthritis Asthma Breast abscess right breast Cervical dysplasia Chronic pain Degeneration of intervertebral disc of lumbar region 05/14/2018 GERD (gastroesophageal reflux disease) Menorrhagia SCHEDULED FOR THE SURGERY ON 07/07/2017 Neuropathy RA (rheumatoid arthritis) ([facility]) Tobacco abuse Past Surgical History: Procedure Laterality Date APPENDECTOMY 2018 BREAST BIOPSY Right 2016 COLONOSCOPY W/ BIOPSIES AND POLYPECTOMY N/A 12/28/2022 Performed by Kimberly Lay MD at [facility] ENDOSCOPY COLPOSCOPY ENDOMETRIAL ABLATION FINGER FRACTURE SURGERY Right 1st finger HYSTEROSCOPY N/A KNEE ARTHROSCOPY Left 03/15/2012 OTHER SURGICAL HISTORY rheumatoid nodule removal (from left leg) , finger reconstructive surgery, lasered for uterine dysplasia TUBAL LIGATION 1991 Social History Occupational History Not on file Tobacco Use Smoking status: Every Day Packs/day: 0.50 Types: Cigarettes Start date: 1980 Smokeless tobacco: Never Vaping Use Vaping Use: Never used Substance and Sexual Activity Alcohol use: No Comment: 2013 no longer drinking Drug use: Not Currently Types: IV, Marijuana, Methamphetamines Sexual activity: Not on file Family History Problem Relation Name Age of Onset Hypertension Mother Heart attack Mother Asthma Mother Arthritis Mother Thyroid disease Mother COPD Mother Other ([id number]) Father pneumonia aspiration Breast cancer Maternal Grandmother Cancer Maternal Grandfather No Known Problems Paternal Grandmother Migraines Paternal Grandfather Cancer Other Multiple Unknown Cancers on Maternal Side of family Colon cancer Neg Hx Prior to Admission medications Medication Sig Start Date End Date Taking? Authorizing Provider albuterol 108 (90 Base) MCG/ACT inhaler Inhale 2 puffs every 6 hours as needed for wheezing. 02/02/23 Gamaliel Cormier MD cephalexin (Keflex) 500 MG capsule Take 1 capsule (500 mg) by mouth 3 times daily for 10 days. 02/02/23 02/12/23 Gamaliel Cormier MD esomeprazole (NexIUM) [address] capsule Take 1 capsule (40 mg) by mouth every morning (before breakfast). 02/02/23 Gamaliel Cormier MD fluconazole (Diflucan) 150 MG tablet Take 1 tablet (150 mg) by mouth daily. 02/02/23 Gamaliel Cormier MD NAPROXEN PO Take 220 mg by mouth. 2 tabs prn Historical Provider, ondansetron ODT (Zofran-ODT) 4 MG disintegrating tablet dissolve 1 tablet ON TONGUE three times a day if needed for nausea or vomiting 04/01/22 Historical Provider, oxymetazoline (Afrin) 0.05 % nasal spray Administer into each nostril. Do not use for more than 3 days. Historical Provider, albuterol 108 (90 Base) MCG/ACT inhaler inhale 2 puffs by mouth and INTO THE LUNGS every 6 hours if needed for wheezing 12/07/15 02/02/23 Historical Provider, esomeprazole (NexIUM) [address] capsule Take 40 mg by mouth. 12/12/22 02/02/23 Historical Provider, fluconazole (Diflucan) 150 MG tablet Take 150 mg by mouth 1 (one) time. 10/28/22 02/02/23 Historical Provider, omeprazole (PriLOSEC) [address] capsule Take 1 capsule by mouth in the morning. 10/28/15 02/02/23 Historical Provider, Allergies: Allergies Allergen Reactions Naltrexone Anaphylaxis Sertraline Other reaction(s): Other (See Comments), Other: See Comments Made irritable Made irritable Ibuprofen GI intolerance, Nausea And Vomiting and Other Meloxicam Other Shut my kidneys down Shut my kidneys down Morphine Nausea And Vomiting Other reaction(s): GI Upset, Vomiting Only Review of Systems: Constitutional: see HPI History obtained from the patient HENT ROS: denies TURK, denies ear pain, denies sore throat, denies sinus pressure, denies runny nose, post nasal drip Eyes: denies blurry vision Respiratory ROS: denies SOB, denies cough Cardiovascular ROS: denies chest pain Gastrointestinal ROS: see HPI Genito-Urinary ROS: denies dysuria Musculoskeletal ROS: denies joint pain Neurological ROS: denies seizures, weakness, difficulty sleeping Dermatological ROS: denies rash Objective: Physical Exam: There were no vitals taken for this visit. No exam - telehealth visit Labs/Studies reviewed in Epic at today's current clinic visit Lab Results Component Value Date WBC 8.7 04/19/2022 HGB 15.1 04/19/2022 MCV 92.4 04/19/2022 Lab Results Component Value Date AST 29 04/19/2022 ALKPHOS 88 04/19/2022 BILITOT 0.6 04/19/2022 EGD/Colonoscopy 12/2022 Pathology A. Small bowel, biopsy - Superficial fragments of unremarkable small bowel mucosa. Comment: The specimen demonstrates an unremarkable villous architecture without significantly increased intraepithelial lymphocytes. Whipple's disease is not identified. Parasites are not identified. B. Stomach, biopsy - Gastric mucosa with focal changes suggestive of reactive gastropathy. Comment: H&E stain is negative for H. Pylori. No significant active inflammation present. Negative for intestinal metaplasia or malignancy. C. Colon, rectum, polypectomy - Hyperplastic polyp Recent Imaging: No GI related results ASSESSMENT/PLAN: Gastroesophageal reflux disease without esophagitis Hiatal hernia History of colonoscopy - 12/2022 - hyperplastic polyp, advised 10 yr follow-up colonoscopy --Will ask GI staff to mail another copy of the prior pathology results letter from EGD (upper endoscopy) and colonoscopy from December 2022. --Recommended Surgery consult for additional discussion of options for reflux. A referral was placed. --Continue PPI --Pt was given handout regarding additional information on hiatal hernia. FOLLOW-UP: Advised patient to please follow-up with PCP, and follow-up as needed in GI clinic following the above evaluation and recommendations. Signed By: KIMBERLY LAY MD documented in this encounter [facility] 02-23-2023 Instructions Kimberly Lay MD - 02/23/2023 3:00 PM EDT --Will ask GI staff to mail another copy of the prior pathology results letter from your EGD (upper endoscopy) and colonoscopy from December 2022. --Recommend Surgery consult for additional discussion of options for reflux. A referral was placed on your behalf. --Please continue acid reflux medication. --Please see attached handout regarding additional information on hiatal hernia. --Please follow-up with your PCP and as needed with me in GI clinic following the above evaluation and recommendations. The following attachments cannot be sent through Care Everywhere.Hiatal Hernia ([place])documented in this encounter [facility] 02-02-2023 Evaluation + Plan note Associated Problem(s): Abscess of left arm Currently does not look like anything needs I&D, there is no fluctuance. Continue Bactrim until gone, Keflex 500 mg 3 times daily x10 days [facility] 02-02-2023 Miscellaneous Notes Associated Problem(s): Abscess of left arm Currently does not look like anything needs I&D, there is no fluctuance. Continue Bactrim until gone, Keflex 500 mg 3 times daily x10 days documented in this encounter [facility] 02-02-2023 History of Presen t illness Narrative Images from the original note were not included. 02/02/2023 Xochitl Fuller (: 1970) is a 52 y.o. female , Established patient, here for evaluation of the following chief complaint(s): Abscess (Left arm at elbow area) ASSESSMENT/PLAN: 1. Abscess of left arm Assessment & Plan: Currently does not look like anything needs I&D, there is no fluctuance. Continue Bactrim until gone, Keflex 500 mg 3 times daily x10 days Follow up if symptoms worsen or fail to improve. SUBJECTIVE/OBJECTIVE: MARIA DEL CARMEN -Xochitl comes in today for pain of her left elbow, I received a call couple days ago that she had a abscess the size of a baseball on the lateral aspect of her left elbow. She has had problems like this in the past and she has been on antibiotics with good results. So we started her on Bactrim and she says it is significantly improved but she says she always has to have Keflex along with her Bactrim to get it to completely resolved. Review of Systems Musculoskeletal: Positive for joint swelling. Negative for arthralgias and myalgias. Neurological: Negative for weakness and numbness. Vitals: 02/02/23 0658 BP: (!) 147/93 Pulse: 92 Weight: 161 lb 3.2 oz (73.1 kg) Height: 5' 3 (1.6 m) Physical Exam Vitals and nursing note reviewed. Constitutional: General: She is not in acute distress. Appearance: Normal appearance. She is normal weight. Musculoskeletal: Comments: Left elbow with an area of induration but no fluctuance on the lateral aspect just above the lateral epicondyle, she says this is significantly improved since starting the antibiotics. It is tender to touch and slightly warm. Neurological: Mental Status: She is alert. An electronic signature was used to authenticate this note. Gamaliel Cormier MD 02/02/2023 8:09 AM documented in this encounter [facility] 02-01-2023 Telephone encounter Note Agree, thank you [facility] Work Phone: 02-01-2023 Miscellaneous Notes Agree, thank you S: Patient spoke with [facility] nurse regarding arm abscess B: Onset of symptoms/concern yesterday A: Patient complaining of painful, red, abscess on left upper arm above elbow(area size of a baseball). Denies fever, chest pain, difficulty breathing. Patient states she will post a photo of area on My Chart. Patient is requesting antibiotic(Keflex and Bactrim, also needs Diflucan due to yeast infection from antibiotic) sent to pharmacy. Patient reports history of abscess and this combination of antibiotics works well. R: Spoke with Dr. Cormier new order for Bactrim DS one twice daily for 7 days and advises patient be seen in office on morning to assess area. Spoke with [facility] pharmacist new order given. Patient informed of new order and Dr. Cormier's advice. OV scheduled for 02/02/[address] Cormier. Patient verbalizes understanding and states if no improvement with Bactrim she will go to ED. No further needs at this time. Patient instructed to call back with new or worsening symptoms. Reason for Disposition SEVERE pain (e.g., excruciating) Protocols used: Boil (Skin Abscess)-ADULT- documented in this encounter [facility] 01-31-2023 Telephone encounter Note S: Patient spoke with [facility] nurse regarding arm abscess B: Onset of symptoms/concern yesterday A: Patient complaining of painful, red, abscess on left upper arm above elbow(area size of a baseball). Denies fever, chest pain, difficulty breathing. Patient states she will post a photo of area on My Chart. Patient is requesting antibiotic(Keflex and Bactrim, also needs Diflucan due to yeast infection from antibiotic) sent to pharmacy. Patient reports history of abscess and this combination of antibiotics works well. R: Spoke with Dr. Cormier new order for Bactrim DS one twice daily for 7 days and advises patient be seen in office on morning to assess area. Spoke with [facility] pharmacist new order given. Patient informed of new order and Dr. Cormier's advice. OV scheduled for 02/02/[address] Cormier. Patient verbalizes understanding and states if no improvement with Bactrim she will go to ED. No further needs at this time. Patient instructed to call back with new or worsening symptoms. Reason for Disposition SEVERE pain (e.g., excruciating) Protocols used: Boil (Skin Abscess)-ADULT- [facility] 01-11-2023 History of Presen t illness Narrative Pt was scheduled for an Initial evaluation today at 10 AM. Pt was a no show. Clinician called pt and left a VM regarding today's missed evaluation and to call to RS if needed. documented in this encounter [facility] 01-04-2023 History of Presen t illness Narrative RHEUMATOLOGY-[facility] Visit type: new patient Reason for Visit: pain Assessment and Plan Xochitl Fuller is a 52 y.o. female patient with a history of active smoking, history of heavy alcohol use (quit age 43), ivda, gastrointestinal issues (patient cannot take NSAIDs) who presents for evaluation of pain. Patient established care with me on 01-04-2023 Patient is presenting with neck, spine, right shoulder, hand, feet, hip pain. Patient states she has had some type of chronic pain her whole life. Patient does definitively have osteoarthritis, her history is also concerning for inflammatory arthritis therefore I am sending full work-up with labs and x-rays. No signs of active synovitis on exam. Patient will take labs to [facility] Get x-rays today Physical therapy referral [facility] referral Pain management referral #osteoarthritis Explained to the patient that they have osteoarthritis, also synonymous with degenerative arthritis. I explained to them, that this type of arthritis, the cartilage, which is a rubbery material that protect the joints, wears away, which can lead to joint pain, and bone spurs. I told patient, this is the type of arthritis everyone gets, at some point in their life, and the severity can be mild to severe depending on the patient. Wear and tear, previous joint/tendon/ligament injuries, extra weight, genetics, all play a role in osteoarthritis. Explained to the patient, that there are no medications that can reverse cartilage loss. I explained that Maintaining a normal weight, exercise, joint and muscle strengthening, are the best things to help stabilize arthritis. #nutrition counseling - eat mostly whole foods and plant based foods I discussed a plant based non-processed diet with the patient to decrease inflammation in all organ systems and to help minimize medications IT IS VERY IMPORTANT TO incorporate fruits, vegetables, beans, lentils, flaxseed and Donnie seeds, whole grains such as oats and quinoa on a daily basis Avoid processed foods, and inflammatory animal products such as cow, pig, cheese 3-4 small meals a day, no snacking except fruits/veggies, and the patient should also meal prep. Patient was provided with information about plant based diet. We will call or message you with lab results, if there are any major issues we will call you to bring you in for sooner appointment Follow up in about 5 months (around 06/03/2023). The primary encounter diagnosis was Primary osteoarthritis involving multiple joints. Diagnoses of Neck pain, 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, Bilateral hand pain, Bilateral chronic knee pain, Chronic pain of both shoulders, Chronic pain of both feet, Vitamin D insufficiency, Chronic bilateral low back pain, unspecified whether sciatica present, Other fatigue, Anxiety and depression, Special screening examination for viral disease, Blood tests prior to treatment or procedure, and Livedo reticularis were also pertinent to this visit. Orders Placed This Encounter Procedures XR cervical spine complete 4 to 5 views Standing Status: Future Standing Expiration Date: 01/04/2024 Order Specific Question: Is the patient ? Answer: No XR foot 3+ views bilateral Standing Status: Future Standing Expiration Date: 01/04/2024 Order Specific Question: Is the patient ? Answer: No XR hand 3+ views bilateral Standing Status: Future Standing Expiration Date: 01/04/2024 Order Specific Question: Is the patient ? Answer: No XR lumbar spine 2 or 3 views Standing Status: Future Standing Expiration Date: 01/04/2024 Order Specific Question: Is the patient ? Answer: No XR sacroiliac joints 3+ views Standing Status: Future Standing Expiration Date: 01/04/2024 Order Specific Question: Is the patient ? Answer: No XR THORACIC SPINE COMPLETE 4+ VIEWS Standing Status: Future Standing Expiration Date: 01/04/2024 Order Specific Question: Is the patient ? Answer: No XR shoulder 2+ views bilateral Standing Status: Future Standing Expiration Date: 01/04/2024 Order Specific Question: Is the patient ? Answer: No XR knee 3 views bilateral Standing Status: Future Standing Expiration Date: 01/04/2024 Order Specific Question: Is the patient ? Answer: No CBC auto differential Standing Status: Future Number of Occurrences: 1 Standing Expiration Date: 01/04/2024 Comprehensive metabolic panel Standing Status: Future Number of Occurrences: 1 Standing Expiration Date: 01/04/2024 C-reactive protein Standing Status: Future Number of Occurrences: 1 Standing Expiration Date: 01/04/2024 Sedimentation rate, automated Standing Status: Future Number of Occurrences: 1 Standing Expiration Date: 01/04/2024 AMELIA AMELIA Screen,IFA, with Reflex to Titer and Pattern Test Code 249 Standing Status: Future Number of Occurrences: 1 Standing Expiration Date: 01/04/2024 Anti-Judi 1 antibody, IgG Standing Status: Future Number of Occurrences: 1 Standing Expiration Date: 01/04/2024 Centromere B Antibody ([facility]) Centromere B Antibody Test Code 20014 Standing Status: Future Number of Occurrences: 1 Standing Expiration Date: 01/04/2024 Chromatin (Nucleosomal) Antibody - Miscellaneous Test Chromatin (Nucleosomal) Antibody Test Code 71347 Standing Status: Future Number of Occurrences: 1 Standing Expiration Date: 01/04/2024 Order Specific Question: What is the name of the test you wish to perform? Answer: Chromatin (Nucleosomal) Antibody Anti-DNA antibody, double-stranded DNA (ds) Antibody Test Code 255 Standing Status: Future Number of Occurrences: 1 Standing Expiration Date: 01/04/2024 Immunoglobulins Panel, Serum - Miscellaneous Test Immunoglobulins Panel, Serum Test Code 7083 Standing Status: Future Number of Occurrences: 1 Standing Expiration Date: 01/04/2024 Order Specific Question: What is the name of the test you wish to perform? Answer: Immunoglobulins Panel, Serum FIELD MARKETING MANAGER Antibody - Miscellaneous Test FIELD MARKETING MANAGER Antibody Test Code 97850 Standing Status: Future Number of Occurrences: 1 Standing Expiration Date: 01/04/2024 Order Specific Question: What is the name of the test you wish to perform? Answer: FIELD MARKETING MANAGER Antibody Sjogren's Antibodies (SS-A,SS-B) ([facility]) Sjogren's Antibodies (SS-A, SS-B) Test Code 7832 Standing Status: Future Number of Occurrences: 1 Standing Expiration Date: 01/04/2024 Anti-Scleroderma 70 Ab IgG Scleroderma Antibody (Scl-70) Test Code 4942 Standing Status: Future Number of Occurrences: 1 Standing Expiration Date: 01/04/2024 SM and SM/FIELD MARKETING MANAGER Antibodies ([facility]) Sm and Sm/FIELD MARKETING MANAGER Antibodies Test Code 7448 Standing Status: Future Number of Occurrences: 1 Standing Expiration Date: 01/04/2024 Hepatitis B core antibody, IgM Standing Status: Future Number of Occurrences: 1 Standing Expiration Date: 01/04/2024 Hepatitis B surface antibody Standing Status: Future Number of Occurrences: 1 Standing Expiration Date: 01/04/2024 Hepatitis B core antibody, total Standing Status: Future Number of Occurrences: 1 Standing Expiration Date: 01/04/2024 Hepatitis B surface antigen Standing Status: Future Number of Occurrences: 1 Standing Expiration Date: 01/04/2024 Hepatitis C antibody Standing Status: Future Number of Occurrences: 1 Standing Expiration Date: 01/04/2024 QUANTIFERON TB GOLD QuantiFERON -TB Gold Plus, 1 Tube Test Code 32161 Standing Status: Future Number of Occurrences: 1 Standing Expiration Date: 01/04/2024 CK Standing Status: Future Number of Occurrences: 1 Standing Expiration Date: 01/04/2024 Ferritin Standing Status: Future Number of Occurrences: 1 Standing Expiration Date: 01/04/2024 Magnesium Standing Status: Future Number of Occurrences: 1 Standing Expiration Date: 01/04/2024 Phosphorus Standing Status: Future Number of Occurrences: 1 Standing Expiration Date: 01/04/2024 PTH, intact Standing Status: Future Number of Occurrences: 1 Standing Expiration Date: 01/04/2024 T4 Standing Status: Future Number of Occurrences: 1 Standing Expiration Date: 01/04/2024 TSH Standing Status: Future Number of Occurrences: 1 Standing Expiration Date: 01/04/2024 Uric acid Standing Status: Future Number of Occurrences: 1 Standing Expiration Date: 01/04/2024 Vitamin B12 Standing Status: Future Number of Occurrences: 1 Standing Expiration Date: 01/04/2024 Vitamin D 25 hydroxy Standing Status: Future Number of Occurrences: 1 Standing Expiration Date: 01/04/2024 Cyclic citrul peptide antibody, IgG Standing Status: Future Number of Occurrences: 1 Standing Expiration Date: 01/04/2024 Rheumatoid factor Standing Status: Future Number of Occurrences: 1 Standing Expiration Date: 01/04/2024 Vfzg-0-Tcrycwfogdhk I Antibodies (IgG, IgA, IgM) - Miscellaneous Test Dmkd-4-Rsrfhtsjugni I Antibodies (IgG, IgA, IgM) Test Code 07873 Standing Status: Future Number of Occurrences: 1 Standing Expiration Date: 01/04/2024 Order Specific Question: What is the name of the test you wish to perform? Answer: Cknf-3-Xdkohlpvcyyg I Antibodies (IgG, IgA, IgM) Cardiolipin AB (IGG,IGM) ([facility]) Cardiolipin Antibodies (IgG, IgM) Test Code 52222 Standing Status: Future Number of Occurrences: 1 Standing Expiration Date: 01/04/2024 Lupus anticoagulant Lupus Anticoagulant Evaluation with Reflex Test Code 7079 Standing Status: Future Number of Occurrences: 1 Standing Expiration Date: 01/04/2024 [facility] Standing Status: Future Standing Expiration Date: 07/04/2023 Referral Priority: Routine Referral Type: Therapy Referral Reason: Eval and Treat Requested Specialty: Physical Therapy Number of Visits Requested: 1 [place] [place] [facility] Standing Status: Future Standing Expiration Date: 07/04/2023 Referral Priority: Routine Referral Type: Consultation Referral Reason: Specialty Services Required Requested Specialty: Orthopedic Surgery Number of Visits Requested: 1 [facility] [place] [facility] Standing Status: Future Standing Expiration Date: 07/04/2023 Referral Priority: Routine Referral Type: Consultation Referral Reason: Specialty Services Required Requested Specialty: Pain Medicine Number of Visits Requested: 1 All results were reviewed with the patient. All questions were answered. Patient stated understanding of assessment and plan. Patient in agreement with plan. Risks, benefits, treatment options discussed. Subjective HPI Patient's been told that she was born with JRA, but she never saw a air traffic control operator as a kid. She states she saw a air traffic control operator once in her 20s, and was prescribed meloxicam, and she had side effects to it, so she has not gone back to see a air traffic control operator until now. Patient states she has a history of nodule removed from the breast. She states she will never get a mammogram again, because she states she has had an infection in her breast 12 times. Patient states [facility], but has not seen them since 2018 when her insurance changed. Patient states her feet really started hurting this year. Patient states her back is terrible. She has right shoulder pain. She states she just had a colonoscopy and EGD. Patient states she used to be a major alcoholic, she used to drink 15 beers a day, and hard liquor. Patient states she did quit age 43. She states all the alcohol significantly disrupted her gastrointestinal symptoms. Patient states she cannot take NSAIDs. Patient states she worked in [employer] for 12 years. 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 Patient states she is to play a lot of sports. She has a history of left knee injury and surgery. She has a history of right second finger softball injury with deformity. She says her hands are swollen in the morning. She says she is stiff in the morning. She has hip bursitis. She states she has a history of cervical dysplasia. She is still smoking half pack per day. Patient states she has depression anxiety. Patient has a lot of depression over her weight. Patient states that she looks grotesque and is very upset about her weight around the abdomen. Patient states she follows with [facility] gastro[facility]ology Allergies Allergen Reactions Naltrexone Anaphylaxis Sertraline Other reaction(s): Other (See Comments), Other: See Comments Made irritable Made irritable Ibuprofen GI intolerance, Nausea And Vomiting and Other Meloxicam Other Shut my kidneys down Shut my kidneys down Morphine Nausea And Vomiting Other reaction(s): GI Upset, Vomiting Only Outpatient Medications Prior to Visit Medication Sig Dispense Refill albuterol 108 (90 Base) MCG/ACT inhaler inhale 2 puffs by mouth and INTO THE LUNGS every 6 hours if needed for wheezing esomeprazole (NexIUM) [address] capsule Take 40 mg by mouth. NAPROXEN PO Take 220 mg by mouth. 2 tabs prn omeprazole (PriLOSEC) [address] capsule Take 1 capsule by mouth in the morning. oxymetazoline (Afrin) 0.05 % nasal spray Administer into each nostril. Do not use for more than 3 days. albuterol 108 (90 Base) MCG/ACT inhaler inhale 2 puffs by mouth and INTO THE LUNGS every 6 hours if needed for wheezing 18 g 2 desvenlafaxine succinate ER 25 MG 24 hour tablet Take 1 tablet (25 mg) by mouth daily. 30 tablet 1 polyethylene glycol, PEG, 3350 (Miralax) 17 g packet Take 17 g by mouth daily. 30 packet 0 No facility-administered medications prior to visit. Past Medical History: Diagnosis Date Acute bacterial sinusitis 03/12/2021 Anxiety Arthritis Asthma Breast abscess right breast Cervical dysplasia Chronic pain Degeneration of intervertebral disc of lumbar region 05/14/2018 GERD (gastroesophageal reflux disease) Menorrhagia SCHEDULED FOR THE SURGERY ON 07/07/2017 Neuropathy RA (rheumatoid arthritis) ([facility]) Tobacco abuse Social History Tobacco Use Smoking status: Every Day Packs/day: 0.50 Types: Cigarettes Start date: 1980 Smokeless tobacco: Never Substance Use Topics Alcohol use: No Comment: 2013 no longer drinking Past Surgical History: Procedure Laterality Date APPENDECTOMY 2018 BREAST BIOPSY Right 2016 COLONOSCOPY W/ BIOPSIES AND POLYPECTOMY N/A 12/28/2022 Performed by Kimberly Lay MD at [address] ENDOSCOPY COLPOSCOPY ENDOMETRIAL ABLATION FINGER FRACTURE SURGERY Right 1st finger HYSTEROSCOPY N/A KNEE ARTHROSCOPY Left 03/15/2012 OTHER SURGICAL HISTORY rheumatoid nodule removal (from left leg) , finger reconstructive surgery, lasered for uterine dysplasia TUBAL LIGATION 1991 Family History Problem Relation Name Age of Onset Hypertension Mother Heart attack Mother Asthma Mother Arthritis Mother Thyroid disease Mother COPD Mother Other ([id number]) Father pneumonia aspiration Breast cancer Maternal Grandmother Cancer Maternal Grandfather No Known Problems Paternal Grandmother Migraines Paternal Grandfather Cancer Other Multiple Unknown Cancers on Maternal Side of family Colon cancer Neg Hx REVIEW OF SYSTEMS: CONSTITUTIONAL: Admits: [] Weight Loss [] Fever [x] Frequent Night Sweats OPHTHALMOLOGIC: Admits: [] Glaucoma [] History or Current Inflammatory Eye Disease [] Cataracts ENT: Admits: [] Oral/Nasal Ulcers [] epistaxis [] Recurrent Sinusitis [] Dry Eyes [] Dry mouth CARDIOVASCULAR: Admits: [] Chest pain [] Pericarditis/Pleuritis [] Palpitations [] Edema RESPIRATORY: Admits: [] hemoptysis [] Dyspnea on Exertion [] Cough [] Wheezing GASTROINTESTINAL: Admits: [] Bloody Stool [] Diarrhea [] Vomitting GENITOURINARY: Admits: [] Blood in urine [] Genital Ulcers [] Burning/pain with urination MUSCULOSKELETAL: Admits: [x] Muscle Pain [x] Joint Pain INTEGUMENTARY: Admits: [] Skin changes [] Sclerodactyly [x] Raynauds [] Photosensitivity [] Alopecia NEUROLOGIC: Admits: [] Recurrent Headaches [x] Limb Weakness [x] Numbness/Tingling PSYCHIATRIC: Admits: [] Insomnia [x] Depression [x] Anxiety ENDOCRINE: Admits: [] Thyroid abnormalities HEMATOLOGY/LYMPH: Admits: [] Notable Swollen Lymph Nodes [] History of Cytopenias [] Bruising tendency [] History of DVT/PE All non checked boxes, patient denies. All other 10 point ROS reviewed and negative. Objective BP 131/82 (BP Location: Right arm, Patient Position: Sitting, BP Cuff Size: Adult) Pulse 94 Ht 5' 3 (1.6 m) Wt 158 lb (71.7 kg) BMI 27.99 kg/m Physical Exam Constitutional: BP 131/82 (BP Location: Right arm, Patient Position: Sitting, BP Cuff Size: Adult) Pulse 94 Ht 5' 3 (1.6 m) Wt 158 lb (71.7 kg) BMI 27.99 kg/m : reviewed Comfortable, pleasant, no acute distress Eyes: Conjunctiva clear and moist, eyelids without lesions. Extraocular movements fully intact. Respiratory: Inspiratory and expiratory effort normal. Clear to auscultation bilaterally. No crackles or wheezes. Cardiovascular: Palpation of heart reveals normal PMI. Auscultation: regular rate rhythm, no murmurs/rubs/gallops. No edema of extremities Dermatologic: Inspection and palpation of skin and subcutaneous tissue of all four extremities with livedo reticularis Psychiatric: Patient was tearful during most of the visit Musculoskeletal: Neck: Moderate decrease ROM. no swelling.No tenderness, Shoulder: Right shoulder with moderate decreased range of motion. Left shoulder with mild decreased range of motion Elbows: Full ROM. no swelling, No tenderness, Right second finger with deformity. No synovitis or tenderness in MCPs, PIPs or wrist. There is decreased range of motion Decreased range of motion and pain with hip flexion Knees: Mild decrease ROM, no swelling, No tenderness, Feet: . no swelling, No tenderness, Ankles: no swelling, No tenderness, Spine: No spinous process tenderness. No sacroiliac joint tenderness. Data Reviewed and Summarized Labs: Lab Results Component Value Date WBC 8.7 04/19/2022 HGB 15.1 04/19/2022 MCV 92.4 04/19/2022 Lab Results Component Value Date CREATININE 0.91 04/19/2022 BUN 14 04/19/2022 NA 137 04/19/2022 K 4.3 04/19/2022 CL 105 04/19/2022 CO2 27 04/19/2022 Lab Results Component Value Date AST 29 04/19/2022 ALKPHOS 88 04/19/2022 BILITOT 0.6 04/19/2022 No results found for: SEDRATE No results found for: CRP Imaging/Testing: Kandice Alegre MD This note was created with the assistance of a speech recognition program. While intending to generate a timely document that accurately reflects the content of the visit, no guarantee can be provided that every grammatical or spelling mistake has been or will be identified or corrected. Thank you for your understanding. On this date January 04, 2023 I have spent 60 minutes reviewing previous notes, test results and face to face with the patient discussing the diagnosis and importance of compliance with the treatment plan as well as documenting on the day of the visit. An electronic signature was used to authenticate this note. --Kandice Alegre MD RHEUMATOLOGY documented in this encounter [facility] 01-04-2023 Instructions Kandice Alegre MD - 01/04/2023 1:00 PM EST Patient will take labs to [facility] Get x-rays today Physical therapy referral [facility] referral Pain management referral We will call or message you with lab results, if there are any major issues we will call you to bring you in for sooner appointment documented in this encounter [facility] 12-28-2022 Hospital Discharg e instructions Arabella Moore RN - 12/28/2022 1:31 PM EST Upper GI Endoscopy: What to expect at home ACTIVITY: DO NOT DRIVE, OPERATE MACHINERY, OR DRINK ANY ALCOHOL TODAY. Avoid making critical decisions, signing legal documents, or performing any activity that requires alertness for the rest of the day. You may be bloated or have gas pains since air was introduced into the stomach for the procedure. You may need to pass the gas throughout the day. You may experience a mild sore throat. You may use an [id number] chloraseptic spray, gargle with warm salt water, or use throat lozenges. Notify your physician if this feeling lasts more than 48 hours. Rest the remainder of the day. You may resume normal activity tomorrow. You may return to work tomorrow. DIET: You may resume a normal diet unless notified or recommended by your physician. You may be eager to eat a large meal after fasting, but it is a good idea to start with light meals and ease into solid foods the first day. (*) If your stomach is upset, try clear liquids and bland, low-fat foods like plain toast or rice. Drink plenty of fluids for the first 24 hours (unless your physician states otherwise). MEDICATION: Resume your normal home medications unless notified or recommended by your physician. If you take blood thinners (such as Coumadin, Eliquis, Plavix, Aspirin, etc.) or anti-inflammatory medications (Advil, Motrin, Aleve, etc.), ask your physician when you may resume these medications. FOLLOW-UP APPOINTMENT: Follow up with or call your physician as needed. When to call for help: Call your doctor IMMEDIATELY or seek medical care if you experience: Severe pain or vomiting Coughing up more than a teaspoon of blood You pass a large amount of tar-like stools Your belly is swollen and firm with severe pain A fever greater than 101 degrees Redness or swelling of arm from the IV site for more than 48 hours Sudden onset of chest pain or shortness of breath If you become extremely dizzy or pass out (lose consciousness) IF YOU ARE UNABLE TO REACH YOUR PHYSICIAN GO TO NEAREST EMERGENCY DEPARTMENT Colonoscopy: What to expect at home ACTIVITY: DO NOT DRIVE, OPERATE MACHINERY, OR DRINK ANY ALCOHOL TODAY. Avoid making critical decisions, signing legal documents, or performing any activity that requires alertness for the rest of the day. You may be bloated or have gas pains since air was introduced into the colon for the procedure. You may need to pass the gas throughout the day. You may experience a small amount of rectal bleeding; this can be normal after your colonoscopy. Notify your physician if the bleeding is enough to saturate your clothes. Rest the remainder of the day. You may resume normal activity tomorrow. You may return to work tomorrow. DIET: You may resume a normal diet unless notified or recommended by your physician. You may be eager to eat a large meal after fasting, but it is a good idea to start with light meals and ease into solid foods the first day. (*) If your stomach is upset, try clear liquids and bland, low-fat foods like plain toast or rice. Drink plenty of fluids for the first 24 hours (unless your physician states otherwise). MEDICATION: Resume your normal home medications unless notified or recommended by your physician. If you take blood thinners (such as Coumadin, Eliquis, Plavix, Aspirin, etc.) or anti-inflammatory medications (Advil, Motrin, Aleve, etc.), ask your physician when you may resume these medications. FOLLOW-UP APPOINTMENT: Follow up with or call your physician as needed. When to call for help: Call your doctor IMMEDIATELY or seek medical care if you experience: Severe pain or vomiting A large amount (filling the toilet) of maroon, bloody stools or tar-like stools Your belly is swollen and firm with severe pain A fever greater than 101 degrees Redness or swelling of arm from the IV site for more than 48 hours Sudden onset of chest pain or shortness of breath If you become extremely dizzy or pass out (lose consciousness) IF YOU ARE UNABLE TO REACH YOUR PHYSICIAN GO TO NEAREST EMERGENCY DEPARTMENT documented in this encounter [facility] 12-28-2022 Note Formatting of this n ote might be different from the original. [facility]: Xochitl Fuller Procedure Date: 12/28/2022 12:47 PM Gender: Female Date of : 1970 Age: 52 Admit Type: Outpatient Note Status: Finalized Endoscopist: Kimberly Lay MD Procedure: Upper GI endoscopy Indications: Esophageal reflux symptoms that persist despite appropriate therapy, Abdominal bloating Findings: The second portion of the duodenum was normal. Biopsies for histology were taken with a cold forceps for evaluation of celiac disease. Patchy mildly erythematous mucosa without active bleeding and with no stigmata of bleeding was found in the duodenal bulb. Biopsies for histology were taken with a cold forceps for evaluation of celiac disease. Biopsies were taken with a cold forceps for histology. Patchy mildly erythematous mucosa without bleeding was found in the stomach. Biopsies were taken with a cold forceps for Helicobacter pylori testing. A small hiatal hernia was present. The examined esophagus was normal. Impression: - Normal second portion of the duodenum. Biopsied. - Erythematous duodenopathy. Biopsied. - Erythematous mucosa in the stomach. Biopsied. - Small hiatal hernia. - Normal esophagus. Recommendation: - Patient has a contact number available for emergencies. The signs and symptoms of potential delayed complications were discussed with the patient. Return to normal activities tomorrow. Written discharge instructions were provided to the patient. - Await pathology results. - Continue present medications. - Resume previous diet. - Return to referring physician as previously scheduled. - Perform a colonoscopy today. Referring MD: Gamaliel Cormier MD CC Letter to: Gamaliel Cormier MD Medicines: Monitored Anesthesia Care Procedure: Pre-Anesthesia Assessment: - Prior to the procedure, a History and Physical was performed, and patient medications and allergies were reviewed. The patient is competent. The risks and benefits of the procedure and the sedation options and risks were discussed with the patient. All questions were answered and informed consent was obtained. Patient identification and proposed procedure were verified by the physician, the nurse and the stator plate washer in the pre-procedure area in the procedure room. Mental Status Examination: alert and oriented. Respiratory Examination: clear to auscultation. CV Examination: normal. Prophylactic Antibiotics: The patient does not require prophylactic antibiotics. Prior Anticoagulants: The patient has taken no anticoagulant or antiplatelet agents. ASA Grade Assessment: II - A patient with mild systemic disease. After reviewing the risks and benefits, the patient was deemed in satisfactory condition to undergo the procedure. The anesthesia plan was to use monitored anesthesia care (MAC). Immediately prior to administration of medications, the patient was re-assessed for adequacy to receive sedatives. The heart rate, respiratory rate, oxygen saturations, blood pressure, adequacy of pulmonary ventilation, and response to care were monitored throughout the procedure. The physical status of the patient was re-assessed after the procedure. After obtaining informed consent, the endoscope was passed under direct vision. Throughout the procedure, the patient's blood pressure, pulse, and oxygen saturations were monitored continuously. The Endoscope was introduced through the mouth, and advanced to the second part of duodenum. The upper GI endoscopy was accomplished with ease. The patient tolerated the procedure well. Complications: No immediate complications. Estimated blood loss: None. Procedure Code(s): --- Professional --- 90806, Esophagogastroduodenoscopy, flexible, transoral; with biopsy, single or multiple --- Technical --- 61046, Esophagogastroduodenoscopy, flexible, transoral; with biopsy, single or multiple Diagnosis Code(s): --- Professional --- K31.89, Other diseases of stomach and duodenum K44.9, Diaphragmatic hernia without obstruction or gangrene K21.9, Gastro-esophageal reflux disease without esophagitis R14.0, Abdominal distension (gaseous) --- Technical --- K31.89, Other diseases of stomach and duodenum K44.9, Diaphragmatic hernia without obstruction or gangrene K21.9, Gastro-esophageal reflux disease without esophagitis R14.0, Abdominal distension (gaseous) CPT copyright 2020 [employer]. All rights reserved. The codes documented in this report are preliminary and upon student advisor review may be revised to meet current compliance requirements. Attending Participation: I personally performed the entire procedure. Kimberly Lay MD 12/28/2022 1:25:42 PM Number of Addenda: 0 Note Initiated On: 12/28/2022 12:47 PM [facility] 12-28-2022 Note Formatting of this n ote might be different from the original. [facility]: Xochitl Fuller Procedure Date: 12/28/2022 12:47 PM Gender: Female Date of : 1970 Age: 52 Admit Type: Outpatient Note Status: Finalized Endoscopist: Kimberly Lay MD Procedure: Upper GI endoscopy Indications: Esophageal reflux symptoms that persist despite appropriate therapy, Abdominal bloating Findings: The second portion of the duodenum was normal. Biopsies for histology were taken with a cold forceps for evaluation of celiac disease. Patchy mildly erythematous mucosa without active bleeding and with no stigmata of bleeding was found in the duodenal bulb. Biopsies for histology were taken with a cold forceps for evaluation of celiac disease. Biopsies were taken with a cold forceps for histology. Patchy mildly erythematous mucosa without bleeding was found in the stomach. Biopsies were taken with a cold forceps for Helicobacter pylori testing. A small hiatal hernia was present. The examined esophagus was normal. Impression: - Normal second portion of the duodenum. Biopsied. - Erythematous duodenopathy. Biopsied. - Erythematous mucosa in the stomach. Biopsied. - Small hiatal hernia. - Normal esophagus. Recommendation: - Patient has a contact number available for emergencies. The signs and symptoms of potential delayed complications were discussed with the patient. Return to normal activities tomorrow. Written discharge instructions were provided to the patient. - Await pathology results. - Continue present medications. - Resume previous diet. - Return to referring physician as previously scheduled. - Perform a colonoscopy today. Referring MD: Gamaliel Cormier MD CC Letter to: Gamaliel Cormier MD Medicines: Monitored Anesthesia Care Procedure: Pre-Anesthesia Assessment: - Prior to the procedure, a History and Physical was performed, and patient medications and allergies were reviewed. The patient is competent. The risks and benefits of the procedure and the sedation options and risks were discussed with the patient. All questions were answered and informed consent was obtained. Patient identification and proposed procedure were verified by the physician, the nurse and the stator plate washer in the pre-procedure area in the procedure room. Mental Status Examination: alert and oriented. Respiratory Examination: clear to auscultation. CV Examination: normal. Prophylactic Antibiotics: The patient does not require prophylactic antibiotics. Prior Anticoagulants: The patient has taken no anticoagulant or antiplatelet agents. ASA Grade Assessment: II - A patient with mild systemic disease. After reviewing the risks and benefits, the patient was deemed in satisfactory condition to undergo the procedure. The anesthesia plan was to use monitored anesthesia care (MAC). Immediately prior to administration of medications, the patient was re-assessed for adequacy to receive sedatives. The heart rate, respiratory rate, oxygen saturations, blood pressure, adequacy of pulmonary ventilation, and response to care were monitored throughout the procedure. The physical status of the patient was re-assessed after the procedure. After obtaining informed consent, the endoscope was passed under direct vision. Throughout the procedure, the patient's blood pressure, pulse, and oxygen saturations were monitored continuously. The Endoscope was introduced through the mouth, and advanced to the second part of duodenum. The upper GI endoscopy was accomplished with ease. The patient tolerated the procedure well. Complications: No immediate complications. Estimated blood loss: None. Procedure Code(s): --- Professional --- 54192, Esophagogastroduodenoscopy, flexible, transoral; with biopsy, single or multiple --- Technical --- 77795, Esophagogastroduodenoscopy, flexible, transoral; with biopsy, single or multiple Diagnosis Code(s): --- Professional --- K31.89, Other diseases of stomach and duodenum K44.9, Diaphragmatic hernia without obstruction or gangrene K21.9, Gastro-esophageal reflux disease without esophagitis R14.0, Abdominal distension (gaseous) --- Technical --- K31.89, Other diseases of stomach and duodenum K44.9, Diaphragmatic hernia without obstruction or gangrene K21.9, Gastro-esophageal reflux disease without esophagitis R14.0, Abdominal distension (gaseous) CPT copyright 2020 [place] [employer]. All rights reserved. The codes documented in this report are preliminary and upon student advisor review may be revised to meet current compliance requirements. Attending Participation: I personally performed the entire procedure. Kimberly Lay MD 12/28/2022 1:25:42 PM Number of Addenda: 0 Note Initiated On: 12/28/2022 12:47 PM [facility] 12-28-2022 Note Formatting of this n ote might be different from the original. [facility]: Xochitl Fuller Procedure Date: 12/28/2022 12:47 PM Gender: Female Date of : 1970 Age: 52 Admit Type: Outpatient Note Status: Finalized Endoscopist: Kimberly Lay MD Procedure: Colonoscopy Indications: Screening for malignant neoplasm in the colon, This is the patient's first colonoscopy Findings: The digital rectal exam was normal. A small polyp was found in the rectum. The polyp was sessile. The polyp was removed with a cold snare. Resection and retrieval were complete. Internal hemorrhoids were found during retroflexion. The hemorrhoids were small and Grade I (internal hemorrhoids that do not prolapse). Anal papilla(e) were hypertrophied. Recommendation: - Patient has a contact number available for emergencies. The signs and symptoms of potential delayed complications were discussed with the patient. Return to normal activities tomorrow. Written discharge instructions were provided to the patient. - Continue present medications. - Resume previous diet. - High fiber diet. - Repeat colonoscopy is recommended. The colonoscopy date will be determined after pathology results from today's exam become available for review. - Return to referring physician as previously scheduled. Referring MD: Gamaliel Cormier MD CC Letter to: Gamaliel Cormier MD Medicines: Monitored Anesthesia Care Procedure: Pre-Anesthesia Assessment: - Prior to the procedure, a History and Physical was performed, and patient medications and allergies were reviewed. The patient is competent. The risks and benefits of the procedure and the sedation options and risks were discussed with the patient. All questions were answered and informed consent was obtained. Patient identification and proposed procedure were verified by the physician, the nurse and the stator plate washer in the pre-procedure area in the procedure room. Mental Status Examination: alert and oriented. Respiratory Examination: clear to auscultation. CV Examination: normal. Prophylactic Antibiotics: The patient does not require prophylactic antibiotics. Prior Anticoagulants: The patient has taken no anticoagulant or antiplatelet agents. ASA Grade Assessment: II - A patient with mild systemic disease. After reviewing the risks and benefits, the patient was deemed in satisfactory condition to undergo the procedure. The anesthesia plan was to use monitored anesthesia care (MAC). Immediately prior to administration of medications, the patient was re-assessed for adequacy to receive sedatives. The heart rate, respiratory rate, oxygen saturations, blood pressure, adequacy of pulmonary ventilation, and response to care were monitored throughout the procedure. The physical status of the patient was re-assessed after the procedure. After I obtained informed consent, the scope was passed under direct vision. Throughout the procedure, the patient's blood pressure, pulse, and oxygen saturations were monitored continuously. The Colonoscope was introduced through the anus and advanced to the cecum, identified by appendiceal orifice and ileocecal valve. The colonoscopy was performed with ease. The patient tolerated the procedure well. The quality of the bowel preparation was adequate. The ileocecal valve, appendiceal orifice, and rectum were photographed. Complications: No immediate complications. Procedure Code(s): --- Professional --- 23745, Colonoscopy, flexible; with removal of tumor(s), polyp(s), or other lesion(s) by snare technique --- Technical --- 87188, Colonoscopy, flexible; with removal of tumor(s), polyp(s), or other lesion(s) by snare technique Diagnosis Code(s): --- Professional --- Z12.11, Encounter for screening for malignant neoplasm of colon --- Technical --- Z12.11, Encounter for screening for malignant neoplasm of colon CPT copyright 2020 [place] [employer]. All rights reserved. The codes documented in this report are preliminary and upon student advisor review may be revised to meet current compliance requirements. Attending Participation: I personally performed the entire procedure. Kimberly Lay MD 12/28/2022 1:28:39 PM Number of Addenda: 0 Note Initiated On: 12/28/2022 12:47 PM [facility] 12-28-2022 Note Formatting of this n ote might be different from the original. [facility] Patient Name: Xochitl Fuller Procedure Date: 12/28/2022 12:47 PM Gender: Female Date of : 1970 Age: 52 Admit Type: Outpatient Note Status: Finalized Endoscopist: Kimberly Lay MD Procedure: Colonoscopy Indications: Screening for malignant neoplasm in the colon, This is the patient's first colonoscopy Findings: The digital rectal exam was normal. A small polyp was found in the rectum. The polyp was sessile. The polyp was removed with a cold snare. Resection and retrieval were complete. Internal hemorrhoids were found during retroflexion. The hemorrhoids were small and Grade I (internal hemorrhoids that do not prolapse). Anal papilla(e) were hypertrophied. Recommendation: - Patient has a contact number available for emergencies. The signs and symptoms of potential delayed complications were discussed with the patient. Return to normal activities tomorrow. Written discharge instructions were provided to the patient. - Continue present medications. - Resume previous diet. - High fiber diet. - Repeat colonoscopy is recommended. The colonoscopy date will be determined after pathology results from today's exam become available for review. - Return to referring physician as previously scheduled. Referring MD: Gamaliel Cormier MD CC Letter to: Gamaliel Cormier MD Medicines: Monitored Anesthesia Care Procedure: Pre-Anesthesia Assessment: - Prior to the procedure, a History and Physical was performed, and patient medications and allergies were reviewed. The patient is competent. The risks and benefits of the procedure and the sedation options and risks were discussed with the patient. All questions were answered and informed consent was obtained. Patient identification and proposed procedure were verified by the physician, the nurse and the stator plate washer in the pre-procedure area in the procedure room. Mental Status Examination: alert and oriented. Respiratory Examination: clear to auscultation. CV Examination: normal. Prophylactic Antibiotics: The patient does not require prophylactic antibiotics. Prior Anticoagulants: The patient has taken no anticoagulant or antiplatelet agents. ASA Grade Assessment: II - A patient with mild systemic disease. After reviewing the risks and benefits, the patient was deemed in satisfactory condition to undergo the procedure. The anesthesia plan was to use monitored anesthesia care (MAC). Immediately prior to administration of medications, the patient was re-assessed for adequacy to receive sedatives. The heart rate, respiratory rate, oxygen saturations, blood pressure, adequacy of pulmonary ventilation, and response to care were monitored throughout the procedure. The physical status of the patient was re-assessed after the procedure. After I obtained informed consent, the scope was passed under direct vision. Throughout the procedure, the patient's blood pressure, pulse, and oxygen saturations were monitored continuously. The Colonoscope was introduced through the anus and advanced to the cecum, identified by appendiceal orifice and ileocecal valve. The colonoscopy was performed with ease. The patient tolerated the procedure well. The quality of the bowel preparation was adequate. The ileocecal valve, appendiceal orifice, and rectum were photographed. Complications: No immediate complications. Procedure Code(s): --- Professional --- 06278, Colonoscopy, flexible; with removal of tumor(s), polyp(s), or other lesion(s) by snare technique --- Technical --- 13911, Colonoscopy, flexible; with removal of tumor(s), polyp(s), or other lesion(s) by snare technique Diagnosis Code(s): --- Professional --- Z12.11, Encounter for screening for malignant neoplasm of colon --- Technical --- Z12.11, Encounter for screening for malignant neoplasm of colon CPT copyright 2020 [place] [employer]. All rights reserved. The codes documented in this report are preliminary and upon student advisor review may be revised to meet current compliance requirements. Attending Participation: I personally performed the entire procedure. Kimberly Lay MD 12/28/2022 1:28:39 PM Number of Addenda: 0 Note Initiated On: 12/28/2022 12:47 PM [facility] 12-28-2022 Miscellaneous Notes [facility] Name: Xochitl Fuller Procedure Date: 12/28/2022 12:47 PM Gender: Female Date of : 1970 Age: 52 Admit Type: Outpatient Note Status: Finalized Endoscopist: Kimberly Lay MD Procedure: Upper GI endoscopy Indications: Esophageal reflux symptoms that persist despite appropriate therapy, Abdominal bloating Findings: The second portion of the duodenum was normal. Biopsies for histology were taken with a cold forceps for evaluation of celiac disease. Patchy mildly erythematous mucosa without active bleeding and with no stigmata of bleeding was found in the duodenal bulb. Biopsies for histology were taken with a cold forceps for evaluation of celiac disease. Biopsies were taken with a cold forceps for histology. Patchy mildly erythematous mucosa without bleeding was found in the stomach. Biopsies were taken with a cold forceps for Helicobacter pylori testing. A small hiatal hernia was present. The examined esophagus was normal. Impression: - Normal second portion of the duodenum. Biopsied. - Erythematous duodenopathy. Biopsied. - Erythematous mucosa in the stomach. Biopsied. - Small hiatal hernia. - Normal esophagus. Recommendation: - Patient has a contact number available for emergencies. The signs and symptoms of potential delayed complications were discussed with the patient. Return to normal activities tomorrow. Written discharge instructions were provided to the patient. - Await pathology results. - Continue present medications. - Resume previous diet. - Return to referring physician as previously scheduled. - Perform a colonoscopy today. Referring MD: Gamaliel Cormier MD CC Letter to: Gamaliel Cormier MD Medicines: Monitored Anesthesia Care Procedure: Pre-Anesthesia Assessment: - Prior to the procedure, a History and Physical was performed, and patient medications and allergies were reviewed. The patient is competent. The risks and benefits of the procedure and the sedation options and risks were discussed with the patient. All questions were answered and informed consent was obtained. Patient identification and proposed procedure were verified by the physician, the nurse and the stator plate washer in the pre-procedure area in the procedure room. Mental Status Examination: alert and oriented. Respiratory Examination: clear to auscultation. CV Examination: normal. Prophylactic Antibiotics: The patient does not require prophylactic antibiotics. Prior Anticoagulants: The patient has taken no anticoagulant or antiplatelet agents. ASA Grade Assessment: II - A patient with mild systemic disease. After reviewing the risks and benefits, the patient was deemed in satisfactory condition to undergo the procedure. The anesthesia plan was to use monitored anesthesia care (MAC). Immediately prior to administration of medications, the patient was re-assessed for adequacy to receive sedatives. The heart rate, respiratory rate, oxygen saturations, blood pressure, adequacy of pulmonary ventilation, and response to care were monitored throughout the procedure. The physical status of the patient was re-assessed after the procedure. After obtaining informed consent, the endoscope was passed under direct vision. Throughout the procedure, the patient's blood pressure, pulse, and oxygen saturations were monitored continuously. The Endoscope was introduced through the mouth, and advanced to the second part of duodenum. The upper GI endoscopy was accomplished with ease. The patient tolerated the procedure well. Complications: No immediate complications. Estimated blood loss: None. Procedure Code(s): --- Professional --- 84327, Esophagogastroduodenoscopy, flexible, transoral; with biopsy, single or multiple --- Technical --- 02893, Esophagogastroduodenoscopy, flexible, transoral; with biopsy, single or multiple Diagnosis Code(s): --- Professional --- K31.89, Other diseases of stomach and duodenum K44.9, Diaphragmatic hernia without obstruction or gangrene K21.9, Gastro-esophageal reflux disease without esophagitis R14.0, Abdominal distension (gaseous) --- Technical --- K31.89, Other diseases of stomach and duodenum K44.9, Diaphragmatic hernia without obstruction or gangrene K21.9, Gastro-esophageal reflux disease without esophagitis R14.0, Abdominal distension (gaseous) CPT copyright 2020 [employer]. All rights reserved. The codes documented in this report are preliminary and upon student advisor review may be revised to meet current compliance requirements. Attending Participation: I personally performed the entire procedure. Kimberly Lay MD 12/28/2022 1:25:42 PM Number of Addenda: 0 Note [facility]iated [facility]: 12[facility]28[facility]2022 12[facility] X[facility]l [facility] Procedure Date: 12/28/2022 12:47 PM Gender: Female Date of : 1970 Age: 52 Admit Type: Outpatient Note Status: Finalized Endoscopist: Kimberly Lay MD Procedure: Colonoscopy Indications: Screening for malignant neoplasm in the colon, This is the patient's first colonoscopy Findings: The digital rectal exam was normal. A small polyp was found in the rectum. The polyp was sessile. The polyp was removed with a cold snare. Resection and retrieval were complete. Internal hemorrhoids were found during retroflexion. The hemorrhoids were small and Grade I (internal hemorrhoids that do not prolapse). Anal papilla(e) were hypertrophied. Recommendation: - Patient has a contact number available for emergencies. The signs and symptoms of potential delayed complications were discussed with the patient. Return to normal activities tomorrow. Written discharge instructions were provided to the patient. - Continue present medications. - Resume previous diet. - High fiber diet. - Repeat colonoscopy is recommended. The colonoscopy date will be determined after pathology results from today's exam become available for review. - Return to referring physician as previously scheduled. Referring MD: Gamaliel Cormier MD CC Letter to: Gamaliel Cormier MD Medicines: Monitored Anesthesia Care Procedure: Pre-Anesthesia Assessment: - Prior to the procedure, a History and Physical was performed, and patient medications and allergies were reviewed. The patient is competent. The risks and benefits of the procedure and the sedation options and risks were discussed with the patient. All questions were answered and informed consent was obtained. Patient identification and proposed procedure were verified by the physician, the nurse and the stator plate washer in the pre-procedure area in the procedure room. Mental Status Examination: alert and oriented. Respiratory Examination: clear to auscultation. CV Examination: normal. Prophylactic Antibiotics: The patient does not require prophylactic antibiotics. Prior Anticoagulants: The patient has taken no anticoagulant or antiplatelet agents. ASA Grade Assessment: II - A patient with mild systemic disease. After reviewing the risks and benefits, the patient was deemed in satisfactory condition to undergo the procedure. The anesthesia plan was to use monitored anesthesia care (MAC). Immediately prior to administration of medications, the patient was re-assessed for adequacy to receive sedatives. The heart rate, respiratory rate, oxygen saturations, blood pressure, adequacy of pulmonary ventilation, and response to care were monitored throughout the procedure. The physical status of the patient was re-assessed after the procedure. After I obtained informed consent, the scope was passed under direct vision. Throughout the procedure, the patient's blood pressure, pulse, and oxygen saturations were monitored continuously. The Colonoscope was introduced through the anus and advanced to the cecum, identified by appendiceal orifice and ileocecal valve. The colonoscopy was performed with ease. The patient tolerated the procedure well. The quality of the bowel preparation was adequate. The ileocecal valve, appendiceal orifice, and rectum were photographed. Complications: No immediate complications. Procedure Code(s): --- Professional --- 67160, Colonoscopy, flexible; with removal of tumor(s), polyp(s), or other lesion(s) by snare technique --- Technical --- 90162, Colonoscopy, flexible; with removal of tumor(s), polyp(s), or other lesion(s) by snare technique Diagnosis Code(s): --- Professional --- Z12.11, Encounter for screening for malignant neoplasm of colon --- Technical --- Z12.11, Encounter for screening for malignant neoplasm of colon CPT copyright 2020 [employer]. All rights reserved. The codes documented in this report are preliminary and upon student advisor review may be revised to meet current compliance requirements. Attending Participation: I personally performed the entire procedure. Kimberly Lay MD 12/28/2022 1:28:39 PM Number of Addenda: 0 Note Initiated On: 12/28/2022 12:47 PM documented in this encounter [facility] 12-28-2022 History and physical note GASTROENTEROLOGY H&P Procedure Note Patient: Xochitl Fuller Date of : 1970 Age: 52 y.o. Sex: female PCP: Gamaliel Cormier MD Subjective: Indication: bloating, GERD, screening colonoscopy Prior progress notes reviewed in Epic and chart Past Medical History: Diagnosis Date Acute bacterial sinusitis 03/12/2021 Anxiety Arthritis Asthma Breast abscess right breast Cervical dysplasia Chronic pain Degeneration of intervertebral disc of lumbar region 05/14/2018 GERD (gastroesophageal reflux disease) Menorrhagia SCHEDULED FOR THE SURGERY ON 07/07/2017 Neuropathy RA (rheumatoid arthritis) (HCC) Tobacco abuse Initial interdisciplinary assessment reviewed and concur with information Past Surgical History: Procedure Laterality Date APPENDECTOMY 2018 BREAST BIOPSY Right 2016 COLPOSCOPY HYSTEROSCOPY N/A KNEE ARTHROSCOPY Left 03/15/2012 OTHER SURGICAL HISTORY rheumatoid nodule removal (from left leg) , finger reconstructive surgery, lasered for uterine dysplasia TUBAL LIGATION 1991 Social History Occupational History Not on file Tobacco Use Smoking status: Some Days Packs/day: 0.25 Types: Cigarettes Smokeless tobacco: Never Tobacco comments: Quit smokin cigs a day Substance and Sexual Activity Alcohol use: No Alcohol/week: 0.0 standard drinks Drug use: Not Currently Types: IV, Marijuana, Methamphetamines Sexual activity: Not on file Family History Problem Relation Name Age of Onset No Known Problems Paternal Grandmother Hypertension Mother Heart attack Mother Asthma Mother Breast cancer Maternal Grandmother Arthritis Mother Other ([id number]) Father pneumonia aspiration Cancer Other Multiple Unknown Cancers on Maternal Side of family Cancer Maternal Grandfather Thyroid disease Mother Migraines Paternal Grandfather COPD Mother Additional Family History reviewed in [facility] Prior to Admission medications Medication Sig Start Date End Date Taking? Authorizing Provider albuterol 108 (90 Base) MCG/ACT inhaler inhale 2 puffs by mouth and INTO THE LUNGS every 6 hours if needed for wheezing 12/07/15 Historical ProviderMD albuterol 108 (90 Base) MCG/ACT inhaler inhale 2 puffs by mouth and INTO THE LUNGS every 6 hours if needed for wheezing 12/27/22 Gamaliel Cormier MD desvenlafaxine succinate ER 25 MG 24 hour tablet Take 1 tablet (25 mg) by mouth daily. 10/28/22 12/27/22 Carl Curry [employer] esomeprazole (NexIUM) [address] capsule Take 40 mg by mouth. 12/12/22 Historical Provider, NAPROXEN PO Take by mouth. Historical Provider, omeprazole (PriLOSEC) [address] capsule Take 1 capsule by mouth in the morning. 10/28/15 Historical Provider, polyethylene glycol, PEG, 3350 (Miralax) 17 g packet Take 17 g by mouth daily. 12/15/22 01/14/23 Kimberly Lay MD albuterol (Ventolin HFA) 108 (90 Base) MCG/ACT inhaler inhale 2 puffs by mouth and INTO THE LUNGS every 6 hours if needed for wheezing 10/17/22 12/27/22 Nubia Quinteros APRN - [employer] SECRETARY Initial interdisciplinary assessment reviewed and concur with information Allergies: Allergies Allergen Reactions Naltrexone Anaphylaxis Sertraline Other reaction(s): Other (See Comments), Other: See Comments Made irritable Made irritable Ibuprofen GI intolerance, Nausea And Vomiting and Other Meloxicam Other Shut my kidneys down Shut my kidneys down Morphine Nausea And Vomiting Other reaction(s): GI Upset, Vomiting Only Pertinent Review of Systems: Reviewed with patient Objective: Physical Exam: See graphic record for vital signs HEENT: anicteric Neck: FROM Abdomen: benign Chest: CTA Neuro: nonfocal Ext: FROM B/L Impression: As above Plan: Proceed with endoscopy Physician Attestation: I affirm that prior to performing the procedure noted herein, that I have discussed with my patient the risks, benefits, and alternatives of: --Patient ID confirmed --the procedure to be performed as stated in the plan and on the consent form --the use of sedation and the plan --the patient has been assessed pre-sedation/pre-procedure and there are no changes Signed By: KIMBERLY LAY MD 12/28/2022 12:21 PM [facility] 12-28-2022 History and physical note GASTROENTEROLOGY H&P Procedure Note Patient: Xochitl Fuller Date of : 1970 Age: 52 y.o. Sex: female PCP: Gamaliel Cormier MD Subjective: Indication: bloating, GERD, screening colonoscopy Prior progress notes reviewed in Epic and chart Past Medical History: Diagnosis Date Acute bacterial sinusitis 03/12/2021 Anxiety Arthritis Asthma Breast abscess right breast Cervical dysplasia Chronic pain Degeneration of intervertebral disc of lumbar region 05/14/2018 GERD (gastroesophageal reflux disease) Menorrhagia SCHEDULED FOR THE SURGERY ON 07/07/2017 Neuropathy RA (rheumatoid arthritis) (HCC) Tobacco abuse Initial interdisciplinary assessment reviewed and concur with information Past Surgical History: Procedure Laterality Date APPENDECTOMY 2018 BREAST BIOPSY Right 2016 COLPOSCOPY HYSTEROSCOPY N/A KNEE ARTHROSCOPY Left 03/15/2012 OTHER SURGICAL HISTORY rheumatoid nodule removal (from left leg) , finger reconstructive surgery, lasered for uterine dysplasia TUBAL LIGATION 1991 Social History Occupational History Not on file Tobacco Use Smoking status: Some Days Packs/day: 0.25 Types: Cigarettes Smokeless tobacco: Never Tobacco comments: Quit smokin cigs a day Substance and Sexual Activity Alcohol use: No Alcohol/week: 0.0 standard drinks Drug use: Not Currently Types: IV, Marijuana, Methamphetamines Sexual activity: Not on file Family History Problem Relation Name Age of Onset No Known Problems Paternal Grandmother Hypertension Mother Heart attack Mother Asthma Mother Breast cancer Maternal Grandmother Arthritis Mother Other ([id number]) Father pneumonia aspiration Cancer Other Multiple Unknown Cancers on Maternal Side of family Cancer Maternal Grandfather Thyroid disease Mother Migraines Paternal Grandfather COPD Mother Additional Family History reviewed in [facility] Prior to Admission medications Medication Sig Start Date End Date Taking? Authorizing Provider albuterol 108 (90 Base) MCG/ACT inhaler inhale 2 puffs by mouth and INTO THE LUNGS every 6 hours if needed for wheezing 12/07/15 Historical ProviderMD albuterol 108 (90 Base) MCG/ACT inhaler inhale 2 puffs by mouth and INTO THE LUNGS every 6 hours if needed for wheezing 12/27/22 Gamaleil Cormier MD desvenlafaxine succinate ER 25 MG 24 hour tablet Take 1 tablet (25 mg) by mouth daily. 10/28/22 12/27/22 LAKIA Moon CNP esomeprazole (NexIUM) [address] capsule Take 40 mg by mouth. 12/12/22 Historical Provider, NAPROXEN PO Take by mouth. Historical Provider, omeprazole (PriLOSEC) [address] capsule Take 1 capsule by mouth in the morning. 10/28/15 Historical Provider, polyethylene glycol, PEG, 3350 (Miralax) 17 g packet Take 17 g by mouth daily. 12/15/22 01/14/23 Kimberly Lay MD albuterol (Ventolin HFA) 108 (90 Base) MCG/ACT inhaler inhale 2 puffs by mouth and INTO THE LUNGS every 6 hours if needed for wheezing 10/17/22 12/27/22 LAKIA Arauz CNP Initial interdisciplinary assessment reviewed and concur with information Allergies: Allergies Allergen Reactions Naltrexone Anaphylaxis Sertraline Other reaction(s): Other (See Comments), Other: See Comments Made irritable Made irritable Ibuprofen GI intolerance, Nausea And Vomiting and Other Meloxicam Other Shut my kidneys down Shut my kidneys down Morphine Nausea And Vomiting Other reaction(s): GI Upset, Vomiting Only Pertinent Review of Systems: Reviewed with patient Objective: Physical Exam: See graphic record for vital signs HEENT: anicteric Neck: FROM Abdomen: benign Chest: CTA Neuro: nonfocal Ext: FROM B/L Impression: As above Plan: Proceed with endoscopy Physician Attestation: I affirm that prior to performing the procedure noted herein, that I have discussed with my patient the risks, benefits, and alternatives of: --Patient ID confirmed --the procedure to be performed as stated in the plan and on the consent form --the use of sedation and the plan --the patient has been assessed pre-sedation/pre-procedure and there are no changes Signed By: KIMBERLY LAY MD 12/28/2022 12:21 PM documented in this encounter [facility] 12-27-2022 Telephone encounter Note Prescription Request: Last medication check: none Last physical exam: none Next scheduled appointment: none CSA on file (date): none Last urine drug screen: none Last date of refill on this medication 10/17/2022 18g 2 refills [facility] 12-27-2022 Miscellaneous Notes Prescription Request: Last medication check: none Last physical exam: none Next scheduled appointment: none CSA on file (date): none Last urine drug screen: none Last date of refill on this medication 10/17/2022 18g 2 refills documented in this encounter [facility] 12-15-2022 History of Presen t illness Narrative GASTROENTEROLOGY OUTPATIENT CONSULT NOTE Patient: Xochitl Fuller Date of : 1970 Age: 52 y.o. Sex: female PCP: Gamaliel Cormier MD Subjective: I have spent 45 minutes with the patient for this encounter and reviewing the chart and coordinating their care. Chief Complaint: GERD, bloating, screening colonoscopy Gamaliel Cormier MD History of Present Illness: Pt is new to [facility] She reports several GI sx: bloating, constipation, GERD She's tried multiple PPIs with ongoing sx (ex. Dexilant). Currently uses Omeprazole daily. Also tried BID PPI. Uses Tums prn. Reports increased GERD sx with bending over, +hoarse voice, +occ vomiting, +occ periumbilical pain Uses Zofran prn +Naproxen prn Also reports constipation - BM every few days, hard stool Past h/o heavy ETOH use - quit 2013 after DUI and court mandated detox program. Prior EGD: 2013 Prior Colonoscopy: none Past Medical History: Diagnosis Date Acute bacterial sinusitis 03/12/2021 Anxiety Arthritis Asthma Breast abscess right breast Cervical dysplasia Chronic pain Degeneration of intervertebral disc of lumbar region 05/14/2018 GERD (gastroesophageal reflux disease) Menorrhagia SCHEDULED FOR THE SURGERY ON 07/07/2017 Neuropathy RA (rheumatoid arthritis) ([facility]) Tobacco abuse Past Surgical History: Procedure Laterality Date APPENDECTOMY 2018 BREAST BIOPSY Right 2016 COLPOSCOPY HYSTEROSCOPY N/A KNEE ARTHROSCOPY Left 03/15/2012 OTHER SURGICAL HISTORY rheumatoid nodule removal (from left leg) , finger reconstructive surgery, lasered for uterine dysplasia TUBAL LIGATION 1991 Social History Occupational History Not on file Tobacco Use Smoking status: Some Days Packs/day: 0.25 Types: Cigarettes Smokeless tobacco: Never Tobacco comments: Quit smokin cigs a day Substance and Sexual Activity Alcohol use: No Alcohol/week: 0.0 standard drinks Drug use: Not Currently Types: IV, Marijuana, Methamphetamines Sexual activity: Not on file Family History Problem Relation Name Age of Onset No Known Problems Paternal Grandmother Hypertension Mother Heart attack Mother Asthma Mother Breast cancer Maternal Grandmother Arthritis Mother Other ([id number]) Father pneumonia aspiration Cancer Other Multiple Unknown Cancers on Maternal Side of family Cancer Maternal Grandfather Thyroid disease Mother Migraines Paternal Grandfather COPD Mother Prior to Admission medications Medication Sig Start Date End Date Taking? Authorizing Provider albuterol (Ventolin HFA) 108 (90 Base) MCG/ACT inhaler inhale 2 puffs by mouth and INTO THE LUNGS every 6 hours if needed for wheezing 10/17/22 Nubia Quinteros APRN - [facility] albuterol 108 (90 Base) MCG/ACT inhaler inhale 2 puffs by mouth and INTO THE LUNGS every 6 hours if needed for wheezing 12/07/15 Historical Provider, desvenlafaxine succinate ER 25 MG 24 hour tablet Take 1 tablet (25 mg) by mouth daily. 10/28/22 12/27/22 LAKIA Moon CNP NAPROXEN PO Take by mouth. Historical Provider, omeprazole (PriLOSEC) [address] capsule Take 1 capsule by mouth in the morning. 10/28/15 Historical Provider, Allergies: Allergies Allergen Reactions Naltrexone Anaphylaxis Sertraline Other reaction(s): Other (See Comments), Other: See Comments Made irritable Made irritable Ibuprofen GI intolerance, Nausea And Vomiting and Other Meloxicam Other Shut my kidneys down Shut my kidneys down Morphine Nausea And Vomiting Other reaction(s): GI Upset, Vomiting Only NSAIDs/Anticoagulation: +Naproxen prn Review of Systems: Constitutional: +fatigue History obtained from the patient HENT ROS: denies TURK, denies ear pain, denies sore throat, denies sinus pressure, denies runny nose, post nasal drip Eyes: denies blurry vision Respiratory ROS: denies SOB, denies cough Cardiovascular ROS: denies chest pain Gastrointestinal ROS: see HPI Genito-Urinary ROS: denies dysuria Musculoskeletal ROS: + joint pain Neurological ROS: denies seizures, weakness, difficulty sleeping Dermatological ROS: denies rash Objective: Physical Exam: BP (!) 138/92 Pulse 62 Temp 36.3 C (97.3 F) Resp 18 Ht 5' 3 (1.6 m) Wt 163 lb 12.8 oz (74.3 kg) SpO2 98% BMI 29.02 kg/m Gen: comfortable, appears nourished Skin: warm, dry Eyes: anicteric sclera, conjunctivae clear, pupils normal ENT: no obvious deformities of ears, nose. Mouth with moist mucous membranes Neck: appears symmetrical, no thyroid tenderness Chest: CTA, no wheezes, normal effort CV: regular rate, regular rhythm Abdominal: benign, soft, +BS, nontender, nondistended, no appreciated hernia seen Ext: no cyanosis, cords, edema, b/l full range of motion of upper and lower extremities Neuro: nonfocal Psych: normal mood and affect, thought content normal, alert and oriented Labs/Studies reviewed in Epic at today's current clinic visit Lab Results Component Value Date WBC 8.7 04/19/2022 HGB 15.1 04/19/2022 MCV 92.4 04/19/2022 Lab Results Component Value Date AST 29 04/19/2022 ALKPHOS 88 04/19/2022 BILITOT 0.6 04/19/2022 Recent Imaging: No GI related results ASSESSMENT/PLAN: Gastroesophageal reflux disease, unspecified whether esophagitis present Abdominal bloating Encounter for screening colonoscopy Incidental Constipation Bloating NSAID long-term use --Recommend scheduling EGD (upper endoscopy) and colonoscopy with a 2 day bowel preparation for further evaluation of symptoms. --Use Zofran prior to bowel preparation and midway through preparation to minimize nausea and vomiting prep. --Start medication (Miralax) daily. --Pt was given handout regarding additional recommendations for symptoms (constipation). FOLLOW-UP: Advised patient to please follow-up with PCP, and follow-up as needed in GI clinic following the above evaluation and recommendations. Signed By: KIMBERLY LAY MD documented in this encounter [facility] 12-15-2022 Instructions Josefa Rizo MA - 12/15/2022 1:00 PM EST --Recommend scheduling EGD (upper endoscopy) and colonoscopy with a 2 day bowel preparation for further evaluation of your symptoms. 12/28/22 at 1:15 pm arrive at 12:[address] Lay. Case # [id number] --Please use Zofran prior to bowel preparation and midway through preparation to minimize nausea and vomiting prep. --Please start medication (Miralax) daily. --Please see handout regarding additional recommendations for your symptoms (constipation). --Please follow-up with your PCP and as needed with me in GI clinic following the above evaluation and recommendations. AVS handed to pt. The following attachments cannot be sent through Care Everywhere.Constipation in Adults ([place])documented in this encounter [facility] Revivn 05-11-2022 [facility] DischCarlos Castellon MD - 05/11/2022 May return to work The following attachments cannot be sent through Care Everywhere.Knee Pain or Injury ([place])documented [facility] this encounter [email or web address] Work [facility]: Evaluation note Diagnosis Neuropathy Mononeuritis of unspecified site Family history of thyroid disorder Family history of other endocrine and metabolic diseases Leg swelling Swelling of limb Recurrent infections Unspecified infectious and parasitic diseases documented in this encounter [email or web address] Work Phone: Evaluation note* Diagnosis Leg swelling Swelling of limb documented in this encounter [email or web address] Work Phone: Evaluation note* Diagnosis Contusion of left knee, initial encounter- Primary documented in this encounter [email or web address] Work [facility]: Evaluation note* Diagnosis Gastroesophageal reflux disease without esophagitis- Primary Esophageal reflux Hiatal hernia Diaphragmatic hernia without mention of obstruction or gangrene History of colonoscopy Other postprocedural status [facility] Cervicalgia- Primary Pain in right knee Pain in left knee Other chronic pain Low back pain, unspecified Pain in left hand Pain in right foot Pain in soft tissues of limb Pain in left foot Pain in soft tissues of limb Pain in right knee Pain in left knee Other chronic pain Low back pain, unspecified Pain in left hand Pain in right foot Pain in soft tissues of limb Pain in left foot Pain in soft tissues of limb Cervicalgia Pain in right knee Pain in left knee Other chronic pain Low back pain, unspecified Pain in left hand Pain in right foot Pain in soft tissues of limb Pain in left foot Pain in soft tissues of limb Cervicalgia Pain in right knee Pain in left knee Other chronic pain Low back pain, unspecified Pain in left hand Pain in right foot Pain in soft tissues of limb Pain in left foot Pain in soft tissues of limb Cervicalgia Pain in right knee Pain in left knee Other chronic pain Low back pain, unspecified Pain in left hand Pain in right foot Pain in soft tissues of limb Pain in left foot Pain in soft tissues of limb Cervicalgia Pain in right knee Pain in left knee Other chronic pain Low back pain, unspecified Pain in left hand Pain in right foot Pain in soft tissues of limb Pain in left foot Pain in soft tissues of limb Cervicalgia documented [facility]* Diagnosis Cervicalgia- Primary Pain in right knee Pain in left knee Other chronic pain Low back pain, unspecified Pain in left hand Pain in right hand Pain in right foot Pain in soft tissues of limb Pain in left foot Pain in soft tissues of limb documented in this [facility]* Diagnosis Rectal bleeding- Primary Hemorrhage of rectum and anus documented in this encounter [facility]* Diagnosis Rash and other nonspecific skin eruption- Primary documented in this encounter [facility]* Diagnosis Cellulitis of left lower extremity- Primary Vaginal yeast infection Candidiasis of vulva and vagina documented in this encounter [facility]* Diagnosis Anxiety- Primary Anxiety state, unspecified documented in this encounter [facility]* Diagnosis Acute pain of right knee- Primary Cellulitis of right lower extremity Vaginal yeast infection Candidiasis of vulva and vagina documented in this encounter [facility]* Diagnosis Pyelonephritis- Primary Unspecified pyelonephritis documented in this encounter [facility]* Diagnosis Pyelonephritis- Primary Unspecified pyelonephritis Anxiety Anxiety state, unspecified documented in this encounter [facility]* Diagnosis Pyelonephritis- Primary Unspecified pyelonephritis Anxiety Anxiety state, unspecified documented in this encounter [facility]* Diagnosis Rash- Primary Rash and other nonspecific skin eruption Gastroesophageal reflux disease without esophagitis Esophageal reflux Simple chronic bronchitis (HCC) Simple chronic bronchitis documented in this [facility]* Diagnosis Rash- Primary Rash and other nonspecific skin eruption Gastroesophageal reflux disease without esophagitis Esophageal reflux Simple chronic bronchitis (HCC) Simple chronic bronchitis documented in [facility]* Diagnosis Acute maxillary sinusitis, recurrence not specified- Primary Bronchitis Bronchitis, not specified as acute or chronic documented in this encounter [facility]* Diagnosis Contusion of right chest wall, initial encounter- Primary Injury of right shoulder, initial encounter Cellulitis of abdominal wall Cellulitis and abscess of trunk documented in this encounter [facility]* Diagnosis Simple chronic bronchitis (HCC) Simple chronic bronchitis documented in this encounter [facility]* Diagnosis Acute bronchitis, unspecified organism- Primary Gastroesophageal reflux disease, unspecified whether esophagitis present documented in this encounter [facility]* Diagnosis Cellulitis of left lower extremity- Primary 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, chronic or unspecified Arthritis Unspecified arthropathy, site unspecified Hot flashes due to menopause Anxiety and depression Yeast infection Abscess of left arm- Primary Rectal bleeding- Primary Hemorrhage of rectum and anus Cellulitis of left lower extremity- Primary Vaginal yeast infection Candidiasis of vulva and vagina Anxiety- Primary Anxiety state, unspecified Acute pain of right knee- Primary Cellulitis of right lower extremity Vaginal yeast infection Candidiasis of vulva and vagina Pyelonephritis- Primary Unspecified pyelonephritis Anxiety Anxiety state, unspecified Rash- Primary Rash and other nonspecific skin eruption Gastroesophageal reflux disease without esophagitis Esophageal reflux Simple chronic bronchitis (HCC) Simple chronic bronchitis Simple chronic bronchitis (HCC) Simple chronic bronchitis documented in this encounter [facility]* Diagnosis Pain in right knee Pain in left knee Other chronic pain Low back pain, unspecified Pain in left hand Pain in right foot Pain in soft tissues of limb Pain in left foot Pain in soft tissues of limb Cervicalgia documented in this encounter [facility]* Diagnosis Chronic pain of both feet Bilateral hand pain Neck pain Cervicalgia Chronic bilateral low back pain, unspecified whether sciatica present Chronic pain of both shoulders Bilateral chronic knee pain documented in this encounter [facility]* Diagnosis Pain Generalized pain documented in this encounter [facility]* Diagnosis Abscess of left arm- Primary documented in this encounter [facility]* Diagnosis Constipation, unspecified constipation type- Primary Gastroesophageal reflux disease, unspecified whether esophagitis present Abdominal bloating Flatulence, eructation, and gas pain Encounter for screening colonoscopy Bloating Flatulence, eructation, and gas pain NSAID long-term use Encounter for long-term (current) use of non-steroidal anti-inflammatories Constipation, unspecified GERD (gastroesophageal reflux disease) Esophageal reflux Abdominal bloating Flatulence, eructation, and gas pain NSAID long-term use Encounter for long-term (current) use of non-steroidal anti-inflammatories Encounter for screening colonoscopy documented in this [facility]* Diagnosis Constipation, unspecified GERD (gastroesophageal reflux disease) Esophageal reflux Abdominal bloating Flatulence, eructation, and gas pain NSAID long-term use Encounter for long-term (current) use of non-steroidal anti-inflammatories Encounter for screening colonoscopy documented in this encounter [facility]* Diagnosis Pain in right knee Pain in left knee Other chronic pain Low back pain, unspecified Pain in left hand Pain in right hand Pain in right foot Pain in soft tissues of limb Pain in left foot Pain in soft tissues of limb Cervicalgia documented in this encounter [facility]* Diagnosis Primary osteoarthritis involving multiple joints- Primary Neck pain Cervicalgia 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 Bilateral hand pain Bilateral chronic knee pain Chronic pain of both shoulders Chronic pain of both feet Vitamin D insufficiency Chronic bilateral low back pain, unspecified whether sciatica present Other fatigue Anxiety and depression Special screening examination for viral disease Special screening examination for unspecified viral disease Blood tests prior to treatment or procedure Pre-procedural laboratory examination Livedo reticularis Pallor documented in this encounter [facility]* Diagnosis Cellulitis of left lower extremity- Primary JRA (juvenile rheumatoid arthritis) ([facility]) Polyarticular juvenile rheumatoid arthritis, chronic or unspecified Arthritis Unspecified arthropathy, site unspecified Hot flashes due to menopause Anxiety and depression Yeast infection Abscess of left arm- Primary Rectal bleeding- Primary Hemorrhage of rectum and anus Cellulitis of left lower extremity- Primary Vaginal yeast infection Candidiasis of vulva and vagina Anxiety- Primary Anxiety state, unspecified Acute pain of right knee- Primary Cellulitis of right lower extremity Vaginal yeast infection Candidiasis of vulva and vagina Pyelonephritis- Primary Unspecified pyelonephritis Anxiety Anxiety state, unspecified Rash- Primary Rash and other nonspecific skin eruption Gastroesophageal reflux disease without esophagitis Esophageal reflux Simple chronic bronchitis ([facility]) Simple chronic bronchitis Cellulitis of left breast- Primary documented in this [facility]* Diagnosis Cellulitis of left lower extremity- Primary JRA (juvenile rheumatoid arthritis) ([facility]) Polyarticular juvenile rheumatoid arthritis, chronic or unspecified Arthritis Unspecified arthropathy, site unspecified Hot flashes due to menopause Anxiety and depression Yeast infection Abscess of left arm- Primary Rectal bleeding- Primary Hemorrhage of rectum and anus Cellulitis of left lower extremity- Primary Vaginal yeast infection Candidiasis of vulva and vagina Anxiety- Primary Anxiety state, unspecified Acute pain of right knee- Primary Cellulitis of right lower extremity Vaginal yeast infection Candidiasis of vulva and vagina Pyelonephritis- Primary Unspecified pyelonephritis Anxiety Anxiety state, unspecified Rash- Primary Rash and other nonspecific skin eruption Gastroesophageal reflux disease without esophagitis Esophageal reflux Simple chronic bronchitis (HCC) Simple chronic bronchitis Simple chronic bronchitis (HCC) Simple chronic bronchitis [facility] Diagnosis Cellulitis of left lower extremity- Primary 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, chronic or unspecified Arthritis Unspecified arthropathy, site unspecified Hot flashes due to menopause Anxiety and depression Yeast infection Abscess of left arm- Primary Rectal bleeding- Primary Hemorrhage of rectum and anus Cellulitis of left lower extremity- Primary Vaginal yeast infection Candidiasis of vulva and vagina Anxiety- Primary Anxiety state, unspecified Acute pain of right knee- Primary Cellulitis of right lower extremity Vaginal yeast infection Candidiasis of vulva and vagina Pyelonephritis- Primary Unspecified pyelonephritis Anxiety Anxiety state, unspecified Rash- Primary Rash and other nonspecific skin eruption Gastroesophageal reflux disease without esophagitis Esophageal reflux Simple chronic bronchitis (HCC) Simple chronic bronchitis Chronic bilateral low back pain without sciatica- Primary SI (sacroiliac) joint inflammation ([facility]) [facility]* Diagnosis Cellulitis of left lower extremity- Primary JRA (juvenile rheumatoid arthritis) ([facility]) Polyarticular juvenile rheumatoid arthritis, chronic or unspecified Arthritis Unspecified arthropathy, site unspecified Hot flashes due to menopause Anxiety and depression Yeast infection Abscess of left arm- Primary Rectal bleeding- Primary Hemorrhage of rectum and anus Cellulitis of left lower extremity- Primary Vaginal yeast infection Candidiasis of vulva and vagina Anxiety- Primary Anxiety state, unspecified Acute pain of right knee- Primary Cellulitis of right lower extremity Vaginal yeast infection Candidiasis of vulva and vagina Pyelonephritis- Primary Unspecified pyelonephritis Anxiety Anxiety state, unspecified Rash- Primary Rash and other nonspecific skin eruption Gastroesophageal reflux disease without esophagitis Esophageal reflux Simple chronic bronchitis (HCC) Simple chronic bronchitis Chronic bilateral low back pain without sciatica- Primary SI (sacroiliac) joint inflammation (HCC) Acute recurrent pansinusitis- Primary [facility]* Diagnosis Cellulitis of left lower extremity- Primary JRA (juvenile rheumatoid arthritis) ([facility]) Polyarticular juvenile rheumatoid arthritis, chronic or unspecified Arthritis Unspecified arthropathy, site unspecified Hot flashes due to menopause Anxiety and depression Yeast infection Abscess of left arm- Primary Rectal bleeding- Primary Hemorrhage of rectum and anus Cellulitis of left lower extremity- Primary Vaginal yeast infection Candidiasis of vulva and vagina Anxiety- Primary Anxiety state, unspecified Acute pain of right knee- Primary Cellulitis of right lower extremity Vaginal yeast infection Candidiasis of vulva and vagina Pyelonephritis- Primary Unspecified pyelonephritis Anxiety Anxiety state, unspecified Rash- Primary Rash and other nonspecific skin eruption Gastroesophageal reflux disease without esophagitis Esophageal reflux Simple chronic bronchitis (HCC) Simple chronic bronchitis Chronic bilateral low back pain without sciatica- Primary SI (sacroiliac) joint inflammation (HCC) Simple chronic bronchitis (HCC) Simple chronic bronchitis documented in this encounter [facility]* Diagnosis Cellulitis of left lower extremity- Primary 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, chronic or unspecified Arthritis Unspecified arthropathy, site unspecified Hot flashes due to menopause Anxiety and depression Yeast infection Abscess of left arm- Primary Rectal bleeding- Primary Hemorrhage of rectum and anus Cellulitis of left lower extremity- Primary Vaginal yeast infection Candidiasis of vulva and vagina Anxiety- Primary Anxiety state, unspecified Acute pain of right knee- Primary Cellulitis of right lower extremity Vaginal yeast infection Candidiasis of vulva and vagina Pyelonephritis- Primary Unspecified pyelonephritis Anxiety Anxiety state, unspecified Rash- Primary Rash and other nonspecific skin eruption Gastroesophageal reflux disease without esophagitis Esophageal reflux Simple chronic bronchitis (HCC) Simple chronic bronchitis Chronic bilateral low back pain without sciatica- Primary SI (sacroiliac) joint inflammation (HCC) Gastroesophageal reflux disease without esophagitis- Primary Esophageal reflux [facility] Attachments The following attachments cannot be sent through Care Everywhere. * Kidney Infection Discharge Instructions ([place]) documented in this [facility] Discharge instructions* Attachments The following attachments cannot be sent through Care Everywhere. * Sinusitis, Adult ED ([place]) * Preventing Antibiotic Resistance ([place]) documented in this [facility] for referral (narrative)* Consultation (Routine) - Pending Review Specialty Diagnoses / Procedures Referred By Dulce bess Referred To Contact General Surgery Diagnoses Gastroesophageal reflux disease without esophagitis Hiatal hernia Procedures ID OFFICE[facility]PATIENT [id number] [facility]UTES Kimberly Lay MD [address] [place] [address] Miguel A Ty MD [address] [place] [address] Referral ID Status Reason Start Date Expiration Date Visits Requested Visits Authorized [id number] Pending Review Specialty Services Required 02/23/2023 02/23/2024 1 1 [facility] for referral (narrative)* Consultation (Routine) - Pending Review Specialty Diagnoses / Procedures Referred By Contac t Referred To Contact Pain Medicine Diagnoses Neck pain Chronic bilateral low back pain, unspecified whether sciatica present Procedures ID OFFICE/OUTPATIENT [facility] MDM 60-74 MINUTES Kandice Alegre MD [address] [place] [id number] [facility] [address] [place] [address] Referral ID Status Reason Start Date Expiration Date Visits Requested Visits Authorized [id number] Pending Review Specialty Services Required 01/04/2023 01/04/2024 1 1 * Consultation (Routine) - Pending Review Specialty Diagnoses / Procedures Referred By Contac t Referred To Contact Orthopedic Surgery Diagnoses 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 Kandice Alegre MD [address] [place] [address] [facility] [place] [place] [address] [facility] [address] [place] [address] Referral ID Status Reason Start Date Expiration Date Visits Requested Visits Authorized [id number] Pending Review Specialty Services Required 01/04/2023 01/04/2024 1 1 * Therapy (Routine) - Pending Review Specialty Diagnoses / Procedures Referred By Contac t Referred To Contact Physical Therapy Diagnoses Neck pain 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 Bilateral chronic knee pain Chronic pain of both shoulders Chronic pain of both feet Chronic bilateral low back pain, unspecified whether sciatica present Procedures ID OFFICE/OUTPATIENT [facility] MDM 60-74 MINUTES Kandice Alegre MD [address] [place] [address] [facility] [address] [place] [address] Referral ID Status Reason Start Date Expiration Date Visits Requested Visits Authorized [id number] Pending Review Eval and Treat 01/04/2023 07/03/2023 99 99 [facility] Health Summary Purpose Family History No Family History Records FoundNo Family History Records FoundNo Family History Records FoundNo Family History Records FoundNo Family History Records FoundNo Family History Records FoundNo Family History Records FoundNo Family History Records Found Advance Directives No Advanced Directives Records FoundDocuments on File Type Date 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 Advance Directives and Living Will Power of Tab Builder Latest Code Status on File Code Status Date Activated Date Inactivated Comments Full Code 07/05/2019 10:59 AM Full Code 12/24/2017 2:20 PM 12/26/2017 5:56 PM Full Code 12/24/2017 4:26 AM 12/24/2017 2:20 PM Full Code 07/07/2017 9:35 AM 07/07/2017 5:50 PM Latest Code Status on File Code Status Date Activated Date Inactivated Comments Full Code 07/05/2019 10:59 AM 07/07/2019 11:44 AM Documents on File Type Date Recorded 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 ACP-Advance Directive ACP-Power of Tab Builder Documents on File Type Date Recorded 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 Good nutrition is important when healing from an illness, injury, or surgery. Follow any nutrition recommendations given to you during your hospital stay. ? If you were given an oral nutrition supplement while in the hospital, continue to take this supplement at home. You can take it with meals, in-between meals, and/or before bedtime. These supplements can be purchased at most local grocery stores, pharmacies, and chain [employer]-stores. ? If you have any questions about your diet or nutrition, call the hospital and ask for the dietitian. General * Additional Instructions* Lashon Avila RN - 07/07/2019 GENERAL SIGNS AND SYMPTOMS GREEN ZONE: All Clear- Your Symptoms Are Under Control No recurrence of symptoms that led to hospitalization Able to do usual activities No fever No chest pain No shortness of breath This Means You Should: Continue taking your medications as prescribed Continue activity as tolerated Keep all doctor appointments YELLOW ZONE: Caution as Your Health may be Worsening Recurrence of symptoms that led to hospitalization Fever of 100 degrees or higher Increased fatigue or restlessness Intolerant side-effects of medications Uneasy feeling or that something is wrong This Means You Should: Call your doctor for further instructions RED ZONE: Medical Alert Severe or unrelieved shortness of breath at rest Unrelieved chest pain Confusion or you can't think clearly This Means You Should Call 911 Immediately * Attachments The following attachments cannot be sent through Care Everywhere. * Cellulitis ([place]) documented in this encounter* Instructions* Burton Springer DO - 01/23/2020 Rest. Increase fluids. Return if any problems or concerns. Increased push the fluids. * Attachments The following attachments cannot be sent through Care Everywhere. * Influenza ([place]) documented in this encounter* Instructions* Frances Alvarez MD - 10/05/2020 Stay hydrated and in quarantine until you are told it is safe to return to work. * Attachments The following attachments cannot be sent through Care Everywhere. * Smoking: Stopping ([place]) * COVID-19 Viral Test ([place]) documented in this encounter* Instructions* Frances Alvarez MD - 09/06/2019 At 1000 mg of Tylenol to the Naprosyn you taking every 6 hours for pain as needed. you may also take the Flexeril 3 times a day or at bedtime for some of the muscle spasm you are having in your back * Attachments The following attachments cannot be sent through Care Everywhere. * Flank Pain ([place]) documented in this encounter History of Present Illness * Lori Mcgowan - 07/07/2019 8:58 AM EDT Nutrition rescreen completed. Patient assigned a level 1. * Frank Marie RPH - 07/06/2019 8:39 PM EDT Pharmacy Vancomycin Consult Follow-Up Note Current Dosin mg q12h Recent Labs 07/05/19 0738 07/06/19 0450 BUN 7 5* Recent Labs 07/05/19 0738 07/06/19 0450 CREATININE 0.63 0.59 Recent Labs 07/05/19 0738 07/06/19 0451 WBC 6.5 5.0 Ht Readings from Last 1 Encounters: 07/05/19 5' 3 (1.6 m) Wt Readings from Last 1 Encounters: 07/05/19 142 lb 6.4 oz (64.6 kg) Body mass index is 25.23 kg/m . Estimated Creatinine Clearance: 105 mL/min (based on SCr of 0.59 mg/dL). Trough: 10.2 Drawn 8-10 at 2003. Assessment/Plan: Continue same dose and frequency * Chung Terry DO - 07/06/2019 11:32 AM EDT Hospitalist Progress Note 07/06/2019 11:32 AM [phone]: Please page me ([phone]) for patient care issues. [phone]: Please page IMS night Hospitalist for any issues. Subjective: Admit Date: 07/05/2019 PCP: Gamaliel Cormier MD Room#: 436/5905 Interval History: Complaints of headache. Denies chest pain, sob, abdominal pain, nausea, vomiting,diarrhea, constipation, fevers, or chills. DIET GENERAL; Patient Vitals for the past 96 hrs (Last 3 readings): Weight 07/05/19 1118 142 lb 6.4 oz (64.6 kg) 07/05/19 0616 139 lb (63 kg) 24HR INTAKE/OUTPUT: Intake/Output Summary (Last 24 hours) at 07/06/2019 1132 Last data filed at 07/06/2019 0909 Gross per 24 hour Intake 1346 ml Output 250 ml Net 1096 ml Past Medical History: Diagnosis Date Anxiety Arthritis Asthma Breast abscess right breast Cervical dysplasia Chronic pain GERD (gastroesophageal reflux disease) Menorrhagia SCHEDULED FOR THE SURGERY ON 07/07/2017 Neuropathy RA (rheumatoid arthritis) ([facility]) Tobacco abuse Medications: sodium chloride 75 mL/hr at 07/05/19 1356 piperacillin-tazobactam 3.375 g Intravenous Q8H mometasone-formoterol 2 puff Inhalation BID pantoprazole 40 mg Oral QAM AC sodium chloride flush 10 mL Intravenous 2 times per day enoxaparin 40 mg Subcutaneous Daily nicotine 1 patch Transdermal Daily vancomycin 1,250 mg Intravenous Q12H LABS: CBC: Recent Labs 07/05/19 0738 07/06/19 0451 WBC 6.5 5.0 RBC 4.64 4.27 HGB 15.5 14.3 HCT 45.1 41.7 MCV 97.2 97.7 RDW 13.8 13.8 PLT 177 175 BMP: Recent Labs 07/05/19 0738 07/06/19 0450 NA 139 135 K 3.5 4.2 CL 102 105 CO2 27 25 BUN 7 5* CREATININE 0.63 0.59 GLUCOSE 120* 104* CALCIUM 8.7 8.5 ANIONGAP 10 5 LIVER PROFILE: Recent Labs 07/06/19 0450 AST 821* ALT 1,301* BILITOT 2.4* ALKPHOS 335* LABALBU 3.3* PROT 6.7 PT/INR: No results for input(s): PROTIME, INR in the last 72 hours. CARDIAC ENZYMES: No results for input(s): TROPONINI in the last 72 hours. Procalcitonin: No results found for: PROCAL Objective: Vitals: BP 129/87 Pulse 92 Temp 97.9 F (36.6 C) (Temporal) Resp 18 Ht 5' 3 (1.6 m) Wt 142 lb 6.4 oz (64.6 kg) SpO2 96% BMI 25.23 kg/m Pulse Ox: SpO2 Av.3 % Min: 96 % Max: 97 % Supplemental O2: General appearance: No apparent distress, appears stated age and cooperative with exam HEENT: Normal cephalic, atraumatic without obvious deformity. Pupils equal, round, and reactive to light. Extra ocular muscles intact. Conjunctivae/corneas clear. Neck: Supple, with full range of motion. No jugular venous distention. Trachea midline. No lymphadenopathy. Respiratory: Normal respiratory effort. Clear to auscultation, bilaterally without Rales/Wheezes/Rhonchi. Cardiovascular: Regular rate and rhythm with normal S1/S2 without murmurs, rubs or gallops. Abdomen: Soft, non-tender, non-distended with normal bowel sounds. No rebound or guarding. Musculoskeletal: No clubbing, cyanosis or edema bilaterally. Full range of motion without deformity. Skin: Left FA- sub-centimeter intact blister w/mild surrounding erythema; RUE 5- 6 cm area of spreading erythema (above elbow) Neurologic: Neurovascularly intact without any focal sensory/motor deficits. Cranial nerves: II-XIIintact, grossly non-focal. Assessment 1. Right upper extremity cellulitis 2. Hepatitis 3. Hx of IVDU 4. Amphetamine (+) urine drug screen 5. Hx of asthma 6. Hx of tobacco use 7. Anxiety 8. Chronic pain syndrome 9. GERD Plan -adjust IV abx, follow cultures -Acute hepatitis panel pending, check HIV, check abdominal US -tylenol and NSAIDs prn for headache -outpatient fu with pain management -smoking cessation encouraged -am labs, replace lytes prn -increase activity -DVT prophylaxis: [x] Lovenox [] Heparin [] SCDs [x] Encourage ambulation [] Already on Anticoagulation Advance Directive: Full Code Discharge planning: anticipate discharge in next 1-2 days Chung Terry DO Division of Hospitalist Medicine Inpatient Medical Services PAGER: [phone] documented in this encounter Assessments Diagnosis Cellulitis of right upper extremity- Primary Cellulitis and abscess of upper arm and forearm Diagnosis Influenza with respiratory manifestation other than pneumonia- Primary Influenza with other respiratory manifestations Diagnosis COPD exacerbation (HCC) Obstructive chronic bronchitis with exacerbation Educated about COVID-19 virus infection Acute bronchitis, unspecified organism Acute maxillary sinusitis, recurrence not specified Smoking Tobacco use disorder Diagnosis Acute right-sided low back pain without sciatica- Primary Spasm of muscle Thoracic myofascial strain, initial encounter Diagnosis Syncope and collapse- Primary Chief Complaint and Reason for Visit Chief Complaint ESTABLISH Reason for Referral Specialty Diagnoses / Procedures Referred By Contac t Referred To Contact Radiology Diagnoses Leg swelling Procedures US Lower Extremity Bilateral Venous Duplex Mary Bardales MD [address] [facility] [address] [place] [address] Referral ID Status Reason Start Date Expiration Date Visits Re quested Visits Authorized [id number] Open 04/14/2022 04/14/2023 1 1 Specialty Diagnoses / Procedures Referred By Contac t Referred To Contact Gamaliel Cormier MD [address] [facility], [place] [address] Referral ID Status Reason Start Date Expiration Date V isits Requested Visits Authorized [id number] Pending Review 1 1 Referral ID Status Reason Start Date Expiration Date V isits Requested Visits Authorized [id number] Pending Review 1 1 Additional Source Comments INFORMATION SOURCE (unrecogn ized section and content) DATE CREATED AUTHOR 05/22/2018 [facility] DATE CREATED AUTHOR AUTHOR'S ORGANIZ ATION 05/22/2018 [facility] DATE CREATED AUTHOR AUTHOR'S ORGANIZ ATION 05/23/2018 [facility] ([place]) DATE CREATED AUTHOR AUTHOR'S ORGANIZ ATION 07/02/2022 [facility] CREATED AUTHOR AUTHOR'S ORGANIZ ATION 10/07/2022 [facility] DATE CREATED AUTHOR AUTHOR'S ORGANIZ ATION 09/10/2023 [facility] DATE CREATED AUTHOR AUTHOR'S ORGANIZ ATION 03/19/2025 [facility] DATE CREATED AUTHOR AUTHOR'S ORGANIZ ATION 05/09/2025 [facility] Reason for Visit (unrecogniz ed section and content) Reason Comments Cellulitis Right upper arm wors ening cellulitis on Keflex Reason Comments Influenza Reason Comments Pharyngitis Cough Fever Reason Comments Back Pain R. mid/flank Reason Comments Dizziness Blurred vision, sync opal episodes x 3, altered mental status Loss of Consciousness syncopal episode x 3 today while seated Nausea nausea when standing Chest Pain mid upper chest heav iness this pm Fatigue feeling very tired Reason Comments Leg Pain Reason Comments Follow-up Discuss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
[2025-05-14 01:12] VITALS: BP 129/92; PULSE 88; RESP 18; TEMP 36.8; O2SAT 98
[2025-05-14] MEDS: LORazepam 0.5 MG Tablet PO (01:14)
== END 2025-05-14 01:16 | disposition home or self-care (01) ==
PROVIDERS: Emergency Provider Emergency Medicine; PCP Family Medicine; Visit Provider Emergency Medicine
DX: S16.1XXA Strain of muscle, fascia and tendon at neck level, initial encounter (principal); R10.2 Pelvic and perineal pain; M25.532 Pain in left wrist; F17.210 Nicotine dependence, cigarettes, uncomplicated; J45.909 Unspecified asthma, uncomplicated; K21.9 Gastro-esophageal reflux disease without esophagitis; V40.5XXA Car driver injured in collision with pedestrian or animal in traffic accident, initial encounter
CPT/HCPCS: 72170; 73110; 99283

== ENCOUNTER 2025-10-12 17:44 | Emergency (ER) | payer SELFPAY ==
[2025-10-12 17:45] VITALS: BP 144/103; PULSE 100; RESP 16; TEMP 35.7; O2SAT 100
--- NOTE | 2025-10-12 18:16 | RAD_ITS ---
EXAM: XR Chest, 2 Views CLINICAL INDICATION: DYSPNEA TECHNIQUE: Frontal and lateral views of the chest. COMPARISON: No relevant prior studies available. FINDINGS: LUNGS AND PLEURAL SPACES: Unremarkable. No consolidation. No pneumothorax. HEART: Unremarkable. No cardiomegaly. MEDIASTINUM: Unremarkable. Normal mediastinal contour. BONES/JOINTS: Unremarkable. No acute fracture. RAD/Chest PA and Lateral IMPRESSION: No acute cardiopulmonary process. Reading Location: [id number]
--- NOTE | 2025-10-12 18:17 | ED.VIS.DYS ---
HPI History of Present Illness Chief Complaint: Shortness of Breath Informant: patient Onset/Context/Timing Onset: Today Context: sudden Timing: Continuous Quality: Positive for Dyspnea on exertion and Wheezing Worsened by: Exertion Relieved by: Nothing Associated Symptoms cough, rhinorrhea, sore throat, subjective and chills; Negative for fever, clear sputum, white sputum, yellow sputum or green sputum Narrative Narrative: Patient presents with shortness of breath and cough that began today. Patient states it began rather suddenly. Patient states her breathing is worse with any exertion. Patient states she also can hear herself wheezing. Patient states nothing makes it better. Patient states it is worse with any exertion. Patient admits to a cough but denies any sputum production. Patient also admits to rhinorrhea and sore throat. Patient admits to some subjective chills but denies any fevers. Patient admits to some dull pain in her chest. Patient states she also feels dizzy. PE Risk Factors: Negative for Cancer, OCP + Smoking + > 35, Prior DVT or PE, Recent immobilization, Recent surgery or Recent travel [facility] Medical History GERD (gastroesophageal reflux disease) Asthma Home Medications ?Medication ?Instructions ?Recorded ?Last Taken ?Type albuterol sulfate 90 mcg/actuation 1 puff inhalation Q4H PRN PRN 04/03/14 04/03/14 02:00 History aerosol inhaler (Ventolin HFA) Shortness Of Breath naproxen 500 mg tablet 500 mg PO BID PRN PRN PAIN ##20 04/06/14 Unknown Rx clindamycin HCl 300 mg capsule 300 mg PO Q6H #40 caps 11/28/18 Unknown Rx fluconazole 150 mg tablet 150 mg PO X1 #1 TAB 11/28/18 Unknown Rx esomeprazole magnesium 40 mg 40 mg PO DAILY 05/13/25 Unknown History capsule,delayed release cyclobenzaprine 10 mg tablet 10 mg PO TID PRN Muscle Spasm #20 05/14/25 Unknown Rx TABLETS Allergy/AdvReac Type Severity Reaction Status Date / Time meloxicam AdvReac Intermediate Other Verified 10/12/25 17:49 ibuprofen AdvReac Vomiting Verified 10/12/25 17:49 morphine AdvReac Vomiting Verified 10/12/25 17:49 Surgical History (Updated 10/12/25 @ 19:[address] Dagoberto Evangelista DO) Hx of hand surgery History of endometrial ablation Hx of breast surgery Hx of appendectomy Social History Smoking Status: Light Smoker (<10/day) ROS ROS ED Constitutional Constitutional ED: Reports chills; Denies fever(s) Eyes Eyes: Denies blurry vision or change in vision ENT ENT ED: Reports rhinorrhea and sore throat Cardiovascular Cardiovascular: Reports chest pain; Denies palpitations Respiratory/Chest Respiratory/Chest: Reports cough and dyspnea Gastrointestinal Gastrointestinal: Reports nausea; Denies vomiting Genitourinary Genitourinary ED: Denies dysuria or hematuria Musculoskeletal Musculoskeletal: Reports back pain and neck pain Integumentary Reports rash; Denies Abrasions Neurologic Neurologic: Reports headache(s); Denies weakness Allergic/Immunologic Allergic/Immunologic ED: Denies mouth swelling or urticaria EXAM Physical Exam Const Vital Signs: 10/12/25 17:45 10/12/25 17:48 10/12/25 18:30 Temperature 96.3 F L Temperature Source Temporal Pulse Rate 100 97 Respiratory Rate 16 18 Respiratory Effort Short of Breath Respiratory Depth Normal Respiratory Pattern Normal Normal Blood Pressure 144/103 H Blood Pressure Mean 116 Pulse Ox 100 Oxygen Delivery Method Room Air Nasal Cannula 10/12/25 19:45 Temperature Temperature Source Pulse Rate 89 Respiratory Rate 16 Respiratory Effort Respiratory Depth Respiratory Pattern Blood Pressure 143/87 H Blood Pressure Mean 105 Pulse Ox 100 Oxygen Delivery Method Room Air Positive well nourished and well developed General Appearance ED: well developed and NAD HEENT Reports moist mucous membranes atraumatic Neck supple and no meningeal signs Resp normal respiratory effort Auscultation: wheezes expiratory wheezes Cardio regular rate and regular rhythm GI non-tender and non-distended Palpation: soft Neuro oriented x3, CN's II-XII intact bilaterally and no sensory deficits noted Amanda Coma Scale: document GCS findings Spontaneous Obeys Commands Oriented 15 Sensorium / Orientation: alert Speech: speech normal Motor Exam: strength 5/5 throughout Psych mental status grossly normal Skin Skin Narrative: There is an area of erythema warmth over the right mid abdomen. There is no fluctuance. There is an area of induration in the middle of this erythema. There is no discharge or drainage. MDM MDM MDM Narrative Medical decision making narrative: Differential diagnosis includes pneumonia, bronchitis, viral illness, electrolyte abnormality, and abdominal cellulitis. Chest x-ray will be obtained to assess for pneumonia or bronchitis. CBC will be obtained to assess for leukocytosis and anemia. Basic metabolic profile will be obtained to assess for electrolyte abnormality renal function. COVID-19, influenza, and RSV PCR will be obtained to assess for viral illness. Lab Data Attestation: I reviewed the patient's lab results. Lab results narrative: CBC was reviewed and was within normal limits. Basic metabolic profile was reviewed and was essentially within normal limits. COVID-19 PCR was reviewed and was negative. Influenza PCR was reviewed and was negative for influenza A and influenza B. RSV PCR was reviewed and was negative. Labs: Laboratory Results - last 24 hr 10/12/25 18:39 WBC 10.2 RBC 3.85 L Hgb 12.2 Hct 35.9 L MCV 93.2 MCH 31.7 MCHC 34.0 RDW Std Deviation 44.8 H RDW Coeff of Halima 13.1 Plt Count 295 MPV 9.2 Immature Gran % (Auto) 0.300 Neut % (Auto) 58.2 Lymph % (Auto) 31.4 [place] % (Auto) 6.0 Eos % (Auto) 3.1 Baso % (Auto) 1.0 Absolute Neuts (auto) 5.9 Absolute Lymphs (auto) 3.19 Nucleated RBC % 0 Sodium 138 Potassium 4.3 Chloride 106 Carbon Dioxide 23.7 Anion Gap 9 BUN 21 H Creatinine 0.90 Est GFR (MDRD) Non-Af 76 BUN/Creatinine Ratio 22.8 H Glucose 107 H Calcium 9.0 Radiography Chest X-Ray - ED: 2 View, Read by ED Physician, Read by Radiologist and No Acute Disease Diagnostic Testing: Clinical Impression(s) from Imaging Studies Chest X-Ray 10/12/25 18:16 IMPRESSION: No acute cardiopulmonary process. Reading Location: [facility] [place] and lateral chest x-ray was obtained. There are 2 views. On my independent interpretation, lung ochoa are clear. There is normal cardiac silhouette. Bony thorax is normal. There is no acute process noted. Radiologist also interpreted the x-ray and agrees. Treatment and Re-Evaluation :: Patient was given a DuoNeb aerosol here. Patient was feeling better on reevaluation. Patient was advised of her findings. Patient was instructed to follow-up with her primary care physician in 5 to 7 days. Patient was instructed return if worse in any way. Patient understood and was agreeable with the plan. All questions were answered. Discharge Plan Triage Chief Complaint: Shortness of Breath ED Provider: Dagoberto Evangelista Dx/Rx/DC Orders Clinical Impression: asthma, hypertension Instructions: ED Asthma, Acute (Adult) Prescriptions: No Action albuterol sulfate [Ventolin HFA] 1 INHALER inhaler 1 puff inhalation Q4H PRN PRN (Reason: Shortness Of Breath) Patient Comments: breathing naproxen 500 MG tablet 500 mg PO BID PRN PRN (Reason: PAIN) Qty: 20 0RF Patient Comments: pain clindamycin HCl 300 MG capsule 300 mg PO Q6H Qty: 40 0RF fluconazole 150 MG tablet 150 mg PO X1 Qty: 1 1RF Rx Instructions: Take 1 tablet after completing antibiotic. May repeat in 1 week if no better. esomeprazole magnesium 40 mg capsule,delayed release(DR/EC) 40 mg PO DAILY cyclobenzaprine 10 mg tablet 10 mg PO TID PRN (Reason: Muscle Spasm) Qty: 20 0RF Stand Alone Forms: ED Work / School Excuse Primary Care Provider: Gamaliel Lester Referrals: Gamaliel Lester MD [Primary Care Provider, Family Practice] - 5-7 Days Print Language: Egyptian Disposition Disposition: Home, Self Care
[2025-10-12 18:30] VITALS: PULSE 97; RESP 18
--- OUTSIDE RECORDS SUMMARY | 2025-10-12 18:39 | XMS RPT_ITS | CCD ---
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 [facility] CLIA [id number] [address] [place] [address] Progress Noteon 03-18-2025 Progress Note Fax from [facility]. Nexium not covered. Switch to Omeprazole that is covered. [facility] 36on 03-12-2025 36 Prescription Request : Last medication check: 12/04/24 Last physical exam: never Next scheduled appointment: none Last date of refill on this medication 11/25/24 (qty 18 refill 2) [place] [address]on 03-06-2025 [address] [facility] 36 Pt notified and aski kae for medrol dose pack to be sent to [facility] 36 Since she was seen b y [...] that sets her up for more infections. [facility] 36on 03-05-2025 36 S: Patient spoke wit h [facility] nurse regarding antibiotic request, sinus symptoms B: Onset of symptoms/concern 4 days A: Pt states was just seen at [facility] for the same complaint. Told she has [...] or shortness of breath at this time. States does have a hx of asthma, feels [...] 10 days Protocols used: Sinus Pain or Cvidbwugop-PWHXO-LT [facility] ED Nursing Noteon 03-05-2025 ED Nursing Note Pt. Arrived to ED vi a personal transportation with complaint of sinus pain and coughing up gross stuff x 2 days. Pt. Reports yellow, thick mucous for 2 days and a cough that began approximately 4 days. Pt. Reports history of sinus infections that sometimes turn into bronchitis. [facility] ED Provider Noteon ED Provider Note Emergency [...] SURGERY ON 07/07/2017 Neuropathy RA (rheumatoid arthritis) ([facility]) Tobacco abuse REVIEW OF SYSTEMS Several elements of the ROS reviewed and otherwise acutely negative except as in the HPI. PHYSICAL EXAM ED Triage Vitals [03/05/251922] Temp Heart Rate Resp BP 36.7 ?C [...] PM PATIENT REFERRED TO: Gamaliel Cormier MD [address] [place] [address], [facility] [address] Call in 1 day Rohith Perez MD Emergency Medicine Rohith Perez MD 03/05/252015 [facility] 36on 12-23-2024 36 Rx was sent 11/25/24 with 2 refills. Should have refills available at the pharmacy. [place] [address]on 12-20-2024 36 S: Patient spoke wit h [facility] nurse regarding Albuterol refill. B: albuterol 108 (90 Base) MCG/ACT inhaler [[id number]] Order Details Dose: 2 puff Route: Inhalation [...] triager answers question Protocols used: Medication Question [facility] S: CAC returning pat ient call [...] Protocols used: No Contact or Duplicate Contact [id number]-[id number] [facility] 36on 12-06-2024 36 Spoke to patient, no questions. [facility] 36 S: Patient spoke wit h [facility] nurse regarding Vaginal sx B: Onset of [...] pharmacy today. Allergies and pharmacy verified. R: HP TE sent to provider with urgent request [...] is it? (Scale: 1-10; mild, moderate, severe) 09/05 6. CAUSE: What do you think is [...] last menstrual period? N/A Protocols used: Vaginal Tohrjsex-XVNRQ-WB Normal [facility] Office Visiton 12-04-2024 Follow-up visit [id number] Xochitl Fuller 1970 F Date Provider Department Center 12/04/2024 [id number] [facility] Family History Problem Relation Age [...] Paternal Grandfather Other Neg Hx Level of Service:48684 HI OFFICE/OUTPATIENT ESTABLISHED MOD MDM 30 MIN Reason for Visit and Comments: Back Pain [12] - Lower back - is bad and getting worse Other [0] - On atb and now have yeast infection Normal [facility] Progress Noteon 12-04-2024 Progress Note Lumbosacral x-rays, stretching exercises were discussed in detail. Nabumetone 750 mg twice daily as needed. Normal [facility] Progress Note Lumbosacral x-rays, stretching exercises were discussed in detail. Nabumetone 750 mg twice daily as needed. Normal [facility] Progress Note 12/04/2024 Xochitl Fuller (: 1970) [...] note. Gamaliel Cormier MD 12/04/2024 10:[address] [facility] Progress Note Patient verified by last name and date of . [facility] 12-03-2024 29 Addended by: GAMALIEL CORMIER on: 12/03/2024 04:39 PM Modules accepted: Orders [facility] 3612-03-2024 36 Reason for Dispositi on ? Caller has already spoken with another triager and has no further questions Protocols used: No Contact or Duplicate Contact [id number]-PZHOH-DR [facility] 36 S: Patient spoke nallely h [facility] nurse regarding back pain B: Onset [...] Patient states that her primary insurance in [employer]. Pharmacy verified with patient PAULINA Bang. No further needs at this time. Patient instructed to call back with new or worsening symptoms. Reason for Disposition SEVERE back pain (e.g., excruciating, unable to do any normal activities) and not improved after pain medicine and CARE ADVICE Protocols used: Back Tfct-GNAPT-CP [place] [address] Patient stated she i s on an [...] prior to picking up the medication: Yes [facility] 36on 11-25-2024 36 Reviewed chart. Refi ll appropriate. RX sent. [place] [address] Prescription Request : Last date of refill on this medication 11/11/24 18g 2 refills to [facility] Progress Noteon 11-25-2024 Progress Note Chart reviewed of ED follow up Seen in [facility] ED on 11/24/24 Reason: Cellulitis of left breast Discharge instructions: Tylenol 2 extra strength tablets every 6 hours on a scheduled basis to help with pain. Also consider topical pain patches such as Salonpas to help with pain of the area Unable to reach by phone, patient is active on [employer]. ED message and education sent via Resermap [facility] 36on 11-24-2024 36 S: Patient spoke wit h [facility] nurse regarding sinus infection. 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 Cormier via cell- received TO for Tamiflu 75 mg, start today x 5 days, this RN phoned in prescription to patient's pharmacy, [facility] at [phone] Cormier Patient notified, verbalized understanding Reason for Disposition Patient is HIGH RISK (e.g., age > 64 years, , HIV+, or chronic medical condition) Protocols used: Influenza (Flu) - Tjfyslsl[facility]SEKUZ[facility] ED Provider Noteon ED Provider Note [...] SURGERY ON 07/07/2017 Neuropathy RA (rheumatoid arthritis) ([facility]) Tobacco abuse SURGICAL HISTORY Past Surgical History: Procedure Laterality Date APPENDECTOMY 2018 BREAST BIOPSY Right 2016 COLONOSCOPY W/ BIOPSIES AND POLYPECTOMY N/A 12/28/2022 Performed by Kimberly Lay MD at [address] ENDOSCOPY COLPOSCOPY ENDOMETRIAL ABLATION FINGER FRACTURE [...] Mother Thyroid disease Mother COPD Mother Other ([address]) Father pneumonia aspiration Breast cancer Maternal Grandmother [...] SCREENINGS PHYSICAL EXAM ED Triage Vitals [11/24/24 191] Temp Heart Rate Resp BP 37.2 ?C [...] the nipple th (more content not included)... Normal [facility] 36on 11-12-2024 36 Called lv to call of Cerebrex or check DooBop. DooBop messaged pt to call or schedule physical via DooBop. Normal [facility] 36on 11-11-2024 36 Noted. Rx sent. Due for physical and fasting blood work- please schedule. Normal [facility] 36 No, this was a POD scheduled visit. Normal [facility] 36 It looks like she turk s been seeing Dr. Simons. Has she switched to a new PCP? Normal [facility] 36 Prescription Request : Last medication check: 08/14/2023 Last physical exam: none Next scheduled appointment: none Last date of refill on this medication: 10/08/2024 Normal [facility] 36on 10-08-2024 36 Prescription Request : Last medication check: 01/16/24 Last physical exam: none Next scheduled appointment: none Last date of refill on this medication 07/26/24 18g 2 refills Normal [facility] XR Ribs Views and Chest PAon 04-01-2024 No radiographic acute cardiopulmonary process. Report Dictated on Electronically Signed By: Salina Parikh MD Electronically Signed Date/Time: 04/01/2024 2:13 PM EDT [facility] Patient Name: XOCHITL FULLER : 1970 Exam [...] sizable pneumothorax. The osseous structures appear intact. [facility] Salina Parikh MD - 04/01/2024 Patient Name: [...] Electronically Signed Date/Time: 04/01/2024 2:13 PM EDT [facility] Radiology Study observation (narrative) [facility] XR Shoulder - right 2 Viewso n 04-01-2024 FINDINGS AND IMPRESS ION: No acute fracture or dislocation of the right shoulder. Report Dictated on Electronically Signed By: Salina Parikh MD Electronically Signed Date/Time: 04/01/2024 2:14 PM EDT [facility] Patient Name: XOCHITL FULLER : 1970 Exam Date/Time: 04/01/2024 13:56 Procedure: XR SHOULDER 2+ VIEWS RIGHT Ordering Provider: TYSON MICHAEL Reason For Exam: pain after accident INDICATION: Pain after accident. VIEWS: Right shoulder-3 views COMPARISON: 01/05/2023 [facility] Salina Parikh MD - 04/01/2024 Patient [...] Electronically Signed Date/Time: 04/01/2024 2:14 PM EDT [facility] Radiology Study observation (narrative) [facility] XR Shoulder - right 2 ViewsO rdered By: Salina Parikh on 04-01-2024 [facility] [employer] Work Phone: XR Chest 2 Viewson No acute abnormality . Report Dictated on Electronically Signed By: Ismael Goodman MD Electronically Signed Date/Time: 02/27/2024 6:14 AM EDT [facility] Patient Name: XOCHITL FULLER : 1970 Exam Date/Time: 02/27/2024 06:12 Procedure: XR CHEST 2 VIEWS Ordering Provider: MIRANDA MICHAEL Reason For Exam: cough, chest pain CHEST: CLINICAL INDICATION: Cough and chest pain TECHNIQUE: PA and Lateral COMPARISON: 08/28/2023 FINDINGS: The heart and mediastinum are normal. The lungs are clear. There is no evidence for pleural effusion. The osseous structures are unremarkable. [facility] Ismael Goodman MD - 02/27/2024 Patient [...] Electronically Signed Date/Time: 02/27/2024 6:14 AM EDT [facility] (narrative) [employer] XR Chest 2 ViewsOrdered By: Ismael Goodman on 02-27-2024 [employer] Work Phone: [facility] 08-30-2023 [facility] HNO ID: [id number] Author: Huong Archibald RT(R) Service: Radiology Author Type: Screen Repairer Crusher Type: [facility] Filed: 08/29/2023 11:50 PM [...] Constantino(R) August 29, 2023 11:49 PM Normal [facility] CBC panel Auto (Bld)on 08-30 Erythrocyte distribution width (RBC) [Ratio] 12.5 % Normal 11.5-15.0 [facility] Comment on above: Order Comment: Josh sagastume Type: BLOOD SPECIMEN Ordering Facility: [facility] Address: [address] [place] [address] Performed By: #### 5 8410-2 #### [facility] CLIA [id number] [address] [place] [address] [place] Hematocrit (Bld) [Volume fraction] 37.9 % Normal 36.0-46.0 [facility] Comment on above: Order Comment: Josh sagastume Type: BLOOD SPECIMEN Ordering Facility: [facility] Address: [address] [place] [address] Performed By: #### 5 8410-2 #### [facility] CLIA [id number] [address] [place] [address] [place] Hemoglobin (Bld) [Mass/Vol] 12.3 g/dL Normal 11.5-15.5 [facility] Comment on above: Order Comment: Josh sagastume Type: BLOOD SPECIMEN Ordering Facility: [facility] Address: [address] [place] [address] Performed By: #### 5 8410-2 #### [facility] CLIA [id number] [address] [place] [address] [place] MCH (RBC) [Entitic mass] 31.1 pg Normal 26.0-34.0 [facility] Comment on above: Order Comment: Speci men Type: BLOOD SPECIMEN Ordering Facility: [facility] Address: [address] [place] [address] Performed By: #### 5 8410-2 #### [facility] CLIA [id number] [address] [place] MCHC (RBC) [Mass/Vol] 32.5 g/dL Normal 30.5-36.0 [facility] Comment on above: Order Comment: Speci men Type: BLOOD SPECIMEN Ordering Facility: [facility] Address: [address] [place] [address] Performed By: #### 5 8410-2 #### [facility] CLIA [id number] [address] OF [place]B MCV (RBC) [Entitic vol] 95.9 fL Normal 80.0-100.0 [facility] Comment on above: Order Comment: Speci men Type: BLOOD SPECIMEN Ordering Facility: [facility] Address: [address] [place] [address] Performed By: #### 5 8410-2 #### [facility] CLIA [id number] [address] STATES [place] Platelet mean volume (Bld) [Entitic vol] 9.1 fL Normal 9.0-12.7 [facility] Comment on above: Order Comment: Speci men Type: BLOOD SPECIMEN Ordering Facility: [facility] Address: [address] [place] [address] Performed By: #### 5 8410-2 #### [facility] CLIA [id number] [address] [place] [address] [place] Platelets (Bld) [#/Vol] 229 10*3/uL Normal 150-400 [facility] Comment on above: Order Comment: Speci men Type: BLOOD SPECIMEN Ordering Facility: [facility] Address: [address] [place] [address] Performed By: #### 5 8410-2 #### [facility] CLIA [id number] [address] [place] [address] OF [facility] RBC (Bld) [#/Vol] 3.95 10*6/uL Normal 3.90-5.20 [facility] Comment on above: Order Comment: Speci men Type: BLOOD SPECIMEN Ordering Facility: [facility] Address: [address] [place] [address] Performed By: #### 5 8410-2 #### [facility] CLIA [id number] [address] [place] [address] OF [facility] WBC (Bld) [#/Vol] 14.40 10*3/uL High 3.70-11.00 [facility] Comment on above: Order Comment: Speci men Type: BLOOD SPECIMEN Ordering Facility: [facility] Address: [address] [place] [address] Performed By: #### 5 8410-2 #### [facility] CLIA [id number] [address] [place] [address] CT ABD/PEL WO IVCONon 2022 CT ABD/PEL WO IVCON * * *Final Report* * * DATE OF EXAM: Aug 29 2023 11:49PM [facility] [place] 2] 0531 - CT ABD/PEL WO IVCON / [...] hiatal hernia. No consolidation. No pleural effusion. Odd Shoe Examiner (topogram) images: No additional findings. IMPRESSION: Mild left hydroureteronephrosis with a 3 mm stone at the ureterovesical junction. Punctate nonobstructing right nephrolithiasis. Details above. Director Of Medical Review: QIANA Transcribe Date/Time: Aug 30 2023 12:05A Dictated by : LISBET ROLDAN MD This examination was interpreted and the report reviewed and electronically signed by: LISBET ROLDAN MD on Aug 30 2023 12:16AM EST [id number] Normal [facility] Comprehensive metabolic 2000 panelon 08-30-2023 Albumin [Mass/Vol] 3.6 g/dL Low 3.9-4.9 [facility] Comment on above: Order Comment: Speci men Type: BLOOD SPECIMEN Ordering Facility: [facility] Address: [address] [place] [id number] Performed By: #### 2 4323-8, 3040-3 #### [facility] CLIA [id number] [address] [place] [address] [place] ALP [Catalytic activity/Vol] 99 U/L Normal 34-123 [facility] Comment on above: Order Comment: Speci men Type: BLOOD SPECIMEN Ordering Facility: [facility] Address: [address] [place] [address] Performed By: #### 2 4323-8, 3040-3 #### [facility] CLIA [id number] [address] [place] [address] [place] ALT With P-5'-P [Catalytic activity/Vol] 34 U/L Normal 7-38 [facility] Comment on above: Order Comment: Speci men Type: BLOOD SPECIMEN Ordering Facility: [facility] Address: [address] [place] [address] Performed By: #### 2 4323-8, 3040-3 #### [facility] CLIA [id number] [address] [place] [address] [place] Anion gap [Moles/Vol] 9 mmol/L Normal 9-18 [facility] Comment on above: Order Comment: Speci men Type: BLOOD SPECIMEN Ordering Facility: [facility] Address: [address] [place] [address] Performed By: #### 2 4323-8, 3040-3 #### [facility] CLIA [id number] [address] [place] [address] [place] AST With P-5'-P [Catalytic activity/Vol] 34 U/L Normal 13-35 [facility] Comment on above: Order Comment: Speci men Type: BLOOD SPECIMEN Ordering Facility: [facility] Address: [address] [place] [address] Performed By: #### 2 4323-8, 3040-3 #### [facility] CLIA [id number] [address] [place] [address] [place] Bilirubin [Mass/Vol] 0.2 mg/dL Normal 0.2-1.3 [facility] Comment on above: Order Comment: Speci men Type: BLOOD SPECIMEN Ordering Facility: [facility] Address: [address] [place] [address] Performed By: #### 2 4323-8, 3040-3 #### [facility] CLIA [id number] [address] [place] [address] [place] Calcium [Mass/Vol] 8.9 mg/dL Normal 8.5-10.2 [facility] Comment on above: Order Comment: Speci men Type: BLOOD SPECIMEN Ordering Facility: [facility] Address: [address] [place] [address] Performed By: #### 2 4323-8, 0-3 #### [facility] CLIA [id number] [address] [place] [address] [place] Chloride [Moles/Vol] 103 mmol/L Normal 97-105 [facility] Comment on above: Order Comment: Speci men Type: BLOOD SPECIMEN Ordering Facility: [facility] Address: [address] [place] [address] Performed By: #### 2 4323-8, 0-3 #### [facility] CLIA [id number] [address] [place] [address] [place] CO2 [Moles/Vol] 24 mmol/L Normal 22-30 [facility] Comment on above: Order Comment: Speci men Type: BLOOD SPECIMEN Ordering Facility: [facility] Address: [address] [place] [address] Performed By: #### 2 4323-8, 0-3 #### [facility] CLIA [id number] [address] [place] [address] [place] Creatinine [Mass/Vol] 0.99 mg/dL High 0.58-0.96 [facility] Comment on above: Order Comment: Speci men Type: BLOOD SPECIMEN Ordering Facility: [facility] Address: [address] [place] [address] Performed By: #### 2 4323-8, 3040-3 #### [facility] CLIA [id number] [address] [place] [address] [place] Creatinine and Glomerular filtration rate.predicted panel (S/P/Bld) 69 mL/min/1.73m??? Normal >=60 [facility] Comment on above: Order Comment: Josh sagastume Type: BLOOD SPECIMEN Ordering Facility: [facility] Address: [address] [place] [address] Result Comment: Jaz mated Glomerular Filtration Rate [...] actual GFR. Performed By: #### 2 4323-8, 3040-3 #### [facility] CLIA [id number] [address] [place], [place] [address] [place] Glucose [Mass/Vol] 123 mg/dL High 74-99 [facility] Comment on above: Order Comment: Josh sagastume Type: BLOOD SPECIMEN Ordering Facility: [facility] Address: [address] [place] [address] Result Comment: The [place] Diabetes Association (ADA) provides guidance for cutoff [...] Standards of Medical Care in Diabetes 2016, [place] Diabetes Association. Diabetes Care. 2016.39(Suppl 1). Performed By: #### 2 4323-8, 3040-3 #### [facility] CLIA [id number] [address] [place] [address] [place] Potassium [Moles/Vol] 4.1 mmol/L Normal 3.7-5.1 [facility] Comment on above: Order Comment: Speci men Type: BLOOD SPECIMEN Ordering Facility: [facility] Address: [address] [place] [address] Performed By: #### 2 4323-8, 3040-3 #### [facility] CLIA [id number] [address] [place] [address] [place] Protein [Mass/Vol] 6.7 g/dL Normal 6.3-8.0 [facility] Comment on above: Order Comment: Speci men Type: BLOOD SPECIMEN Ordering Facility: [facility] Address: [address] [place] [address] Performed By: #### 2 4323-8, 3040-3 #### [facility] CLIA [id number] [address] [place] [address] [facility] Sodium [Moles/Vol] 136 mmol/L Normal 136-144 [facility] Comment on above: Order Comment: Speci men Type: BLOOD SPECIMEN Ordering Facility: [facility] Address: [address] [place] [address] Performed By: #### 2 4323-8, 0-3 #### [facility] CLIA [id number] [address] [place] [address] [place] Urea nitrogen [Mass/Vol] 9 mg/dL Normal 7-21 [facility] Comment on above: Order Comment: Speci men Type: BLOOD SPECIMEN Ordering Facility: [facility] Address: [address] [place] [address] Performed By: #### 2 4323-8, 3040-3 #### [facility] [place] [facility] CLIA [id number] [address] [place] [address] [facility] ED NOTEon 08-30-2023 ED NOTE HNO ID: [id number] Author: Rick Campos, RN Service: Emergency Medicine Author Type: Registered Nurse Type: ED Notes Filed: 08/30/2023 3:28 AM Note Text: Patient discharge instructions given to patient, patient educated on discharge instructions. Patient denied having questions at this time regarding discharge instructions. Patient discharged home with patient's significant other. Patient ambulated out of the emergency department with a steady gait. Patient's significant other driving patient home. [facility] ED NOTE HNO ID: [id number] Author: Rick Campos RN Service: Emergency Medicine Author Type: Registered Nurse Type: ED Notes Filed: 08/30/2023 1:02 AM Note Text: Physician at bedside attempting ultrasound IV access. [facility] ED NOTE HNO ID: [id number] Author: Rick Campos RN Service: Emergency Medicine Author Type: Registered Nurse Type: ED Notes Filed: 08/30/2023 12:29 AM Note Text: Physician present at bedside. [facility] ED NOTE HNO ID: [id number] Author: Rick Campos RN Service: Emergency Medicine Author Type: Registered Nurse Type: ED Notes Filed: 08/29/2023 11:15 PM Note Text: Attempted IV insertion without success. Patient stated that she does not want anymore IV attempts unless it is by ultrasound. Physician and charge nurse notified. [facility] ED PROV NOTEon 08-30-2023 ED PROV NOTE HNO ID: [id number] Author: Hernando Linares MD Service: Emergency Medicine [...] history of cervical dysplasia 06/02/2009 Recovering alcoholic (HCC) 10/28/2015 Quits 05/2015 Shoulder pain 10/03/2013 Smoker [...] Clear Ketones, Urine Trace (*) Negative Specific Vidal, Ur >=1.030 (*) 1.005 - 1.030 Hemoglobin/Blood,Ur Trace (*) Negative WBC, Urine 6-10 /HPF (*) 0-5 /HPF Bacteria Few (*) None Seen /HPF All other components within normal limits (more content not included)... Normal [facility] HCG Preg Ur Qlon 08-30-2023 HCG ( test) Ql (U) Negative Normal Negative [facility] Comment on above: Order Comment: Speci men Type: URINE SPECIMEN Ordering Facility: [facility] Address: [address] [place] [id number] Result Comment: This test is intended to aid in the early detection of . Very dilute urine samples, as indicated by a low specific gravity, may not contain manufacturer representative levels of hCG. This test detects [...] #### 2 106-3 #### [facility] CLIA [id number] [address] [place] [address] [place] Lactate (Bld) [Moles/Vol]on 08-30-2023 Lactate [Moles/Vol] 0.6 mmol/L Normal 0.5-2.2 [facility] Comment on above: Order Comment: Speci men Type: BLOOD SPECIMEN Ordering Facility: [facility] Address: [address] [place] [address] Performed By: #### 2 4323-8, 3040-3 #### [facility] CLIA [id number] [address] [place] [address] [place] Lipase SerPl-cCncon 08-30-20 23 Lipase [Catalytic activity/Vol] 11 U/L Low 16-61 [facility] Comment on above: Order Comment: Speci men Type: BLOOD SPECIMEN Ordering Facility: [facility] Address: [address] [place] [address] Performed By: #### 2 4323-8, 3040-3 #### [facility] CLIA [id number] [address] [place] [address] [place] Urinalysis complete panel (U )on 08-30-2023 Bacteria LM.HPF (Urine sed) [#/Area] Few Abnormal None Seen [facility] Comment on above: Order Comment: Speci men Type: URINE SPECIMEN Ordering Facility: [facility] Address: [address] [place] [address] Performed By: #### 2 4356-8 #### [facility] CLIA [id number] [address] [place] [address] [place] Bilirubin Ql (U) Negative Normal Negative [facility] Comment on above: Order Comment: Speci men Type: URINE SPECIMEN Ordering Facility: [facility] Address: [address] [place] [address] Performed By: #### 2 4356-8 #### [facility] [place] [facility] CLIA [id number] [address] [place] [address] [facility] Clarity (Unsp spec) Slightly Cloudy Abnormal Clear [facility] Comment on above: Order Comment: Speci men Type: URINE SPECIMEN Ordering Facility: [facility] Address: [address] [place] [address] Performed By: #### 2 4356-8 #### [facility] [place] [facility] CLIA [id number] [address] [place] [address] [place] Color (U) Yellow Normal Yellow [facility] Comment on above: Order Comment: Speci men Type: URINE SPECIMEN Ordering Facility: [facility] Address: [address] [place] [address] Performed By: #### 2 4356-8 #### [facility] CLIA [id number] [address] [place] [id number] [place] Epithelial cells LM.HPF (Urine sed) [#/Area] Few Normal [facility] Comment on above: Order Comment: Speci men Type: URINE SPECIMEN Ordering Facility: [facility] Address: [address] [place] [address] Performed By: #### 2 4356-8 #### [facility] [place] [facility] CLIA [id number] [address] [place] [address] [facility] Glucose Test strip (U) [Mass/Vol] Negative Normal Negative [facility] Comment on above: Order Comment: Speci men Type: URINE SPECIMEN Ordering Facility: [facility] Address: [address] [place] [address] Performed By: #### 2 4356-8 #### [facility] CLIA [id number] [address] [place] [address] [place] Hemoglobin Ql (U) Trace Abnormal Negative [facility] Comment on above: Order Comment: Speci men Type: URINE SPECIMEN Ordering Facility: [facility] Address: [address] [place] [address] Performed By: #### 2 4356-8 #### [facility] [facility] CLIA [id number] [address] [place] [address] [facility] Ketones Ql (U) Trace Abnormal Negative [facility] Comment on above: Order Comment: Speci men Type: URINE SPECIMEN Ordering Facility: [facility] Address: [address] [place] [address] Performed By: #### 2 4356-8 #### [facility] CLIA [id number] [address] [place] [address] [place] [facility] Leukocyte esterase Test strip Ql (U) Negative Normal Negative [facility] Comment on above: Order Comment: Speci men Type: URINE SPECIMEN Ordering Facility: [facility] Address: [address] [place] [address] Performed By: #### 2 4356-8 #### [facility] CLIA [id number] [address] [place] [address] [place] Nitrite Ql (U) Negative Normal Negative [facility] Comment on above: Order Comment: Speci men Type: URINE SPECIMEN Ordering Facility: [facility] Address: [address] [place] [address] Performed By: #### 2 4356-8 #### [facility] [place] CLIA [id number] [address] [place] [address] [place] pH (U) 6.0 [pH] Normal 5.0-8.0 [facility] Comment on above: Order Comment: Speci men Type: URINE SPECIMEN Ordering Facility: [facility] Address: [address] [place] [address] Performed By: #### 2 4356-8 #### [facility] CLIA [id number] [address] [place] [id number] [facility] Protein (U) [Mass/Vol] Negative Normal Negative [facility] Comment on above: Order Comment: Speci men Type: URINE SPECIMEN Ordering Facility: [facility] Address: [address] [place] [address] Performed By: #### 2 4356-8 #### [facility] CLIA [id number] [address] [place] [address] RBC LM.HPF (Urine sed) [#/Area] 0-3 /HPF Normal 0-3 /HPF [facility] Comment on above: Order Comment: Speci men Type: URINE SPECIMEN Ordering Facility: [facility] Address: [address] [place] [address] Performed By: #### 2 4356-8 #### [facility] CLIA [id number] [address] [place] [address] Specific gravity (U) [Rel density] >=1.030 High 1.005-1.030 [facility] Comment on above: Order Comment: Speci men Type: URINE SPECIMEN Ordering Facility: [facility] Address: [address] [place] [address] Performed By: #### 2 4356-8 #### [facility] CLIA [id number] [address] [place] [address] Urobilinogen Ql (U) 0.2 EU/dL Normal 0.2-1.0 EU/dL [facility] Comment on above: Order Comment: Speci men Type: URINE SPECIMEN Ordering Facility: [facility] Address: [address] [place] [address] Performed By: #### 2 4356-8 #### [facility] CLIA [id number] [address] [place] [address] WBC LM.HPF (Urine sed) [#/Area] 6-10 /HPF Abnormal 0-5 /HPF [facility] Comment on above: Order Comment: Speci men Type: URINE SPECIMEN Ordering Facility: [facility] Address: [address] [place] [address] Performed By: #### 2 4356-8 #### [facility] CLIA [id number] [address] [place] [address] [place] CBC W Auto [...] 14.7 10*3/uL High 1.8 - 7.0 10*3/uL [facility] Neutrophils/100 WBC (Bld) 79.2 % 40.0 - 80.0 % [facility] Platelet mean volume (Bld) [Entitic vol] 9.3 fL 7.4 - 12.4 fL [facility] Comment on above: MPV is a calculated measurement using platelet volume ratio Platelets (Bld) [#/Vol] 266 10*3/uL 140 - 440 10*3/uL [facility] RBC (Bld) [#/Vol] 4.40 10*6/uL 3.8 - 5.20 10*6/uL [facility] WBC (Bld) [#/Vol] 18.6 10*3/uL High 3.6 - 10.7 10*3/uL [facility] COVID-19, Flu A/B, and RSV C omboon 08-28-2023 Interpretation and review of laboratory results Normal [facility] Comprehensive metabolic 1998 panelon 08-28-2023 Albumin [Mass/Vol] 4.3 g/dL 3.5 - 5.0 g/dL [facility] ALP [Catalytic activity/Vol] 92 U/L 38 - 126 U/L [facility] ALT [Catalytic activity/Vol] 28 U/L 0 - 34 U/L [facility] Anion gap [Moles/Vol] 4 mmol/L 3 - 13 mmol/L [facility] AST [Catalytic activity/Vol] 34 U/L 15 - 46 U/L [facility] Bilirubin [Mass/Vol] 0.8 mg/dL 0.2 - 1 .3 mg/dL [facility] Calcium [Mass/Vol] 8.9 mg/dL 8.4 - 10. 4 mg/dL [facility] Chloride [Moles/Vol] 102 mmol/L 98 - 10 7 mmol/L [facility] CO2 [Moles/Vol] 28 mmol/L 22 - 30 mmol/L [facility] Creatinine [Mass/Vol] 0.81 mg/dL 0.52 - 1.04 mg/dL [facility] GFR/1.73 sq M.predicted MDRD (S/P/Bld) [Vol rate/Area] 87.5 mL/min/{1.73_m2} - PINF [facility] Comment on above: Calculation based on the Chronic Kidney Disease Epidemiology Collaboration (CKD-EPI) equation refit without adjustment for race Glucose [Mass/Vol] 116 mg/dL High 70 - 100 mg/dL [facility] Interpretation and review of laboratory results Abnormal [facility] Potassium [Moles/Vol] 4.1 mmol/L 3.5 - 5.1 mmol/L [facility] Protein [Mass/Vol] 7.9 g/dL 6.3 - 8.2 g/dL [facility] Sodium [Moles/Vol] 133 mmol/L Low 135 - 145 mmol/L [facility] Urea nitrogen [Mass/Vol] 10 mg/dL 7 - 17 mg/dL [facility] Laboratory - Chemistry and C hemistry - challengeon 08-28-2023 Lactate [Moles/Vol] 1.0 mmol/L 0.7 - 2. 0 mmol/L [facility] Laboratory - Microbiology an d Antimicrobial susceptibilityon 08-28-2023 FLUAV RNA FATOUMATA+probe Ql (Resp) Not detected Not Detected [facility] FLUBV RNA FATOUMATA+probe Ql (Resp) Not detected Not Detected [facility] RSV RNA FATOUMATA+probe Ql (Resp) Not detected Not Detected [facility] SARS-CoV-2 (COVID-19) RNA FATOUMATA+probe Ql (Resp) Not detected Not Detected [facility] SARS-CoV-2 (COVID-19) RNA FATOUMATA+probe Ql (Unsp spec) Methodology: real-time, RT-PCR The SARS-CoV-2, Flu A/B, and RSV Combo assay is intended for in vitro diagnostic use under the FDA Emergency Use Authorization (EUA). This test has not been FDA cleared or approved. In compliance with this authorization, please visit www.fda.gov/media/869339 /download or www.fda.gov/media/294905 /download to access the applicable information sheets. [facility] No Panel Informationon 08-28 Interpretation and review of laboratory results Normal [facility] Urinalysis complete panel (U )Ordered By: Odalys Moore on 08-28-2023 Bacteria LM.HPF (Urine sed) [#/Area] Many Abnormal Negative /HPF [facility] Bilirubin Ql (U) Negative Negative mg/dL [facility] Clarity (U) Turbid Abnormal Clear [facility] Color (U) Light Yellow Lt. Yellow [facility] Epithelial cells.squamous LM.HPF (Urine sed) [#/Area] 11-25 Abnormal [facility] h Glucose Ql (U) Normal Normal (<70) mg/dL [facility] Hemoglobin Ql (U) Negative Negative mg/dL [facility] Interpretation and review of laboratory results Abnormal [facility] Ketones (U) [Mass/Vol] Negative Negative mg/dL [facility] Leukocyte esterase Test strip Ql (U) 250 Abnormal Negative Daya/uL [facility] Nitrite Ql (U) Positive Abnormal Negative [facility] th pH (U) 7.5 [pH] 5.0 - 8.0 pH [facility] Protein (U) [Mass/Vol] 10 mg/dL Abnormal Negative [facility] RBC LM.HPF (Urine sed) [#/Area] Negative [facility] Specific gravity (U) [Rel density] 1.015 1.005 - 1.030 [facility] Urobilinogen (U) [Mass/Vol] Normal Normal (0-1) mg/dL [facility] Volume, Urine 12 mL [facility] h WBC LM.HPF (Urine sed) [#/Area] 11-25 Abnormal [facility] XR Chest Single viewon 08-28 Impression: No acute cardiopulmonary process. Report Dictated on Electronically Signed By: Francis Mejia MD Electronically Signed Date/Time: 08/28/2023 9:59 PM EDT [employer] Patient Name: XOCHITL FULLER : 1970 [...] is no evidence of acute osseous abnormality. [facility] [employer] Francis Mejia MD - 08/28/2023 Patient [...] Electronically Signed Date/Time: 08/28/2023 9:59 PM EDT [facility] Radiology Study observation (narrative) [facility] XR Chest Single viewOrdered By: Francis Mejia on 08-28-2023 [facility] [employer] Work Phone: XR Cervical spine 4 or 5 Vie wson 01-07-2023 No fracture or dislocation of the cervical spine is identified. Mild degenerative changes at C5/C6. Report Dictated on Electronically Signed By: Kun Lebron Electronically Signed Date/Time: 01/07/2023 4:28 PM [facility] [employer] Patient Name: XOCHITL FULLER : 1970 [...] narrowing is seen on the oblique views. [facility] [employer] Kun Lebron MD - 01/07/2023 Patient [...] Electronically Signed Date/Time: 01/07/2023 4:28 PM EST [employer] XR Cervical spine 4 or 5 Vie wsOrdered By: Kun Lebron on 01-07-2023 [employer] Work Phone: XR Hand - bilateral 3 [...] Lebron Electronically Signed Date/Time: 01/07/2023 4:29 PM [employer] Patient Name: XOCHITL FULLER : 1970 [...] interphalangeal joints of the left hand diffusely. [facility] Kun Lebron MD - 01/07/2023 Patient Name: X[facility]CHITL FULLER : 1970 [id number] Exam Date/Time: 01/05/2023 17:18 Procedure: XR HAND [...] Electronically Signed Date/Time: 01/07/2023 4:29 PM EST [facility] XR Knee - bilateral 3 Viewso n 01-07-2023 No fracture or dislocation of the left knee or right knee is identified. No significant degenerative changes. Report Dictated on Electronically Signed By: Kun Lebron Electronically Signed Date/Time: 01/07/2023 4:24 PM [facility] Patient Name: XOCHITL FULLER : 1970 [...] the lateral view. Soft tissues are unremarkable. [facility] Kun Lebron MD - 01/07/2023 Patient Name: [...] Electronically Signed Date/Time: 01/07/2023 4:24 PM EST [facility] XR Lumbar spine 2 or 3 Views on 01-07-2023 No acute bony abnormality of the lumbar spine is seen. Mild degenerative changes of the lower lumbar spine. Report Dictated on Electronically Signed By: Kun Lebron Electronically Signed Date/Time: 01/07/2023 4:21 PM [facility] [employer] Patient Name: XOCHITL FULLER : 1970 [...] lesions observed. The sacroiliac joints appear unremarkable. [facility] Kun Lebron MD - 01/07/2023 Patient Name: [...] Electronically Signed Date/Time: 01/07/2023 4:21 PM EST [facility] [employer] [facility] XR Shoulder - bilateral 2 Vi ewson 01-07-2023 Unremarkable plain films of the left and right shoulders. Report Dictated on Electronically Signed By: Kun Lebron Electronically Signed Date/Time: 01/07/2023 4:23 PM [facility] [employer] Patient Name: XOCHITL FULLER : 1970 [...] acromioclavicular and glenohumeral joints appear grossly normal. [facility] Kun Lebron MD - 01/07/2023 Patient [...] Report Dictated on Electronically Signed By: Kun eLbron Electronically Signed Date/Time: 01/07/2023 4:23 PM EST [employer] XR Shoulder - bilateral 2 Vi ewsOrdered By: Kun Lebron on 01-07-2023 [employer] Work Phone: XR Thoracic spine 4 Viewson 01-07-2023 Unremarkable plain film examination of the thoracic spine. Report Dictated on Electronically Signed By: Kun Lebron Electronically Signed Date/Time: 01/07/2023 4:24 PM [facility] [employer] Patient Name: XOCHITL FULLER : 1970 [...] are seen. The visualized ribs are unremarkable. [facility] Kun Lebron MD - 01/07/2023 Patient [...] Electronically Signed Date/Time: 01/07/2023 4:24 PM EST [facility] No Panel Informationon 01-05 Radiology Study observation (narrative) [facility] US Lower Extremity Bilateral Venous Duplexon 04-26-2022 Patient [facility]: [id number] Ultrasound ACCESSION EXAM DATE/TIME PROCEDURE ORDERING PROVIDER [id number] 04/26/2022 12:42 EDT VL Venous Duplex US 5714 -PASTORAL, Lower Ext Bilateral CPT code 48237 Reason For Exam (VL Venous Duplex US [...] 04/26/2022 3:24 Cardiovascular ACCESSION EXAM DATE/TIME PROCEDURE [id number] 04/26/2022 12:42 EDT VL Venous Duplex US Lower Ext Bilateral CPT code 77683 Reason For Exam (VL Venous Duplex US [...] JEFFREY Transcribed Date and Time: 04/26/2022 3:24 [facility] Ismael Goodman MD - 04/26/2022 Patient Name: [facility]L [id number] Ultrasound ACCESSION EXAM DATE/TIME PROCEDURE ORDERING PROVIDER [id number] 04/26/2022 12:42 EDT VL Venous Duplex US 5714 -PASTORAL, Lower Ext Bilateral CPT code 40226 Reason For Exam (VL Venous Duplex US [...] 04/26/2022 3:24 Cardiovascular ACCESSION EXAM DATE/TIME PROCEDURE [id number] 04/26/2022 12:42 EDT VL Venous Duplex US Lower Ext Bilateral CPT code 32346 Reason For Exam (VL Venous Duplex US [...] Venous DuplexOrdered By: Ismael Goodman on 04-26-2022 [facility] Work Phone: VL Venous Duplex US Lower Ex t Bilateralon 04-26-2022 VL Venous Duplex US Lower Ext Bilateral Patient Name: XOCHITL FULLER Ultrasound ACCESSION EXAM DATE/TIME PROCEDURE ORDERING PROVIDER [id number] 04/26/2022 12:42 EDT VL Venous Duplex US 5714 -PASTORAL, Lower Ext Bilateral CPT code 92612 Reason For Exam (VL Venous Duplex US [...] 04/26/2022 3:24 Cardiovascular ACCESSION EXAM DATE/TIME PROCEDURE [id number] 04/26/2022 12:42 EDT VL Venous Duplex US Lower Ext Bilateral CPT code 04422 Reason For Exam (VL Venous Duplex US [...] Transcribed Date and Time: 04/26/2022 3:24 Normal [facility] CBC with Auto Differentialon 04-19-2022 Absolute [...] 43.7 % 35.0 - 47.0 % [facility] Hemoglobin.gastrointe stinal spec 1 Ql (Stl) 15.1 g/dL 11.7 [...] [#/Vol] 8.7 10*3/uL 3.6 - 10.7 10*3/uL [facility] Test Performed by [facility], [address] [place], [place] [id number] [place] [address] LAB [facility] Comp Metabolic Panelon 04-19 ALT [Catalytic activity/Vol] 20 U/L Normal 0-34 [facility] Comment on above: Result Comment: The ALT test is performed by an updated assay method. Please note that the reference intervals have been changed and are now sex specific. Performed By: #### H EMDF, CMP3, TSH5, B12, HA1C2 #### [facility] [address] [place] [address] #### IGG, IGA #### [facility] [address] [place] [address] Calcium [Mass/Vol] 9.5 mg/dL Normal 8.4-10.4 [facility] Comment on above: Performed By: #### H EMDF, CMP3, TSH5, B12, HA1C2 #### [facility] [address] [place] [address] #### IGG, IGA #### [facility] [address] [place] [address] Glucose [Mass/Vol] 108 mg/dL High 70-100 [facility] Comment on above: Performed By: #### H EMDF, CMP3, TSH5, B12, HA1C2 #### [facility] [address] [place] [address] #### IGG, IGA #### [facility] [address] [place] [address] ALP [Catalytic activity/Vol] 88 U/L Normal 38-126 [facility] Comment on above: Performed By: #### H EMDF, CMP3, TSH5, B12, HA1C2 #### [facility] [address] [place] [address] #### IGG, IGA #### [facility] [address] [place] [address] Anion gap [Moles/Vol] 5 mmol/L Normal 3-13 [facility] Comment on above: Performed By: #### H EMDF, CMP3, TSH5, B12, HA1C2 #### [facility] [address] [place] [address] #### IGG, IGA #### [facility] [address] [place] [address] AST [Catalytic activity/Vol] 29 U/L Normal 15-46 [facility] Comment on above: Performed By: #### H EMDF, CMP3, TSH5, B12, HA1C2 #### [facility] [address] [place] [address] #### IGG, IGA #### [facility] [address] [place] [address] Bilirubin [Mass/Vol] 0.6 mg/dL Normal 0.2-1.3 [facility] Comment on above: Performed By: #### H EMDF, CMP3, TSH5, B12, HA1C2 #### [facility] [address] [place] [address] #### IGG, IGA #### [facility] [address] [place] [address] CO2 [Moles/Vol] 27 mmol/L Normal 22-30 [facility] Comment on above: Performed By: #### H EMDF, CMP3, TSH5, B12, HA1C2 #### [facility] [address] [place] [address] #### IGG, IGA #### [facility] [address] [place] [address] Creatinine [Mass/Vol] 0.91 mg/dL Normal 0.52-1.25 [facility] Comment on above: Performed By: #### H EMDF, CMP3, TSH5, B12, HA1C2 #### [facility] [address] [place] [address] #### IGG, IGA #### [facility] [address] [place] [address] GFR/1.73 sq M.predicted among blacks MDRD (S/P/Bld) [Vol rate/Area] 84.7 mL/min/{1.73_m2} Normal >60 [facility] Comment on above: Performed By: #### H EMDF, CMP3, TSH5, B12, HA1C2 #### [facility] [address] [place] [address] #### IGG, IGA #### [facility] [address] [place] [address] GFR/1.73 sq M.predicted among non-blacks MDRD (S/P/Bld) [Vol rate/Area] 73.0 mL/min/{1.73_m2} Normal >60 [facility] Comment on above: Result Comment: KDIG [...] H EMDF, CMP3, TSH5, B12, HA1C2 #### [facility] [address] [place] [address] #### IGG, IGA #### [facility] [address] [place] [address] Protein [Mass/Vol] 7.7 g/dL Normal 6.3-8.2 [facility] Comment on above: Performed By: #### H EMDF, CMP3, TSH5, B12, HA1C2 #### [facility] [address] [place] [address] #### IGG, IGA #### [facility] [address] [place] [address] Urea nitrogen [Mass/Vol] 14 mg/dL Normal 9-20 [facility] Comment on above: Performed By: #### H EMDF, CMP3, TSH5, B12, HA1C2 #### [facility] [address] [place] [address] #### IGG, IGA #### [facility] [address] [place] [address] Potassium [Moles/Vol] 4.3 mmol/L Normal 3.5-5.1 [facility] Comment on above: Performed By: #### H EMDF, CMP3, TSH5, B12, HA1C2 #### [facility] [address] [place] [address] #### IGG, IGA #### [facility] [address] [place] [address] Sodium [Moles/Vol] 137 mmol/L Normal 135-145 [facility] Comment on above: Performed By: #### H EMDF, CMP3, TSH5, B12, HA1C2 #### [facility] [address] [place] [address] #### IGG, IGA #### [facility] [address] [place] [address] Albumin [Mass/Vol] 4.3 g/dL Normal 3.5-5.0 [facility] Comment on above: Performed By: #### H EMDF, CMP3, TSH5, B12, HA1C2 #### [facility] [address] [place] [address] #### IGG, IGA #### [facility] [address] [place] [address] Chloride [Moles/Vol] 105 mmol/L Normal 98-107 [facility] Comment on above: Performed By: #### H EMDF, CMP3, TSH5, B12, HA1C2 #### [facility] [address] [place] [address] #### IGG, IGA #### [facility] [address] [place] [address] Comprehensive Metabolic Pane [facility] 04-19-2022 ALP (Bld) [Catalytic activity/Vol] 88 U/L [...] [facility] Bilirubin [Mass/Vol] 0.6 mg/dL 0.2 - 1 .3 mg/dL [facility] Calcium [Mass/Vol] 9.5 mg/dL 8.4 - 10. 4 mg/dL [facility] CO2 [Moles/Vol] 27 mmol/L 22 - 30 mmol/L [facility] Creatinine [Mass/Vol] 0.91 mg/dL 0.52 - 1.25 mg/dL [facility] EGFR IF NonAfrican Danish 73.0 mL/min >60 [facility] Comment on above: [...] 108 mg/dL High 70 - 100 mg/dL [facility] Interpretation and review of laboratory results Abnormal [facility] Potassium [Moles/Vol] 4.3 mmol/L 3.5 - 5.1 mmol/L [facility] Sodium [Moles/Vol] 137 mmol/L 135 - 145 mmol/L [facility] Urea nitrogen (BldV) [Mass/Vol] 14 mg/dL 9 - 20 mg/dL [facility] Test Performed by [facility], [address] LAB [facility] Hemoglobin A1Con 04-19-2022 Glucose [Mass/Vol] 117 mg/dL Normal [facility] Comment on above: Performed By: #### H EMDF, CMP3, TSH5, B12, HA1C2 #### [facility] [address] [place] [address] #### IGG, IGA #### [facility] [address] [place] [address] HbA1c (Bld) [Mass fraction] 5.7 % Abnormal [facility] Comment on above: Result Comment: Norm al less than 5.7% Prediabetes 5.7% to 6.4% Diabetes 6.5% or higher --HgbA1C levels may not be accurate in patients who have renal disease, received recent blood transfusions, are anemic, or who have dyshemoglobinemia. Performed By: #### H EMDF, CMP3, TSH5, B12, HA1C2 #### [facility] [address] [facility] [place] [address] #### IGG, IGA #### [facility] [address] [place] [address] eAG 117 mg/dL [facility] HbA1c (Bld) [Mass fraction] 5.7 % Abnormal [facility] Comment on above: Normal less than 5.7 % Prediabetes 5.7% to 6.4% Diabetes 6.5% or higher --HgbA1C levels may not be accurate in patients who have renal disease, received recent blood transfusions, are anemic, or who have dyshemoglobinemia. Interpretation and review of laboratory results Abnormal [facility] Test Performed by [facility], [address] [facility] LAB [facility] Hemogram w/ Autodiffon 04-19 Abs Baso Cnt 0.1 10*3/uL Normal 0.0-0.2 [facility] Comment on above: Performed By: #### H EMDF, CMP3, TSH5, B12, HA1C2 #### [facility] [address] [facility] [place] [address] #### IGG, IGA #### [facility] [address] [place] [address] Abs Neutrophile Cnt 4.9 10*3/uL Normal 1.8-7.0 [facility] Comment on above: Performed By: #### H EMDF, CMP3, TSH5, B12, HA1C2 #### [facility] [address] [facility] [place] [address] #### IGG, IGA #### [facility] [address] [place] [address] Basophils/100 WBC (Bld) 1.0 % Normal 0.0-2.0 [facility] Comment on above: Performed By: #### H EMDF, CMP3, TSH5, B12, HA1C2 #### [facility] [address] [facility] [place] [address] #### IGG, IGA #### [facility] [address] [place] [address] Eosinophils (Bld) [#/Vol] 0.3 10*3/uL Normal 0.0-0.5 [facility] Comment on above: Performed By: #### H EMDF, CMP3, TSH5, B12, HA1C2 #### [facility] [address] [place] [address] #### IGG, IGA #### [facility] [address] [place] [address] Eosinophils/100 WBC (Bld) 3.0 % Normal 1.0-6.0 [facility] Comment on above: Performed By: #### H EMDF, CMP3, TSH5, B12, HA1C2 #### [facility] [address] [place] [address] #### IGG, IGA #### [facility] [address] [place] [address] Erythrocyte distribution width (RBC) [Ratio] 12.6 % Normal 11.5-14.5 [facility] Comment on above: Performed By: #### H EMDF, CMP3, TSH5, B12, HA1C2 #### [facility] [address] [place] [address] #### IGG, IGA #### [facility] [address] [place] [address] Granulocytes/100 WBC (Bld) 56.5 % Normal 40.0-80.0 [facility] Comment on above: Performed By: #### H EMDF, CMP3, TSH5, B12, HA1C2 #### [facility] [address] [place] [address] #### IGG, IGA #### [facility] [address] [place] [address] Hematocrit (Bld) [Volume fraction] 43.7 % Normal 35.0-47.0 [facility] Comment on above: Performed By: #### H EMDF, CMP3, TSH5, B12, HA1C2 #### [facility] [address] [place] [address] #### IGG, IGA #### [facility] [address] [place] [address] Hemoglobin (Bld) [Mass/Vol] 15.1 g/dL Normal 11.7-16.0 [facility] Comment on above: Performed By: #### H EMDF, CMP3, TSH5, B12, HA1C2 #### [facility] [address] [place] [address] #### IGG, IGA #### [facility] [address] [place] [address] Lymphocytes (Bld) [#/Vol] 2.8 10*3/uL Normal 1.0-4.3 [facility] Comment on above: Performed By: #### H EMDF, CMP3, TSH5, B12, HA1C2 #### [facility] [address] [place] [address] #### IGG, IGA #### [place] [address] [place] [address] Lymphocytes/100 WBC (Bld) 32.5 % Normal 20.0-40.0 [facility] Comment on above: Performed By: #### H EMDF, CMP3, TSH5, B12, HA1C2 #### [facility] [address] [place] [address] #### IGG, IGA #### [facility] [address] [place] [address] MCH (RBC) [Entitic mass] 31.9 pg Normal 26.0-34.0 [facility] Comment on above: Performed By: #### H EMDF, CMP3, TSH5, B12, HA1C2 #### [facility] [address] [place] [address] #### IGG, IGA #### [facility] [address] [place] [address] MCHC 34.6 % Normal 32.0-36.0 [facility] Comment on above: Performed By: #### H EMDF, CMP3, TSH5, B12, HA1C2 #### [facility] [address] [place] [address] #### IGG, IGA #### [facility] [address] [place] [address] MCV (RBC) [Entitic vol] 92.4 fL Normal 79.0-98.0 [facility] Comment on above: Performed By: #### H EMDF, CMP3, TSH5, B12, HA1C2 #### [facility] [address] [place] [address] #### IGG, IGA #### [facility] [address] [place] [address] Monocytes (Bld) [#/Vol] 0.6 10*3/uL Normal 0.0-0.8 [facility] Comment on above: Performed By: #### H EMDF, CMP3, TSH5, B12, HA1C2 #### [facility] [address] [place] [address] #### IGG, IGA #### [facility] [address] [place] [address] Monocytes/100 WBC (Bld) 6.8 % Normal 2.0-10.0 [facility] Comment on above: Performed By: #### H EMDF, CMP3, TSH5, B12, HA1C2 #### [facility] [address] [place] [address] #### IGG, IGA #### [facility] [address] [place] [address] Platelet mean volume (Bld) [Entitic vol] 9.5 fL Normal 7.4-12.4 [facility] Comment on above: Result Comment: MPV is a calculated measurement using platelet volume ratio. Performed By: #### H EMDF, CMP3, TSH5, B12, HA1C2 #### [facility] [address] [place] [address] #### IGG, IGA #### [facility] [address] [place] [address] Platelets (Bld) [#/Vol] 307 10*3/uL Normal 140-440 [facility] Comment on above: Performed By: #### H EMDF, CMP3, TSH5, B12, HA1C2 #### [facility] [address] [place] [address] #### IGG, IGA #### [facility] [address] [place] [address] RBC (Bld) [#/Vol] 4.73 10*6/uL Normal 3.80-5.20 [facility] Comment on above: Performed By: #### H EMDF, CMP3, TSH5, B12, HA1C2 #### [facility] [address] [place] [address] #### IGG, IGA #### [facility] [address] [place] [address] WBC (Bld) [#/Vol] 8.7 10*3/uL Normal 3.6-10.7 [facility] Comment on above: Performed By: #### H EMDF, CMP3, TSH5, B12, HA1C2 #### [facility] [address] [place] [address] #### IGG, IGA #### [facility] [address] [place] [address] IgAon 04-19-2022 IgA [Mass/Vol] 227.8 mg/dL 70.0 - 400.0 mg/dL [facility] IgA,Bloodon 04-19-2022 IgA,Blood 227.8 mg/dL Normal 70.0-400.0 [facility] Comment on above: Performed By: #### H EMDF, CMP3, TSH5, B12, HA1C2 #### [facility] [address] [place] [address] #### IGG, IGA #### [facility] [address] [place] [address] IgGon 04-19-2022 IgG [Mass/Vol] 1063.3 mg/dL 700.0 - 1600.0 mg/dL [facility] IgG,Bloodon 04-19-2022 IgG,Blood 1063.3 mg/dL Normal 700.0-1600.0 [facility] Comment on above: Performed By: #### H EMDF, CMP3, TSH5, B12, HA1C2 #### [facility] [address] [place] [address] #### IGG, IGA #### [facility] [address] [place] [address] No Panel Informationon 04-19 Test Performed by [facility], [address] LAB [facility] TSHon 04-19-2022 TSH Qn 0.897 u[IU]/mL 0.465 - 4.680 u[IU]/mL [facility] Test Performed by [facility], [address] LAB [facility] Thyroid Stim. Hormoneon 03-28 Thyroid Stim. Hormone 0.897 u[IU]/mL Normal 0.465-4.68 0 [facility] Comment on above: Performed By: #### H EMDF, CMP3, TSH5, B12, HA1C2 #### [facility] [address] [place] [address] #### IGG, IGA #### [facility] [address] [place] [address] Vitamin B12on 04-19-2022 Cobalamin (Vitamin B12) [Mass/Vol] 334 pg/mL Normal 239-931 [facility] Comment on above: Performed By: #### H EMDF, CMP3, TSH5, B12, HA1C2 #### [facility] [address] [place] [address] #### IGG, IGA #### [facility] [address] [place] [address] Cobalamin (Vitamin B12) [Mass/Vol] 334 pg/mL 239 - 931 pg/mL [facility] Test Performed by [facility], [address] LAB [facility] CR Chest Portableon 11-13-20 21 CR Chest Portable Patient Name: XOCHITL FULLER Diagnostic Radiology ACCESSION EXAM DATE/TIME PROCEDURE ORDERING PROVIDER [id number] 11/13/2021 15:15 EST CR Chest Portable MD VANDANA, JESSICA CPT code 90894 Reason For Exam (CR Chest Portable) cough Report PORTABLE CHEST (Frontal View) History: Respiratory abnormality Comparison: 08/15/2019 Findings: Frontal portable chest view shows crowded lung markings in the bases without acute infiltrate or congestion. The heart is normal in size. There is no mediastinal widening or pleural effusion. IMPRESSION: No acute pulmonary process. Report Dictated on Final Dictating Physician: MD PACHECO AHMAD Signed Date and Time: 11/13/2021 4:07 pm Signed by: MD PACHECO AHMAD Transcribed Date and Time: 11/13/2021 4:08 Normal [facility] SARS-CoV-2, Flu A/B and RSVo n 11-13-2021 SARS-CoV-2 (COVID-19) RNA FATOUMATA+probe Ql (Unsp spec) SARS-CoV-2 --> Status: F DETECTED Flu A PCR --> Status: F Not Detected. Flu B PCR --> Status: F Not Detected. RSV PCR --> Status: F Not Detected. Expected Result: Not Detected _ Method: Real-time, RT-PCR This assay was developed by [employer] and distributed under an Emergency Use Authorization (EUA) granted by the FDA for the qualitative detection of nucleic acids from SARS-CoV-2, Influenza A, Influenza B, and Respiratory Syncytial Virus. Provider and patient fact sheets can be found at https://www.fda.gov/medi a/595145/download and https://www.fda.gov/medi a/268582/download. Expected Result: Not Detected _ Method: Real-time, RT-PCR This assay was developed by [employer] and distributed under an Emergency Use Authorization (EUA) granted by the FDA for the qualitative detection of nucleic acids from SARS-CoV-2, Influenza A, Influenza B, and Respiratory Syncytial Virus. Provider and patient fact sheets can be found at https://www.fda.gov/medi a/495362/download and https://www.fda.gov/medi a/199780/download. Normal [facility] Comment on above: Performed By: #### [facility] #### [facility] [place] [address] , [address] Rapid influenza A/B antigens on 10-05-2020 INFLUENZA A Not Detected Not Detected NA [place] INFLUENZA B Not Detected Not Detected NA [place] Comment on above: Method: Isothermal n ucleic acid amplification technology. Test Performed by [facility], [address] , [place], [place] [address] [place] XR CHEST STANDARD (2 VW)on 0 08-15-2019 Patient Name: XOCHITL FULLER ---Diagnostic Radiology--- Exam Date/Time 08/15/2019 16:59:49 EDT Exam CR Chest PA/LAT Ordering Physician BURTON EUBANKS Accession Number [id number] CPT4 Codes 68403 () Reason For Exam pain Report CHEST [...] WENDELL Transcribed Date and Time: 08/15/2019 5:09 [place], [place], [facility] Incoming Radiology Results From [facility] - 08/15/2019 5:10 PM EDT Patient Name: XOCHITL FULLER ---Diagnostic Radiology--- Exam Date/Time 08/15/2019 16:59:49 EDT Exam CR Chest PA/LAT Ordering Physician BURTON EUBANKS Accession Number [id number] CPT4 Codes 92115 () Reason For Exam pain Report CHEST [...] WENDELL Transcribed Date and Time: 08/15/2019 5:09 [place], [place] Basic Metabolic Panelon 06-27 Anion gap [Moles/Vol] 7 mmol/L [place], [place] Calcium [Mass/Vol] 8.3 mg/dL Low 8.4 - 10. 4 mg/dL [place] Chloride [Moles/Vol] 105 mmol/L 98 - 10 7 mmol/L [place] CO2 [Moles/Vol] 27 mmol/L 22 - 30 mmol/L [place] Creatinine [Mass/Vol] 0.69 mg/dL 0.52 - 1.25 mg/dL [place] EGFR IF NonAfrican [place] >60.0 >60 mL/min [place] Comment on above: Source- MDRD equatio n with creatinine calibration to IDMS(NKDEP) eGFR not recommended for drug dose adjustment GFR/1.73 sq M predicted among blacks MDRD (S/P/Bld) [Vol rate/Area] mL/min/{1.73_m2} >60 mL/min [place] Glucose [Mass/Vol] 90 mg/dL 70 - 100 mg/dL [place] Potassium [Moles/Vol] 3.7 mmol/L 3.5 - 5.1 mmol/L [place] Sodium [Moles/Vol] 139 mmol/L 135 - 145 mmol/L [place] Urea nitrogen [Mass/Vol] 10 mg/dL 7 - 20 mg/dL [place] CBC Auto Differentialon 06-27 Absolute Baso # 0.1 10*3/uL 0 - 0.2 10*3/uL [place] Absolute Neut # 2.2 10*3/uL 1.8 - 7 10*3/uL [place] Basophils/100 WBC (Bld) 1.3 % 0 - 2 % [place] Eosinophils (Bld) [#/Vol] 0.1 10*3/uL 0 - 0.5 10*3/uL [place] Eosinophils/100 WBC (Bld) 2.7 % 1 - 6 % [place] Erythrocyte distribution width (RBC) [Ratio] 13.8 % 11.5 - 14.5 % [place] Granulocytes/100 WBC (Bld) 44.0 % 40 - 80 % [place] Hematocrit (Bld) [Volume fraction] 40.0 % 35 - 47 % [place] Hemoglobin (Bld) [Mass/Vol] 13.6 g/dL 11.7 - 16 g/dL [place] Lymphocytes (Bld) [#/Vol] 1.9 10*3/uL 1 - 4.3 10*3/uL [place] Lymphocytes/100 WBC (Bld) 38.4 % 20 - 40 % [place] MCH (RBC) [Entitic mass] 33.2 pg 26 - 34 pg [place] MCHC (RBC) [Mass/Vol] 34.0 % 32 - 36 % [place] MCV (RBC) [Entitic vol] 97.5 fL 79 - 98 fL [place] Monocytes (Bld) [#/Vol] 0.7 10*3/uL 0 - 0.8 10*3/uL [place] Monocytes/100 WBC (Bld) 13.6 % High 2 - 10 % [place] Platelet mean volume (Bld) [Entitic vol] 8.2 fL 7.4 - 10.4 fL [place] Platelets (Bld) [#/Vol] 215 10*3/uL 140 - 440 10*3/uL [place] RBC (Bld) [#/Vol] 4.10 10*6/uL 3.8 - 5.2 10*6/uL [place] WBC (Bld) [#/Vol] 4.9 10*3/uL 3.6 - 10.7 10*3/uL [place] Hepatic Function Panelon Albumin [Mass/Vol] 3.2 g/dL Low 3.5 - 5 g/dL [place] ALP [Catalytic activity/Vol] 326 U/L High 38 - 126 U/L [place] ALT [Catalytic activity/Vol] 1110 U/L High 13 - 69 U/L [place] AST [Catalytic activity/Vol] 747 U/L High 15 - 46 U/L [place] Bilirubin Ql (U) 2.0 mg/dL High 0.2 - 1.3 mg/dL [place] Bilirubin.direct [Mass/Vol] 0.0 mg/dL 0 - 0.3 mg/dL [place] Interpretation and review of laboratory results Abnormal [place] Protein [Mass/Vol] 6.6 g/dL 6.3 - 8.2 g/dL [place] Test Performed by [facility], [address], [place], [place] [address] [place] Hepatitis Panel, Acuteon HAV IgM IA Qn (S) DETECTED Abnormal Not-Detect ed [place], [place] Hep B Core Ab, IgM DETECTED Abnormal Not-Detec chichi NA [place] Hepatitis B Surface Ag NOT DETECTED Not-Detected [place] Hepatitis C Ab NOT DETECTED Not-Detected [place] Comment on above: Patients with DETECT ED Hepatitis C Ab results should have a new specimen submitted for supplemental testing with a Hepatitis C Quantitative RNA assay (viral load), if clinically indicated. Interpretation and review of laboratory results Abnormal [place] Test Performed by [facility], [address] [place] [address] [place] Otheron 07-07-2019 Interpretation and review of laboratory results Abnormal [place] Test Performed by [facility], [address] [place], [place] [address] [place] CBC auto differentialon 06-27 Absolute Baso # 0.1 10*3/uL 0 - 0.2 10*3/uL [place] Absolute Neut # 1.9 10*3/uL 1.8 - 7 10*3/uL [place] Basophils/100 WBC (Bld) 1.0 % 0 - 2 % [place] Eosinophils (Bld) [#/Vol] 0.1 10*3/uL 0 - 0.5 10*3/uL [place] Eosinophils/100 WBC (Bld) 2.6 % 1 - 6 % [place] Erythrocyte distribution width (RBC) [Ratio] 13.8 % 11.5 - 14.5 % [place] Granulocytes/100 WBC (Bld) 38.3 % Low 40 - 80 % [place] Hematocrit (Bld) [Volume fraction] 41.7 % 35 - 47 % [place] Hemoglobin (Bld) [Mass/Vol] 14.3 g/dL 11.7 - 16 g/dL [place] Interpretation and review of laboratory results Abnormal [place] Lymphocytes (Bld) [#/Vol] 2.3 10*3/uL 1 - 4.3 10*3/uL [place] Lymphocytes/100 WBC (Bld) 46.1 % High 20 - 40 % [place] MCH (RBC) [Entitic mass] 33.5 pg 26 - 34 pg [place] MCHC (RBC) [Mass/Vol] 34.3 % 32 - 36 % [place] MCV (RBC) [Entitic vol] 97.7 fL 79 - 98 fL [place] Monocytes (Bld) [#/Vol] 0.6 10*3/uL 0 - 0.8 10*3/uL [place] Monocytes/100 WBC (Bld) 12.0 % High 2 - 10 % [place] Platelet mean volume (Bld) [Entitic vol] 8.2 fL 7.4 - 10.4 fL [place] Platelets (Bld) [#/Vol] 175 10*3/uL 140 - 440 10*3/uL [place] RBC (Bld) [#/Vol] 4.27 10*6/uL 3.8 - 5.2 10*6/uL [place] WBC (Bld) [#/Vol] 5.0 10*3/uL 3.6 - 10.7 10*3/uL [place] Test Performed by [facility], [address], [place], [place] [address] [place] Comprehensive Metabolic Pane l w/ Reflex to MGon 07-06-2019 Albumin [Mass/Vol] 3.3 g/dL Low 3.5 - 5 g/dL [place] ALP [Catalytic activity/Vol] 335 U/L High 38 - 126 U/L [place] ALT [Catalytic activity/Vol] 1301 U/L High 13 - 69 U/L [place] Anion gap [Moles/Vol] 5 mmol/L [place] AST [Catalytic activity/Vol] 821 U/L High 15 - 46 U/L [place] Bilirubin Ql (U) 2.4 mg/dL High 0.2 - 1.3 mg/dL [place] Calcium [Mass/Vol] 8.5 mg/dL 8.4 - 10. 4 mg/dL [place] Chloride [Moles/Vol] 105 mmol/L 98 - 10 7 mmol/L [place] CO2 [Moles/Vol] 25 mmol/L 22 - 30 mmol/L [place] Creatinine [Mass/Vol] 0.59 mg/dL 0.52 - 1.25 mg/dL [place] EGFR IF NonAfrican [place] >60.0 >60 mL/min [place] Comment on above: Source- MDRD equatio n with creatinine calibration to IDMS(NKDEP) eGFR not recommended for drug dose adjustment GFR/1.73 sq M predicted among blacks MDRD (S/P/Bld) [Vol rate/Area] mL/min/{1.73_m2} >60 mL/min [place] Glucose [Mass/Vol] 104 mg/dL High 70 - 100 mg/dL [place] Interpretation and review of laboratory results Abnormal [place] Potassium [Moles/Vol] 4.2 mmol/L 3.5 - 5.1 mmol/L [place] Protein [Mass/Vol] 6.7 g/dL 6.3 - 8.2 g/dL [place] Sodium [Moles/Vol] 135 mmol/L 135 - 145 mmol/L [place] Urea nitrogen [Mass/Vol] 5 mg/dL Low 7 - 20 mg/dL [place] Test Performed by [facility], [address] [place], [place] [id number] [place] [address] HIV Screenon 07-06-2019 HIV 1+2 [id number] AG, EIA NONREACTIVE Nonreactive NA [place] Comment on above: Results obtained usi [...] at an additional charge. Test Performed by [facility], [address] [place] [address] [place] Hepatic Function Panelon Bilirubin.direct [Mass/Vol] 0.4 mg/dL High 0 - 0.3 mg/dL [place] Interpretation and review of laboratory results Abnormal [place] Lipaseon 07-06-2019 Lipase [Catalytic activity/Vol] 24 U/L 23 - 300 U/L [place] Otheron 07-06-2019 Test Performed by [facility], [address] [place], [place], [place] [id number] [place] [address] PROCALCITONINon 07-06-2019 Interpretation and review of laboratory results Abnormal [place] Procalcitonin 0.13 ng/mL Abnormal <0.10 [place] Sodium [Moles/Vol] See Below [place] Comment on above: PCT <0.50 = Low risk of severe sepsis and/or septic shock. PCT >2.00 = High risk of severe sepsis and/or septic shock. Test Performed by [facility], [address] [place] [id number] [place] US ABDOMEN LIMITEDon 019 Patient Name: XOCHITL FULLER ---Ultrasound--- Exam Date/Time 07/06/2019 13:03:18 EDT Exam US Abdomen Limited Ordering Physician DO TERRY GEORGE E Accession Number [id number] CPT4 Codes 25625 () Reason For Exam Hepatitis Report RIGHT [...] R Transcribed Date and Time: 07/06/2019 1:50 [place], [place], [place] Incoming Radiology Results From [facility] - 07/06/2019 1:50 PM EDT Patient Name: XOCHITL FULLER ---Ultrasound--- Exam Date/Time 07/06/2019 13:03:18 EDT Exam US Abdomen Limited Ordering Physician DO TERRY GEORGE E Accession Number [id number] CPT4 Codes 06467 () Reason For Exam Hepatitis Report RIGHT [...] R Transcribed Date and Time: 07/06/2019 1:50 Rabbit ND, MD Urine Drug Screenon 07-06-20 19 Amphetamines, urine Positive [facility], [facility] Barbiturates, Ur Negative [facility], MD Benzodiazepine Ur Qual Positive [facility]MiddleGateR[facility], MD Cocaine Metabolites, Ur Negative Rabbit ND, MD Methadone, Urine Negative Rabbit ND, MD Opiates, Urine Negative Rabbit ND, MD Oxycodone Screen, Ur Negative Promosome ND, MD PCP, Urine Negative [facility]MiddleGateR[facility], MD Comment on above: The expected value f [...] confirmation under separate order. Test Performed by [facility], [address] [place], [place], [place] [address] [facility] HospitalSense [facility] Skin ND, [employer] Vancomycin, Troughon 019 Interpretation and review of laboratory results Abnormal [facility] HospitalS[facility] Skin NDmeinKauf Vancomycin Tr 10.2 ug/mL Low 15 - 20 ug/mL [facility] Skin NDSavtira Corporation MD Comment on above: . Test Performed by [facility], [address], [place], [place] [address] [place], [place] Basic Metabolic Panelon - Anion gap [Moles/Vol] 10 mmol/L [place], [place] Calcium [Mass/Vol] 8.7 mg/dL 8.4 - 10. 4 mg/dL [place], [place] Chloride [Moles/Vol] 102 mmol/L 98 - 10 7 mmol/L [place] CO2 [Moles/Vol] 27 mmol/L 22 - 30 mmol/L [place] Creatinine [Mass/Vol] 0.63 mg/dL 0.52 - 1.25 mg/dL [place] EGFR IF NonAfrican Danish >60.0 >60 mL/min [place], [place] Comment on above: Source- MDRD equatio n with creatinine calibration to IDMS(NKDEP) eGFR not recommended for drug dose adjustment GFR/1.73 sq M predicted among blacks MDRD (S/P/Bld) [Vol rate/Area] mL/min/{1.73_m2} >60 mL/min [place], [place] Glucose [Mass/Vol] 120 mg/dL High 70 - 100 mg/dL [place] Interpretation and review of laboratory results Abnormal [place] Potassium [Moles/Vol] 3.5 mmol/L 3.5 - 5.1 mmol/L [place] Sodium [Moles/Vol] 139 mmol/L 135 - 145 mmol/L [place] Urea nitrogen [Mass/Vol] 7 mg/dL 7 - 20 mg/dL [place] Test Performed by [facility], [address], [place], [place] [address] [place], [place] Hemogram (CBC) w/Auto Diffon 07-05-2019 Absolute Baso # 0.1 10*3/uL 0 - 0.2 10*3/uL [place] Absolute Neut # 3.1 10*3/uL 1.8 - 7 10*3/uL [place] Basophils/100 WBC (Bld) 0.8 % 0 - 2 % [place] Eosinophils (Bld) [#/Vol] 0.1 10*3/uL 0 - 0.5 10*3/uL [place] Eosinophils/100 WBC (Bld) 1.8 % 1 - 6 % [place] Erythrocyte distribution width (RBC) [Ratio] 13.8 % 11.5 - 14.5 % [place] Granulocytes/100 WBC (Bld) 47.9 % 40 - 80 % [place] Hematocrit (Bld) [Volume fraction] 45.1 % 35 - 47 % [place] Hemoglobin (Bld) [Mass/Vol] 15.5 g/dL 11.7 - 16 g/dL [place] Lymphocytes (Bld) [#/Vol] 2.6 10*3/uL 1 - 4.3 10*3/uL [place] Lymphocytes/100 WBC (Bld) 39.7 % 20 - 40 % [place] MCH (RBC) [Entitic mass] 33.3 pg 26 - 34 pg [place] MCHC (RBC) [Mass/Vol] 34.3 % 32 - 36 % [place], [place] MCV (RBC) [Entitic vol] 97.2 fL 79 - 98 fL [place] Monocytes (Bld) [#/Vol] 0.6 10*3/uL 0 - 0.8 10*3/uL [place] Monocytes/100 WBC (Bld) 9.8 % 2 - 10 % [place], [place] Platelet mean volume (Bld) [Entitic vol] 8.2 fL 7.4 - 10.4 fL [place] Platelets (Bld) [#/Vol] 177 10*3/uL 140 - 440 10*3/uL [place] RBC (Bld) [#/Vol] 4.64 10*6/uL 3.8 - 5.2 10*6/uL [place] WBC (Bld) [#/Vol] 6.5 10*3/uL 3.6 - 10.7 10*3/uL [place] Test Performed by [facility], [address], [place], [place] [address] [facility], [place] AMELIA Panel 1on 09-29-2017 AMELIA by EIA 0.1 OD Ratio Normal [facility] Comment on above: Result Comment: OD R atio is interpreted as follows:Negative <1.0Positive >=1.0 Performed By: #### C BCDIF, CMP, CRP, URIC, TSH, ANA1, SEPG, CCP ####[place] [phone] AMELIA by EIA, Qual Negative Normal Negative [facility] Comment on above: Performed By: #### C BCDIF, CMP, CRP, URIC, TSH, ANA1, SEPG, CCP ####[place] [phone] C-Reactive Proteinon 017 C reactive protein (CRP) 0.1 mg/dL Normal <0.9 [facility] Comment on above: Performed By: #### C BCDIF, CMP, CRP, URIC, TSH, ANA1, SEPG, CCP ####[place] [phone] CBC and Differentialon 09-29 Abs Baso 0.11 k/uL High <0.11 [facility] Comment on above: Performed By: #### C BCDIF, CMP, CRP, URIC, TSH, ANA1, SEPG, CCP ####[place] [phone] Abs Rincon 0.56 k/uL Normal <0.87 [facility] Comment on above: Performed By: #### C BCDIF, CMP, CRP, URIC, TSH, ANA1, SEPG, CCP ####[address] [place] [phone] Abs Neut 4.32 k/uL Normal 1.45-7.50 [facility] Comment on above: Performed By: #### C BCDIF, CMP, CRP, URIC, TSH, ANA1, SEPG, CCP ####[place] [phone] [place] Ave[place] [phone] Basophils/100 WBC Auto (Bld) 1.4 % Normal [facility] Comment on above: Performed By: #### C BCDIF, CMP, CRP, URIC, TSH, ANA1, SEPG, CCP ####[place] [address] [address] [phone] DTYPE Auto Diff Normal [facility] Comment on above: Performed By: #### C BCDIF, CMP, CRP, URIC, TSH, ANA1, SEPG, CCP ####[place] [address] [address] [place] [phone] Eosinophils 0.23 10*3/uL Normal <0.46 [facility] Comment on above: Performed By: #### C BCDIF, CMP, CRP, URIC, TSH, ANA1, SEPG, CCP ####[place] [address] [address]CA[address] [place] [phone] Eosinophils/100 leukocytes 2.9 % Normal [facility] Comment on above: Performed By: #### C BCDIF, CMP, CRP, URIC, TSH, ANA1, SEPG, CCP ####[place] [address] [address] [place] [phone] Erythrocyte distribution width Auto Ratio (RBC) 12.3 % Normal 11.5-15.0 [facility] Comment on above: Performed By: #### C BCDIF, CMP, CRP, URIC, TSH, ANA1, SEPG, CCP ####[place] [address] [address] AveClevelJulia [place] [phone] Erythrocytes (RBC) 10*6/uL Normal <0.01 [facility] Comment on above: Performed By: #### C BCDIF, CMP, CRP, URIC, TSH, ANA1, SEPG, CCP ####[place] [address] [address]levelJul[address] [phone] Erythrocytes (RBC) 4.39 10*6/uL Normal 3.90-5.20 [facility] Comment on above: Performed By: #### C BCDIF, CMP, CRP, URIC, TSH, ANA1, SEPG, CCP ####[place] [address] [address] AveCOgden, [place] [phone] Erythrocytes (RBC) 0.0 /100 WBC Normal 0 [facility] Comment on above: Performed By: #### C BCDIF, CMP, CRP, URIC, TSH, ANA1, SEPG, CCP ####[place] [address] [address] [place] [phone] Hematocrit (HCT) 43.2 % Normal 36.0-46.0 [facility] Comment on above: Performed By: #### C BCDIF, CMP, CRP, URIC, TSH, ANA1, SEPG, CCP ####[place] [address] [address] [place] [phone] Hemoglobin mass conc (Bld) 14.6 g/dL Normal 11.5-15.5 [facility] Comment on above: Performed By: #### C BCDIF, CMP, CRP, URIC, TSH, ANA1, SEPG, CCP ####[place] [address] [address] [place] [phone] Lymphocytes 2.64 10*3/uL Normal 1.00-4.00 [facility] Comment on above: Performed By: #### C BCDIF, CMP, CRP, URIC, TSH, ANA1, SEPG, CCP ####[place] [address] [address] [place] [phone] Lymphocytes/100 leukocytes 33.6 % Normal [facility] Comment on above: Performed By: #### C BCDIF, CMP, CRP, URIC, TSH, ANA1, SEPG, CCP ####[place] [address] [address] [place] [phone] MCH 33.3 pG Normal 26.0-34.0 [facility] Comment on above: Performed By: #### C BCDIF, CMP, CRP, URIC, TSH, ANA1, SEPG, CCP ####[address] AvJeremy Ville [phone] MCH mass conc (RBC) 33.8 g/dL Normal 30.5-36.0 [facility] Comment on above: Performed By: #### C BCDIF, CMP, CRP, URIC, TSH, ANA1, SEPG, CCP ####[place] [phone] MCV 98.4 fL Normal 80.0-100.0 [facility] Comment on above: Performed By: #### C BCDIF, CMP, CRP, URIC, TSH, ANA1, SEPG, CCP ####[place] [phone] Monocytes/100 leukocytes 7.1 % Normal [facility] Comment on above: Performed By: #### C BCDIF, CMP, CRP, URIC, TSH, ANA1, SEPG, CCP ####[address] [place] [phone] Neutrophils/100 WBC Auto (Bld) 55.0 % Normal [facility] Comment on above: Performed By: #### C BCDIF, CMP, CRP, URIC, TSH, ANA1, SEPG, CCP ####[address] [place] [phone] Platelet mean volume (PMV) 9.7 fL Normal 9.0-12.7 [facility] Comment on above: Performed By: #### C BCDIF, CMP, CRP, URIC, TSH, ANA1, SEPG, CCP ####[address] [place] [phone] Platelets 266 10*3/uL Normal 150-400 [facility] Comment on above: Performed By: #### C BCDIF, CMP, CRP, URIC, TSH, ANA1, SEPG, CCP ####[facility] [place], [place] [phone] WBC (Leukocytes) 7.86 10*3/uL Normal 3.70-11.00 [facility] Comment on above: Performed By: #### C BCDIF, CMP, CRP, URIC, TSH, ANA1, SEPG, CCP ####[place] [phone] [place], [place] [phone] CCP Antibody, IgGon 09-29-20 17 CCP Antibody, IgG <15 Normal <20 [facility] Comment on above: Result Comment: < 20 units: Tuykasig43-29 units: Weak Mfldsddv71-04 units: Moderate Positive> 60 units: Strong Positive Performed By: #### C BCDIF, CMP, CRP, URIC, TSH, ANA1, SEPG, CCP ####[place] [phone] [place], [place] [phone] CNCOon 09-29-2017 CNCO Letter TextDeadama Fuller:How to activate your [facility] DooBop Account 1. Visit the DooBop Signup page at [email or web address] 2. Identify yourself using your one-time use [...] requested information on the Identify Yourself Form [email or web address] , click Next.Create your login and password, choose a DooBop ID and password that will beeasy for you to use, but impossible for anyone else to guess.Pick a security question that will assist you in the event you forget yourpassword the next time you log-on.If you have difficulty activating your account, please call our Abigail Stewart at [phone] or toll free at .We hope you enjoy using Doo[employer]op!Kindest Regards,[facility] MyChart Team Normal [facility] CNOVon 09-29-2017 CNOV Office Visit (RHEUHI) JONNYCitlali SAENZ ([id number]) 1970 FDa Time Provider Lvzpjouoro87/3/17 8:40 AM EMMETT HIRSCH During your visit today, we recorded the following information about you: Temperature Pulse Blood pressure Weight 97.9 degrees 96/minute 152/99 61.2 kg Height 1.626 Dulce Hirsch DO 09/29/2017 2:44 PM SignedRHEUMATOLOGY NEW PATIENT CONSULTPROVIDER: ROYAL Musa OF VISIT: 09/29/2017NAME OF PATIENT: Xochitl Muller PHYSICIAN:SELFPERSONAL PHYSICIAN:Jacklyn Wilson MD ([facility])[address] [place] [address]Jzxdb: [phone]: [phone] COMPLAINT / REASON FOR CONSULT:My hands hurtHISTORY [...] SHE HAS TAKEN MOBIC IN THE PAST [facility]. SHE IS A RECOVERING ALCOHOLIC.PAST MEDICAL HISTORY:PAST MEDICAL HISTORYDiagnosis Date- Anxiety 09/09/2009- Arthropathy, unspecified, site unspecified 06/02/2009- Encounter for gynecological examination without abnormal finding 10/28/2015 Seeing [facility].- Essential hypertension 06/02/2009- GERD without [...] PAST SURGICAL HISTORY OF scope on left kneeALLERGIES:Naltrexone ; Ibuprofen; Mobic [Meloxicam]; Morphine; Zoloft [Sertraline Hcl]MEDICATIONS:Current Outpatient Prescriptions:Multivitam in capsule Take 1 capsule by mouth once [...] (FLONASE) 50 mcg/actuation nasal spray Use 1 Uvalda in each nostrilonce daily. Rinse mouth after use.Omeprazole 40 mg capsule Take 1 capsule by mouth once daily.naproxen (NAPROSYN) 500 mg tablet Take 1 tablet by mouth twice daily as needed(pain/inflammation , take with food.).ondansetron (ZOFRAN) 4 mg tablet [...] Yes Special: MarijuanaREVIEW OF SYSTEMS: September 29, 2017CONSTITUTIONAL:Fever : NoFatigue: NoPain: NoEYES:Pain: NoRedness: YesLoss of vision: NoDryness: YesEAR, NOSE, MOUTH, THROAT:Nose bleeds: NoHearing loss: NoSores in mouth: NoSwallowing problems: NoDry mouth: NoCARDIOVASCULAR:Chest pain: NoSwelling in the feet or legs: YesRESPIRATORY:Shortness of breath: NoPain with breathing: NoChronic cough: NoCoughing up blood: No,GASTROINTESTINAL:Hear tburn: YesNausea: NoDiarrhea: NoBlood in the stool or black stool: NoAbdominal pain: NoGENITOURINARY:Blood in urine: NoPain or burning on urination: No]MUSCULOSKELETAL:Joint pain: YesJoint swelling: YesMorning stiffness in joints: YesMuscle weakness: YesBack pain: YesSKIN:Rashes: NoSun sensitive rashes: NoColor changes of hands or feet in the cold: YesHair loss: NoNail changes: NoNEUROLOGICAL:Headaches : YesDizziness: NoNumbness or tingling: YesMemory loss: YesSeizures: NoHEMATOLOGIC/LYMPHATIC: Swollen glands: NoAnemia: NoALLERGIES/IMMUNOLOGIC: Allergies (other than medications): YesIncreased susceptibility to infection: [...] Normal respiratory effort. Clear to auscultation and percussion.CARDIOVASCULA R: Heart RRR without gallop, murmur, or rub. No bruits acrosschest or neck.EXTREMITIES: Normal and equal pulses in all 4 extremities. No edema.ABDOMEN: BS normal. No bruits, No tenderness, mass, or hepatosplenomegaly.GENIT OURINARY :NormalNEUROLOGIC: Cranial nerves II-XII grossly intact. DTRs [...] 1.00 - 4.00 k/uL 3.88Mono% % 6.1Abs Rincon 0.00 - 0.86 k/uL 0.67Eosin% % 2.5Abs [...] who presents for a rheumatologyevaluation at the [facility]. SHE HAS AXIAL AND APPENDICULAR SKELETALCOMPLAINTS THAT IN PART SOUND AND LOOK LIKE OSTEOARTHRITIS BUT SHE HAS OTHERCHANGES THAT INCLUDE LIVEDO RETICULARIS AND POSSIBLE RAYNAUDS THAT COULDSUGGEST A MORE INFLAMATORY CONDITION.RECOMMENDATION S / PLANS: we will get labs and [...] Other: See Comments Comments: Made irritableDate Reviewed: 11/03/2017Reviewed by: Lionel Milligan Ma - Fully AssessedPrimary Visit Diagnosis:Polyarthritis [M13.0] Other Visit Diagnoses:Bilateral hand pain [M79.641, M79.642] Recovering alcoholic (HCC) [F10.20] Anxiety [F41.9] Smoking [F17.200] Chronic bilateral low back pain with left-sided sciatica [M54.42, G89.29]Order(s):CBC + DIFF [SQCBCDIF] Order #: [id number] FUTURE CCP ANTIBODY IGG [SQCCP] Order #: [id number] FUTURE COMP METABOLIC PANEL [SQCMP] Order #: [id number] FUTURE C-REACTIVE PROTEIN (CRP) [SQCRP] Order #: [id number] FUTURE URIC ACID BLOOD [SQURIC] Order #: [id number] FUTURE URINALYSIS WITH MICROSCOPIC [SQUAWMIC] Order #: [id number] FUTURE PROTEIN ELECTROPHORESIS W/INTERP [SQSEPG] Order #: [id number] FUTURE XR CHEST 2V FRONTAL/LAT [2724780] Order #: [id number] FUTURE AMELIA PANEL BLOOD SCRN [SQANA1] Order #: [id number] FUTURE XR LUMBAR GENERAL 3V AP/LAT/L5-S1 [2947315] Order #: [id number] FUTURE XR PELVIS 1V AP [7289904] Order #: [id number] FUTURE TSH BLD [SQTSH] Order #: [id number] FUTUREPrescriptions as of 09/29/2017 Sig: MULTIVITAMIN CAPSULE [...] * FLUTICASONE 50 MCG/ACTUATION * Use 1 Uvalda in each nostril o* OMEPRAZOLE 40 MG [...] Emmett Hirsch D.O.Department of Rheumatologicand Immunologic DiseasesHillcrest [address] [address]Xmgsi: [phone]: Ijhl. Line: [phone] 2016Jacklyn Wilson M.D.Patient: Xochitl Fuller[address] [place] [address] Garcia was a pleasure seeing Ms. Fuller in consult for hand pain. Please see mynote and recommendations.RHEUMATO LOGY NEW PATIENT CONSULTPROVIDER: ROYAL Musa OF VISIT: 09/29/2017NAME OF PATIENT: Xochitl Muller PHYSICIAN:SELFPERSONAL PHYSICIAN:Jacklyn Wilson MD ([facility])[address] [place] [address]Ndiaw: [phone]: [phone] COMPLAINT / REASON FOR CONSULT:My hands hurtHISTORY [...] [facility] IS A RECOVERING ALCOHOLIC.PAST MEDICAL HISTORY:PAST MEDICAL HISTORYDiagnosis Date- Anxiety 09/09/2009- Arthropathy, unspecified, site unspecified 06/02/2009- Encounter for gynecological examination without abnormal kukzaaq82/2/2015 Seeing [facility].- Essential hypertension 06/02/2009- GERD without [...] PAST SURGICAL HISTORY OF scope on left kneeALLERGIES:Naltrexone ; Ibuprofen; Mobic [Meloxicam]; Morphine; Zoloft [Sertraline Hcl]MEDICATIONS:Current Outpatient Prescriptions:Multivitam in capsule Take 1 capsule by mouth once [...] (FLONASE) 50 mcg/actuation nasal spray Use 1 Uvalda in eachnostril once daily. Rinse mouth after [...] Yes Special: MarijuanaREVIEW OF SYSTEMS: September 29, 2017CONSTITUTIONAL:Fever : NoFatigue: NoPain: NoEYES:Pain: NoRedness: YesLoss of vision: NoDryness: YesEAR, NOSE, MOUTH, THROAT:Nose bleeds: NoHearing loss: NoSores in mouth: NoSwallowing problems: NoDry mouth: NoCARDIOVASCULAR:Chest pain: NoSwelling in the feet or legs: YesRESPIRATORY:Shortness of breath: NoPain with breathing: NoChronic cough: NoCoughing up blood: No,GASTROINTESTINAL:Hear tburn: YesNausea: NoDiarrhea: NoBlood in the stool or black stool: NoAbdominal pain: NoGENITOURINARY:Blood in urine: NoPain or burning on urination: No]MUSCULOSKELETAL:Joint pain: YesJoint swelling: YesMorning stiffness in joints: YesMuscle weakness: YesBack pain: YesSKIN:Rashes: NoSun sensitive rashes: NoColor changes of hands or feet in the cold: YesHair loss: NoNail changes: NoNEUROLOGICAL:Headaches : YesDizziness: NoNumbness or tingling: YesMemory loss: YesSeizures: NoHEMATOLOGIC/LYMPHATIC: Swollen glands: NoAnemia: NoALLERGIES/IMMUNOLOGIC: Allergies (other than medications): YesIncreased susceptibility to infection: [...] Normal respiratory effort. Clear to auscultation and percussion.CARDIOVASCULA R: Heart RRR without gallop, murmur, or rub. No bruits acrosschest or neck.EXTREMITIES: Normal and equal pulses in all 4 extremities. No edema.ABDOMEN: BS normal. No bruits, No tenderness, mass, or hepatosplenomegaly.GENIT OURINARY :NormalNEUROLOGIC: Cranial nerves II-XII grossly intact. DTRs [...] 1.00 - 4.00 k/uL 3.88Mono% % 6.1Abs Rincon 0.00 - 0.86 k/uL 0.67Eosin% % 2.5Abs [...] Severity4.3 - 10.0: High SeverityRAPID-3 Weighed Score 09/29/2016RAPID 3 Weighed Score 5IMPRESSION:Xochitl Fuller is a 47 year old female who presents for a rheumatologyevaluation at the [facility]. SHE HAS AXIAL AND APPENDICULAR SKELETALCOMPLAINTS THAT IN PART SOUND AND LOOK LIKE OSTEOARTHRITIS BUT SHE HAS OTHERCHANGES THAT INCLUDE LIVEDO RETICULARIS AND POSSIBLE RAYNAUDS THAT COULDSUGGEST A MORE INFLAMATORY CONDITION.RECOMMENDATION S / PLANS: we will get labs and [...] of care.Electronically signed by:Rebecca Musa for the referral.Sincerely,ELECT RONICALLY SIGNEDScabad Hirsch DOEncounter Number: [id number] Status:Closed by EMMETT HIRSCH DO on 09/29/17 Normal [facility] Comp Metabolic Panelon 09-29 Alanine aminotransferase (ALT) 13 U/L Normal 7-38 [facility] Comment on above: Performed By: #### C BCDIF, CMP, CRP, URIC, TSH, ANA1, SEPG, CCP ####[place] [address] [address] [place] [phone] Albumin 4.4 g/dL Normal 3.9-4.9 [facility] Comment on above: Performed By: #### C BCDIF, CMP, CRP, URIC, TSH, ANA1, SEPG, CCP ####[place] [address] [address] AvJe[place] [place] [phone] Alkaline phosphatase (ALP) 67 U/L Normal 32-117 [facility] Comment on above: Performed By: #### C BCDIF, CMP, CRP, URIC, TSH, ANA1, SEPG, CCP ####[facility] AveCAlyssa [place] [phone] Anion gap 10 mmol/L Normal 9-18 [facility] Comment on above: Performed By: #### C BCDIF, CMP, CRP, URIC, TSH, ANA1, SEPG, CCP ####[facility] [address] AveCAlyssa [place] [phone] Aspartate aminotransferase (AST) 17 U/L Normal 13-35 [facility] Comment on above: Performed By: #### C BCDIF, CMP, CRP, URIC, TSH, ANA1, SEPG, CCP ####[facility] AveCA[address] [place] [phone] Bilirubin (total) 0.2 mg/dL Normal 0.2-1.3 [facility] Comment on above: Performed By: #### C BCDIF, CMP, CRP, URIC, TSH, ANA1, SEPG, CCP ####[place] [address] [phone] Calcium 9.0 mg/dL Normal 8.5-10.2 [facility] Comment on above: Performed By: #### C BCDIF, CMP, CRP, URIC, TSH, ANA1, SEPG, CCP ####[place] [address] [address] AveCNicole [place] [phone] Chloride 101 mmol/L Normal 97-105 [facility] Comment on above: Performed By: #### C BCDIF, CMP, CRP, URIC, TSH, ANA1, SEPG, CCP ####[place] [address] [address] AveCNicole [place] [phone] CO2 28 mmol/L Normal 22-30 [facility] Comment on above: Performed By: #### C BCDIF, CMP, CRP, URIC, TSH, ANA1, SEPG, CCP ####[place] [address] [address] [place] [phone] Creatinine 0.86 mg/dL Normal 0.58-0.96 [facility] Comment on above: Performed By: #### C BCDIF, CMP, CRP, URIC, TSH, ANA1, SEPG, CCP ####[place] [address] [address] [place] [phone] eGFR (non-black) mL/min/{1.73_m2} Normal [facility] Comment on above: Performed By: #### C BCDIF, CMP, CRP, URIC, TSH, ANA1, SEPG, CCP ####[place] [address] [address] AveCDeborah [place] [phone] Result Comment: eGFR (Estimated GFR) Units of [...] Glucose mass conc 100 mg/dL High 74-99 [facility] Comment on above: Result Comment: The [place] Diabetes Association (ADA) provides guidance for cutoff [...] Standards of Medical Care in Diabetes 2016, [place] [employer]. Diabetes Care. 2016.39(Suppl 1). Performed By: #### C BCDIF, CMP, CRP, URIC, TSH, ANA1, SEPG, CCP ####[facility] [place], [place] [phone] Potassium molar conc 4.0 mmol/L Normal 3.7-5.1 [facility] Comment on above: Performed By: #### C BCDIF, CMP, CRP, URIC, TSH, ANA1, SEPG, CCP ####[facility] AvKapa[place], [place] [phone] Protein 7.3 g/dL Normal 6.3-8.0 [facility] Comment on above: Performed By: #### C BCDIF, CMP, CRP, URIC, TSH, ANA1, SEPG, CCP ####[facility] AveCOg[address], [place] [phone] Sodium 139 mmol/L Normal 136-144 [facility] Comment on above: Performed By: #### C BCDIF, CMP, CRP, URIC, TSH, ANA1, SEPG, CCP ####[facility] [address] [place], [place] [phone] Urea nitrogen 10 mg/dL Normal 7-21 [facility] Comment on above: Performed By: #### C BCDIF, CMP, CRP, URIC, TSH, ANA1, SEPG, CCP ####[facility] [address] [place], [place] [phone] PROGRESSon 09-29-2017 PROGRESS HNO ID: [id number]: Emmett Smithervice: (none)Author Type: PhysicianType: Progress NotesFiled: 09/29/2017 2:44 PMNote Text:RHEUMATOLOGY NEW PATIENT CONSULTPROVIDER: ROYAL Musa OF VISIT: 09/29/2017NAME OF PATIENT: Xochitl FullerCC PHYSICIAN:SELFPERSONAL PHYSICIAN:Jacklyn Wilson MD ([facility])[address] [place] [id number]: [phone]: [phone] COMPLAINT / REASON FOR CONSULT:My hands hurtHISTORY [...] 06/02/2009- Encounter for gynecological examination without abnormal burazjs87/2/2015 Seeing [facility].- Essential hypertension 06/02/2009- GERD without [...] PAST SURGICAL HISTORY OF scope on left kneeALLERGIES:Naltrexone ; Ibuprofen; Mobic [Meloxicam]; Morphine; Zoloft [SertralineHcl]MEDICATIO NS:Current Outpatient Prescriptions:Multivitam in capsule Take 1 capsule by mouth once [...] (FLONASE) 50 mcg/actuation nasal spray Use 1 Uvalda in eachnostril once daily. Rinse mouth after [...] Yes Special: MarijuanaREVIEW OF SYSTEMS: September 29, 2017CONSTITUTIONAL:Fever : NoFatigue: NoPain: NoEYES:Pain: NoRedness: YesLoss of vision: NoDryness: YesEAR, NOSE, MOUTH, THROAT:Nose bleeds: NoHearing loss: NoSores in mouth: NoSwallowing problems: NoDry mouth: NoCARDIOVASCULAR:Chest pain: NoSwelling in the feet or legs: YesRESPIRATORY:Shortness of breath: NoPain with breathing: NoChronic cough: NoCoughing up blood: No,GASTROINTESTINAL:Hear tburn: YesNausea: NoDiarrhea: NoBlood in the stool or black stool: NoAbdominal pain: NoGENITOURINARY:Blood in urine: NoPain or burning on urination: No]MUSCULOSKELETAL:Joint pain: YesJoint swelling: YesMorning stiffness in joints: YesMuscle weakness: YesBack pain: YesSKIN:Rashes: NoSun sensitive rashes: NoColor changes of hands or feet in the cold: YesHair loss: NoNail changes: NoNEUROLOGICAL:Headaches : YesDizziness: NoNumbness or tingling: YesMemory loss: YesSeizures: NoHEMATOLOGIC/LYMPHATIC: Swollen glands: NoAnemia: NoALLERGIES/IMMUNOLOGIC: Allergies (other than medications): YesIncreased susceptibility to infection: [...] groin.RESPIRATORY: Normal respiratory effort. Clear to auscultation andpercussion.CARDIOVASC ULAR: Heart RRR without gallop, murmur, or rub. No bruits acrosschest or neck.EXTREMITIES: Normal and equal pulses in all 4 extremities. No edema.ABDOMEN: BS normal. No bruits, No tenderness, mass, or hepatosplenomegaly.GENIT OURINARY :NormalNEUROLOGIC: Cranial nerves II-XII grossly intact. DTRs [...] 1.00 - 4.00 k/uL 3.88Mono% % 6.1Abs Rincon 0.00 - 0.86 k/uL 0.67Eosin% % 2.5Abs [...] who presents for a [facility]ologyevaluation at the [facility]. SHE HAS AXIAL AND APPENDICULARSKELETAL COMPLAINTS THAT IN PART SOUND AND LOOK LIKE OSTEOARTHRITIS BUTSHE HAS OTHER CHANGES THAT INCLUDE LIVEDO RETICULARIS AND POSSIBLERAYNAUDS THAT COULD SUGGEST A MORE INFLAMATORY CONDITION.RECOMMENDATION S / PLANS: we will get labs and [...] coordination ofcare.Electronically signed by:Emmett Hirsch, DO Normal [facility] Protein Electrophor.on 09-29 Albumin 3.90 g/dL Normal 3.37-4.23 [facility] Comment on above: Performed By: #### C BCDIF, CMP, CRP, URIC, TSH, ANA1, SEPG, CCP ####[facility] [place], [place] [phone] Alpha 1 Globulin 0.18 gm/dL Normal 0.18-0.31 [facility] Comment on above: Performed By: #### C BCDIF, CMP, CRP, URIC, TSH, ANA1, SEPG, CCP ####[facility] [place], [place] [phone] Alpha 2 Globulin 0.67 gm/dL Normal 0.52-0.97 [facility] Comment on above: Performed By: #### C BCDIF, CMP, CRP, URIC, TSH, ANA1, SEPG, CCP ####[address] [place] [phone] Beta Globulin 0.95 gm/dL Normal 0.84-1.36 [facility] Comment on above: Performed By: #### C BCDIF, CMP, CRP, URIC, TSH, ANA1, SEPG, CCP ####[place] [phone] Gamma Globulin 1.11 gm/dL Normal 0.70-1.44 [facility] Comment on above: Performed By: #### C BCDIF, CMP, CRP, URIC, TSH, ANA1, SEPG, CCP ####[place] [phone] Interpretation SEE COMMENT Normal [facility] Comment on above: Result Comment: No d efinitive M protein is identified on protein electrophoresis. Performed By: #### C BCDIF, CMP, CRP, URIC, TSH, ANA1, SEPG, CCP ####[place] [phone] M Protein Location N/A Normal [facility] Comment on above: Performed By: #### C BCDIF, CMP, CRP, URIC, TSH, ANA1, SEPG, CCP ####[place] [phone] M Keyur Concentratn 0.00 gm/dL Normal 0.00 [facility] Comment on above: Performed By: #### C BCDIF, CMP, CRP, URIC, TSH, ANA1, SEPG, CCP ####[place] [phone] SPE Staff Review Reviewed by Latia Cadet MD. ([id number]) Normal [facility] Comment on above: Performed By: #### C BCDIF, CMP, CRP, URIC, TSH, ANA1, SEPG, CCP ####[address], [place] [phone] Total Protein, SPE 6.8 g/dL Normal 6.0-8.4 [facility] Comment on above: Performed By: #### C BCDIF, CMP, CRP, URIC, TSH, ANA1, SEPG, CCP ####[address] [phone] TSHon 09-29-2017 Thyroid stimulating hormone (TSH) 1.600 uU/mL Normal 0.400-5.500 [facility] Comment on above: Result Comment: If t he patient is , TSH reference range varies by gestational period:First Trimester 0.100-2.500 uU/mLSecond Trimester 0.200-3.000 uU/mLThird Trimester 0.300-3.000 uU/mLReferences: 1. Greco L, Irving M, John EK, et al. Management of Thyroid Dysfunction during and : An Endocrine Society Clinical Practice Guideline. J Clin Endocrinol Metab, 2012:97:4184-[address]. [address] [place]. Overview of thyroid disease in . UpToDate. 2016. Accessed on May 13, 2016. Performed By: #### C BCDIF, CMP, CRP, URIC, TSH, ANA1, SEPG, CCP ####[place] [id number] [place], [place] [phone] Uric Acidon 09-29-2017 Urate 4.2 mg/dL Normal 2.5-6.6 [facility] Comment on above: Performed By: #### C BCDIF, CMP, CRP, URIC, TSH, ANA1, SEPG, CCP ####[place] [id number] [place], [place] [phone] Urinalysis with Microscopico n 09-29-2017 Bilirubin, Urine Negative Normal Negative Taiwo [facility] Comment on above: Performed By: #### C BCDIF, CMP, CRP, URIC, TSH, ANA1, SEPG, CCP ####[address] [phone] Comments SEE COMMENT Normal [facility] Comment on above: Result Comment: N/A Performed By: #### C BCDIF, CMP, CRP, URIC, TSH, ANA1, SEPG, CCP ####[place] [id number] [place] [address] [phone] Erythrocytes (RBC) 0-3 Normal 0-3 [facility] Comment on above: Performed By: #### C BCDIF, CMP, CRP, URIC, TSH, ANA1, SEPG, CCP ####[place] [address] [address] [place] [phone] Hemoglobin mass conc (Bld) Negative Normal Negative [facility] Comment on above: Performed By: #### C BCDIF, CMP, CRP, URIC, TSH, ANA1, SEPG, CCP ####[place] [address] [address] [place] [phone] Leukest Negative Normal Negative [facility] Comment on above: Performed By: #### C BCDIF, CMP, CRP, URIC, TSH, ANA1, SEPG, CCP ####[place] [address] [address] [place] [phone] pH of blood 5.0 [pH] Normal 4.5-8.0 [facility] Comment on above: Performed By: #### C BCDIF, CMP, CRP, URIC, TSH, ANA1, SEPG, CCP ####[place] [id number] [place] [address] [phone] Protein, Urine Negative Normal Negative [facility] Comment on above: Performed By: #### C BCDIF, CMP, CRP, URIC, TSH, ANA1, SEPG, CCP ####[place] [address] [address] [place] [phone] Specific Vidal, Ur 1.023 Normal 1.005-1.030 [place] Comment on above: Performed By: #### C BCDIF, CMP, CRP, URIC, TSH, ANA1, SEPG, CCP ####[facility] [place] [phone] Urine Clem Comment SEE COMMENT Normal [facility] Comment on above: Result Comment: N/A Performed By: #### C BCDIF, CMP, CRP, URIC, TSH, ANA1, SEPG, CCP ####[place] [id number] [place] [address] [phone] Urine, clarity Clear Normal Clear [facility] Comment on above: Performed By: #### C BCDIF, CMP, CRP, URIC, TSH, ANA1, SEPG, CCP ####[place] [address] [address] [place] [phone] Urine, color Yellow Normal Yellow [facility] Comment on above: Performed By: #### C BCDIF, CMP, CRP, URIC, TSH, ANA1, SEPG, CCP ####[place] [address] [address] [place] [phone] Urine, epithelial cells in sediment SEE COMMENT Normal [facility] Comment on above: Result Comment: FewS quamous Epithelial Cells Performed By: #### C BCDIF, CMP, CRP, URIC, TSH, ANA1, SEPG, CCP ####[place] [address] [address] [place] [phone] Urine, glucose presence Negative Normal Negative [facility] Comment on above: Performed By: #### C BCDIF, CMP, CRP, URIC, TSH, ANA1, SEPG, CCP ####[facility] [place] [phone] Urine, ketones presence Negative Normal Negative [facility] Comment on above: Performed By: #### C BCDIF, CMP, CRP, URIC, TSH, ANA1, SEPG, CCP ####[place] [id number] [place] Ave[place]levelJulia [place] [phone] Urine, nitrite presence Negative Normal Negative [facility] Comment on above: Performed By: #### C BCDIF, CMP, CRP, URIC, TSH, ANA1, SEPG, CCP ####[facility] [place], [place] [phone] Urine, urobilinogen Normal Normal Normal [facility] Comment on above: Performed By: #### C BCDIF, CMP, CRP, URIC, TSH, ANA1, SEPG, CCP ####[facility] [place], [place] [phone] WBC (Leukocytes) 0-5 Normal 0-5 [facility] Comment on above: Performed By: #### C BCDIF, CMP, CRP, URIC, TSH, ANA1, SEPG, CCP ####[facility] [place], [place] [phone] XR CHEST 2V FRONTAL/LATon XR CHEST 2V [...] lower thoracic spine. No pleural effusion or pneumothorax.Cardiomedia stinal silhouette: Normal size.Other: Osseous structures are intact.IMPRESSION:Indete rminant opacity overlying the lower lobes on lateral view which may relate to summation of overlying structures however underlying consolidation or lesion is not excluded. CT is suggested for further evaluation.Transcribed Using Voice RecognitionTranscribe Date/Time: Sep 29 2017 11:16ADictated by: FRANCES MONTILLA MDThis examination was interpreted and the report reviewed and electronically signed by: FRANCES MONTILLA MD on Sep 29 2017 11:23AM [id number] N [facility] XR LUMBAR 3V AP/LAT/L5-S1on 09-29-2017 XR [...] sacroiliac joints are maintained. Soft tissues are unremarkable.IMPRESSION: Mild degenerative changes of the lower lumbar spine.Negative pelvis radiograph.Transcribed Using Voice RecognitionTranscribe Date/Time: Sep 29 2017 11:18ADictated by: FRANCES MONTILLA MDThis examination was interpreted and the report reviewed and electronically signed by: FRANCES MONTILLA MD on Sep 29 2017 11:19AM [id number] N [facility] XR PELVIS 1V APon 09-29-2017 XR [...] sacroiliac joints are maintained. Soft tissues are unremarkable.IMPRESSION: Mild degenerative changes of the lower lumbar spine.Negative pelvis radiograph.Transcribed Using Voice RecognitionTranscribe Date/Time: Sep 29 2017 11:18ADictated by: FRANCES MONTILLA MDThis examination was interpreted and the report reviewed and electronically signed by: FRANCES MONTILLA MD on Sep 29 2017 11:19AM [id number] N [facility] Emergency Room Note on 06-28-2017 [place] [facility] Note Normal [facility] ([place]) Patient Summary Documentson 06-24-2017 Patient Summary Documents Normal [facility] [place] Vital Signs Date Time Vital Sign Value Performing Clinician Facility 09-27-2025 18:53-0400 Diastolic blood pressure 81 mm[Hg] Rohith Perez MD Work Phone: [facility] 09-27-2025 18:53-0400 Heart rate 84 /min Rohith Perez MD Work Phone: [facility] 09-27-2025 18:53-0400 Respiratory rate 18 /min Rohith Perez MD Work Phone: [facility] 09-27-2025 18:53-0400 SaO2% (BldA) [Mass fraction] 98 % Rohith Perez MD Work Phone: [facility] 09-27-2025 18:53-0400 Systolic blood pressure 137 mm[Hg] Rohith Perez MD Work Phone: [facility] 09-27-2025 17:30-0400 Body height 160 cm Rohith Perez MD Work Phone: [facility] 09-27-2025 17:30-0400 Body mass index (BMI) [Ratio] 27.28 kg/m2 Rohith Perez MD Work Phone: [facility] 09-27-2025 17:30-0400 Body temperature 97.11 [degF] Rohith Perez MD Work Phone: [facility] 09-27-2025 17:30-0400 Body weight 69.85 kg Rohith Perez MD Work Phone: [facility] 05-26-2025 15:52-0400 Body mass index (BMI) [Ratio] 27.17 kg/m2 Carl Bridenthal HOSPITAL ACCOUNT MANAGER - COST REDUCTION ENGINEER Work Phone: [facility] 05-26-2025 15:52-0400 Body temperature 98.29 [degF] Carl Bridenthal HOSPITAL ACCOUNT MANAGER - COST REDUCTION ENGINEER Work Phone: [facility] 05-26-2025 15:52-0400 Body weight 69.58 kg Carl Bridenthal HOSPITAL ACCOUNT MANAGER - COST REDUCTION ENGINEER Work Phone: [facility] 05-26-2025 15:52-0400 Diastolic blood pressure 80 mm[Hg] Carl Bridenthal HOSPITAL ACCOUNT MANAGER - COST REDUCTION ENGINEER Work Phone: [facility] 05-26-2025 15:52-0400 Heart rate 93 /min Carl Bridenthal HOSPITAL ACCOUNT MANAGER - COST REDUCTION ENGINEER Work Phone: [facility] 05-26-2025 15:52-0400 Respiratory rate 18 /min Carl Bridenthal HOSPITAL ACCOUNT MANAGER - COST REDUCTION ENGINEER Work Phone: [facility] 05-26-2025 15:52-0400 SaO2% (BldA) [Mass fraction] 96 % Carl Bridenthal HOSPITAL ACCOUNT MANAGER - COST REDUCTION ENGINEER Work Phone: [facility] 05-26-2025 15:52-0400 Systolic blood pressure 129 mm[Hg] Carl Bridenthal HOSPITAL ACCOUNT MANAGER - COST REDUCTION ENGINEER Work Phone: [facility] 05-15-2025 16:58-0400 Diastolic blood pressure 82 mm[Hg] Rip Curiel DO Work Phone: [facility] 05-15-2025 16:58-0400 Heart rate 88 /min Rip Curiel DO Work Phone: [facility] 05-15-2025 16:58-0400 Respiratory rate 16 /min Rip Curiel DO Work Phone: [facility] 05-15-2025 16:58-0400 SaO2% (BldA) [Mass fraction] 100 % Rip Curiel DO Work Phone: [facility] 05-15-2025 16:58-0400 Systolic blood pressure 127 mm[Hg] Rip Curiel DO Work Phone: [facility] 05-15-2025 15:51-0400 Body height 160 cm Rip Curiel DO Work Phone: [facility] 05-15-2025 15:51-0400 Body mass index (BMI) [Ratio] 26.39 kg/m2 Rip Curiel DO Work Phone: [facility] 05-15-2025 15:51-0400 Body temperature 97.3 [degF] Rip Curiel DO Work Phone: [facility] 05-15-2025 15:51-0400 Body weight 67.59 kg Rip Curiel DO Work Phone: [facility] 05-14-2025 01:12-0400 Body temperature 98.2 [degF] Dr. Makenzie Magallon DO Work Phone: [facility] 05-14-2025 01:12-0400 Diastolic blood pressure 92 mm[Hg] Dr. Makenzie Magallon DO Work Phone: [facility] 05-14-2025 01:12-0400 Heart rate 88 /min Dr. Makenzie Magallon DO Work Phone: [facility] 05-14-2025 01:12-0400 Respiratory rate 18 /min Dr. Makenzie Magallon DO Work Phone: [facility] 05-14-2025 01:12-0400 SaO2% (BldA) [Mass fraction] 98 % Dr. Makenzie Magallon DO Work Phone: [facility] 05-14-2025 01:12-0400 Systolic blood pressure 129 mm[Hg] Dr. Makenzie Magallon DO Work Phone: [facility] 05-13-2025 23:25-0400 Body height 160.[address] Makenzie Magallon DO Work Phone: [facility] 05-13-2025 23:25-0400 Body mass index (BMI) [Ratio] 27.6 kg/m2 Dr. Makenzie Magallon DO Work Phone: [facility] 05-13-2025 23:25-0400 Body weight 70.[address] Makenzie Magallon DO Work Phone: [facility] 03-05-2025 19:23-0400 Body height 160 cm Rohith Perez MD Work Phone: [facility] 03-05-2025 19:23-0400 Body mass index (BMI) [Ratio] 27.46 kg/m2 Rohith Perez MD Work Phone: [facility] 03-05-2025 19:23-0400 Body temperature 98.1 [degF] Rohith Perez MD Work Phone: [facility] 03-05-2025 19:23-0400 Body weight 70.31 kg Rohith Perez MD Work Phone: [facility] 03-05-2025 19:23-0400 Diastolic blood pressure 86 mm[Hg] Rohith Perez MD Work Phone: [facility] 03-05-2025 19:23-0400 Heart rate 90 /min Rohith Perez MD Work Phone: [facility] 03-05-2025 19:23-0400 Respiratory rate 21 /min Rohith Perez MD Work Phone: [facility] 03-05-2025 19:23-0400 SaO2% (BldA) [Mass fraction] 99 % Rohith Perez MD Work Phone: [employer] 03-05-2025 19:23-0400 Systolic blood pressure 149 mm[Hg] Rohith Perez MD Work Phone: [employer] 12-04-2024 09:13-0500 Body height 157.5 cm Gamaliel Cormier MD Work Phone: [employer] 12-04-2024 09:13-0500 Body mass index (BMI) [Ratio] 29.08 kg/m2 Gamaliel Cormier MD Work Phone: [employer] 12-04-2024 09:13-0500 Body weight 72.12 kg Gamaliel Cormier MD Work Phone: [employer] 12-04-2024 09:13-0500 Diastolic blood pressure 78 mm[Hg] Gamaliel Cormier MD Work Phone: [employer] 12-04-2024 09:13-0500 Heart rate 90 /min Gamaliel Cormier MD Work Phone: [employer] 12-04-2024 09:13-0500 SaO2% (BldA) [Mass fraction] 97 % Gamaliel Cormier MD Work Phone: [employer] 12-04-2024 09:13-0500 Systolic blood pressure 130 mm[Hg] Gamaliel Cormier MD Work Phone: [employer] 11-24-2024 19:37-0500 Heart rate 98 /min Prabhakar Black MD Work Phone: [employer] 11-24-2024 19:37-0500 Respiratory rate 20 /min Prabhakar Black MD Work Phone: [employer] 11-24-2024 19:37-0500 SaO2% (BldA) [Mass fraction] 99 % Prabhakar Black MD Work Phone: [employer] 11-24-2024 19:13-0500 Body height 157.5 cm Prabhakar Black MD Work Phone: [facility] 11-24-2024 19:13-0500 Body mass index (BMI) [Ratio] 28.35 kg/m2 Prabhakar Black MD Work Phone: [facility] 11-24-2024 19:13-0500 Body temperature 98.91 [degF] Prabhakar Black MD Work Phone: [facility] 11-24-2024 19:13-0500 Body weight 70.31 kg Prabhakar Black MD Work Phone: [facility] 11-24-2024 19:13-0500 Diastolic blood pressure 75 mm[Hg] Prabhakar Black MD Work Phone: [facility] 11-24-2024 19:13-0500 Systolic blood pressure 112 mm[Hg] Prabhakar Black MD Work Phone: [facility] 08-23-2024 15:50-0400 Body height 158.1 cm Otilia Simons MD Work Phone: [facility] 08-23-2024 15:50-0400 Body mass index (BMI) [Ratio] 28.49 kg/m2 Otilia Simons MD Work Phone: [facility] 08-23-2024 15:50-0400 Body temperature 104 [degF] Otilia Simons MD Work Phone: [facility] 08-23-2024 15:50-0400 Body weight 71.22 kg Otilia Simons MD Work Phone: [facility] 08-23-2024 15:50-0400 Diastolic blood pressure 87 mm[Hg] Otilia Simons MD Work Phone: [facility] 08-23-2024 15:50-0400 SaO2% (BldA) [Mass fraction] 98 % Otilia Simons MD Work Phone: [facility] 08-23-2024 15:50-0400 Systolic blood pressure 137 mm[Hg] Otilia Simons MD Work Phone: [facility] 04-01-2024 14:31-0400 Diastolic blood pressure 83 mm[Hg] Kenan Tyson MD Work Phone: [facility] 04-01-2024 14:31-0400 Heart rate 91 /min Kenan Tyson MD Work Phone: [facility] 04-01-2024 14:31-0400 SaO2% (BldA) [Mass fraction] 98 % Kenan Tyson MD Work Phone: [facility] 04-01-2024 14:31-0400 Systolic blood pressure 116 mm[Hg] Kenan Tyson MD Work Phone: [facility] 04-01-2024 13:11-0400 Body height 160 cm Kenan Tyson MD Work Phone: [facility] 04-01-2024 13:11-0400 Body mass index (BMI) [Ratio] 28.34 kg/m2 Kenan Tyson MD Work Phone: [facility] 04-01-2024 13:11-0400 Body temperature 97.9 [degF] Kenan Tyson MD Work Phone: [facility] 04-01-2024 13:11-0400 Body weight 72.58 kg Kenan Tyson MD Work Phone: [facility] 04-01-2024 13:11-0400 Respiratory rate 16 /min Kenan Tyson MD Work Phone: [facility] 02-27-2024 05:33-0400 Body height 160 cm Kenan Miranda DO Work Phone: [facility] 02-27-2024 05:33-0400 Body mass index (BMI) [Ratio] 28.34 kg/m2 Kenan Miranda DO Work Phone: [facility] 02-27-2024 05:33-0400 Body weight 72.58 kg Kenan Miranda DO Work Phone: [facility] 02-27-2024 05:29-0400 Body temperature 97.7 [degF] Kenan Miranda DO Work Phone: [facility] 02-27-2024 05:29-0400 Diastolic blood pressure 99 mm[Hg] Kenan Miranda DO Work Phone: [facility] 02-27-2024 05:29-0400 Heart rate 103 /min Kenan Miranda DO Work Phone: [facility] 02-27-2024 05:29-0400 Respiratory rate 18 /min Kenan Miranda DO Work Phone: [facility] 02-27-2024 05:29-0400 SaO2% (BldA) [Mass fraction] 99 % Kenan Miranda DO Work Phone: [facility] 02-27-2024 05:29-0400 Systolic blood pressure 152 mm[Hg] Kenan Miranda DO Work Phone: [facility] 01-16-2024 14:16-0500 Body mass index (BMI) [Ratio] 28.17 kg/m2 Carl Bridenthal HOSPITAL ACCOUNT MANAGER - COST REDUCTION ENGINEER Work Phone: [facility] 01-16-2024 14:16-0500 Body temperature 97.81 [degF] Carl Bridenthal HOSPITAL ACCOUNT MANAGER - COST REDUCTION ENGINEER Work Phone: [facility] 01-16-2024 14:16-0500 Body weight 72.12 kg Carl Bridenthal HOSPITAL ACCOUNT MANAGER - COST REDUCTION ENGINEER Work Phone: [facility] 01-16-2024 14:16-0500 Diastolic blood pressure 83 mm[Hg] Carl Bridenthal HOSPITAL ACCOUNT MANAGER - COST REDUCTION ENGINEER Work Phone: [facility] 01-16-2024 14:16-0500 Heart rate 96 /min Carl Bridenthal HOSPITAL ACCOUNT MANAGER - COST REDUCTION ENGINEER Work Phone: [employer] 01-16-2024 14:16-0500 Respiratory rate 24 /min Carl Bridenthal HOSPITAL ACCOUNT MANAGER - COST REDUCTION ENGINEER Work Phone: [facility] 01-16-2024 14:16-0500 SaO2% (BldA) [Mass fraction] 98 % Carl Bridenthal HOSPITAL ACCOUNT MANAGER - COST REDUCTION ENGINEER Work Phone: [facility] 01-16-2024 14:16-0500 Systolic blood pressure 132 mm[Hg] Carl Mcdanielluisaal HOSPITAL ACCOUNT MANAGER - COST REDUCTION ENGINEER Work Phone: [facility] 08-28-2023 23:08-0400 Heart rate 100 /min Rick Neff MD Work Phone: [facility] 08-28-2023 23:04-0400 SaO2% (BldA) [Mass fraction] 99 % Rick Neff MD Work Phone: [facility] 08-28-2023 22:25-0400 Diastolic blood pressure 72 mm[Hg] Rick Neff MD Work Phone: [facility] 08-28-2023 22:25-0400 Respiratory rate 17 /min Rick Neff MD Work Phone: [facility] 08-28-2023 22:25-0400 Systolic blood pressure 115 mm[Hg] Rick Neff MD Work Phone: [facility] 08-28-2023 22:17-0400 Body temperature 100.99 [degF] Rick Neff MD Work Phone: [facility] 08-28-2023 20:56-0400 Body height 160 cm Rick Neff MD Work Phone: [facility] 08-28-2023 20:56-0400 Body mass index (BMI) [Ratio] 26.75 kg/m2 Rick Neff MD Work Phone: [facility] 08-28-2023 20:56-0400 Body weight 68.49 kg Rick Neff MD Work Phone: [facility] 08-15-2023 13:13-0400 Body mass index (BMI) [Ratio] 27.14 kg/m2 Carl Jonasenthal HOSPITAL ACCOUNT MANAGER - COST REDUCTION ENGINEER Work Phone: [facility] 08-15-2023 13:13-0400 Body temperature 98.4 [degF] Carl Jonasenthal HOSPITAL ACCOUNT MANAGER - COST REDUCTION ENGINEER Work Phone: [facility] 08-15-2023 13:13-0400 Body weight 69.49 kg Carl [facility] ACCOUNT MANAGER - COST REDUCTION ENGINEER Work Phone: [facility] 08-15-2023 13:13-0400 Diastolic blood pressure 68 mm[Hg] Carl [facility] ACCOUNT MANAGER - COST REDUCTION ENGINEER Work Phone: [facility] 08-15-2023 13:13-0400 Heart rate 101 /min Carl [facility]PITAL ACCOUNT MANAGER - COST REDUCTION ENGINEER Work Phone: [facility] 08-15-2023 13:13-0400 Respiratory rate 24 /min Carl [facility]PITAL ACCOUNT MANAGER - COST REDUCTION ENGINEER Work Phone: [facility] 08-15-2023 13:13-0400 SaO2% (BldA) [Mass fraction] 98 % Carl [facility]PITAL ACCOUNT MANAGER - COST REDUCTION ENGINEER Work Phone: [facility] 08-15-2023 13:13-0400 Systolic blood pressure 126 mm[Hg] Carl [facility]PITAL ACCOUNT MANAGER - COST REDUCTION ENGINEER Work Phone: [facility] 08-14-2023 07:31-0400 Body mass index (BMI) [Ratio] 27.17 kg/m2 Carl [facility]PITAL ACCOUNT MANAGER - COST REDUCTION ENGINEER Work Phone: [facility] 08-14-2023 07:31-0400 Body temperature 97.5 [degF] Calr [facility] ACCOUNT MANAGER - COST REDUCTION ENGINEER Work Phone: [facility] 08-14-2023 07:31-0400 Body weight 69.58 kg Carl [facility]PITAL ACCOUNT MANAGER - COST REDUCTION ENGINEER Work Phone: [facility] 08-14-2023 07:31-0400 Diastolic blood pressure 88 mm[Hg] Carl [facility]PITAL ACCOUNT MANAGER - COST REDUCTION ENGINEER Work Phone: [facility] 08-14-2023 07:31-0400 Heart rate 94 /min Carl [facility] H[facility]PITAL ACCOUNT MANAGER - COST REDUCTION ENGINEER Work Phone: [facility] 08-14-2023 07:31-0400 Respiratory rate 20 /min Carl [facility]PITAL ACCOUNT MANAGER - COST REDUCTION ENGINEER Work Phone: [facility] 08-14-2023 07:31-0400 SaO2% (BldA) [Mass fraction] 100 % Carl [facility]PITAL ACCOUNT MANAGER - COST REDUCTION ENGINEER Work Phone: [facility] 08-14-2023 07:31-0400 Systolic blood pressure 124 mm[Hg] Carl [facility]PITAL ACCOUNT MANAGER - COST REDUCTION ENGINEER Work Phone: [facility] 06-21-2023 11:03-0400 Body mass index (BMI) [Ratio] 27 kg/m2 Carl [facility]PITAL ACCOUNT MANAGER - COST REDUCTION ENGINEER Work Phone: [facility] 06-21-2023 11:03-0400 Body temperature 98.6 [degF] Carl [facility] ACCOUNT MANAGER - COST REDUCTION ENGINEER Work Phone: [facility] 06-21-2023 11:03-0400 Body weight 69.13 kg Carl [facility]PITAL ACCOUNT MANAGER - COST REDUCTION ENGINEER Work Phone: [facility] 06-21-2023 11:03-0400 Diastolic blood pressure 86 mm[Hg] Carl [facility]PITAL ACCOUNT MANAGER - COST REDUCTION ENGINEER Work Phone: [facility] 06-21-2023 11:03-0400 Heart rate 97 /min Carl [facility] HOSPITAL ACCOUNT MANAGER - COST REDUCTION ENGINEER Work Phone: [facility] 06-21-2023 11:03-0400 Respiratory rate 24 /min Carl [facility] HOSPITAL ACCOUNT MANAGER - COST REDUCTION ENGINEER Work Phone: [facility] 06-21-2023 11:03-0400 SaO2% (BldA) [Mass fraction] 96 % Carl [facility] HOSPITAL ACCOUNT MANAGER - COST REDUCTION ENGINEER Work Phone: [facility] 06-21-2023 11:03-0400 Systolic blood pressure 129 mm[Hg] Carl [facility]PITAL ACCOUNT MANAGER - COST REDUCTION ENGINEER Work Phone: [facility] 05-26-2023 23:59-0400 Body temperature 98.2 [degF] Yamilapio Singh DO Work Phone: [facility] 05-26-2023 23:59-0400 Diastolic blood pressure 87 mm[Hg] Yamila Samantha DO Work Phone: [facility] 05-26-2023 23:59-0400 Heart rate 98 /min Yamilapio Singh DO Work Phone: [facility] 05-26-2023 23:59-0400 Respiratory rate 18 /min Yamilapio Singh DO Work Phone: [facility] 05-26-2023 23:59-0400 SaO2% (BldA) [Mass fraction] 100 % Yamila Singh DO Work Phone: [facility] 05-26-2023 23:59-0400 Systolic blood pressure 159 mm[Hg] Yamilapio Singh DO Work Phone: [facility] 04-26-2023 07:58-0400 Body height 160 cm Gamaliel Cormier MD Work Phone: [facility] 04-26-2023 07:58-0400 Body mass index (BMI) [Ratio] 27.49 kg/m2 Gamaliel Cormier MD Work Phone: [facility] 04-26-2023 07:58-0400 Body weight 70.4 kg Gamaliel Cormier MD Work Phone: [facility] 04-26-2023 07:58-0400 Diastolic blood pressure 72 mm[Hg] Gamaliel Cormier MD Work Phone: [facility] 04-26-2023 07:58-0400 Heart rate 109 /min Gamaliel Cormier MD Work Phone: [facility] 04-26-2023 07:58-0400 SaO2% (BldA) [Mass fraction] 97 % Gamaliel Cormier MD Work Phone: [facility] 04-26-2023 07:58-0400 Systolic blood pressure 113 mm[Hg] Gamaliel Cormier MD Work Phone: [facility] 02-02-2023 06:58-0500 Body height 160 cm Gamaliel Cormier MD Work Phone: [facility] 02-02-2023 06:58-0500 Body mass index (BMI) [Ratio] 28.56 kg/m2 Gamaliel Cormier MD Work Phone: [facility] 02-02-2023 06:58-0500 Body weight 73.12 kg Gamaliel Cormier MD Work Phone: [facility] 02-02-2023 06:58-0500 Diastolic blood pressure 93 mm[Hg] Gamaliel Cormier MD Work Phone: [facility] 02-02-2023 06:58-0500 Heart rate 92 /min Gamaliel Cormier MD Work Phone: [facility] 02-02-2023 06:58-0500 Systolic blood pressure 147 mm[Hg] Gamaliel Cormier MD Work Phone: [facility] 01-04-2023 12:51-0500 Body height 160 cm Kandice Alegre MD Work Phone: [facility] 01-04-2023 12:51-0500 Body mass index (BMI) [Ratio] 27.99 kg/m2 Kandice Alegre MD Work Phone: [employer] 01-04-2023 12:51-0500 Body weight 71.67 kg Kandice Alegre MD Work Phone: [employer] 01-04-2023 12:51-0500 Diastolic blood pressure 82 mm[Hg] Kandice Alegre MD Work Phone: [employer] 01-04-2023 12:51-0500 Heart rate 94 /min Kandice Alegre MD Work Phone: [facility] 01-04-2023 12:51-0500 Systolic blood pressure 131 mm[Hg] Kandice Alegre MD Work Phone: [facility] 12-28-2022 13:48-0500 Diastolic blood pressure 81 mm[Hg] Kimberly Lay MD Work Phone: [facility] Comment on above: sitting up 12-28-2022 13:48-0500 Heart rate 98 /min Kimberly Lay MD Work Phone: [facility] 12-28-2022 13:48-0500 Respiratory rate 16 /min Kimberly Lay MD Work Phone: [facility] 12-28-2022 13:48-0500 SaO2% (BldA) [Mass fraction] 99 % Kimberyl Lay MD Work Phone: [facility] 12-28-2022 13:48-0500 Systolic blood pressure 114 mm[Hg] Kimberly Lay MD Work Phone: [facility] Comment on above: sitting up 12-28-2022 12:25-0500 Body height 160 cm Kimberly Lay MD Work Phone: [facility] 12-28-2022 12:25-0500 Body mass index (BMI) [Ratio] 27.28 kg/m2 Kimberly Lay MD Work Phone: [facility] 12-28-2022 12:25-0500 Body temperature 97 [degF] Kimberly Lay MD Work Phone: [facility] 12-28-2022 12:25-0500 Body weight 69.85 kg Kimberly Lay MD Work Phone: [facility] 12-15-2022 13:12-0500 Body height 160 cm Kimberly Lay MD Work Phone: [facility] 12-15-2022 13:12-0500 Body mass index (BMI) [Ratio] 29.02 kg/m2 Kimberly Lay MD Work Phone: [facility] 12-15-2022 13:12-0500 Body temperature 97.3 [degF] Kimberly Lay MD Work Phone: [facility] 12-15-2022 13:12-0500 Body weight 74.3 kg Kimberly Lay MD Work Phone: [facility] 12-15-2022 13:12-0500 Diastolic blood pressure 92 mm[Hg] Kimberly Lay MD Work Phone: [facility] 12-15-2022 13:12-0500 Heart rate 62 /min Kimberly Lay MD Work Phone: [facility] 12-15-2022 13:12-0500 Respiratory rate 18 /min Kimberly Lay MD Work Phone: [facility] 12-15-2022 13:12-0500 SaO2% (BldA) [Mass fraction] 98 % Kimberly Lay MD Work Phone: [facility] 12-15-2022 13:12-0500 Systolic blood pressure 138 mm[Hg] Kimberly Lay MD Work Phone: [facility] 05-11-2022 13:19-0400 Body height 160 cm Carlos Garcia MD Work Phone: [facility] 05-11-2022 13:19-0400 Body mass index (BMI) [Ratio] 28.34 kg/m2 Carlos Garcia MD Work Phone: [facility] 05-11-2022 13:19-0400 Body temperature 97.9 [degF] Carlos Garcia MD Work Phone: [facility] 05-11-2022 13:19-0400 Body weight 72.58 kg Carlos Garcia MD Work Phone: [facility] 05-11-2022 13:19-0400 Diastolic blood pressure 101 mm[Hg] Carlos Garcia MD Work Phone: [facility] 05-11-2022 13:19-0400 Heart rate 94 /min Carlos Garcia MD Work Phone: [facility] 05-11-2022 13:19-0400 Respiratory rate 14 /min Carlos Garcia MD Work Phone: [facility] 05-11-2022 13:19-0400 SaO2% (BldA) [Mass fraction] 98 % Carlos Garcia MD Work Phone: [facility] 05-11-2022 13:19-0400 Systolic blood pressure 153 mm[Hg] Carlos Garcia MD Work Phone: [facility] 10-05-2020 20:03-0500 Body Temperature 98.2 [degF] Frances [facility]varez [facility], [place] 10-05-2020 20:03-0500 BP Diastolic 98 mm[Hg] Frances Alvarez [facility] [place] , [place] 10-05-2020 20:03-0500 BP Systolic 151 mm[Hg] Frances Am[facility] [place] , [place] 10-05-2020 20:03-0500 Pulse (Heart Rate) 106 /min Frances Alvarez [facility] [place], [place] 10-05-2020 20:03-0500 Pulse Oximetry 97 % [facility] [place] [facility] [place] 10-05-2020 20:03-0500 Respiratory Rate 18 /min Frances Alvarez [employer] [place] , [place] 01-23-2020 10:06-0500 Body Temperature 98.8 [degF] [facility] [place] [place] 01-23-2020 10:06-0500 BP Diastolic 89 mm[Hg] [facility] [place] [place] 01-23-2020 10:06-0500 BP Systolic 129 mm[Hg] [facility] [place] [place] 01-23-2020 10:06-0500 Pulse (Heart Rate) 108 /min Burton Nagy [facility] [place], MD 01-23-2020 10:06-0500 Pulse Oximetry 100 % [facility] [place] [place] 01-23-2020 10:06-0500 Respiratory Rate 14 /min [facility] [place] [place] 09-06-2019 15:34-0400 BP Diastolic 99 mm[Hg] Frances Alvarez [facility] [place] , [place] 09-06-2019 15:34-0400 BP Systolic 139 mm[Hg] Frances Alvarez [facility] [place] , [place] 09-06-2019 15:34-0400 Pulse (Heart Rate) 99 /min [facility], [facility] 09-06-2019 15:34-0400 Respiratory Rate 18 /min Frances Alvarez [facility], MD 09-06-2019 14:02-0400 Body Temperature 98.2 [degF] Frances Alvarez [facility], MD 09-06-2019 14:02-0400 Pulse Oximetry 96 % Frances Alvarez [facility] , MD 08-15-2019 16:37-0400 Body Temperature 99.19 [degF] Burton [facility], MD 08-15-2019 16:37-0400 BP Diastolic 79 mm[Hg] [facility], MD 08-15-2019 16:37-0400 BP Systolic 107 mm[Hg] [facility], MD 08-15-2019 16:37-0400 Pulse (Heart Rate) 95 /min Burton [facility], [place] 08-15-2019 16:37-0400 Pulse Oximetry 98 % Burton [facility], MD 08-15-2019 16:37-0400 Respiratory Rate 16 /min Burton [facility], MD 07-07-2019 08:28-0400 Body Temperature 97.39 [degF] [facility], MD 07-07-2019 08:28-0400 BP Diastolic 77 mm[Hg] [facility], MD 07-07-2019 08:28-0400 BP Systolic 109 mm[Hg] [facility], MD 07-07-2019 08:28-0400 Pulse (Heart Rate) 101 /min [facility], MD 07-07-2019 08:28-0400 Pulse Oximetry 99 % [facility], MD 07-07-2019 08:28-0400 Respiratory Rate 16 /min [facility], MD 07-05-2019 11:18-0400 BMI (Body Mass Index) 25.23 kg/m2 [facility], MD 07-05-2019 11:18-0400 [facility] [place] 07-05-2019 11:18-0400 Height 160 cm [facility], [place] Encounters Encounter Date Encounter Type Care Provider Facility Start: 09-27-2025 End: 09-27-2025 Emergency department patient visit Rohith Perez MD Work Phone: [facility] Comment on above: Bronchitis (Primary Dx) Start: 09-18-2025 End: 09-18-2025 Telephone encounter Krista Bhatt RN [facility] Clinical Communication Start: 09-17-2025 End: 09-18-[address] [facility] Start: 09-17-2025 End: 09-18-2025 Patient encounter procedure [facility] Bull [facility] Comment on above: Acute cough (Primary Dx); Yeast infection Start: 07-02-2025 End: 07-02-2025 Refill Gamaliel Cormier MD Work Phone: [facility] Comment on above: Simple chronic bronc hitis (HCC) Start: 06-10-2025 End: 06-10-2025 Refill Gamaliel Cormier MD Work Phone: [facility] Comment on above: Simple chronic bronc hitis (HCC) Start: 05-26-2025 End: 05-26-2025 ambulatory [facility] Start: 05-26-2025 End: 05-26-2025 Office outpatient visit 25 minutes [facility] HOSPITAL ACCOUNT MANAGER - COST REDUCTION ENGINEER Work Phone: [facility] Comment on above: Whiplash injury to n bri, initial encounter (Primary Dx); Skin infection; Chronic bilateral low back pain without sciatica; Concussion without loss of consciousness, subsequent encounter; Yeast infection Start: 05-20-2025 End: 05-22-2025 ambulatory Xochitl Curran Clinical Communication Start: 05-20-2025 End: 05-22-2025 Patient encounter procedure Xochitl Curran Clinical Communication Start: 05-15-2025 End: 05-15-2025 Emergency department patient visit Rip Curiel DO Work Phone: [facility] ED Comment on above: Cervical strain, acu te, initial encounter (Primary Dx); Postconcussion syndrome Start: 05-15-2025 End: 05-26-2025 ambulatory Julia Hammond RN [facility] Clinical Communication Start: 05-15-2025 End: 05-26-2025 Patient encounter procedure Julia Hammond RN [facility] Clinical Communication Start: 05-13-2025 End: 05-14-2025 Emergency department patient visit Dr. Makenzie Magallon DO Work Phone: -Emergency Department Work Phone: Start: 05-07-2025 End: 05-07-2025 ambulatory GAMALIEL RAHMAN GENIA Facility:[facility] Start: 05-07-2025 Encounter for genera l adult medical examination without abnormal findings [facility] Start: 03-18-2025 End: 03-18-2025 Orders Only Otilia Simons MD Work Phone: [facility] Comment on above: Gastroesophageal ref lux disease without esophagitis (Primary Dx) Start: 03-12-2025 End: 03-12-2025 Refill Nubia Quinteros HOSPITAL ACCOUNT MANAGER - COST REDUCTION ENGINEER Work Phone: [facility] Comment on above: Simple chronic bronc hitis (HCC) Start: 03-05-2025 End: 03-05-2025 Emergency department patient visit Rohith Perez MD Work Phone: [facility] ED Comment on above: Acute recurrent pans inusitis (Primary Dx) Start: 12-04-2024 End: 12-04-2024 ambulatory [facility] Start: 12-04-2024 End: 12-04-2024 Office outpatient visit 25 minutes Gamaliel Cormier MD Work Phone: [facility] Comment on above: Chronic bilateral lo w back pain without sciatica (Primary Dx); SI (sacroiliac) joint inflammation (HCC) Start: 12-03-2024 End: 12-03-2024 ambulatory Meri Miranda RN [facility] Clinical Communication Start: 12-03-2024 End: 12-03-2024 Patient encounter procedure Meri Miranda [facility] Start: 12-03-2024 End: 12-03-2024 Telephone encounter Gamaliel Cormier MD Work Phone: [facility] Start: 11-25-2024 End: 11-25-2024 Refill Carl Bridenthal HOSPITAL ACCOUNT MANAGER - COST REDUCTION ENGINEER Work Phone: [facility] Comment on above: Simple chronic bronc hitis (HCC) Start: 11-25-2024 End: 11-25-2024 Emergency department patient visit GAMALIEL CORMIER [facility] Start: 11-24-2024 End: 11-24-2024 Emergency department patient visit Prabhakar Black MD Work Phone: [facility] ED Comment on above: Cellulitis of left b reast (Primary Dx) Start: 11-24-2024 End: 11-24-2024 ambulatory Krista Moore RN [facility] Clinical Communication Start: 11-24-2024 End: 11-24-2024 Patient encounter procedure Krist[facility] Moore [facility] Start: 10-08-2024 End: 10-08-2024 Refill Carl [facility]hal HOSPITAL ACCOUNT MANAGER - COST REDUCTION ENGINEER Work Phone: [facility] Comment on above: Simple chronic bronc hitis (HCC) Start: 08-23-2024 End: 08-23-2024 Office outpatient visit 15 minutes Otilia Simons MD Work Phone: [facility] Comment on above: Acute bronchitis, un specified organism (Primary Dx); Gastroesophageal reflux disease, unspecified whether esophagitis present Start: 08-23-2024 End: 08-23-2024 ambulatory Krista Moore RN [facility] Clinical Communication Start: 08-23-2024 End: 08-23-2024 Patient encounter procedure Krista Moore RN [facility] Clinical Communication Start: 07-26-2024 End: 07-26-2024 Refnelly Cormier MD Work Phone: [facility] Comment on above: Simple chronic bronc hitis (HCC) Start: 05-09-2024 Refill Carl Js samuel HOSPITAL ACCOUNT MANAGER - COST REDUCTION ENGINEER Work Phone: [facility] Medicine Comment on above: Simple chronic bronc hitis (HCC) Start: 04-01-2024 End: 04-01-2024 Subsequent hospital visit by physician [facility] Ed Xr Exam Room 1 [facility] Radiology Comment on above: Arrived Start: 04-01-2024 End: 04-01-2024 Emergency department patient visit Kenan Tyson MD Work Phone: [facility] ED Comment on above: Contusion of right c hest wall, initial encounter (Primary Dx); Injury of right shoulder, initial encounter; Cellulitis of abdominal wall Start: 02-27-2024 End: 02-27-2024 Subsequent hospital visit by physician [facility] Xr Portable [facility] Radiology Comment on above: Arrived Start: 02-27-2024 End: 02-27-2024 Emergency department patient visit Kenan Miranda DO Work Phone: [facility] ED Comment on above: Acute maxillary sinu sitis, recurrence not specified (Primary Dx); Bronchitis Start: 02-26-2024 ambulatory Felisha Dukes [facility] Start: 02-26-2024 Patient encounter procedure Felisha Dukes [facility] Start: 01-22-2024 amb[address] [facility] Start: 01-22-2024 Patient encounter procedure Julia Hammond [facility] Start: 01-16-2024 End: 01-16-2024 Office outpatient visit 15 minutes Carl Markal HOSPITAL ACCOUNT MANAGER - COST REDUCTION ENGINEER Work Phone: [facility] Medicine Comment on above: Rash (Primary Dx); Gastroesophageal reflux disease without esophagitis; Simple chronic bronchitis (HCC) Start: 01-16-2024 End: 01-16-2024 Office outpatient visit 25 minutes Carl Bridenthal HOSPITAL ACCOUNT MANAGER - COST REDUCTION ENGINEER Work Phone: [facility] Comment on above: Rash (Primary Dx); Gastroesophageal reflux disease without esophagitis; Simple chronic bronchitis (HCC) Start: 01-15-2024 ambulatory Chandler eddy RN [facility] Clinical Communication Start: 01-15-2024 Patient encounter procedure Chandler Ya [facility] Start: 09-01-2023 ambulatory Vidhi Moon LPN [facility] Start: 09-01-2023 Follow-up encounter Vidhi Lira [facility] Medicine Comment on above: ER Follow-up Start: 08-30-2023 ambulatory Lauren Bull RN [facility] Cl inical Communication Start: 08-30-2023 Patient encounter procedure Lauren Bull [facility] Start: 08-30-2023 End: 08-30-2023 Emergency department patient visit GAMALIEL RAHMAN GENIA Facility:[facility] Start: 08-29-2023 End: 08-29-2023 Office outpatient visit 15 minutes Carl Bridenthal HOSPITAL ACCOUNT MANAGER - COST REDUCTION ENGINEER Work Phone: [facility] Medicine Comment on above: Pyelonephritis (Prim ana Dx); Anxiety Start: 08-29-2023 End: 08-29-2023 Office outpatient visit 25 minutes Carl Bridenthal HOSPITAL ACCOUNT MANAGER - COST REDUCTION ENGINEER Work Phone: [facility] Medicine Comment on above: Pyelonephritis (Prim ana Dx); Anxiety Start: 08-28-2023 End: 08-28-2023 Subsequent hospital visit by physician [facility] Xr Portable [facility] Radiology Comment on above: Arrived Start: 08-28-2023 End: 08-28-2023 Emergency department patient visit Rick Neff MD Work Phone: [facility] ED Comment on above: Pyelonephritis (Prim ana Dx) Start: 08-15-2023 ambulatory Julia Hammond RN [facility] C linical Communication Start: 08-15-2023 Patient encounter procedure uJlia Hammond [facility] Start: 08-15-2023 End: 08-15-2023 Office outpatient visit 15 minutes Carl Bridenthal HOSPITAL ACCOUNT MANAGER - COST REDUCTION ENGINEER Work Phone: [facility] Comment on above: Acute pain of right knee (Primary Dx); Cellulitis of right lower extremity; Vaginal yeast infection Start: 08-14-2023 End: 08-14-2023 Office outpatient visit 15 minutes Carl Bridenthal HOSPITAL ACCOUNT MANAGER - COST REDUCTION ENGINEER Work Phone: [facility] Comment on above: Anxiety (Primary Dx) Start: 08-11-2023 ambulatory Paris Vizcaino RN [facility] Clinical Communication Start: 08-11-2023 Patient encounter procedure Paris Vizcaino RN [facility] Clinical Communication Start: 06-21-2023 End: 06-21-2023 Office outpatient visit 15 minutes Carl Bridenthal HOSPITAL ACCOUNT MANAGER - COST REDUCTION ENGINEER Work Phone: [facility] Medicine Comment on above: Cellulitis of left l ower extremity (Primary Dx); Vaginal yeast infection Start: 05-26-2023 End: 05-27-2023 Emergency department patient visit Yamila Samantha RICH Work Phone: [facility] ED Comment on above: Rash and other nonsp ecific skin eruption (Primary Dx) Start: 04-26-2023 End: 04-26-2023 Office outpatient visit 10 minutes Gamaliel Cormier MD Work Phone: [facility] Comment on above: Rectal bleeding (Fabiola Dx) Start: 02-23-2023 End: 02-23-2023 Office outpatient visit 25 minutes Kimberly Lay MD Work Phone: [facility] Comment on above: Gastroesophageal ref lux disease without esophagitis (Primary Dx); Hiatal hernia; History of colonoscopy Start: 02-02-2023 End: 02-02-2023 Office outpatient visit 15 minutes Gamaliel Cormier MD Work Phone: [facility] Comment on above: Abscess of left arm (Primary Dx) Start: 01-31-2023 ambulatory Daisha Burch RN [facility] Clinical Communication Start: 01-31-2023 Patient encounter procedure Daisha Burch RN [facility] Clinical Communication Start: 01-11-2023 Telephone encounter Keke Finn PT [facility] Therapy at [facility] Comment on above: Pt was a no show for todays evaluation at 10 AM (Pt was scheduled for an Initial evaluation today at 10 AM. Pt was a no show. Clinician called pt and left a VM regarding today's missed evaluation and to call to RS if needed. /) Start: 01-05-2023 End: 01-05-2023 Transcribe Orders Kandice Alegre MD Work Phone: [facility] Comment on above: Cervicalgia (Primary Dx); [...] use; Encounter for screening colonoscopy Start: 12-27-2022 Refill Nubia Telles Aldair HOSPITAL ACCOUNT MANAGER - COST REDUCTION ENGINEER Work Phone: [facility] Start: 12-15-2022 End: 12-15-2022 Office outpatient new 45 minutes Kimberly Lay MD Work Phone: [facility] Comment on above: Constipation, unspec ified constipation type (Primary Dx); Gastroesophageal reflux disease, unspecified whether esophagitis present; Abdominal bloating; Encounter for screening colonoscopy; Bloating; NSAID long-term use Start: 09-15-2022 Transcribe Orders Faye Baldwin DO Work Phone: [facility] Start: 05-11-2022 End: 05-11-2022 Emergency department patient visit Carlos Garcia MD Work Phone: [facility] Comment on above: Contusion of left kn ee, initial encounter (Primary Dx) Start: 04-26-2022 End: 04-26-2022 Subsequent hospital visit by physician Mary Bardales MD Work Phone: [facility] Comment on above: Leg swelling Start: 04-19-2022 End: 04-19-2022 Subsequent hospital visit by physician Mary Bardales MD Work Phone: [facility] Laboratory Comment on above: Neuropathy; Family history of thyroid disorder; Leg swelling; Recurrent infections Start: 02-07-2022 End: 02-07-2022 Subsequent hospital visit by physician Franky Moses MD Work Phone: [facility] Start: 10-05-2020 End: 10-05-2020 Emergency department patient visit Frances Alvarez Work Phone: [facility] Comment on above: COPD exacerbation (H CC) (Primary Dx); Educated about COVID-19 virus infection; Acute bronchitis, unspecified organism; Acute maxillary sinusitis, recurrence not specified; Smoking Start: 01-23-2020 End: 01-23-2020 Emergency department patient visit Burton Springer Work Phone: [facility] Comment on above: Influenza with respi ratory manifestation other than pneumonia (Primary Dx) Start: 10-23-2019 Evaluation and management of inpatient HAMIDA Arrington MD Start: 09-06-2019 End: 09-06-2019 Emergency department patient visit Frances Godwin Antonio Work Phone: [facility] Comment on above: Acute right-sided lo w back pain without sciatica (Primary Dx); Spasm of muscle; Thoracic myofascial strain, initial encounter Start: 08-15-2019 End: 08-15-2019 Emergency department patient visit Burton Springer Work Phone: [facility] Comment on above: Syncope and collapse (Primary Dx) Start: 07-05-2019 End: 07-07-2019 Evaluation and management of inpatient Hernando Gregory Work Phone: [facility] Comment on above: Cellulitis of right upper extremity (Primary Dx) Start: 09-29-2017 End: 09-30-2017 Ambulatory EMMETT HIRSCH [facility] Start: 09-29-2017 End: 10-02-2017 Ambulatory EMMETT HIRSCH [facility] Start: 06-24-2017 End: 06-24-2017 Emergency department patient visit [facility] [facility] Procedures Date Procedure Procedure Detail Performing Clinician Start: 09-27-2025 Radiologic exam ches t 2 views Rohith Perez MD Work Phone: Start: 05-15-2025 Ct cervical spine w/ o contrast material Rip Mudrakola DO Work Phone: Start: 05-15-2025 Ct head/brain w/o co ntrast material Rip Mudrakola DO Work Phone: Start: 05-13-2025 Plain radiography of pelvis Dr. Makenzie Magallon DO Work Phone: Start: 04-01-2024 End: 04-01-2024 Radex ribs uni w/posteroant ch minimum 3 views Kenan Tyson MD Work Phone: Start: 02-27-2024 Radiologic exam ches t 2 views Kenan Miranda DO Work Phone: Start: 08-28-2023 Radiologic [...] Start: 08-14-2023 Adult depression scr eening assessment Kirsta Moore RN Start: 12-28-2022 Colonoscopy Kimberly singh MD Work Phone: Start: 04-26-2022 Dup-scan xtr veins c omplete bilateral study Mary Bardales MD Work Phone: Start: 04-19-2022 Comprehensive metabo lic panel Mary Bardales MD Work Phone: Start: 10-05-2020 Iaadiadoo influenza Gre sandi Alvarez Work Phone: Start: 08-15-2019 Radiologic exam ches [...] Start: 07-06-2019 Acute hepatitis panel G eorge Ilofe Work Phone: Start: 07-06-2019 Us abdominal real [...] Phone: Start: 07-06-2019 Assay of lipase Susie Friedman Work Phone: Start: 07-06-2019 Hepatic function panel Faye Friedman Work Phone: Start: 07-05-2019 Basic metabolic pane l calcium total Dago Thaddeus Work Phone: Start: 07-05-2019 Blood count complete auto&auto difrntl wbc Dago Thaddeus Work Phone: Start: 06-10-2015 Microscopic observat ion [Identifier] in Cervix by Cyto stain Franky Moses MD Work Phone: Plan of Treatment Date Care Activity Detail Author Start: 2046 RSV Immunization for Adults (1 - 1-dose 75+ series) RSV Immunization for Adults (1 - 1-dose 75+ series) [facility] Start: 12-28-2032 Screening for malignant neoplasm of colon [facility] Start: 2031 RSV Immunization aged 60 or older (1 - 1-dose 60+ series) RSV Immunization aged 60 or older (1 - 1-dose 60+ series) [facility] Start: 07-28-2025 COVID-19 Vaccine ( season) COVID-19 Vaccine ( season) [facility] Start: 07-28-2025 Influenza vaccination [facility] Start: 05-26-2025 End: 05-26-2025 Patient encounter procedure 05/26/2025 3:40 PM EDT [facility] [address] [facility] [place] [address] Jonasluisalorena Carl, HOSPITAL ACCOUNT MANAGER - COST REDUCTION ENGINEER [address] [place] [address] [facility] Start: 05-14-2025 [facility] Start: 05-13-2025 Plain x-ray of wrist Wrist min 3 Views [facility] Start: 05-13-2025 XR Wrist GE 3 Views [facility] Start: 04-19-2025 Diabetes mellitus screening Diabetes Screening [facility] Start: 12-04-2024 End: 12-04-2025 XR Lumbar spine Views W flexion and W extension XR lumbar spine 4-5 view Imaging Routine Chronic bilateral low back pain without sciatica SI (sacroiliac) joint inflammation (HCC) Expected: 12/04/2024, Expires: 12/04/2025 [facility] Work Phone: Comment on above: Expected: 12/04/2024, Expires: Start: 12-04-2024 End: 12-04-2024 Patient encounter procedure 12/04/2024 9:00 AM EST Office Visit [facility] [address] [place] [address] Gamaliel Cormier MD [address] [facility] [place] [address] [facility] Start: 08-14-2024 Depression Screening Depression Screening [facility] Start: 07-28-2024 COVID-19 Vaccine ( season) COVID-19 Vaccine ( season) [facility] Start: 07-28-2024 COVID-19 Vaccine ( season) COVID-19 Vaccine ( season) [facility] Start: 07-28-2024 Influenza vaccination [facility] Start: 02-12-2024 Depression Monitoring Depression Monitoring [facility] Start: 02-12-2024 Depresssion Monitoring Depresssion Monitoring [facility] Start: 12-29-2023 DTaP/Tdap/Td vaccine (5 - Td or Tdap) DTaP/Tdap/Td vaccine (5 - Td or Tdap) [facility] Start: 12-29-2023 DTaP/Tdap/Td vaccine (5 - Td) DTaP/Tdap/Td vaccine (5 - Td) [place], [place] Start: 12-29-2023 DTaP/Tdap/Td Vaccines (5 - Td or Tdap) DTaP/Tdap/Td Vaccines (5 - Td or Tdap) [facility] Start: 09-14-2023 End: 09-14-2023 Patient encounter procedure 09/14/2023 9:20 AM EDT Office Visit [facility] [address] [place] [address] [place] [address] Carl Curry, HOSPITAL ACCOUNT MANAGER - COST REDUCTION ENGINEER [address] [place], [place] [id number] [facility] Start: 09-07-2023 End: 09-07-2023 Patient encounter procedure 09/07/2023 8:00 AM EDT Office Visit [facility] [address] [place] [address] [place] [address] Carl Curry, HOSPITAL ACCOUNT MANAGER - COST REDUCTION ENGINEER [address] [place] [address] [place] [address] [facility] Start: 08-29-2023 End: 08-29-2023 Telemedicine consultation with patient 08/29/2023 11:20 AM EDT Telemedicine [facility] [address] [place] [address] [place] [address] BridenthCarl carrillo, HOSPITAL ACCOUNT MANAGER - COST REDUCTION ENGINEER [address] [facility] [place] [address] [place] [address] [facility] Start: 08-15-2023 End: 08-15-2024 CBC W Auto Differential panel - Blood CBC auto differential Lab Routine Acute pain of right knee Cellulitis of right lower extremity Expected: 08/15/2023 (Approximate), Expires: 08/15/2024 [facility] Work Phone: Comment on above: Expected: 08/15/2023 (Approximate), Expi res: 08/15/2024 Start: 08-15-2023 End: 08-15-2024 XR Knee - right 1 or 2 Views XR knee 1 or 2 views right Imaging Routine Acute pain of right knee Cellulitis of right lower extremity Expected: 08/15/2023, Expires: 08/15/2024 [facility] Comment on above: Expected: 08/15/2023, Expires: Start: 07-28-2023 COVID-19 Vaccine () COVID-19 Vaccine () [facility] Start: 07-28-2023 Influenza vaccination [facility] Start: 07-13-2023 End: 07-13-2023 Patient encounter procedure [facility] Start: 06-29-2023 End: 06-29-2023 Patient encounter procedure 06/29/2023 Office Visit Rheumatology Kandice Alegre MD [address] [place] [address] [facility] Start: 06-02-2023 End: 06-02-2023 Patient encounter procedure [facility] Start: 04-19-2023 Hemoglobin A1c measurement A1C test (Diabetic or Prediabetic) [facility] Start: 03-27-2023 End: 03-27-2023 Patient encounter procedure 03/27/2023 Office Visit Rheumatology Kandice Alegre MD [address] [place] [address] Rheumatology Start: 03-01-2023 End: 03-01-2023 Patient encounter procedure 03/01/2023 Office Visit Pain Medicine Lucio Shane MD [address] [place] [address] [facility] Start: 02-23-2023 End: 02-23-2023 Telemedicine consultation with patient 02/23/2023 Telemedicine Gastroenterology Kimberly Lay MD [address] [facility] [address] [place] [address] [facility] Start: 02-02-2023 End: 02-02-2023 Patient encounter procedure 02/02/2023 Office Visit Family Medicine Gamaliel Cormier MD [address] [facility], [address] [place], [place] [id number] [facility] Start: 01-10-2023 Depression Screen Depression Screen [facility] Start: 01-07-2023 COVID-19 Vaccine (1) COVID-19 Vaccine [...] of 2) Shingles Vaccine (1 of 2) [facility] Comment on above: Postponed from 2021 (Patient Refus ed) Start: 01-05-2023 End: 01-05-2024 XR Cervical spine 4 or 5 Views [facility] Work Phone: Comment on above: Expected: 01/05/2023, Expires: 4 Once for 1 Occurrenc es starting 01/05/2023 until 01/05/2023 Start: 01-05-2023 End: 01-05-2024 XR Foot - bilateral 3 Views [facility] Comment on above: Expected: 01/05/2023, Expires: 4 Once for 1 Occurrenc es starting 01/05/2023 until 01/05/2023 Start: 01-05-2023 End: 01-05-2024 XR Knee - bilateral 3 Views [facility] Comment on above: Expected: 01/05/2023, Expires: 4 Once for 1 Occurrenc es starting 01/05/2023 until 01/05/2023 Start: 01-05-2023 End: 01-05-2024 XR Lumbar spine [address] [facility] [email or web address] [facility] Work Phone: Comment on above: Expected: 01/05/2023, Expires: 4 Once for 1 Occurrenc es starting 01/05/2023 until 01/05/2023 Start: 01-05-2023 End: 01-05-2024 XR Sacroiliac Joint 3 Views [facility] Comment on above: Expected: 01/05/2023, Expires: 4 Once for 1 Occurrenc es starting 01/05/2023 until 01/05/2023 Start: 01-05-2023 End: 01-05-2024 XR Shoulder - bilateral 2 Views [facility] Comment on above: Expected: 01/05/2023, Expires: 4 Once for 1 Occurrenc es starting 01/05/2023 until 01/05/2023 Start: 01-05-2023 End: 01-05-2024 XR Thoracic spine 4 Views [facility] Comment on above: Expected: 01/05/2023, Expires: 4 [...] Livedo reticularis Expected: 01/04/2023 (Approximate), Expires: 01/04/2024 [facility] Comment on above: Expected: 01/04/2023 (Approximate), Expi [...] Livedo reticularis Expected: 01/04/2023 (Approximate), Expires: 01/04/2024 [facility] Comment on above: Expected: 01/04/2023 (Approximate), Expi [...] Livedo reticularis Expected: 01/04/2023 (Approximate), Expires: 01/04/2024 [facility] Comment on above: Expected: 01/04/2023 (Approximate), Expi [...] Livedo reticularis Expected: 01/04/2023 (Approximate), Expires: 01/04/2024 [facility] Comment on above: Expected: 01/04/2023 (Approximate), Expi [...] Livedo reticularis Expected: 01/04/2023 (Approximate), Expires: 01/04/2024 [facility] Comment on above: Expected: 01/04/2023 (Approximate), Expi [...] Livedo reticularis Expected: 01/04/2023 (Approximate), Expires: 01/04/2024 [facility] Comment on above: Expected: 01/04/2023 (Approximate), Expi [...] Livedo reticularis Expected: 01/04/2023 (Approximate), Expires: 01/04/2024 [facility] Comment on above: Expected: 01/04/2023 (Approximate), Expi [...] Livedo reticularis Expected: 01/04/2023 (Approximate), Expires: 01/04/2024 [facility] Comment on above: Expected: 01/04/2023 (Approximate), Expi res: 01/04/2024 Start: 01-04-2023 End: 01-04-2024 Chromatin (Nucleosomal) Antibody - Miscellaneous Test [facility] Comment on above: Expected: 01/04/2023 (Approximate), Expi [...] Livedo reticularis Expected: 01/04/2023 (Approximate), Expires: 01/04/2024 [facility] Comment on above: Expected: 01/04/2023 (Approximate), Expi [...] Livedo reticularis Expected: 01/04/2023 (Approximate), Expires: 01/04/2024 [facility] Comment on above: Expected: 01/04/2023 (Approximate), Expi [...] Livedo reticularis Expected: 01/04/2023 (Approximate), Expires: 01/04/2024 [facility] Comment on above: Expected: 01/04/2023 (Approximate), [...] Livedo reticularis Expected: 01/04/2023 (Approximate), Expires: 01/04/2024 [facility] Comment on above: Expected: 01/04/2023 (Approximate), Expi [...] Livedo reticularis Expected: 01/04/2023 (Approximate), Expires: 01/04/2024 [facility] Comment on above: Expected: 01/04/2023 (Approximate), Expi [...] Livedo reticularis Expected: 01/04/2023 (Approximate), Expires: 01/04/2024 [facility] Comment on above: Expected: 01/04/2023 (Approximate), Expi [...] Livedo reticularis Expected: 01/04/2023 (Approximate), Expires: 01/04/2024 [facility] Comment on above: Expected: 01/04/2023 [...] Livedo reticularis Expected: 01/04/2023 (Approximate), Expires: 01/04/2024 [facility] Comment on above: Expected: 01/04/2023 (Approximate), Expi [...] Livedo reticularis Expected: 01/04/2023 (Approximate), Expires: 01/04/2024 [facility] Comment on above: Expected: 01/04/2023 (Approximate), Expi [...] Livedo reticularis Expected: 01/04/2023 (Approximate), Expires: 01/04/2024 [facility] Comment on above: Expected: 01/04/2023 (Approximate), Expi [...] Livedo reticularis Expected: 01/04/2023 (Approximate), Expires: 01/04/2024 [employer] Comment on above: Expected: 01/04/2023 (Approximate), Expi [...] Livedo reticularis Expected: 01/04/2023 (Approximate), Expires: 01/04/2024 [employer] Comment on above: Expected: 01/04/2023 (Approximate), Expi [...] Livedo reticularis Expected: 01/04/2023 (Approximate), Expires: 01/04/2024 [employer] Comment on above: Expected: 01/04/2023 (Approximate), Expi [...] Livedo reticularis Expected: 01/04/2023 (Approximate), Expires: 01/04/2024 [facility] Comment on above: Expected: 01/04/2023 (Approximate), Expi [...] Livedo reticularis Expected: 01/04/2023 (Approximate), Expires: 01/04/2024 [facility] Comment on above: Expected: 01/04/2023 (Approximate), [...] Livedo reticularis Expected: 01/04/2023 (Approximate), Expires: 01/04/2024 [facility] Comment on above: Expected: 01/04/2023 (Approximate), Expi [...] Livedo reticularis Expected: 01/04/2023 (Approximate), Expires: 01/04/2024 [facility] Comment on above: Expected: 01/04/2023 (Approximate), Expi [...] Livedo reticularis Expected: 01/04/2023 (Approximate), Expires: 01/04/2024 [facility] Comment on above: Expected: 01/04/2023 (Approximate), Expi [...] Livedo reticularis Expected: 01/04/2023 (Approximate), Expires: 01/04/2024 [facility] Comment on above: Expected: 01/04/2023 (Approximate), Expi res: 01/04/2024 Start: 01-04-2023 End: 01-04-2024 SM AND SM/LICENSED FUNERAL DIRECTOR AND EMBALMER ANTIBODIES ([facility]) SM and SM/LICENSED FUNERAL DIRECTOR AND EMBALMER Antibodies ([facility]) Lab Routine Neck pain 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 Bilateral hand pain Vitamin D insufficiency Chronic bilateral low back pain, unspecified whether sciatica present Other fatigue Anxiety and depression Special screening examination for viral disease Blood tests prior to treatment or procedure Livedo reticularis Expected: 01/04/2023 (Approximate), Expires: 01/04/2024 [facility] Comment on above: Expected: 01/04/2023 (Approximate), Expi res: 01/04/2024 Start: 01-04-2023 End: 01-04-2024 Thyrotropin [Units/volume] in Serum or Plasma [facility] Comment on above: Expected: 01/04/2023 (Approximate), Expi [...] Livedo reticularis Expected: 01/04/2023 (Approximate), Expires: 01/04/2024 [facility] Comment on above: Expected: 01/04/2023 (Approximate), Expi res: 01/04/2024 Start: 01-04-2023 End: 01-04-2024 XR Cervical spine 4 or 5 Views XR cervical spine complete 4 to 5 views Imaging Routine Neck pain Expected: 01/04/2023, Expires: 01/04/2024 [facility] Work Phone: Comment on above: Expected: 01/04/2023, Expires: Start: 01-04-2023 End: 01-04-2024 XR Foot - bilateral 3 Views XR foot 3+ views bilateral Imaging Routine Chronic pain of both feet Expected: 01/04/2023, Expires: 01/04/2024 [employer] Comment on above: Expected: 01/04/2023, Expires: Start: 01-04-2023 End: 01-04-2024 XR Hand - bilateral 3 Views XR hand 3+ views bilateral Imaging Routine Bilateral hand pain Expected: 01/04/2023, Expires: 01/04/2024 [facility] Comment on above: Expected: 01/04/2023, Expires: Start: 01-04-2023 End: 01-04-2024 XR Knee - bilateral 3 Views XR knee 3 views bilateral Imaging Routine Bilateral chronic knee pain Expected: 01/04/2023, Expires: 01/04/2024 [facility] Comment on above: Expected: 01/04/2023, Expires: Start: 01-04-2023 End: 01-04-2024 XR Lumbar spine 2 or 3 Views XR lumbar spine 2 or 3 views Imaging Routine Chronic bilateral low back pain, unspecified whether sciatica present Expected: 01/04/2023, Expires: 01/04/2024 [facility] Comment on above: Expected: 01/04/2023, Expires: Start: 01-04-2023 End: 01-04-2024 XR Sacroiliac Joint 3 Views XR sacroiliac joints 3+ views Imaging Routine Chronic bilateral low back pain, unspecified whether sciatica present Expected: 01/04/2023, Expires: 01/04/2024 [employer] Comment on above: Expected: 01/04/2023, Expires: 4 Start: 01-04-2023 End: 01-04-2024 XR Shoulder - bilateral 2 Views XR shoulder 2+ views bilateral Imaging Routine Chronic pain of both shoulders Expected: 01/04/2023, Expires: 01/04/2024 [employer] Comment on above: Expected: 01/04/2023, Expires: 4 Start: 01-04-2023 End: 01-04-2024 XR Thoracic spine 4 Views XR THORACIC SPINE COMPLETE 4+ VIEWS Imaging Routine Chronic bilateral low back pain, unspecified whether sciatica present Expected: 01/04/2023, Expires: 01/04/2024 [employer] Comment on above: Expected: 01/04/2023, Expires: 4 Start: 12-28-2022 End: 12-28-2022 Admission to same day surgery center 12/28/2022 Surgery Gastroenterology Kimberly Lay MD [address] [facility] [address] [place] [id number] EGD DIAGNOSTIC [19092 (CPT )] [facility] Comment on above: EGD DIAGNOSTIC [32742 (CPT )] Start: 12-28-2022 Subsequent hospital visit by physician 12/28/2022 Hospital Encounter Gastroenterology Kimberly Lay MD [address] [place] [id number] [facility] Start: 12-28-2022 End: 12-28-2022 Colonoscopy flx dx w/collj spec when pfrmd [facility] Start: 12-28-2022 End: 12-28-2022 Esophagogastroduodenoscopy transoral diagnostic [facility] Start: 12-15-2022 End: 12-15-2022 Patient encounter procedure 12/15/2022 Consult Gastroenterology Kimberly Lay MD [address] [place] [address] [facility] Start: 07-28-2022 Influenza vaccination [facility] Start: 07-13-2022 End: 07-13-2022 Patient encounter procedure 07/13/2022 Office Visit Internal Medicine Mary Bardales MD [address] [place] [address] [facility] Internal Medicine Start: 05-26-2022 Influenza vaccination Flu vaccine (#1) [facility] Comment on above: Postponed from 07/28/2021 (Patient Refus ed) Start: 04-21-2022 End: 04-21-2022 Patient encounter procedure 04/21/2022 Office Visit Family Medicine Federica Buckley, HOSPITAL ACCOUNT MANAGER - MATERIAL CONTROLLER [address] [place] [address] [facility] Start: 02-14-2022 End: 02-14-2022 Patient encounter procedure 02/14/2022 Office Visit Family Medicine Nubia Quinteros, HOSPITAL ACCOUNT MANAGER - COST REDUCTION ENGINEER [address] [place] [address] [facility] Start: 05-26-2021 Lipid panel [facility] Start: 05-26-2021 Lipid screen Lipid screen [place], [place] Start: 2021 Screening for malignant neoplasm of breast Breast cancer screen [facility] Start: 2021 Shingles Vaccine (1 of 2) Shingles Vaccine (1 of 2) [place], [place] Start: 2021 Zoster Vaccines (1 of 2) Zoster Vaccines (1 of 2) [facility] Start: 07-28-2020 Influenza vaccination Flu vaccine (#1) [place], [place] Start: 03-18-2020 Pneumococcal 0-64 years Vaccine (1 of 1 - PPSV23) Pneumococcal 0-64 years Vaccine (1 of 1 - PPSV23) [place], [place] Comment on above: Postponed from 1977 (Patient Refus ed) Start: 10-01-2019 End: 10-01-2019 Office Visit 10/01/2019 Office Visit Pain Management Maeve Lal MD [address] [place] [place] [address] [phone] Pain Medicine Start: 08-26-2019 End: 08-26-2019 Office Visit 08/26/2019 Office Visit Pain Management Maeve Lal MD [address] [place] [address] [phone] Pain Medicine Start: 07-28-2019 Influenza vaccination Flu vaccine (#1) [place], [place] Start: 07-24-2019 End: 07-24-2019 Office Visit 07/24/2019 Office Visit Family Medicine Nubia Quinteros, HOSPITAL ACCOUNT MANAGER - COST REDUCTION ENGINEER [address] [facility] [place] [address] [phone] [facility] Start: 06-10-2018 Cervical cancer screen Cervical cancer screen [place], [place] Start: 06-10-2018 Screening for malignant neoplasm of cervix [facility] Start: 2016 Screening for malignant neoplasm of colon [facility] Start: 2011 Diabetes screen Diabetes screen [place], [place] Start: 2011 Screening for malignant neoplasm of breast Mammogram [facility] Start: 2001 Screening for malignant neoplasm of cervix [facility] Start: 1992 Screening for malignant neoplasm of cervix Pap Smear [facility] Start: 1990 Hepatitis A Vaccines (1 of 2 - Risk 2-dose series) Hepatitis A Vaccines (1 of 2 - Risk 2-dose series) [facility] Start: 1990 Hepatitis B Vaccines (1 of 3 - 19+ 3-dose series) Hepatitis B Vaccines (1 of 3 - 19+ 3-dose series) [facility] Start: 1990 Pneumococcal Vaccine: 50+ Years (1 of 2 - PCV) Pneumococcal Vaccine: 50+ Years (1 of 2 - PCV) [facility] Start: 1989 Hepatitis C screening Hepatitis C Screening [facility] Start: 1983 Depresssion Monitoring Depresssion Monitoring [facility] Start: 1977 Pneumococcal 0-64 years Vaccine (1 of 1 - PPSV23) Pneumococcal 0-64 years Vaccine (1 of 1 - PPSV23) [facility] Start: 1977 Pneumococcal Vaccine: Pediatrics (0 to 5 Years) and At-Risk Patients (6 to 64 Years) (1 - PCV) Pneumococcal Vaccine: Pediatrics (0 to 5 Years) and At-Risk Patients (6 to 64 Years) (1 - PCV) [facility] Start: 1977 Pneumococcal Vaccine: Pediatrics (0 to 5 Years) and At-Risk Patients (6 to 64 Years) (1 of 2 - PCV) Pneumococcal Vaccine: Pediatrics (0 to 5 Years) and At-Risk Patients (6 to 64 Years) (1 of 2 - PCV) [facility] Start: 1972 Hepatitis A Vaccines (1 of 2 - Risk 2-dose series) Hepatitis A Vaccines (1 of 2 - Risk 2-dose series) [facility] Start: 1972 MMR Vaccines (1 of 1 - Standard series) MMR Vaccines (1 of 1 - Standard series)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 with Maria Luisa PÉREZ, POD scheduled at [facility] at [address] Simons, insurance coverage verified. Patient states she only has [facility] insurance, states that's all she's ever had, states she's never had [employer] insurance. Reason for Disposition Patient wants to be seen Protocols used: Iovha-HZQJV-HP [facility] 07-26-2024 Telephone encounter Note Reviewed chart. Refill appropriate. RX sent. [facility] 07-26-2024 Miscellaneous Notes Reviewed chart. Refill appropriate. [...] the medication: Yes documented in this encounter [facility] 07-26-2024 Telephone encounter Note Patient states completely [...] prior to picking up the medication: Yes [facility] 05-09-2024 Telephone encounter Note [facility] 05-09-2024 Miscellaneous Notes Prescription Request: Last medication check: 08/14/2023 Last physical exam: none Last completed appointment: 01/16/2024 Next scheduled appointment:none Last date of refill on this medication: 01/16/2024 documented in this encounter [facility] 05-09-2024 Telephone encounter Note Prescription Request: Last medication check: 08/14/2023 Last physical exam: none Last completed appointment: 01/16/2024 Next scheduled appointment:none Last date of refill on this medication: 01/16/2024 [facility] 04-01-2024 Hospital Discharge instructions Kenan Tyson MD - 04/01/2024 2:27 PM EDT Pain medication and Zofran sent to pharmacy as well as antibiotics. The following attachments cannot be sent through Care Everywhere.Cellulitis (Skin Infection) Discharge Instructions, Adult (Welsh)Contusion Discharge Instructions (Welsh)documented in this encounter [facility] 04-01-2024 Emergency department Note Patient informed this [...] by patient. Kaley Moore RN 04/01/24 1348 [facility] 04-01-2024 Emergency department Note Patient informed this [...] 1970 Date of evaluation: 04/01/2024 ED Provider: Kenan Tyson MD CHIEF COMPLAINT Chief Complaint Patient [...] Performed by Kimberly Lay MD at [facility] [address]OSCOPY COLPOSCOPY ENDOMETRIAL [...] Mother Thyroid disease Mother COPD Mother Other ([id number]) Father pneumonia aspiration Breast cancer Maternal Grandmother [...] Physician EKG interpretation can be found in [facility] RADIOLOGY (Per Emergency Physician): X-ray of the [...] PM PATIENT REFERRED TO: Gamaliel Cormier MD [address] [place] [address], [address] [facility] [phone] Schedule an appointment as soon as possible [...] to contact the dictating provider for clarification.) Kenan Tyson MD (electronically signed) Emergency Medicine Provider Kenan Tyson MD 04/01/24 1429 Patient to room [...] light within reach. documented in this encounter [facility] 04-01-2024 Emergency department Triage note Patient to [...] erythremia. V/S obtained, call light within reach. [facility] 04-01-2024 Physician Emergency department Note EMERGENCY DEPARTMENT ENCOUNTER Pt Name: Xochitl Fuller Birthdate 1970 Date of evaluation: 04/01/2024 ED Provider: Kenan Tyson MD CHIEF COMPLAINT Chief Complaint Patient [...] SURGERY ON 07/07/2017 Neuropathy RA (rheumatoid arthritis) ([facility]LY [facility]) Tobacco abuse SURGICAL HISTORY Past Surgical History: Procedure Laterality Date APPENDECTOMY 2018 BREAST BIOPSY Right 2016 COLONOSCOPY W/ BIOPSIES AND POLYPECTOMY N/A 12/28/2022 Performed by Kimberly Lay MD at [facility] [address]OSCOPY COLPOSCOPY ENDOMETRIAL [...] Mother Thyroid disease Mother COPD Mother Other ([id number]) Father pneumonia aspiration Breast cancer Maternal Grandmother [...] Physician EKG interpretation can be found in [facility] RADIOLOGY (Per Emergency Physician): X-ray of the [...] PM PATIENT REFERRED TO: Gamaliel Cormier MD [address] [place] [address], [address] [facility] [address] Schedule an appointment as soon as possible [...] to contact the dictating provider for clarification.) Kenan Tyson MD (electronically signed) Emergency Medicine Provider Kenan Tyson MD 04/01/24 1429 [facility] 02-27-2024 Emergency department Note Reviewed discharge instructions [...] A&O x4. Martha Prather RN 02/27/24 0629 [facility] 02-27-2024 Emergency department Note Reviewed discharge instructions [...] 1970 Date of evaluation: 02/27/2024 ED Provider: Kenan Miranda DO CHIEF COMPLAINT Chief Complaint Patient [...] Performed by Kimberly Lay MD at [facility] [address]COPY COLPOSCOPY ENDOMETRIAL [...] Mother Thyroid disease Mother COPD Mother Other ([id number]) Father pneumonia aspiration Breast cancer Maternal Grandmother [...] Bronchitis PATIENT REFERRED TO: Gamaliel Cormier MD [address] [place] [address], [address] [facility] [address] Schedule an appointment as soon as possible [...] to contact the dictating provider for clarification.) Kenan Miranda DO (electronically signed) Emergency Medicine Provider Kenan Miranda DO 02/27/24 0609 Patient ambulated to ED2 without difficulty. She [...] no further needs. documented in this encounter [facility] 02-27-2024 Hospital Discharge instructions Kenan Miranda DO - 02/27/2024 6:03 AM EDT [...] daily as needed for pain. Use a Aggie pot or similar sinus irrigation device until symptoms resolve. Use your albuterol every 4 hours for the next few days, then resume previous regimen. Consuming Honey has been shown to decrease coughing. Return to the ED for symptoms that persist, change or worsen, or if any other problems arise. The following attachments cannot be sent through Care Everywhere.Acute Bronchitis Discharge Instructions, Adult (Welsh)Sinusitis Discharge Instructions, Adult (Welsh)How to Do a Nasal Rinse (Welsh)documented in this encounter [facility] 02-27-2024 Emergency department Triage note Patient ambulated [...] within reach. Patient has no further needs. [facility] 02-27-2024 Physician Emergency department Note EMERGENCY DEPARTMENT ENCOUNTER Pt Name: Xochitl Fuller Birthdate 1970 Date of evaluation: 02/27/2024 ED Provider: Kenan Miranda DO CHIEF COMPLAINT Chief Complaint Patient [...] Performed by Kimberly Lay MD at [facility] [address]COPY COLPOSCOPY ENDOMETRIAL [...] Mother Thyroid disease Mother COPD Mother Other ([id number]) Father pneumonia aspiration Breast cancer Maternal Grandmother [...] Bronchitis PATIENT REFERRED TO: Gamaliel Cormier MD [address] [place] [address], [address] [facility] [address] Schedule an appointment as soon as [...] to contact the dictating provider for clarification.) Kenan Miranda DO (electronically signed) Emergency Medicine Provider Kenan Miranda DO 02/27/24 0609 [facility] 02-26-2024 Telephone encounter Note Noted. Agree with disposition. [facility] 02-26-2024 Miscellaneous Notes Noted. Agree with disposition. [...] pain present when not coughing Protocols used: Hpqll-NGMPG-IX documented in this encounter [facility] 02-26-2024 Telephone encounter Note S: Pt calling [...] pain present when not coughing Protocols used: Eyimk-HBKAZ-JQ [facility] 01-22-2024 Telephone encounter Note Noted. Agree with disposition. [facility] 01-22-2024 Miscellaneous Notes Noted. Agree with disposition. S: Patient spoke with [facility] nurse regarding Tooth Pain, Swelling in Mouth, [...] Patient understands care advice. Will go to [facility] ED. Advised if she starts having any difficulty breathing prior to going, call 911. Patient understands care advice. No further needs at this time. Patient instructed to call back with new or worsening symptoms. Reason for Disposition Face is swollen and fever Protocols used: Mouth Lzpz-XETQS-JU documented in this encounter [facility] 01-22-2024 Telephone encounter Note S: Patient spoke with [facility] nurse regarding Tooth Pain, Swelling in Mouth, [...] Patient understands care advice. Will go to [facility] ED. Advised if she starts having any difficulty breathing prior to going, call 911. Patient understands care advice. No further needs at this time. Patient instructed to call back with new or worsening symptoms. Reason for Disposition Face is swollen and fever Protocols used: Mouth Gblm-IILWU-GL [facility] 01-16-2024 Evaluation + Plan note Associated Problem(s): Gastroesophageal reflux disease without esophagitis Uncontrolled. Stop nexium and start pantoprazole. Follow up as scheduled. Sooner for worsening or failure for symptoms to improve. [facility] 01-16-2024 Evaluation + Plan note Associated Problem(s): Rash Likely fungal. Treat with topical antifungal. Follow up if worsens or fails to resolve with treatment. [facility] 01-16-2024 Miscellaneous Notes Associated Problem(s): Gastroesophageal reflux disease without esophagitis Uncontrolled. Stop nexium and start pantoprazole. Follow up as scheduled. Sooner for worsening or failure for symptoms to improve. Associated Problem(s): Rash Likely fungal. Treat with topical antifungal. Follow up if worsens or fails to resolve with treatment. documented in this encounter [facility] 01-16-2024 Miscellaneous Notes Associated Problem(s): Gastroesophageal reflux [...] Level of Service documented in this encounter [facility] 01-16-2024 History of Present illness Narrative Patient was identified by name [...] mouth x 3 doses 08/15/23 Yes Carl Curry APRN - TRACY NAPROXEN PO Take 220 mg by mouth. [...] 01/16/2024 4:30 PM documented in this encounter [facility] 01-16-2024 History of Present illness Narrative Patient was identified by name [...] cream; Apply topically 2 times daily., Starting Mon01/16/2024, Normal 2. Gastroesophageal reflux disease without esophagitis Assessment & Plan: Uncontrolled. Stop nexium and start pantoprazole. Follow up as scheduled. Sooner for worsening or failure for symptoms to improve. Orders: - pantoprazole (ProtoNix) 40 MG EC tablet; Take 1 tablet (40 mg) by mouth daily. Do not crush, chew, or split., Starting Mon01/16/2024, Until 03/16/2024, Normal 3. Simple chronic bronchitis [...] 01/16/2024 4:30 PM documented in this encounter [facility] 01-16-2024 Note Addended by: CARL SHEA on: 01/18/2024 08:31 AM Modules accepted: Level of Service [facility] 01-15-2024 Telephone encounter Note Noted. Agree with disposition. [facility] 01-15-2024 Miscellaneous Notes Noted. Agree with disposition. S: Patient spoke with [facility] nurse regarding rash itching, redness and [...] pain Protocols used: Rash or Redness - Apssystrv-PISCQ-FM documented in this encounter [facility] 01-15-2024 Telephone encounter Note S: Patient spoke with [facility] nurse regarding rash itching, redness and [...] pain Protocols used: Rash or Redness - Nlnjuznsc-VIMRD-AH [facility] 09-09-2023 Note HNO ID: [id number] Author: Note, Interface Service: ? Author Type: ? Type: Progress Notes Filed: 09/09/2023 5:29 AM Note Text: Epic Scheduled Downtime: 09/09/2023 1:00:00 AM to 09/09/2023 1:28:00 AM [facility] 09-01-2023 History of Present illness Narrative Chart reviewed of ED follow up Seen in [facility] ED on 08/28/23 Reason: Fever Fatigue Chills Discharge instructions: PATIENT REFERRED TO: Gamaliel Cormier MD [address] [place] [address], [address] [facility] [address] Patient has appointment scheduled with Diana Curry on 09/07/23. documented in this encounter [facility] 08-30-2023 Telephone encounter Note Noted. Agree with disposition. [facility] 08-30-2023 Miscellaneous Notes Noted. Agree with disposition. S: Patient spoke with [facility] nurse regarding L flank pain.Called 911 last night and they took her to [facility] ED. B: Seen in the [place] ER last night and DX of kidney [...] to buy anything. Uses [facility] in [place]. Instructed if unable to control the pain with the meds she has will need to be seen on the ER patient states she will go back to [place] ER. Instructed to call the Urology office for a follow up, info given to the patient at the ER. Patient understands care advice. No further needs at this time. Patient instructed to call back with new or worsening symptoms. Reason for Disposition SEVERE pain (e.g., excruciating, scale 8-10) and present > 1 hour Protocols used: Flank Qjye-TQORZ-TX documented in this encounter [facility] 08-30-2023 Telephone encounter Note S: Patient spoke with [facility] nurse regarding L flank pain.Called 911 last night and they took her to [facility] ED. B: Seen in the [place] ER last night and DX of kidney [...] to buy anything. Uses [facility] in [place]. Instructed if unable to control the pain with the meds she has will need to be seen on the ER patient states she will go back to [facility]. Instructed to call the Urology office for a follow up, info given to the patient at the ER. Patient understands care advice. No further needs at this time. Patient instructed to call back with new or worsening symptoms. Reason for Disposition SEVERE pain (e.g., excruciating, scale 8-10) and present > 1 hour Protocols used: Flank Blkg-WNEGD-XO [facility] 08-29-2023 Evaluation + Plan note Associated Problem(s): Anxiety Situational and poorly controlled. Patient advised that diazepam only for short-term use, recommend counseling services. Denies any suicidal or homicidal ideation. Recommend that she follow-up in office in 1 week [facility] 08-29-2023 Evaluation + Plan note Associated Problem(s): Pyelonephritis Reports improving symptoms. Continue antibiotics urine culture pending follow-up in office next week [facility] 08-29-2023 Miscellaneous Notes Associated Problem(s): Anxiety Situational and poorly controlled. Patient advised that diazepam only for short-term use, recommend counseling services. Denies any suicidal or homicidal ideation. Recommend that she follow-up in office in 1 week Associated Problem(s): Pyelonephritis Reports improving symptoms. Continue antibiotics urine culture pending follow-up in office next week documented in this encounter [facility] 08-29-2023 Miscellaneous Notes Associated Problem(s): Anxiety Situational [...] Level of Service documented in this encounter [facility] 08-29-2023 History of Present illness Narrative Images from the original note [...] stated that they are currently in the [facility]. If the patient is a minor, [...] 220 mg by mouth. 2 tabs prn Akhil Mcclellan MD sulfamethoxazole-trimethoprim (Bactrim DS) 800-160 MG tablet Take [...] 08/29/2023 5:54 PM documented in this encounter [facility] 08-29-2023 History of Present illness Narrative Images from the original note [...] stated that they are currently in the [facility]. If the patient is a minor, [...] 1 week No follow-ups on file. SUBJECTIVE/OBJECTIVE: MARIA DEL CARMEN Robertsonrico Fuller (: 1970) is a 53 y.o. [...] 220 mg by mouth. 2 tabs prn Akhil Mcclellan MD sulfamethoxazole-trimethoprim (Bactrim DS) 800-160 MG tablet Take [...] 08/29/2023 5:54 PM documented in this encounter [facility] 08-29-2023 Note Addended by: CARL SHEA on: 09/01/2023 01:45 AM Modules accepted: Level of Service [facility] 08-28-2023 Emergency department Note Explained to patient that she needs to sweet pickle maker the rest of her ABX at pharmacy [...] distress. A&O x4. Martha Prather RN 08/28/23 2338 [facility] 08-28-2023 Emergency department Note Explained to patient that she needs to sweet pickle maker the rest of her ABX at pharmacy [...] distress. A&O x4. Martha Prather RN 08/28/23 4686 Patient ambulated to restroom without difficulty Martha Prather RN 08/28/23 9123 EMERGENCY DEPARTMENT ENCOUNTER Pt Name: Xochitl Fuller [...] SURGERY ON 07/07/2017 Neuropathy RA (rheumatoid arthritis) ([facility]LY [facility]) Tobacco abuse SURGICAL HISTORY Past Surgical History: Procedure Laterality Date APPENDECTOMY 2018 BREAST BIOPSY Right 2016 COLONOSCOPY W/ BIOPSIES AND POLYPECTOMY N/A 12/28/2022 Performed by Kimberly Lay MD at [facility] [address]COPY COLPOSCOPY ENDOMETRIAL [...] Mother Thyroid disease Mother COPD Mother Other ([id number]) Father pneumonia aspiration Breast cancer Maternal Grandmother [...] In compliance with this authorization, please visit www.fda.gov/media/664981/download or www.fda.gov/media/874618/download to access the applicable information sheets. LACTIC ACID WITH REFLEX - Normal LACTIC ACID 1.0 URINE CULTURE COMPLETE URINALYSIS WITH REFLEX TO CULTURE Narrative: The following orders were created for panel order Urinalysis complete with reflex to Culture. Procedure Abnormality Status --------- ------ Complete Urinalysis[[id number]] Abnormal Final result Please view results for these tests on the individual orders. All other labs were within normal range or not returned as of this dictation. EMERGENCY DEPARTMENT COURSE and DIFFERENTIAL DIAGNOSIS/MDM: Vitals: Vitals: 08/28/23 2217 08/28/23222408/28/238 08/28/23 2304 BP: 115/72 Pulse: (!) 112 106 103 [...] PM PATIENT REFERRED TO: Gamaliel Cormier MD [address] [place] [address], [facility] [address] [facility] [address] DISCHARGE MEDICATIONS: New Prescriptions CEPHALEXIN (KEFLEX) 500 [...] Emergency Medicine Provider Rick Neff MD 08/28/23 0848 Patient brought via wheelchair to room 2 [...] light in reach. documented in this encounter [facility] 08-28-2023 Emergency department Note Patient ambulated to restroom without difficulty Martha Prather RN 08/28/23 1229 [facility] 08-28-2023 Emergency department Triage note Patient brought [...] feeling chest congestion. Call light in reach. [facility] 08-28-2023 Physician Emergency department Note EMERGENCY DEPARTMENT [...] SURGERY ON 07/07/2017 Neuropathy RA (rheumatoid arthritis) ([facility]) Tobacco abuse SURGICAL HISTORY Past Surgical History: Procedure Laterality Date APPENDECTOMY 2018 BREAST BIOPSY Right 2016 COLONOSCOPY W/ BIOPSIES AND POLYPECTOMY N/A 12/28/2022 Performed by Kimberly Lay MD at [facility] ARCH ENDOSCOPY COLPOSCOPY ENDOMETRIAL ABLATION FINGER FRACTURE [...] Mother Thyroid disease Mother COPD Mother Other ([id number]) Father pneumonia aspiration Breast cancer Maternal Grandmother [...] In compliance with this authorization, please visit www.fda.gov/media/408124/download or www.fda.gov/media/570422/download to access the applicable information sheets. LACTIC ACID WITH REFLEX - Normal LACTIC ACID 1.0 URINE CULTURE COMPLETE URINALYSIS WITH REFLEX TO CULTURE Narrative: The following orders were created for panel order Urinalysis complete with reflex to Culture. Procedure Abnormality Status --------- ------ Complete Urinalysis[[id number]] Abnormal Final result Please view results for these tests on the individual orders. All other labs were within normal range or not returned as of this dictation. EMERGENCY DEPARTMENT COURSE and DIFFERENTIAL DIAGNOSIS/MDM: Vitals: Vitals: 08/28/23 2217 08/28/23222408/28/23224708/28/234 BP: 115/72 Pulse: (!) 112 106 103 [...] PM PATIENT REFERRED TO: Gamaliel Cormier MD [address] [place] [address], [address] [facility] [address] DISCHARGE MEDICATIONS: New Prescriptions CEPHALEXIN (KEFLEX) 500 [...] Emergency Medicine Provider Rick Neff MD 08/28/232319 [facility] 08-15-2023 Evaluation + Plan note Associated Problem(s): Cellulitis of right lower extremity Will start antibiotic therapy. Obtain CBC, x-ray. Vital signs are stable patient nontoxic-appearing [facility] 08-15-2023 Miscellaneous Notes Associated Problem(s): Cellulitis of right lower extremity Will start antibiotic therapy. Obtain CBC, x-ray. Vital signs are stable patient nontoxic-appearing Associated Problem(s): Acute pain of right knee No fever. Nontoxic-appearing mild erythema medially minimal edema. Will obtain x-ray and CBC. We will go ahead and start antibiotics for suspected cellulitis. documented in this encounter [facility] 08-15-2023 Evaluation + Plan note Associated Problem(s): Acute pain of right knee No fever. Nontoxic-appearing mild erythema medially minimal edema. Will obtain x-ray and CBC. We will go ahead and start antibiotics for suspected cellulitis. [facility] 08-15-2023 History of Present illness Narrative Patient was identified by name [...] for as directed pending test results. SUBJECTIVE/OBJECTIVE: MARIA DEL CARMEN - Xochitl Fuller [...] 08/15/2023 4:49 PM documented in this encounter [facility] 08-15-2023 Instructions LAKIA Moon CNP - 08/15/2023 1:40 PM EDT Warm compresses to right knee. documented in this encounter [facility] 08-15-2023 Telephone encounter Note Noted. Agree with disposition. [facility] 08-15-2023 Miscellaneous Notes Noted. Agree with disposition. [...] touched and no fever Protocols used: Knee Psxvisgj-RGRPJ-GN documented in this encounter [facility] 08-15-2023 Telephone encounter Note S: Patient spoke [...] touched and no fever Protocols used: Knee Hwmvbxlw-IPOIN-HG [facility] 08-14-2023 Telephone encounter Note Noted. Agree with disposition. [facility] 08-14-2023 Miscellaneous Notes Noted. Agree with disposition. [...] she needs help before Monday she can [id number] for mental health crisis. Patient understands care advice. No further needs at this time. Patient instructed to call back with new or worsening symptoms. Reason for Disposition Recent traumatic event (e.g., of a loved one, job loss, victim/witness of crime) Protocols used: Anxiety and Panic Hikems-KRFTK-SZ documented in this encounter [facility] 08-14-2023 Evaluation + Plan note Associated Problem(s): [...] take 1/2 tab instead of whole tab. [facility] 08-14-2023 Miscellaneous Notes Associated Problem(s): Anxiety Situational [...] of whole tab. documented in this encounter [facility] 08-14-2023 History of Present illness Narrative Patient was identified by name [...] go to an inpatient hospice facility in [place], not sure yet. Xochitl states that her [...] by mouth x 3 doses 06/21/23 Yes Carl Curry APRN - TRACY NAPROXEN PO Take 220 mg by mouth. [...] 08/14/2023 8:03 AM documented in this encounter [facility] 08-11-2023 Telephone encounter Note S: Patient spoke [...] she needs help before Monday she can [id number] for mental health crisis. Patient understands care advice. No further needs at this time. Patient instructed to call back with new or worsening symptoms. Reason for Disposition Recent traumatic event (e.g., of a loved one, job loss, victim/witness of crime) Protocols used: Anxiety and Panic Onpqxx-TACRD-ZV [facility] 06-21-2023 Evaluation + Plan note Associated Problem(s): Cellulitis of left lower extremity Nontoxic appearing. Will treat with Keflex and Bactrim follow-up for worsening or failure for symptoms [facility] 06-21-2023 Miscellaneous Notes Associated Problem(s): Cellulitis of left lower extremity Nontoxic appearing. Will treat with Keflex and Bactrim follow-up for worsening or failure for symptoms documented in this encounter [facility] 06-21-2023 History of Present illness Narrative Images from the original note [...] Positive for color change and rash. Vitals: 06/21/23 1103 BP: 129/86 Pulse: 97 Resp: 24 [...] Demetria Menjivar MA. documented in this encounter [facility] 05-27-2023 Hospital Discharge instructions Yamila Singh DO - 05/27/2023 12:17 [...] be sent through Care Everywhere.Skin Rash ED (Welsh)Lyme Disease Test (Welsh)documented in this encounter [facility] 05-26-2023 Emergency department Note EMERGENCY DEPARTMENT ENCOUNTER [...] SURGERY ON 07/07/2017 Neuropathy RA (rheumatoid arthritis) ([facility]) Tobacco abuse SURGICAL HISTORY Past Surgical History: Procedure Laterality Date APPENDECTOMY 2018 BREAST BIOPSY Right 2016 COLONOSCOPY W/ BIOPSIES AND POLYPECTOMY N/A 12/28/2022 Performed by Kimberly Lay MD at [facility] [address] ENDOSCOPY COLPOSCOPY ENDOMETRIAL [...] Mother Thyroid disease Mother COPD Mother Other ([id number]) Father pneumonia aspiration Breast cancer Maternal Grandmother [...] AM PATIENT REFERRED TO: Gamaliel Cormier MD [address] [place], [address] [facility] [address] [facility] [address] [facility] [phone] As needed, If symptoms worsen DISCHARGE [...] Pt verbalizes understanding. Pt amb indep to pr area, home w friend documented in this encounter [facility] 05-26-2023 Emergency department Triage note Pt presents to the ED for a rash. Pt noticed a small round rash on left forearm today. Pt concerned it may be a bullseye rash/lyme disease. Pt did not get bit by a tick. Pt admits to itching a site. Pt denies pain or discomfort [facility] 05-26-2023 Emergency department Triage note Dc instructions and follow up care given to pt. Pt verbalizes understanding. Pt amb indep to pr area, home w friend [facility] 05-26-2023 Physician Emergency department Note EMERGENCY DEPARTMENT [...] SURGERY ON 07/07/2017 Neuropathy RA (rheumatoid arthritis) ([facility]) Tobacco abuse SURGICAL HISTORY Past Surgical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 Interpreter/Translator Relationship Specialty Start Date End Date Gamaliel Cormier MD [address] [facility] [place] [address] PCP - General Family Medicine 05/27/23 Spanish Interpreter/Translator Relationship Specialty Start Date End Date Gamaliel Cormier MD [address] [facility] [place] [address] PCP - General Family Medicine 05/27/23 Spanish Interpreter/Translator Relationship Specialty Start Date End Date Gamaliel Cormier MD [address] [facility] [place] [address] PCP - General Family Medicine 05/27/23 Spanish Interpreter/Translator Relationship Specialty Start Date End Date Gamaliel Cormier MD [address] [facility] [place] [address] PCP - General Family Medicine 05/27/23 Spanish Interpreter/Translator Relationship Specialty Start Date End Date Gamaliel Cormier MD [address] [facility] [place] [address] PCP - General Family Medicine 05/27/23 Spanish Interpreter/Translator Relationship Specialty Start Date End Date Gamaliel Cormier MD [address] [facility] [place] [address] PCP - General Family Medicine 05/27/23 Spanish Interpreter/Translator Relationship Specialty Start Date End Date Gamaliel Cormier MD [address] [facility] [place] [address] PCP - General Family Medicine 05/27/23 Spanish Interpreter/Translator Relationship Specialty Start Date End Date Gamaliel Cormier MD [address] [facility] [place] [address] PCP - General Family Medicine 05/27/23 Spanish Interpreter/Translator Relationship Specialty Start Date End Date Gamaliel Cormier MD [address] [facility] [place] [address] PCP - General Family Medicine 05/27/23 Spanish Interpreter/Translator Relationship Specialty Start Date End Date Gamaliel Cormier MD [address] [facility] [place] [address] PCP - General Family Medicine 05/27/23 Spanish Interpreter/Translator Relationship Specialty Start Date End Date Gamaliel Cormier MD [address] [facility] [place] [address] PCP - General Family Medicine 05/27/23 Spanish Interpreter/Translator Relationship Specialty Start Date End Date Gamaliel Cormier MD [address] [facility] [place] [address] PCP - General Family Medicine 05/27/23 Spanish Interpreter/Translator Relationship Specialty Start Date End Date Gamaliel Cormier MD [address] [facility] [place] [address] PCP - General Family Medicine 05/27/23 Spanish Interpreter/Translator Relationship Specialty Start Date End Date Gamaliel Cormier MD [address] [facility] [place] [address] PCP - General Family Medicine 05/27/23 Spanish Interpreter/Translator Relationship Specialty Start Date End Date Gamaliel Cormier MD [address] [facility] [place] [address] PCP - General Family Medicine 05/27/23 Spanish Interpreter/Translator Relationship Specialty Start Date End Date Gamaliel Cormier MD [address] [facility] [place] [address] PCP - General Family Medicine 05/27/23 Spanish Interpreter/Translator Relationship Specialty Start Date End Date Gamaliel Cormier MD [address] [facility] [place] [address] PCP - General Family Medicine 05/27/23 Spanish Interpreter/Translator Relationship Specialty Start Date End [place] [address] PCP - General 03/14/19 Spanish Interpreter/Translator Relationship Specialty Start Date End Date [place] [address] PCP - General 03/14/19 Spanish Interpreter/Translator Relationship Specialty Start Date End Date Gamaliel Cormier MD [facility] [place] [address] PCP - General 03/14/19 Spanish Interpreter/Translator Relationship Specialty Start Date End Date [place] [address] PCP - General 03/14/19 Spanish Interpreter/Translator Relationship Specialty Start Date End Date [place] [address] PCP - General 03/14/19 Spanish Interpreter/Translator Relationship Specialty Start Date End Date Gamaliel Cormier MD [address] [place], [place] [address] [address] PCP - General 03/14/19 Spanish Interpreter/Translator Relationship Specialty Start Date End Date Gamaliel Cormier MD [address] [place], [place] [address] [address] PCP - General 03/14/19 Spanish Interpreter/Translator Relationship Specialty Start Date End Date Gamaliel Cormier MD [address] [place], [place] [address] [address] PCP - General 03/14/19 Spanish Interpreter/Translator Relationship Specialty Start Date End Date Gamaliel Cormier MD 25 [place] [address] PCP - General 03/14/19 Spanish Interpreter/Translator Relationship Specialty Start Date End Date [place] [address] PCP - General 03/14/19 Spanish Interpreter/Translator Relationship Specialty Start Date End Date [place] [address] PCP - General 03/14/19 Spanish Interpreter/Translator Relationship Specialty Start Date End Date Gamaliel Cormier MD [address] [place] [address] PCP - General 03/14/19 Spanish Interpreter/Translator Relationship Specialty Start Date End [place] [address] PCP - General 03/14/19 Spanish Interpreter/Translator Relationship Specialty Start Date End Date Gamaliel Cormier MD [address] [place] [address] PCP - General Family Medicine 05/27/23 Spanish Interpreter/Translator Relationship Specialty Start Date End Date Gamaliel Cormier MD [address] [place] [address] PCP - General Family Medicine 05/27/23 Spanish Interpreter/Translator Relationship Specialty Start Date End Date Gamaliel Cormier MD [address] [place] [address] PCP - General Family Medicine 05/27/23 Spanish Interpreter/Translator Relationship Specialty Start Date End Date Gamaliel Cormier MD [address] [facility] [place] [address] PCP - General Family Medicine 05/27/23 Spanish Interpreter/Translator Relationship Specialty Start Date End Date Gamaliel Cormier MD [address] [facility] [place] [address] PCP - General Family Medicine 05/27/23 Spanish Interpreter/Translator Relationship Specialty Start Date End Date Gamaliel Cormier MD [address] [facility] [place] [address] PCP - General Family Medicine 05/27/23 Spanish Interpreter/Translator Relationship Specialty Start Date End Date Gamaliel Cormier MD [facility] [place] [address] PCP - General Family Medicine 05/27/23 Team Status: Active Member Role Status Dates Dr. Gamaliel Cormier MD Primary Care Provider Active Team Status: Inactive Member Role Status Dates Dr. Makenzie Magallon DO Emergency Provider Active Start: May 13, 2025 End: May 14, 2025 Dr. Gamaliel Cormier MD Primary Care Provider Active Start: May 13, 2025 End: May 14, 2025 Spanish Interpreter/Translator Relationship Specialty Start Date End Date Gamaliel Cormier MD [address] [facility] [place] [address] PCP - General Family Medicine 05/27/23 Spanish Interpreter/Translator Relationship Specialty Start Date End Date Gamaliel Cormier MD [address] [facility] [place] [address] PCP - General Family Medicine 05/27/23 Spanish Interpreter/Translator Relationship Specialty Start Date End Date Gamaliel Cormier MD [address] [facility] [place] [address] PCP - General Family Medicine 05/27/23 Spanish Interpreter/Translator Relationship Specialty Start Date End Date Gamaliel Cormier MD [address] [facility] [place] [address] PCP - General Family Medicine 05/27/23 Spanish Interpreter/Translator Relationship Specialty Start Date End Date Gamaliel Cormier MD 25 [facility] [place] [address] PCP - General Family Medicine 05/27/23 Spanish Interpreter/Translator Relationship Specialty Start Date End Date Gamaliel Cormier MD 25 [place] [address] PCP - General Family Medicine 05/27/23 Spanish Interpreter/Translator Relationship Specialty Start Date End Date Gamaliel Cormier MD 25 [facility] [place] [address] PCP - General Family Medicine 05/27/23 Spanish Interpreter/Translator Relationship Specialty Start Date End Date Gamaliel Cormier MD [address] [place], [place] [address] [address] PCP - General Family Medicine 05/27/23 Spanish Interpreter/Translator Relationship Specialty Start Date End Date Gamaliel Cormier MD [address] [facility] [place] [address] PCP - General Family Medicine 05/27/23 Scheduled [...] that apply): Skin and Soft Tissue Infection 002 (Given - Provid er: Salina Bull RN) fluconazole (Diflucan) tablet 100 mg (COMPLETED) 100 mg, Oral, Once, On 05/27/23 at 0020, For 1 dose, Coverage: Paige albicans, Infection Site: Vaginal 0025 (Given - Provid er: Salina Bull RN) Scheduled Medication Order 08/26/2023 08/27/2023 08/28/2023 acetaminophen (Tylenol) tablet 650 mg (COMPLETED) 650 mg, Oral, Once, On 08/28/23 at 2115, For 1 dose, Maximum dose [...] On Mon08/28/23 at 2225, For 1 dose 2228 (New Bag - Prov ider: Padmini Brown RN)2328 (Stopped - Provider: Martha Prather RN) Scheduled [...] APRN - KELLIE)1306 (New Bag - Provider: LAKIA Flores CRNA)1321 (Paused - Provider: LAKIA Flores CRNA - Comment: Switch to gravity)1322 (Restarted - Provider: LAKIA Flores CRNA)1329 (Stopped - Provider: Kaley Merritt APRN - KELLIE) sodium chloride 0.9 % infusion 5-250 mL/hr, [...] mg from all sources in 24 hours. 193 (Given - Provid er: Holly Hanson RN) [...] (Given - Provid er: Holly Hanson RN) Scheduled Medication Order 05/13/2025 05/14/2025 05/15/2025 HYDROcodone-acetaminophen ([place]) 5-325 MG per tablet 1 tablet (COMPLETED) 1 tablet, Oral, Once, On Awilda 05/15/25 at 1615, For 1 dose, Maximum dose of acetaminophen is 4000 mg from all sources in 24 hours. 1655 (Given - Provid er: Ayana Robles RN) Lidocaine 4 % patch 1 patch 1 patch, TransDERmal, Administer over 12 Hours, Once, On Awilda 05/15/25 at 1615, For 1 dose, Apply patch to left lower back. Patch may remain in place for up to 12 hours in any 24 hour period. 1655 (Medication Anselmo lied - Provider: Ayana Robles RN)172 (Due: Medication Removed - Provider: Automatic Discharge Provider - Comment: Time automatically adjusted from order being discontinued) ondansetron ODT (Zofran-ODT) disintegrating tablet 4 mg (COMPLETED) 4 mg, Oral, Once, On Awilda 6/19/25 at 1655, For 1 dose 165 (Given - Provid er: Ayana Robles RN) Scheduled Medication Order 09/25/2025 09/26/2025 09/27/2025 ipratropium-albuterol (Duo-Neb) 0.5-2.5 mg/3 mL nebulizer solution 3 mL (COMPLETED) 3 mL, Nebulization, Once, On 09/27/25 at 1815, For 1 dose 1825 (Given - Provid er: Sury Brooke RN) predniSONE (Deltasone) tablet 40 mg (COMPLETED) 40 mg, Oral, Once, On 09/27/25 at 1815, For 1 dose 1825 (Given - Provid er: Sury Brooke RN) Goals (unrecognized section and content) Goals may be documented in a n alternate section FOR RECORDS PERTAINING TO PATIENTS WHO ARE [...] BE BASED ON THE PRIMARY CLINICAL RECORDS. [employer] provides no warranty or guarantee of the accuracy or completeness of information in this document.
[2025-10-12 18:46] LABS: Hematocrit 35.9 % (37-47); Hemoglobin 12.2 g/dL (12.0-15.0); Immature Granulocytes Count 0.030 X10^3/uL (0.0-0.0); Mean Corp Hgb Conc 34.0 g/dL (32-36); Mean Corpuscular Volume 93.2 fL (81-99); Mean Platelet Vol. 9.2 fl (6.2-12.0); NRBC Flagged by Analyzer 0 % (0-5); Platelet Count 295 K/mm3 (150-450); RBC Distribution Width CV 13.1 % (11.6-14.6); RBC Distribution Width SD 44.8 fl (35.1-43.9); Red Blood Count 3.85 M/mm3 (4.2-5.4); White Blood Count 10.2 K/mm3 (4.4-11.0)
[2025-10-12 19:16] LABS: Anion Gap 9 (5-15); BUN 21 mg/dL (4-19); BUN/Creat Ratio 22.8 RATIO (10-20); Calcium,Total 9.0 mg/dL (7.6-11.0); Carbon Dioxide 23.7 mmol/L (21.0-32.0); Chloride 106 mmol/L (98-108); Glucose 107 mg/dL (70-99); Potassium 4.3 mmol/L (3.3-5.1)
[2025-10-12 19:45] VITALS: BP 143/87; PULSE 89; RESP 16; O2SAT 100
[2025-10-12 19:51] VITALS: BMI 29.1
[2025-10-12 21:35] VITALS: BP 139/90; PULSE 86; RESP 16; TEMP 36.9; O2SAT 97
== END 2025-10-12 21:36 | disposition home or self-care (01) ==
PROVIDERS: Emergency Provider Emergency Medicine; PCP Family Medicine; Visit Provider Emergency Medicine
DX: J45.909 Unspecified asthma, uncomplicated (principal); J02.9 Acute pharyngitis, unspecified; R68.83 Chills (without fever); I10 Essential (primary) hypertension; R05.9 Cough, unspecified; K21.9 Gastro-esophageal reflux disease without esophagitis; F17.210 Nicotine dependence, cigarettes, uncomplicated; R07.9 Chest pain, unspecified; R11.0 Nausea; R51.9 Headache, unspecified; M54.2 Cervicalgia
CPT/HCPCS: 71046; 80048; 85025; 87631; 94640; 99283; A4216